=== PATIENT | female | born 1935 | race Caucasian/White ===

== ENCOUNTER → 2016-06-28 | Outpatient (CLI) | payer OTHER, BC ==
[~2016-06-28] MED LIST: BECL0.3A INH; CALC-51 PO; CYM30 PO; HYOS0.1271 PO; LEVO100T7 PO; MESA800T6 PO; MULT-506 PO; OLME20TA26 PO; OMEG12006 PO; OXYC-643 PO; PRAV40TA2 PO; PRED-301 PO; PROP1SOL OPB; RISE150T PO
== END | disposition home or self-care (01) ==
LOC: C.LAB1850 09:01
PROVIDERS: ATTEND Internal Medicine Rheumatology
DX: M81.0 Age-related osteoporosis without current pathological fracture (principal); M35.3 Polymyalgia rheumatica; R70.0 Elevated erythrocyte sedimentation rate; S32.9XXA Fracture of unspecified parts of lumbosacral spine and pelvis, initial encounter for closed fracture; E55.9 Vitamin D deficiency, unspecified; X58.XXXA Exposure to other specified factors, initial encounter

== ENCOUNTER → 2016-07-11 | Outpatient (CLI) | payer OTHER, BC ==
--- NOTE | 2016-07-11 09:59 | DIAGNOSTIC IMAGING REPORT ---
PELVIS 1 OR 2 VIEW ROUTINE CLINICAL HISTORY: Fall. Pelvic pain. COMPARISON STUDY: Pelvic CT 06/12/2016. FINDINGS: The bones are osteopenic. No acute fracture or dislocation within the proximal right or left femur. Patchy areas of sclerosis within the right superior and inferior pubic rami are consistent with healing fractures. No new/acute fractures identified pelvis. 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 The visualized sacrum appears intact. Soft tissues are unremarkable. IMPRESSION: 1. Healing right pubic ring fractures. 2. Otherwise, no new/acute fractures or dislocation within the pelvis or hips. Electronically signed by: Kamari Escobar M.D. 07/11/2016 9:58 AM Dictated Date/Time: 07/11/2016 9:54 AM
== END | disposition home or self-care (01) ==
LOC: C.RAD 09:21
PROVIDERS: ATTEND Family Medicine
DX: S32.810D Multiple fractures of pelvis with stable disruption of pelvic ring, subsequent encounter for fracture with routine healing (principal); X58.XXXD Exposure to other specified factors, subsequent encounter; J22 Unspecified acute lower respiratory infection; J44.1 Chronic obstructive pulmonary disease with (acute) exacerbation

== ENCOUNTER → 2016-08-23 | Outpatient (CLI) | payer OTHER, BC ==
[2016-08-24 16:44] LABS: GAMMA GLOBULIN 1.1 G/DL (0.8-1.7); TOTAL PROTEIN 6.8 G/DL (6.2-8.3)
== END | disposition home or self-care (01) ==
LOC: C.LAB1850 10:58
PROVIDERS: ATTEND Internal Medicine Rheumatology
DX: M35.3 Polymyalgia rheumatica (principal); M81.0 Age-related osteoporosis without current pathological fracture; R70.0 Elevated erythrocyte sedimentation rate; E55.9 Vitamin D deficiency, unspecified; S32.9XXA Fracture of unspecified parts of lumbosacral spine and pelvis, initial encounter for closed fracture; X58.XXXA Exposure to other specified factors, initial encounter

== ENCOUNTER → 2016-09-03 | Outpatient (CLI) | payer OTHER, BC ==
[2016-09-03 10:23] LABS: CHOLESTEROL/HDL RATIO 2.2
== END | disposition home or self-care (01) ==
LOC: C.LAB1850 08:46
PROVIDERS: ATTEND Internal Medicine Cardiovascular Disease
DX: E78.00 Pure hypercholesterolemia, unspecified (principal); I10 Essential (primary) hypertension

== ENCOUNTER → 2016-09-24 | Outpatient (CLI) | payer OTHER, BC ==
[~2016-09-24] MED LIST changes: +MESA1TAB4 PO; -MESA800T6 PO
== END | disposition home or self-care (01) ==
LOC: C.LAB1850 11:03
PROVIDERS: ATTEND Internal Medicine Rheumatology
DX: M81.0 Age-related osteoporosis without current pathological fracture (principal); M35.3 Polymyalgia rheumatica; R70.0 Elevated erythrocyte sedimentation rate; E55.9 Vitamin D deficiency, unspecified; S32.9XXA Fracture of unspecified parts of lumbosacral spine and pelvis, initial encounter for closed fracture; X58.XXXA Exposure to other specified factors, initial encounter

== ENCOUNTER → 2016-10-11 | Outpatient (CLI) | payer OTHER, BC ==
--- NOTE | 2016-10-11 15:00 | DIAGNOSTIC IMAGING REPORT ---
THORACIC SPINE 3-VIEWS CLINICAL HISTORY: Back pain. COMPARISON STUDY: Chest CT March 28, 2016. FINDINGS: There is mild S-shaped scoliosis of the thoracolumbar spine. No acute thoracic spine fracture is identified on this exam. There is moderate multilevel degenerative disc disease with disc space narrowing, osteophytosis and vacuum disc phenomenon. IMPRESSION: 1. Moderate multilevel degenerative disc disease of the thoracic spine. 2. Mild S-shaped scoliosis of the thoracolumbar spine. 3. No thoracic spine fracture identified. Electronically signed by: Rocael Clark M.D. 10/11/2016 2:58 PM Dictated Date/Time: 10/11/2016 2:56 PM
--- NOTE | 2016-10-11 15:42 | DIAGNOSTIC IMAGING REPORT ---
LUMBAR SPINE 5 VIEWS CLINICAL HISTORY: Chronic low back pain. FINDINGS: Five views of the lumbar spine are compared to study dated 09/04/2011. The skeletal structures are osteopenic. There is no radiographic evidence of acute fracture or malalignment involving the lumbar spine. The transverse and spinous processes appear intact. Vertebral body height and alignment are maintained. There is thoracolumbar levocurvature. Small anterior osteophytes are seen throughout. Moderate facet arthropathy is present in the mid to lower lumbar region. There is advanced degenerative disc space narrowing at L5-S1 with vacuum phenomenon and endplate sclerosis. Moderate narrowing is seen at the remaining lumbar levels. The visualized bony pelvis appears intact. Sclerotic change is noted in the sacroiliac joints. There is a nonobstructed abdominal bowel gas pattern noting moderate constipation. Atherosclerotic calcification is observed in the abdominal aorta. IMPRESSION: 1. No acute bony abnormality is seen involving the lumbosacral spine. 2. Osteopenia with lumbosacral spondylosis and scoliosis as above. This appears modestly progressed from the 2012 examination. Dictated: 10/11/2016 3:23 PM Transcribed: 10/11/2016 3:41 PM Elizabeth Electronically signed by: Fox Stratton M.D. 10/11/2016 3:43 PM Dictated Date/Time: 10/11/2016 3:23 PM
== END | disposition home or self-care (01) ==
LOC: C.RDSM 14:37
PROVIDERS: ATTEND Internal Medicine
DX: M47.817 Spondylosis without myelopathy or radiculopathy, lumbosacral region (principal); M85.88 Other specified disorders of bone density and structure, other site; M41.9 Scoliosis, unspecified; M51.34 Other intervertebral disc degeneration, thoracic region

== ENCOUNTER → 2016-10-30 | Outpatient (CLI) | payer OTHER, BC | END | disposition home or self-care (01) | LOC: C.LAB1850 10:27 | PROVIDERS: ATTEND Internal Medicine Rheumatology | DX: M81.0 Age-related osteoporosis without current pathological fracture (principal); M35.3 Polymyalgia rheumatica; E55.9 Vitamin D deficiency, unspecified ==

== ENCOUNTER → 2016-10-31 | Outpatient (CLI) | payer OTHER, BC ==
--- NOTE | 2016-10-31 09:42 | DIAGNOSTIC IMAGING REPORT ---
RIGHT TIBIA/FIBULA 2 VIEWS CLINICAL HISTORY: RIGHT TIB/FIB PAIN Right COMPARISON: None. DISCUSSION: The bones and joint spaces appear intact. There is no evidence of fracture, dislocation or bony disease. There is no evidence for soft tissue swelling. IMPRESSION: Negative study. Electronically signed by: Hesham Smith M.D. 10/31/2016 9:40 AM Dictated Date/Time: 10/31/2016 9:40 AM
== END | disposition home or self-care (01) ==
LOC: C.RDSM 09:20
PROVIDERS: ATTEND Internal Medicine
DX: M79.661 Pain in right lower leg (principal); M54.6 Pain in thoracic spine

== ENCOUNTER → 2016-11-13 | Outpatient (CLI) | payer OTHER, BC | END | disposition home or self-care (01) | LOC: C.MAMM 14:12 | PROVIDERS: ATTEND Internal Medicine Rheumatology | DX: M85.851 Other specified disorders of bone density and structure, right thigh (principal); M85.852 Other specified disorders of bone density and structure, left thigh; M81.0 Age-related osteoporosis without current pathological fracture ==

== ENCOUNTER → 2016-12-03 | Outpatient (CLI) | payer OTHER, BC ==
[2016-12-03 12:21] LABS: BASO % 0.3 %; BASO ABS # 0.02 K/uL (0-0.2); COMPLETE YES; EOS % 0.8 %; HEMATOCRIT 39.2 % (37-47); IG% 0.3 %; LYMPH % 10.1 %; LYMPH ABS # 0.76 K/uL (1.2-3.4); MEAN CELL VOLUME 94.7 fL (80-100); MEAN CORPUSCULAR HEMOGLOBIN 30.4 pg (25-34); MEAN CORPUSCULAR HGB CONC 32.1 g/dl (32-36); MEAN PLATELET VOLUME 11.1 fL (7.4-10.4); MONO % 6.7 %; NEUT % 81.8 %; PLATELET COUNT 210 K/uL (130-400); RED BLOOD COUNT 4.14 M/uL (4.2-5.4); WHITE BLOOD COUNT 7.51 K/uL (4.8-10.8)
== END | disposition home or self-care (01) ==
LOC: C.LAB1850 10:08
PROVIDERS: ATTEND Internal Medicine Rheumatology
DX: J44.9 Chronic obstructive pulmonary disease, unspecified (principal); R06.02 Shortness of breath; M81.0 Age-related osteoporosis without current pathological fracture; M35.3 Polymyalgia rheumatica; S32.9XXA Fracture of unspecified parts of lumbosacral spine and pelvis, initial encounter for closed fracture; X58.XXXA Exposure to other specified factors, initial encounter

== ENCOUNTER → 2016-12-25 | Outpatient (CLI) | payer OTHER, BC ==
[~2016-12-25] MED LIST changes: -MESA1TAB4 PO; +MESA800T6 PO
--- NOTE | 2016-12-26 07:39 | MAMMOGRAPHY REPORT ---
BILATERAL DIGITAL SCREENING MAMMOGRAM WITH CAD: 12/25/2016 CLINICAL HISTORY: Routine screening. Patient has no complaints. TECHNIQUE: Bilateral CC and MLO views were obtained. Current study was also evaluated with a Comput er Aided Detection (CAD) system. COMPARISON: Comparison is made to exams dated: 12/22/2015 mammogram, 04/28/2014 mammogram, 12/12/2012 m ammogram, 11/28/2011 mammogram, 11/07/2010 mammogram, and 11/03/2009 mammogram - [facility] enter. BREAST COMPOSITION: The tissue of both breasts is heterogeneously dense, which may obscure small mas ses. FINDINGS: The parenchymal pattern is similar to prior mammograms. There are a few stable benign rim calcifications in the right breast. No developing mass, architectural distortion or cluster of susp icious microcalcifications is seen in either breast. IMPRESSION: ACR BI-RADS CATEGORY 2: BENIGN There is no mammographic evidence of malignancy. A 1 year screening mammogram is recommended. The pa tient will receive written notification of the results. Approximately 10% of breast cancers are not detected with mammography. A negative mammographic report should not delay biopsy if a clinically suggestive mass is present. Kelly Jim M.D. ay/:12/25/2016 15:43:05 Eating Disorder Specialist: Crissy RASHID(George)(M), [facility] letter sent: Normal 1/2 BI-RADS Code: ACR BI-RADS Category 2: Benign
== END | disposition home or self-care (01) ==
LOC: C.MAMM 11:19
PROVIDERS: ATTEND Family Medicine
DX: Z12.31 Encounter for screening mammogram for malignant neoplasm of breast (principal)

== ENCOUNTER → 2017-01-07 | Outpatient (CLI) | payer OTHER, BC | END | disposition home or self-care (01) | LOC: C.LAB1850 10:02 | PROVIDERS: ATTEND Internal Medicine Rheumatology | DX: M81.0 Age-related osteoporosis without current pathological fracture (principal); M35.3 Polymyalgia rheumatica; E55.9 Vitamin D deficiency, unspecified ==

== ENCOUNTER → 2017-02-19 | Outpatient (CLI) | payer OTHER, BC | END | disposition home or self-care (01) | LOC: C.LAB1850 07:55 | PROVIDERS: ATTEND Internal Medicine Rheumatology | DX: M35.3 Polymyalgia rheumatica (principal); S22.080A Wedge compression fracture of T11-T12 vertebra, initial encounter for closed fracture; X58.XXXA Exposure to other specified factors, initial encounter; Z79.52 Long term (current) use of systemic steroids; J44.9 Chronic obstructive pulmonary disease, unspecified ==

== ENCOUNTER → 2017-03-08 | Outpatient (CLI) | payer OTHER, BC ==
[2017-03-08 10:08] LABS: CHOLESTEROL/HDL RATIO 2.3
== END | disposition home or self-care (01) ==
LOC: C.LAB1850 08:00
PROVIDERS: ATTEND Internal Medicine Cardiovascular Disease
DX: E78.00 Pure hypercholesterolemia, unspecified (principal); K51.90 Ulcerative colitis, unspecified, without complications; M35.3 Polymyalgia rheumatica; E55.9 Vitamin D deficiency, unspecified; Z87.81 Personal history of (healed) traumatic fracture

== ENCOUNTER → 2017-03-21 | Outpatient (CLI) | payer OTHER, BC ==
[2017-03-21 15:16] LABS: BLOOD UREA NITROGEN 9 mg/dl (7-18); BUN/CREATININE RATIO 14.7 (10-20); CALCIUM 9.5 mg/dl (8.5-10.1); CARBON DIOXIDE 32 mmol/L (21-32); CHLORIDE 105 mmol/L (98-107); CREATININE 0.62 mg/dl (0.60-1.20); GLUCOSE 153 mg/dl (70-99); PHOSPHORUS 3.1 mg/dl (2.5-4.9); POTASSIUM 3.4 mmol/L (3.5-5.1); SODIUM 140 mmol/L (136-145)
== END | disposition home or self-care (01) ==
LOC: C.LAB1850 12:46
PROVIDERS: ATTEND Internal Medicine
DX: K51.90 Ulcerative colitis, unspecified, without complications (principal); R10.814 Left lower quadrant abdominal tenderness

== ENCOUNTER → 2017-03-22 | Outpatient (CLI) | payer OTHER, BC | END | disposition home or self-care (01) | LOC: C.LAB1850 13:07 | PROVIDERS: ATTEND Internal Medicine Rheumatology | DX: M35.3 Polymyalgia rheumatica (principal); E55.9 Vitamin D deficiency, unspecified ==

== ENCOUNTER → 2017-03-26 | Outpatient (CLI) | payer OTHER, BC ==
--- NOTE | 2017-03-26 16:08 | DIAGNOSTIC IMAGING REPORT ---
ABD/PELVIS IV AND ORAL CONT CLINICAL HISTORY: 81 years-old Female presenting with ULCERATIVE COLITIS, left lower quadrant pain. TECHNIQUE: Multidetector CT of the abdomen and pelvis was performed after the administration of oral and intravenous contrast. IV contrast: 89 mL of Optiray 320. A dose lowering technique was used consistent with the principles of ALARA (as low as reasonably achievable). COMPARISON: 11/24/2015. CT DOSE (mGy.cm): The estimated cumulative dose is 322.76 mGycm. 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 Lung bases: Lung bases clear. Multichamber enlargement of the heart. No pericardial or pleural effusion. Liver: Normal morphology. No liver lesion. Patent hepatic vasculature. Biliary: Mild intrahepatic bladder ductal prominence without evidence of obstructing mass. Common duct normal in caliber for age. There may be low insertion of the cystic duct at the level of pancreatic head. Irregularity and enhancement of the fundus likely relates to adenomyomatosis. Pancreas: Normal. Spleen: Normal. Adrenal glands: Right adrenal gland poorly visualized. Left adrenal gland normal. Kidneys and ureters: Well-defined hypodensity at the upper pole right kidney consistent with simple cyst. No hydronephrosis. No nephrolithiasis. Ureters poorly evaluated secondary to paucity of intra-abdominal fat. Bladder: Normal. Pelvic organs: Uterus and ovaries normal allowing for noncontrast technique. Bowel: Large stool burden in the colon with mild distention of the transverse and right colon. Normal appendix. No pneumatosis. No bowel obstruction. Small hiatal hernia likely present. Mild apparent wall thickening of the gastric antrum. No convincing evidence of bowel wall thickening elsewhere. Peritoneal cavity: No free fluid or intraperitoneal gas. Lymph nodes: No enlarged lymph nodes in the abdomen or pelvis. Vasculature: Atherosclerosis of the normal caliber abdominal aorta. IVC patent. Abdominal wall: Normal. Musculoskeletal: Post traumatic deformity of the right inferior and superior pubic rami. Degenerative changes of the spine. Mild osteopenia. IMPRESSION: 1. Large stool burden with mild colonic distention. No evidence of acute or chronic chronic inflammation of the large bowel. 2. Mild apparent gastric wall thickening. Although this could be due to underdistention, this could suggest gastritis. Electronically signed by: Brendan Villanueva M.D. 03/26/2017 4:07 PM Dictated Date/Time: 03/26/2017 3:59 PM
== END | disposition home or self-care (01) ==
LOC: C.CTS 13:41
PROVIDERS: ATTEND Internal Medicine
DX: K51.90 Ulcerative colitis, unspecified, without complications (principal); R10.814 Left lower quadrant abdominal tenderness; J44.9 Chronic obstructive pulmonary disease, unspecified; R91.8 Other nonspecific abnormal finding of lung field

== ENCOUNTER → 2017-04-05 | Outpatient (CLI) | payer OTHER, BC ==
--- NOTE | 2017-04-05 08:56 | DIAGNOSTIC IMAGING REPORT ---
CT SCAN OF THE CHEST WITHOUT IV CONTRAST CLINICAL HISTORY: Emphysema. Pulmonary nodule follow-up. COMPARISON STUDY: Chest CT scans dated 03/28/2016 and 08/31/2014. TECHNIQUE: CT scan of the chest is performed from the thoracic inlet to the upper abdomen. Images are reviewed in the axial, sagittal, and coronal planes. IV contrast was not administered for this examination as per the referring clinician. A dose lowering technique was utilized consistent with the principles of ALARA. FINDINGS: THYROID: Atrophic. THORACIC AORTA: There is atherosclerotic calcification of the thoracic aorta which is normal in caliber and demonstrates standard 3-vessel arch anatomy. HEART: The heart is enlarged and there is trace pericardial fluid. There are coronary artery calcifications. The main pulmonary arteries are dilated suggesting pulmonary artery hypertension. MEDIASTINUM: There is no mediastinal lymphadenopathy. LAKISHA: Not well assessed without IV contrast. AXILLAE: There are shotty left axillary lymph nodes. LUNGS AND PLEURAL SPACES: Emphysema and apical scarring are identified. 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 No airspace consolidation or pleural effusion is identified. Foci of linear atelectasis versus scarring are again seen at the lung bases. There are numerous (greater than 10) 2 to 3 mm pulmonary nodules. These are overall similar in size and distribution dating back to 08/31/2014. The largest nodule is seen in the left upper lobe on image #63 and measures 5 mm. The trachea and central airways are clear. UPPER ABDOMEN: There is a small hiatal hernia. Partially visualized upper abdominal viscera is otherwise within normal limits. SKELETAL STRUCTURES: The skeletal structures are osteopenic. No lytic or blastic bony lesions are seen. Degenerative changes and kyphoscoliosis are present in the thoracic spine. Degenerative changes are also seen in the shoulders. IMPRESSION: 1. Cardiomegaly and emphysema. There is no acute cardiopulmonary abnormality. 2. There is unchanged appearance of numerous (greater than 10) indeterminant but low suspicion pulmonary nodules measuring up to 5 mm dated back to 08/31/2014. These are of doubtful significance given over 2 years of stability. 3. Additional findings as above. Electronically signed by: Fox Stratton M.D. 04/05/2017 8:55 AM Dictated Date/Time: 04/05/2017 8:43 AM
== END | disposition home or self-care (01) ==
LOC: C.CTS 08:29
PROVIDERS: ATTEND Internal Medicine Pulmonary Disease
DX: J44.9 Chronic obstructive pulmonary disease, unspecified (principal); R91.8 Other nonspecific abnormal finding of lung field; I51.7 Cardiomegaly

== ENCOUNTER → 2017-07-30 | Outpatient (CLI) | payer OTHER, BC ==
[~2017-07-30] MED LIST changes: +MESA1TAB4 PO; -MESA800T6 PO
--- NOTE | 2017-07-30 18:00 | EXERCISE STRESS ECHO ---
*NOTICE TO RECEIVING LIBERTARIAN AGENCY This information is strictly Confidential and protected under [place] law. [place] law prohibits you from making any further disclosure of this information unless further disclosure is expressly permitted by the written consent of the person to whom it pertains or is authorized by law. A general authorization for the release of medical or other information is not sufficient for this purpose. Hospital accepts no responsibility if the information is made available to any other person, INCLUDING THE PATIENT. Interpretation Summary * Name: MERY SHETH Study Date: 07/30/2017 12:36 PM BP: 157/86 mmHg * Patient Location: [facility] HR: 65 * : 1935 (M/d/yyyy) Gender: Female Height: 64 in * Age: 82 yrs Ethnicity: CA Weight: 119 lb * Ordering Physician: Trent Osorio * Referring Physician: Trent Osorio * Performed By: Debora Mendoza RCS * * Reason For Study: A-Typical Chest Pain, COPD * BSA: 1.6 m2 * -- Conclusions -- * Left ventricular systolic function is normal. * Grade I diastolic dysfunction, (abnormal relaxation pattern). * The right ventricular systolic function is reduced as assessed by tricuspid annular plane systolic excursion (TAPSE) (TAPSE <1.6 cm). * The right atrium is mildly dilated. * Right ventricular systolic pressure is normal. * Diagnostic exercise echocardiogram without definitive evidence of inducible ischemia. Procedure Details * ECHOEX, CPT #[id number] * ECHO COLOR FLOW, CPT #[id number] * ECHO DOPPLER, CPT #[id number] Left Ventricular Findings with Stress * Diagnostic exercise echocardiogram without definitive evidence of inducible ischemia. Left Ventricle * The left ventricle is normal in size. * There is normal left ventricular wall thickness. * Ejection Fraction = 55-60%. * Left ventricular systolic function is normal. * Grade I diastolic dysfunction, (abnormal relaxation pattern). * The left ventricular wall motion is normal at rest. Right Ventricle * The right ventricle is grossly normal size. * The right ventricular systolic function is reduced as assessed by tricuspid annular plane systolic excursion (TAPSE) (TAPSE <1.6 cm). Atria * The left atrial size is normal. * The right atrium is mildly dilated. Mitral Valve * The mitral valve is grossly normal. * There is trace mitral regurgitation. Tricuspid Valve * The tricuspid valve is not well visualized, but is grossly normal. * There is mild tricuspid regurgitation. * Right ventricular systolic pressure is normal. Aortic Valve * The aortic valve is normal in structure and function. * The aortic valve is trileaflet. * No hemodynamically significant valvular aortic stenosis. * Trace aortic regurgitation. Great Vessels * The aortic root is normal size. Pericardium * There is no pericardial effusion. Stress Parameters * Normal baseline electrocardiogram. * There were some minor flattening of the ST segments in recovery * The stress portion of this study was personally supervised by the undersigned interpreting physician. * Rest heart rate was '65' BPM. * Rest blood pressure was '157/86' * Maximum heart rate achieved was 164 bpm. * Maximum heart rate was 117 % of maximum age-predicted heart rate. * Maximum blood pressure was '202/112' * Total exercise time was '6:31' * Maximum exercise MET level achieved was '7.7' METS * Maximum treadmill speed was '3.4' miles per hour. * Maximum treadmill elevation was '14'% grade. * Exercise was terminated due to 'Dyspnea' Left Ventricular Findings with Stress * Baseline EKG was normal There was some mild ST segment flattening in recovery Baseline echocardiogram was normal There was normal augmentation of all moran without development of wall motion abnormality at peak exertion There was a hypertensive response to exercise There were symptoms of dyspnea at peak exertion [place] treadmill score: 6 (low risk) MMode 2D Measurements and Calculations IVSd 0.96 cm IVSs 1.2 cm LVIDd 5.2 cm LVIDs 3.6 cm LVPWd 1.0 cm LVPWs 1.2 cm IVS/LVPW 0.94 FS 30.9 % EDV(Teich) 131.5 ml ESV(Teich) 55.0 ml EF(Teich) 58.2 % EDV(cubed) 143.5 ml ESV(cubed) 47.3 ml EF(cubed) 67.1 % % IVS thick 28.8 % % LVPW thick 16.3 % LV mass(C)d 193.8 grams LV mass(C)dI 123.5 grams/m\S\2 LV mass(C)s 144.4 grams LV mass(C)sI 92.1 grams/m\S\2 SV(Teich) 76.5 ml SI(Teich) 48.8 ml/m\S\2 SV(cubed) 96.2 ml SI(cubed) 61.3 ml/m\S\2 Ao root diam 3.4 cm Ao root area 9.0 cm\S\2 ACS 1.5 cm LA dimension 3.9 cm asc Aorta Diam 3.8 cm LA/Ao 1.1 EDV(MOD-sp4) 97.0 ml ESV(MOD-sp4) 49.0 ml EF(MOD-sp4) 49.5 % EDV(MOD-sp2) 71.0 ml ESV(MOD-sp2) 33.0 ml EF(MOD-sp2) 53.5 % SV(MOD-sp4) 48.0 ml SI(MOD-sp4) 30.6 ml/m\S\2 SV(MOD-sp2) 38.0 ml SI(MOD-sp2) 24.2 ml/m\S\2 Doppler Measurements and Calculations MV E max kinza 80.9 cm/sec MV A max kinza 111.3 cm/sec MV E/A 0.73 MV P1/2t max kinza 85.7 cm/sec MV P1/2t 56.3 msec MVA(P1/2t) 3.9 cm\S\2 MV dec slope 446.0 cm/sec\S\2 MV dec time 0.22 sec Ao V2 max 124.6 cm/sec Ao max PG 6.2 mmHg Ao max PG (full) 1.1 mmHg AI max kinza 376.2 cm/sec AI max PG 56.6 mmHg AI dec slope 283.0 cm/sec\S\2 AI P1/2t 389.3 msec LV V1 max PG 5.1 mmHg LV V1 max 113.2 cm/sec PA V2 max 83.1 cm/sec PA max PG 2.8 mmHg TR max kinza 154.7 cm/sec
== END | disposition home or self-care (01) ==
LOC: C.CPL 12:28
PROVIDERS: ATTEND Family Medicine
DX: R07.89 Other chest pain (principal)

== ENCOUNTER → 2017-08-06 | Outpatient (CLI) | payer OTHER, BC | END | disposition home or self-care (01) | LOC: C.LAB1850 09:02 | PROVIDERS: ATTEND Internal Medicine Rheumatology | DX: M35.3 Polymyalgia rheumatica (principal); Z79.52 Long term (current) use of systemic steroids; E78.00 Pure hypercholesterolemia, unspecified ==

== ENCOUNTER → 2017-09-09 | Outpatient (CLI) | payer OTHER, BC | END | disposition home or self-care (01) | LOC: C.LAB1850 08:33 | PROVIDERS: ATTEND Internal Medicine Cardiovascular Disease | DX: E78.00 Pure hypercholesterolemia, unspecified (principal); M46.1 Sacroiliitis, not elsewhere classified; M35.3 Polymyalgia rheumatica; M41.9 Scoliosis, unspecified; M54.2 Cervicalgia; Z79.52 Long term (current) use of systemic steroids ==

== ENCOUNTER → 2017-10-08 | Outpatient (CLI) | payer OTHER, BC ==
--- NOTE | 2017-10-08 11:02 | DIAGNOSTIC IMAGING REPORT ---
CERVICAL SPINE 4 OR 5 VIEWS HISTORY: Pain NECK PAIN COMPARISON: None. FINDINGS: The cervical spine is visualized from C1 through the superior endplate of T1. Reversal of normal cervical curvature. Considerable degenerative disc changes throughout. This is most prominent from C5 through C7. Moderate osteophytic narrowing of the neuroforamina bilaterally at virtually all levels. Prevertebral soft tissues are unremarkable. Prevertebral soft tissues and the atlantodens interval are intact. IMPRESSION: Severe degenerative change primarily of the lower cervical spine. Muscle spasm. No acute bony abnormality. The above report was generated using voice recognition software. It may contain grammatical, syntax or spelling errors. Electronically signed by: Hesham Smith M.D. 10/08/2017 11:01 AM Dictated Date/Time: 10/08/2017 11:00 AM
== END | disposition home or self-care (01) ==
LOC: C.RDSM 16:56
PROVIDERS: ATTEND Internal Medicine
DX: M54.2 Cervicalgia (principal)

== ENCOUNTER → 2017-10-10 | Outpatient (CLI) | payer OTHER, BC | END | disposition home or self-care (01) | LOC: C.LAB1850 11:38 | PROVIDERS: ATTEND Internal Medicine Rheumatology | DX: M81.8 Other osteoporosis without current pathological fracture (principal); M46.1 Sacroiliitis, not elsewhere classified; M35.3 Polymyalgia rheumatica; Z87.81 Personal history of (healed) traumatic fracture; Z79.52 Long term (current) use of systemic steroids ==

== ENCOUNTER → 2018-01-14 | Outpatient (CLI) | payer OTHER, BC ==
[~2018-01-14] MED LIST changes: +BECL80AE7 INH; +BIOT1CAP8 PO; +BNC/40 PO; +BNC20 PO; +BUPR-79 PO; +CHOL1TAB42 PO; -HYOS0.1271 PO; +HYOS1TAB PO; +IBUP-1050 PO; +LEVO112T4 PO; +MESA800T5 PO; +MULT-513 PO; +OMEG10007 PO; +OXYC-57 PO; +OYST500T47 PO; +PRAV80TA2 PO; -PROP1SOL OPB
--- NOTE | 2018-01-15 14:54 | MAMMOGRAPHY REPORT ---
BILATERAL DIGITAL SCREENING MAMMOGRAM TOMOSYNTHESIS WITH CAD: 01/14/2018 CLINICAL HISTORY: Routine screening. TECHNIQUE: The study was acquired using full field digital technology and interpreted from soft copy. Breast tomosynthesis in addition to standard 2D mammography was performed. Current study was also ev aluated with a Computer Aided Detection (CAD) system. COMPARISON: Comparison is made to exams dated: 12/25/2016 mammogram, 12/22/2015 mammogram, 04/28/2014 m ammogram, 12/12/2012 mammogram, 11/28/2011 mammogram, and 11/07/2010 mammogram - [facility] enter. BREAST COMPOSITION: The tissue of both breasts is heterogeneously dense, which may obscure small mass es. FINDINGS: There are stable punctate microcalcifications in the breasts and stable benign rim calcific ations in the right breast. No suspicious mass, architectural distortion or new cluster of microcalc ifications is seen. IMPRESSION: ACR BI-RADS CATEGORY 1: NEGATIVE There is no mammographic evidence of malignancy. A 1 year screening mammogram is recommended.( 019) The patient will receive written notification of the results. Some breast cancers are not detected with mammography. A negative mammographic report should not andrew y biopsy if a clinically suggestive mass is present. Kelly Jim M.D. ay/:01/14/2018 15:08:48 Forestry Supervisor: RT Alejandro(George)(M), [facility] letter sent: Normal 1/2 BI-RADS Code: ACR BI-RADS Category 1: Negative
== END | disposition home or self-care (01) ==
LOC: C.MAMM 09:08
PROVIDERS: ATTEND Internal Medicine Cardiovascular Disease
DX: Z12.31 Encounter for screening mammogram for malignant neoplasm of breast (principal)

== ENCOUNTER 2018-01-20 08:54 | Emergency (ER) | payer OTHER, BC ==
[~2018-01-20] VITALS: Ht 152.4 cm; Wt 53.0 kg
[~2018-01-20 08:54] MED LIST changes: -BECL80AE7 INH; -BIOT1CAP8 PO; -BNC/40 PO; -BNC20 PO; -CHOL1TAB42 PO; -HYOS1TAB PO; -LEVO112T4 PO; -MESA800T5 PO; -MULT-513 PO; -OMEG10007 PO; -OXYC-57 PO; -OYST500T47 PO; -PRAV80TA2 PO; -PRED-301 PO
[2018-01-20 08:59] VITALS: TEMP 36.3; Ht 152.4 cm; Wt 53.0 kg
--- NOTE | 2018-01-20 09:43 | EMERGENCY ROOM VISIT NOTE ---
History Report prepared by Michaela: Shaquille Lopez Under the Supervision of: Dr. Gagandeep Rothman M.D. First contact with patient: 09:22 Chief Complaint: HYPERTENSION Stated Complaint: HIGH BLOOD PRESSURE History of Present Illness The patient is an 82 year old female who presents to the Emergency Room with complaints of waxing and waning high blood pressure readings. The patient notes that she has a history of hypertension and is on Benicar daily. Yesterday, the blood pressure increased acutely and she had a systolic pressure consistently in the 190s. [facility] and the pressure gradually came down. This morning the pressure was up again. She also complains of some swelling in her feet/ankles bilaterally. She denies any other physical symptoms including chest pain, shortness of breath, dizziness, or headache. Source of History: patient Onset: HTN in the 190s yesterday Position: ankle (bilateral), foot (bilateral) Quality: other (HTN, swelling in feetl/ankles) Timing: waxes/wanes Associated Symptoms: No headache, No chest pain, No SOB Review of Systems See HPI for pertinent positives & negatives. A total of 10 systems reviewed and were otherwise negative. Past Medical & Surgical Medical Problems: (1) Cervical facet syndrome (2) Cervicalgia (3) COPD (chronic obstructive pulmonary disease) (4) Depression (5) Hyperlipidemia (6) Hypertension (7) Hypothyroidism (8) Osteoarthritis (9) Osteoporosis (10) Ulcerative colitis Family History Patient reports no known family medical history. Social History Smoking Status: Former Smoker Marital Status: Occupation Status: retired Current/Historical Medications Scheduled Beclomethasone Dip (Qvar), 2 PUFFS INH BID Biotin (Biotin), 1 CAP PO DAILY Bupropion (Wellbutrin Sr), 150 MG PO BID Cholecalciferol (Vitamin D), 5,000 UNITS PO DAILY Fish Oil (Independence-3), 1 CAP PO UD Levothyroxine Sodium (Levothyroxine Sodium), 112 MCG PO DAILY Mesalamine (Asacol Hd), 800 MG PO TID Multivitamins/Minerals (Mvi With Minerals), 1 TAB PO DAILY Olmesartan Medoxomil (Benicar), 20 MG PO DAILY Olmesartan Medoxomil (Benicar), 1 TAB PO DAILY Oyster Shell (Calcium), 500 MG PO TID Pravastatin Sodium (Pravastatin Sodium), 80 MG PO HS Risedronate Sodium (Actonel), 150 MG PO MONTHLY Scheduled PRN Hyoscyamine Sulfate (Levsin), 0.125 MG PO TID PRN for ABDOMINAL PAIN Oxycodone/Acetaminophen 5MG/325MG (Percocet 5MG/325MG), 1 TABLET PO Q6H PRN for Pain Allergies Coded Allergies: Codeine (Verified Adverse Reaction, Unknown, NAUSEATED/LIGHTHEADED, 01/20/18 ) Physical Exam Vital Signs Date Time Temp Pulse Resp B/P (MAP) Pulse Ox O2 Delivery O2 Flow Rate FiO2 01/20/18 12:27 65 16 171/93 99 01/20/18 10:55 70 18 166/106 99 Room Air 01/20/18 10:25 80 17 160/87 98 Room Air 01/20/18 10:04 96 Room Air 01/20/18 09:49 65 01/20/18 08:59 36.3 71 18 181/97 99 Room Air Physical Exam GENERAL: Awake, alert, well-appearing, in no acute distress HENT: Normocephalic, atraumatic. Oropharynx unremarkable. EYES: Normal conjunctiva. Sclera non-icteric. NECK: Supple. No nuchal rigidity. FROM. No JVD. RESPIRATORY: Clear to auscultation. CARDIAC: Regular rate, normal rhythm. Extremities warm and well perfused. Pulses equal. ABDOMEN: Soft, non-distended. No tenderness to palpation. No rebound or guarding. No masses. RECTAL: Deferred. MUSCULOSKELETAL: Chest examination reveals no tenderness. The back is symmetrical on inspection without obvious abnormality. There is no CVA tenderness to palpation. No joint edema. LOWER EXTREMITIES: Calves are equal size bilaterally and non-tender. No edema. No discoloration. NEURO: Normal sensorium. No sensory or motor deficits noted. SKIN: No rash or jaundice noted. Medical Decision & Procedures ER Provider Diagnostic Interpretation: Radiology results as stated below per my review and radiologist interpretation: SINGLE VIEW CHEST CLINICAL HISTORY: Hypertension. FINDINGS: An AP, portable, upright chest radiograph is correlated with chest CT dated 04/05/2017. The examination is degraded by portable technique and patient rotation. The heart is enlarged and there is atherosclerotic calcification of the thoracic aorta. The pulmonary vasculature is noncongested. Emphysema and chronic interstitial thickening are similar to previous. No airspace consolidation or large pleural effusion is identified. No pneumothorax is seen. The skeletal structures are osteopenic. Degenerative change and scoliosis are noted in the thoracic spine. IMPRESSION: Cardiomegaly and emphysema with no acute cardiopulmonary abnormality. Electronically signed by: Fox Stratton M.D. 01/20/2018 10:55 AM Dictated Date/Time: 01/20/2018 10:54 AM Laboratory Results 01/20/18 09:25 Red Blood Count 4.07, Mean Corpuscular Volume 90.7, Mean Corpuscular Hemoglobin 30.0, Mean Corpuscular Hemoglobin Concent 33.1, Mean Platelet Volume 10.6, Neutrophils (%) (Auto) 61.5, Lymphocytes (%) (Auto) 22.8, Monocytes (%) (Auto) 10.7, Eosinophils (%) (Auto) 4.2, Basophils (%) (Auto) 0.8, Neutrophils # (Auto ) 2.19, Lymphocytes # (Auto) 0.81, Monocytes # (Auto) 0.38, Eosinophils # (Auto ) 0.15, Basophils # (Auto) 0.03 01/20/18 09:25 Test 01/20/18 09:25 01/20/18 11:20 White Blood Count 3.56 K/uL (4.8-10.8) Red Blood Count 4.07 M/uL (4.2-5.4) Hemoglobin 12.2 g/dL (12.0-16.0) Hematocrit 36.9 % (37-47) Mean Corpuscular Volume 90.7 fL (80-100) Mean Corpuscular Hemoglobin 30.0 pg (25-34) Mean Corpuscular Hemoglobin Concent 33.1 g/dl (32-36) Platelet Count 200 K/uL (130-400) Mean Platelet Volume 10.6 fL (7.4-10.4) Neutrophils (%) (Auto) 61.5 % Lymphocytes (%) (Auto) 22.8 % Monocytes (%) (Auto) 10.7 % Eosinophils (%) (Auto) 4.2 % Basophils (%) (Auto) 0.8 % Neutrophils # (Auto) 2.19 K/uL (1.4-6.5) Lymphocytes # (Auto) 0.81 K/uL (1.2-3.4) Monocytes # (Auto) 0.38 K/uL (0.11-0.59) Eosinophils # (Auto) 0.15 K/uL (0-0.5) Basophils # (Auto) 0.03 K/uL (0-0.2) RDW Standard Deviation 43.7 fL (36.4-46.3) RDW Coefficient of Variation 13.2 % (11.5-14.5) Immature Granulocyte % (Auto) 0.0 % Immature Granulocyte # (Auto) 0.00 K/uL (0.00-0.02) Prothrombin Time 10.5 SECONDS (9.0-12.0) Prothromb Time International Ratio 1.0 (0.9-1.1) Activated Partial Thromboplast Time 26.0 SECONDS (21.0-31.0) Partial Thromboplastin Ratio 1.0 Anion Gap 5.0 mmol/L (3-11) Est Creatinine Clear Calc Drug Dose 60.9 ml/min Estimated GFR () 103.9 Estimated GFR (Non- 89.6 BUN/Creatinine Ratio 20.2 (10-20) Calcium Level 8.8 mg/dl (8.5-10.1) Total Bilirubin 0.5 mg/dl (0.2-1) Direct Bilirubin 0.1 mg/dl (0-0.2) Aspartate Amino Transf (AST/SGOT) 24 U/L (15-37) Alanine Aminotransferase (ALT/SGPT) 23 U/L (12-78) Alkaline Phosphatase 61 U/L (45-117) Total Creatine Kinase 104 U/L (26-192) Creatine Kinase MB 4.6 ng/ml (0.5-3.6) Creatine Kinase MB Ratio 4.4 (0-3.0) Troponin I < 0.015 ng/ml (0-0.045) Total Protein 7.2 gm/dl (6.4-8.2) Albumin 4.1 gm/dl (3.4-5.0) Lipase 191 U/L (73-393) Thyroid Stimulating Hormone (TSH) 0.184 uIu/ml (0.300-4.500) Urine Color YELLOW Urine Appearance CLEAR (CLEAR) Urine pH 8.5 (4.5-7.5) Urine Specific Crawford 1.007 (1.000-1.030) Urine Protein NEG (NEG) Urine Glucose (UA) NEG (NEG) Urine Ketones NEG (NEG) Urine Occult Blood NEG (NEG) Urine Nitrite NEG (NEG) Urine Bilirubin NEG (NEG) Urine Urobilinogen NEG (NEG) Urine Leukocyte Esterase NEG (NEG) Labs reviewed by ED physician. Medications Administered Medications (Trade) Dose Ordered Sig/Rafael Route Start Time Stop Time Status Last Admin Dose Admin Potassium Chloride (Klor-Con M10) 40 meq STK-MED ONCE .ROUTE 01/20/18 11:00 01/20/18 11:01 DC 01/20/18 11:02 40 MEQ ECG Per My Interpretation Indication: other (HTN) Rate (beats per minute): 61 Rhythm: normal sinus Findings: no ectopy, other (No CARMITA/STD) ED Course 928: Past medical records reviewed. The patient was evaluated in room C8. A complete history and physical examination was performed. 1221: Upon reexamination the patient is resting in bed. I discussed results and treatment plan with the patient. She verbalizes agreement and understanding. The patient is ready for discharge. Medical Decision Prior records/ancillary studies reviewed regarding the history above. Triage Nursing notes reviewed. Differential diagnosis: Etiologies such as benign hypertension, hypertensive emergency, cardiovascular pathology, pheochromocytoma, electrolyte abnormality, renal disease, endorgan damage, as well as others were entertained. This is an 82-year-old female who presents emergency department complaining of high blood pressure. Despite the high blood pressure the patient is asymptomatic. I reviewed several things about the patient including her blood pressure medication as well as her diet over the previous weekend as well as the large amount of heat this week. The patient denies any problems or issues in regards to these aspects. Using shared medical decision making with the patient we decided to obtain some laboratory work. Her potassium was found to be depleted. This was repleted here in the emergency department. She does have a clean urine. Again using shared medical decision making with the patient I gave the patient several options to follow-up with her primary care physician which she is going to do after this visit, increasing her potassium at home, or increasing her blood pressure medication. The patient would like to increase her blood pressure medication. I stressed the need for follow-up with her primary care physician. Patient was in agreement with treatment plan. Medication Reconcilliation Current Medication List: was personally reviewed by me Blood Pressure Screening Patient's blood pressure: Elevated blood pressure Blood pressure disposition: Referred to PCP Impression Primary Impression: Hypertension Additional Impression: Hypokalemia Scribe Attestation The scribe's documentation has been prepared under my direction and personally reviewed by me in its entirety. I confirm that the note above accurately reflects all work, treatment, procedures, and medical decision making performed by me. Departure Information Dispostion Home / Self-Care Prescriptions Olmesartan Medoxomil (BENICAR) 40 Mg Tab 1 TAB PO DAILY for 30 Days, #30 TAB Prov: Gagandeep Rothman MD 01/20/18 Referrals Trent Osorio M.D. (PCP) Forms HOME CARE DOCUMENTATION FORM, IMPORTANT VISIT INFORMATION, WORK / SCHOOL INSTRUCTIONS Patient Instructions My [facility] Additional Instructions Follow up with Dr Osorio's office Increase Benicar to double the dose Culture results are usually available in approx 48 hours You have been examined and treated today on an emergency basis only. This is not a substitute for, or an effort to provide, complete comprehensive medical care. It is impossible to recognize and treat all injuries or illnesses in a single emergency department visit. It is therefore important that you follow up closely with Dr Osorio. Call as soon as possible for an appointment. Thank you for your time and consideration. I look forward to speaking with you again soon. Please don't hesitate to call us if you have any questions. Problem Qualifiers Primary Impression: Hypertension Hypertension type: unspecified Qualified Codes: I10 - Essential (primary) hypertension
[2018-01-20 09:56] LABS: BASO % 0.8 %; BASO ABS # 0.03 K/uL (0-0.2); EOS % 4.2 %; EOS ABS # 0.15 K/uL (0-0.5); HEMATOCRIT 36.9 % (37-47); HEMOGLOBIN 12.2 g/dL (12.0-16.0); LYMPH % 22.8 %; LYMPH ABS # 0.81 K/uL (1.2-3.4); MEAN CELL VOLUME 90.7 fL (80-100); MEAN CORPUSCULAR HGB CONC 33.1 g/dl (32-36); MEAN PLATELET VOLUME 10.6 fL (7.4-10.4); MONO % 10.7 %; MONO ABS # 0.38 K/uL (0.11-0.59); NEUT % 61.5 %; NEUT ABS # 2.19 K/uL (1.4-6.5); PLATELET COUNT 200 K/uL (130-400); RED CELL DISTRIBUTION WIDTH CV 13.2 % (11.5-14.5); RED CELL DISTRIBUTION WIDTH SD 43.7 fL (36.4-46.3); WHITE BLOOD COUNT 3.56 K/uL (4.8-10.8)
[2018-01-20 10:04] VITALS: O2SAT 96
[2018-01-20] MEDS ORDERED: HYOS1TAB PO (10:10)
[2018-01-20] MEDS ORDERED: LEVO112T4 PO (10:10)
[2018-01-20] MEDS ORDERED: MESA800T5 PO (10:10)
[2018-01-20] MEDS ORDERED: RISE150T PO (10:10)
[2018-01-20] MEDS ORDERED: OYST500T47 PO (10:10)
[2018-01-20] MEDS ORDERED: OXYC-57 PO (10:10)
[2018-01-20] MEDS ORDERED: CHOL1TAB42 PO (10:10)
[2018-01-20] MEDS ORDERED: MULT-513 PO (10:10)
[2018-01-20] MEDS ORDERED: BNC20 PO (10:10)
[2018-01-20] MEDS ORDERED: BECL80AE7 INH (10:10)
[2018-01-20] MEDS ORDERED: BIOT1CAP8 PO (10:10)
[2018-01-20] MEDS ORDERED: PRAV80TA2 PO (10:10)
[2018-01-20] MEDS ORDERED: BUPR-79 PO (10:10)
[2018-01-20] MEDS ORDERED: OMEG10007 PO (10:10)
[2018-01-20 10:24] LABS: ALBUMIN 4.1 gm/dl (3.4-5.0); ALKALINE PHOSPHATASE 61 U/L (45-117); ALT/SGPT 23 U/L (12-78); AST/SGOT 24 U/L (15-37); BLOOD UREA NITROGEN 11 mg/dl (7-18); CALCIUM 8.8 mg/dl (8.5-10.1); CARBON DIOXIDE 30 mmol/L (21-32); CKMB 4.6 ng/ml (0.5-3.6); CREATININE 0.52 mg/dl (0.60-1.20); GLUCOSE 89 mg/dl (70-99); LIPASE 191 U/L (73-393); POTASSIUM 3.4 mmol/L (3.5-5.1); SODIUM 140 mmol/L (136-145); TOTAL PROTEIN 7.2 gm/dl (6.4-8.2)
[2018-01-20] MEDS ORDERED: POTASSIUM CHLORIDE 20 MEQ TABCR PO STA (10:50)
--- NOTE | 2018-01-20 10:56 | DIAGNOSTIC IMAGING REPORT ---
SINGLE VIEW CHEST CLINICAL HISTORY: Hypertension. FINDINGS: An AP, portable, upright chest radiograph is correlated with chest CT dated 04/05/2017. The examination is degraded by portable technique and patient rotation. The heart is enlarged and there is atherosclerotic calcification of the thoracic aorta. The pulmonary vasculature is noncongested. Emphysema and chronic interstitial thickening are similar to previous. No airspace consolidation or large pleural effusion is identified. No pneumothorax is seen. The skeletal structures are osteopenic. Degenerative change and scoliosis are noted in the thoracic spine. IMPRESSION: Cardiomegaly and emphysema with no acute cardiopulmonary abnormality. Electronically signed by: Fox Stratton M.D. 01/20/2018 10:55 AM Dictated Date/Time: 01/20/2018 10:54 AM
[2018-01-20] MEDS ORDERED: POTASSIUM CHLORIDE 10 MEQ TABCR ONE (11:00)
[2018-01-20] MEDS ORDERED: BNC/40 PO (12:14)
[2018-01-20 12:27] VITALS: BP 171/93; PULSE 65; O2SAT 99
== END 2018-01-20 12:27 | disposition home or self-care (01) ==
LOC: C.EDB 08:55 → C.EDC 12:27
DX: I10 Essential (primary) hypertension (principal); E87.6 Hypokalemia; J44.9 Chronic obstructive pulmonary disease, unspecified; F32.9 Major depressive disorder, single episode, unspecified; E03.9 Hypothyroidism, unspecified; K51.90 Ulcerative colitis, unspecified, without complications; E78.5 Hyperlipidemia, unspecified; M81.0 Age-related osteoporosis without current pathological fracture; Z87.891 Personal history of nicotine dependence; Z88.6 Allergy status to analgesic agent

== ENCOUNTER → 2018-01-23 | Outpatient (CLI) | payer OTHER, BC ==
[~2018-01-23] MED LIST changes: -BECL0.3A INH; +BECL80AE7 INH; +BIOT1CAP8 PO; +BNC/40 PO; +BNC20 PO; -CALC-51 PO; +CHOL1TAB42 PO; -CYM30 PO; +HYOS1TAB PO; -IBUP-1050 PO; -LEVO100T7 PO; +LEVO112T4 PO; -MESA1TAB4 PO; +MESA800T5 PO; -MULT-506 PO; +MULT-513 PO; -OLME20TA26 PO; +OMEG10007 PO; -OMEG12006 PO; +OXYC-57 PO; -OXYC-643 PO; +OYST500T47 PO; -PRAV40TA2 PO; +PRAV80TA2 PO
== END | disposition home or self-care (01) ==
LOC: C.MAMM 09:57
PROVIDERS: ATTEND Internal Medicine Rheumatology
DX: M80.00XA Age-related osteoporosis with current pathological fracture, unspecified site, initial encounter for fracture (principal)

== ENCOUNTER 2020-08-30 09:58 | Observation (INO) ==
[2020-08-30] MEDS ORDERED: KETOROLAC TROMETHAMINE 15 MG/ML VIAL IV ONE (10:55)
--- NOTE | 2020-08-30 11:01 | Emergency Department Note ---
History of Present Illness General Chief complaint: Hand Injury/Pain Stated complaint: LT WRIST/HAND PAIN/SWELLING Time Seen by Provider: 08/30/20 10:34 Source: patient and other (Her home nurse who is at the bedside) Mode of arrival: ambulatory Limitations: no limitations History of Present Illness Maximum Pain Intensity: 8 This patient is a 85-year-old female who comes in complaining of left hand and wrist pain that started yesterday but got worse today. She had no fall or injury however she says that she uses that hand to put her feet up on her chair and may have overused or injured it. She is right-handed. She has no fever or chills or shortness of breath. she has chronic neck pain from arthritis but nothing worse or different she does have COPD which has been at baseline. She did have a Covid shot in that arm over a week ago but had no problems. She is on any blood thinners. No bowel or bladder problems Home Medications Medication Instructions Recorded Confirmed Type bupropion HCl 150 mg tablet,12 hr 150 mg PO BID 03/03/18 08/30/20 History sustained-release calcium carbonate 500 mg calcium 500 mg PO BID tab 03/03/18 08/16/20 History (1,250 mg) tablet cholecalciferol (vitamin D3) 125 5,000 units PO QAM 03/03/18 08/16/20 History mcg (5,000 unit) capsule multivitamin with minerals 1 tab PO QAM tab 03/03/18 08/16/20 History omega-3 fatty acids 1,000 mg 1,000 mg PO BID 03/03/18 08/16/20 History capsule naproxen sodium [Aleve] 220 mg PO Q12H PRN 12/10/19 08/16/20 History beclomethasone dipropionate 80 2 inh INH BID #3 inhaler 03/16/20 08/30/20 Rx mcg/actuation HFA breath activated aerosol olmesartan 40 1 tab PO QAM 04/19/20 08/30/20 History mg-hydrochlorothiazide 12.5 mg tablet pravastatin 40 mg tablet 40 mg PO HS 04/19/20 08/30/20 History trospium 20 mg tablet 20 mg PO BID 04/19/20 08/30/20 History bumetanide 2 mg tablet 2 mg PO BID 08/16/20 08/30/20 History furosemide 80 mg PO QAM 08/30/20 08/30/20 History levothyroxine 100 mcg PO DAILYBB 08/30/20 08/30/20 History mesalamine 800 mg PO TID 08/30/20 08/30/20 History Allergies Allergy/AdvReac Type Severity Reaction Status Date / Time codeine AdvReac Unknown NAUSEATED/L Verified 08/16/20 13:59 IGHTHEADED Past Med/Surg History Medical History (Updated 08/30/20 @ 15:59 by Yeison Goode MD) Cervical facet syndrome Cervicalgia COPD (chronic obstructive pulmonary disease) Depression Hyperlipidemia Hypertension Hypothyroidism Myofascial pain Osteoarthritis Osteoporosis Ulcerative colitis Surgical History History of inguinal hernia repair Family History Other Family history non-contributory Denies family history of Esophageal cancer Crohn's disease Colorectal cancer Ulcerative colitis Social History Smoking Status: Never smoker Hx Alcohol Use: No Hx Substance Use: No Preferred Language: Palauan Communication Ability: Effective Visual Impairment: No Limitations Hearing Ability: Normal Beliefs That Will Affect Care: None marital status: / Current Living Situation: Alone current occupational status: retired Feels Safe at Home: Yes Review of Systems A total of 10 systems reviewed and were otherwise negative Physical Exam Vital Signs Vital Signs - 24 hr 08/30/20 10:21 08/30/20 11:27 08/30/20 11:30 Pulse Rate 66 105 H 66 Pulse Rate from SpO2 Sensor Respiratory Rate 16 15 Blood Pressure 152/85 H Blood Pressure Mean 107 Pulse Oximetry 98 98 Oxygen Delivery Method Room Air Sepsis Recent Fever Within 48 Hours No Sepsis New/Unexplained Change in Mental Status N/A Sepsis Action Taken by Nursing No Action Required 08/30/20 11:40 08/30/20 11:50 08/30/20 12:07 Pulse Rate 66 65 100 H Pulse Rate from SpO2 Sensor 68 63 Respiratory Rate 16 Blood Pressure Blood Pressure Mean Pulse Oximetry 96 95 Oxygen Delivery Method Sepsis Recent Fever Within 48 Hours Sepsis New/Unexplained Change in Mental Status Sepsis Action Taken by Nursing 08/30/20 12:10 08/30/20 12:56 08/30/20 13:00 Pulse Rate 66 70 69 Pulse Rate from SpO2 Sensor Respiratory Rate 12 21 12 Blood Pressure Blood Pressure Mean Pulse Oximetry Oxygen Delivery Method Sepsis Recent Fever Within 48 Hours Sepsis New/Unexplained Change in Mental Status Sepsis Action Taken by Nursing 08/30/20 13:10 08/30/20 13:20 08/30/20 13:30 Pulse Rate 78 81 77 Pulse Rate from SpO2 Sensor Respiratory Rate 14 Blood Pressure Blood Pressure Mean Pulse Oximetry Oxygen Delivery Method Sepsis Recent Fever Within 48 Hours Sepsis New/Unexplained Change in Mental Status Sepsis Action Taken by Nursing 08/30/20 13:40 08/30/20 13:50 08/30/20 14:00 Pulse Rate 70 70 74 Pulse Rate from SpO2 Sensor Respiratory Rate 20 20 Blood Pressure Blood Pressure Mean Pulse Oximetry Oxygen Delivery Method Sepsis Recent Fever Within 48 Hours Sepsis New/Unexplained Change in Mental Status Sepsis Action Taken by Nursing 08/30/20 14:10 08/30/20 14:20 08/30/20 14:30 Pulse Rate 73 70 74 Pulse Rate from SpO2 Sensor Respiratory Rate 12 18 Blood Pressure Blood Pressure Mean Pulse Oximetry Oxygen Delivery Method Sepsis Recent Fever Within 48 Hours Sepsis New/Unexplained Change in Mental Status Sepsis Action Taken by Nursing 08/30/20 14:40 08/30/20 14:50 08/30/20 15:00 Pulse Rate 73 79 75 Pulse Rate from SpO2 Sensor Respiratory Rate 15 15 Blood Pressure Blood Pressure Mean Pulse Oximetry Oxygen Delivery Method Sepsis Recent Fever Within 48 Hours Sepsis New/Unexplained Change in Mental Status Sepsis Action Taken by Nursing General: Well developed well nourished older female who is complaining of pain but in no acute respiratory distress, breathing comfortably on room air. Normal speech HEENT: Normal cephalic atraumatic. Pupils are equal round and reactive to light. Extraocular movements are intact. Oropharynx is pink with moist mucous membranes. No swelling of the mouth lips or tongue. Neck: Supple with a midline trachea. No meningeal signs or stiffness, no JVD or bruits. No Stridor. Chest: Clear to auscultation bilaterally. No wheezes or rhonchi. No increased work of breathing. Heart: Regular rate and rhythm without murmurs or gallops. Abdomen: Soft nontender, nondistended without rebound guarding or rigidity. Extremities: No cyanosis clubbing or edema. Her left wrist has some swelling of the dorsal aspects. It is not warm is mildly red. She has a bounding radial pulse motor and sensation seem intact although limited due to pain. There is no swelling along the proximal arm or elbow or any tenderness there. She does have intact capillary refill. She does have skin changes in her fingertips but they are present on both hands. She does have bilateral lower extremity edema as well. Spine/Back. Non tender to palpation. No CVA tenderness Skin: Good turgor without rashes. Neurologic exam: Cranial nerves two through 12 are intact. Motor and sensation are intact and symmetrical throughout. Course Administered Medications Discontinued Medications Acetaminophen (Acetaminophen 325 Mg Tab) 650 mg PO NOW STA Stop: 08/30/20 15:05 Last Admin: 08/30/20 15:30 Dose: 650 mg Documented by: [id number] Ketorolac Tromethamine (Ketorolac Tromethamine 15 Mg/Ml Vial) 15 mg IV NOW ONE Stop: 08/30/20 10:56 Last Admin: 08/30/20 11:29 Dose: 15 mg Documented by: [id number] Morphine Sulfate (Morphine Sulfate 2 Mg/Ml Carp) 2 mg IV NOW STA Stop: 08/30/20 11:56 Last Admin: 08/30/20 12:12 Dose: 2 mg Documented by: [id number] Morphine Sulfate (Morphine Sulfate 2 Mg/Ml Carp) 2 mg IV NOW STA Stop: 08/30/20 12:57 Last Admin: 08/30/20 13:28 Dose: 2 mg Documented by: [id number] Ondansetron HCl (Ondansetron Inj 2 Mg/Ml 2 Ml Vial) 4 mg IV NOW STA Stop: 08/30/20 11:56 Last Admin: 08/30/20 12:12 Dose: 4 mg Documented by: [id number] Medical Decision Making Differential Diagnosis Arthritis, infection, Covid vaccine complication, electrolyte or metabolic abnormality, gout, tendinitis, overuse, musculoskeletal, sepsis Medical Records Attestation: I reviewed the patient's medical records. Home Medications Current Medication List: was personally reviewed by me Laboratory Data Attestation: I reviewed the patient's lab results. Result diagrams: 08/30/20 11:25 08/30/20 11:25 Lab Results 08/30/20 08/30/20 08/30/20 Range/Units 11:25 11:25 11:25 WBC 8.34 (4.8-10.8) K/uL RBC 3.78 L (4.2-5.4) M/uL Hgb 11.4 L (12.0-16.0) g/dL Hct 34.1 L (37-47) % MCV 90.2 (80-100) fL MCH 30.2 (25-34) pg MCHC 33.4 (32-36) g/dL RDW Std Deviation 46.2 (36.4-46.3) fL RDW Coeff of Monico 13.9 (11.5-14.5) % Plt Count 226 (130-400) K/uL MPV 9.6 (7.4-10.4) fL Immature Gran % (Auto) 0.1 % Neut % (Auto) 76.4 % Lymph % (Auto) 9.6 % [place] % (Auto) 13.3 % Eos % (Auto) 0.5 % Baso % (Auto) 0.1 % Neut # (Auto) 6.37 (1.4-6.5) K/uL Lymph # (Auto) 0.80 L (1.2-3.4) K/uL [place] # (Auto) 1.11 H (0.11-0.59) K/uL Eos # (Auto) 0.04 (0-0.5) K/uL Baso # (Auto) 0.01 (0-0.2) K/uL Immature Gran # (Auto) 0.01 (0.00-0.02) K/uL ESR 46 H (0-21) mm/hr Sodium 136 (136-145) mmol/L Potassium 3.3 L (3.5-5.1) mmol/L Chloride 98 (98-107) mmol/L Carbon Dioxide 34 H (21-32) mmol/L Anion Gap 4.0 (3-11) BUN 24 H (7-18) mg/dl Creatinine 0.72 (0.6-1.2) mg/dl Est Cr Clr Drug Dosing 48.1 ml/min Est GFR ( Amer) 89.1 Est GFR (Non-Af Amer) 76.9 BUN/Creatinine Ratio 34.1 H (10-20) Glucose 116 H (70-99) mg/dl Uric Acid 4.9 (2.6-7.2) mg/dl Calcium 9.2 (8.5-10.1) mg/dl Total Bilirubin 0.4 (0.2-1) mg/dl AST 26 (15-37) U/L ALT 31 (12-78) U/L Alkaline Phosphatase 118 H (45-117) U/L C-Reactive Protein 0.48 H (0-0.29) mg/dl Total Protein 8.2 (6.4-8.2) gm/dl Albumin 3.9 (3.4-5.0) gm/dl Globulin 4.3 H (2.5-4.0) gm/dl Albumin/Globulin Ratio 0.9 (0.9-2) COVID-19 Eval Order 08/30/20 Range/Units 15:35 WBC (4.8-10.8) K/uL RBC (4.2-5.4) M/uL Hgb (12.0-16.0) g/dL Hct (37-47) % MCV (80-100) fL MCH (25-34) pg MCHC (32-36) g/dL RDW Std Deviation (36.4-46.3) fL RDW Coeff of Monico (11.5-14.5) % Plt Count (130-400) K/uL MPV (7.4-10.4) fL Immature Gran % (Auto) % Neut % (Auto) % Lymph % (Auto) % [place] % (Auto) % Eos % (Auto) % Baso % (Auto) % Neut # (Auto) (1.4-6.5) K/uL Lymph # (Auto) (1.2-3.4) K/uL [place] # (Auto) (0.11-0.59) K/uL Eos # (Auto) (0-0.5) K/uL Baso # (Auto) (0-0.2) K/uL Immature Gran # (Auto) (0.00-0.02) K/uL ESR (0-21) mm/hr Sodium (136-145) mmol/L Potassium (3.5-5.1) mmol/L Chloride (98-107) mmol/L Carbon Dioxide (21-32) mmol/L Anion Gap (3-11) BUN (7-18) mg/dl Creatinine (0.6-1.2) mg/dl Est Cr Clr Drug Dosing ml/min Est GFR ( Amer) Est GFR (Non-Af Amer) BUN/Creatinine Ratio (10-20) Glucose (70-99) mg/dl Uric Acid (2.6-7.2) mg/dl Calcium (8.5-10.1) mg/dl Total Bilirubin (0.2-1) mg/dl AST (15-37) U/L ALT (12-78) U/L Alkaline Phosphatase (45-117) U/L C-Reactive Protein (0-0.29) mg/dl Total Protein (6.4-8.2) gm/dl Albumin (3.4-5.0) gm/dl Globulin (2.5-4.0) gm/dl Albumin/Globulin Ratio (0.9-2) COVID-19 Eval Order Covid19 [facility] Imaging Data Radiologist's Impression: XR wrist LT 2V CLINICAL HISTORY: left wrist pain COMPARISON: X-ray of the hand dated 04/05/2016 DISCUSSION: There is mild soft tissue swelling. There are bony erosions involving the ulnar styloid. There is joint space narrowing and subchondral cyst formation at the level the first carpal metacarpal joint. The bones are mildly osteopenic. There is a chronic scaphoid deformity. There is a cyst/erosion involving the proximal navicular pole. IMPRESSION: Persistent moderate arthritic changes of the wrist. Chronic scaphoid deformity. No acute fractures. Bony erosions involving the ulnar styloid. Enl arging cyst/erosion involving the proximal pole the navicular. LEFT HAND 3 VIEWS CLINICAL HISTORY: Atraumatic left hand pain. FINDINGS: 3 views of the left hand are compared to study dated 04/05/2016. The skeletal structures are osteopenic. No fracture is seen. Advanced degenerative narrowing is seen at the radiocarpal articulation. There is negative ulnar variance with arthritic change at the distal radioulnar joint. Moderate osteoarthritic change is seen throughout the intercarpal joints. Moderate osteoarthritic changes at the first carpometacarpal joint where there is bony sclerosis and mild subluxation. Osteoarthritic change is seen throughout the interphalangeal joints, distal greater than proximal as well as the first metacarpophalangeal joint. Mild erosive osteoarthritis involves the second, third, and fifth distal interphalangeal joints. Mild soft tissue edema is present throughout the hand and fingers. IMPRESSION: 1. Soft tissue swelling with no acute bony abnormality identified. 2. Osteopenia and arthritic change as above. ULTRASOUND LEFT UPPER EXTREMITY VENOUS CLINICAL HISTORY: Left wrist and hand pain. COMPARISON STUDY: No priors. TECHNIQUE: Real-time, grayscale, and color Doppler sonography of the deep veins of the left upper extremity is performed. Compression and augmentation were utilized. FINDINGS: There is no sonographic evidence of deep venous thrombosis identified in the left upper extremity. The left internal jugular, axillary, and brachial veins are patent and normally compressible. Normal venous waveforms and augmentation are seen within the left subclavian vein. The cephalic and basilic veins are clear. The visualized radial and ulnar veins are patent. IMPRESSION: There is no sonographic evidence of deep venous thrombosis identifie d in the left upper extremity. MDM Narrative This patient comes in as described above. She was placed on a patient monitor room C2. She is here for treatment evaluation of left wrist and hand pain. On exam she does have some swelling but has good pulse exam. It is not warm and she is afebrile here. IV axis tablet she was given Toradol 15 mg IV multiple blood testing was obtained x-rays were obtained of the wrist and hand as well as an ultrasound the arm. She was reassessed frequently. She remained in a lot of pain and the nurse called me to see her. She is complaining her wrist is very painful, she was given IV morphine 2 mg and Zofran 4 mg this helped she did require additional 2 mg of morphine. Ultrasound the arm was unremarkable. There is no fracture seen on the hand or wrist however in the wrist there is a lot of degenerative changes with erosions and I think this may be more related to arthritis. She has no elevation of her white count sed rate and CRP are mildly elevated. I did place a splint and this helped a little bit. Her caregiver who she only has for about 3 hours a day does not feel she can go home like this and I agree she will be admitted for pain management and further evaluation. I have consulted Dr. Red to see her in the ER for these measures. Impression & Plan Intractable pain, Osteoarthritis, COPD (chronic obstructive pulmonary disease), Wrist arthritis Discharge Plan Visit Data Chief Complaint: Hand Injury/Pain Stated Complaint: LT WRIST/HAND PAIN/SWELLING ED Provider: Russel,Yeison D Discharge Problem: Intractable pain, Osteoarthritis, COPD (chronic obstructive pulmonary disease), Wrist arthritis Forms Stand Alone Forms: My [employer] Prescriptions Prescriptions: No Action bupropion HCl [Wellbutrin SR] 150 mg tablet sustained-release 12 hr 150 mg PO BID RF: 0 omega-3 fatty acids 1,000 mg capsule 1,000 mg PO BID RF: 0 calcium carbonate [Calcium 500] 500 mg calcium (1,250 mg) tablet 500 mg PO BID RF: 0 multivitamin with minerals [Multiple Vitamin-Minerals] tablet 1 tab PO QAM RF: 0 cholecalciferol (vitamin D3) 5,000 unit capsule 5,000 units PO QAM RF: 0 olmesartan-hydrochlorothiazide 40-12.5 mg tablet 1 tab PO QAM RF: 0 pravastatin 40 mg tablet 40 mg PO HS RF: 0 bumetanide 2 mg tablet 2 mg PO BID RF: 0 Qvar RediHaler 80 mcg/actuation HFA aerosol breath activated 2 inh INH BID Qty: 3 RF: 3 naproxen sodium [Aleve] 220 mg Tablet 220 mg PO Q12H PRN (Reason: Pain) RF: 0 trospium 20 mg tablet 20 mg PO BID RF: 0 levothyroxine 100 mcg tablet 100 mcg PO DAILYBB RF: 0 furosemide 80 mg tablet 80 mg PO QAM RF: 0 mesalamine 800 mg tablet,delayed release (DR/EC) 800 mg PO TID RF: 0 Discharge Problem: Osteoarthritis Qualifiers: Osteoarthritis location: wrist Osteoarthritis type: unspecified Laterality: left Qualified Code(s): M19.032 - Primary osteoarthritis, left wrist COPD (chronic obstructive pulmonary disease) Qualifiers: COPD type: unspecified COPD Qualified Code(s): J44.9 - Chronic obstructive pulmonary disease, unspecified
[2020-08-30 11:35] LABS: Basophils # (auto) 0.01 K/uL (0-0.2); Basophils % (auto) 0.1 %; Eosinophils # (auto) 0.04 K/uL (0-0.5); Eosinophils % (auto) 0.5 %; Hematocrit (blood only) 34.1 % (37-47); Hemoglobin 11.4 g/dL (12.0-16.0); Immature Granulocytes # (auto) 0.01 K/uL (0.00-0.02); Immature Granulocytes % (auto) 0.1 %; Lymphocytes % (auto) 9.6 %; Mean Corpuscular Hemoglobin 30.2 pg (25-34); Mean Corpuscular Hgb Conc 33.4 g/dL (32-36); Mean Corpuscular Volume 90.2 fL (80-100); Mean Platelet Volume 9.6 fL (7.4-10.4); Monocytes # (auto) 1.11 K/uL (0.11-0.59); Monocytes % (auto) 13.3 %; Neutrophils # (auto) 6.37 K/uL (1.4-6.5); Neutrophils % (auto) 76.4 %; Platelet Count 226 K/uL (130-400); RDW Coefficient of Variation 13.9 % (11.5-14.5); RDW Standard Deviation 46.2 fL (36.4-46.3); Red Blood Count 3.78 M/uL (4.2-5.4); White Blood Count 8.34 K/uL (4.8-10.8)
--- NOTE | 2020-08-30 11:52 | XRay Report ---
XR wrist LT 2V CLINICAL HISTORY: left wrist pain COMPARISON: X-ray of the hand dated 04/05/2016 DISCUSSION: There is mild soft tissue swelling. There are bony erosions involving the ulnar styloid. There is joint space narrowing and subchondral cyst formation at the level the first carpal metacarpa l joint. The bones are mildly osteopenic. There is a chronic scaphoid deformity. There is a cyst/eros ion involving the proximal navicular pole. IMPRESSION: Persistent moderate arthritic changes of the wrist. Chronic scaphoid deformity. No acute fractures. Bony erosions involving the ulnar styloid. Enlarging cyst/erosion involving the proximal p ole the navicular. ACT 112: Negative or not required by law. Electronically signed by: Chavo Lane M.D. 08/30/2020 11:50 AM
[2020-08-30 11:54] LABS: Albumin Level 3.9 gm/dl (3.4-5.0); BUN Creatinine Ratio 34.1 (10-20); Calcium 9.2 mg/dl (8.5-10.1); Creatinine Clr Calc Pharmacy 48.1 ml/min; Est GFR (African American) 89.1; Est GFR (Non-African American) 76.9; Potassium 3.3 mmol/L (3.5-5.1)
[2020-08-30] MEDS ORDERED: ONDANSETRON INJ 2 MG/ML 2 ML VIAL IV STA (11:55)
[2020-08-30] MEDS ORDERED: MoRPHine SULFATE 2 MG/ML CARP IV STA ×2 (11:55→12:56)
[2020-08-30 11:57] LABS: Albumin Globulin Ratio 0.9 (0.9-2); Bilirubin,Total 0.4 mg/dl (0.2-1); C Reactive Protein 0.48 mg/dl (0-0.29); Globulin 4.3 gm/dl (2.5-4.0); Total Protein 8.2 gm/dl (6.4-8.2); Uric Acid 4.9 mg/dl (2.6-7.2)
--- NOTE | 2020-08-30 12:02 | XRay Report ---
LEFT HAND 3 VIEWS CLINICAL HISTORY: Atraumatic left hand pain. FINDINGS: 3 views of the left hand are compared to study dated 04/05/2016. The skeletal structures ar e osteopenic. No fracture is seen. Advanced degenerative narrowing is seen at the radiocarpal articul ation. There is negative ulnar variance with arthritic change at the distal radioulnar joint. Moderat e osteoarthritic change is seen throughout the intercarpal joints. Moderate osteoarthritic changes at the first carpometacarpal joint where there is bony sclerosis and mild subluxation. Osteoarthritic c hange is seen throughout the interphalangeal joints, distal greater than proximal as well as the firs t metacarpophalangeal joint. Mild erosive osteoarthritis involves the second, third, and fifth distal interphalangeal joints. Mild soft tissue edema is present throughout the hand and fingers. IMPRESSION: 1. Soft tissue swelling with no acute bony abnormality identified. 2. Osteopenia and arthritic change as above. Electronically signed by: Fox Stratton M.D. 08/30/2020 12:01 PM
--- NOTE | 2020-08-30 12:48 | Ultrasound Report ---
ULTRASOUND LEFT UPPER EXTREMITY VENOUS CLINICAL HISTORY: Left wrist and hand pain. COMPARISON STUDY: No priors. TECHNIQUE: Real-time, grayscale, and color Doppler sonography of the deep veins of the left upper ext remity is performed. Compression and augmentation were utilized. FINDINGS: There is no sonographic evidence of deep venous thrombosis identified in the left upper ext remity. The left internal jugular, axillary, and brachial veins are patent and normally compressible. Normal venous waveforms and augmentation are seen within the left subclavian vein. The cephalic and basilic veins are clear. The visualized radial and ulnar veins are patent. IMPRESSION: There is no sonographic evidence of deep venous thrombosis identified in the left upper e xtremity. ACT 112: Negative or not required by law. Electronically signed by: Fox Stratton M.D. 08/30/2020 12:46 PM
[2020-08-30] MEDS ORDERED: ACETAMINOPHEN 325 MG TAB PO STA (15:04)
--- NOTE | 2020-08-30 15:24 | History & Physical Report ---
Date of Service August 30, 2020 Assessment & Plan (1) Left wrist effusion: Unclear exacerbating event but no DVT or acute fracture identified on imaging Possible explanation of trauma with hitting it on her recliner yesterday causing an underlying flare up +/- wearing glove causing decreased vascular return. Possible autoimmune arthritis flare although atypical for extraintestinal manifestation of ulcerative colitis Low likelihood of septic arthritis given appearance and normal WBC however given possibility of this will trend CBC overnight prior to treating with steroids Pain relief with regular acetaminophen, Toradol/oxycodone/Dilaudid as needed. Elevate left upper extremity as much as possible to reduce swelling Consult orthopedics for consideration of more advanced imaging if felt to be necessary (2) Contact dermatitis: Start Diprolene 0.05% twice daily on both hands. (3) COPD (chronic obstructive pulmonary disease): Continue Qvar inhaler twice daily (4) Ulcerative colitis: Stable per patient. Continue mesalamine 800 mg p.o. 3 times daily (5) Osteoporosis: Noted history of this. Recommend following up outpatient. Continue calcium supplementation. No DEXA scan on electronic health record. Vitamin D level was normal in June 2019. (6) Hypothyroidism: TSH 0.116 in 2019. Presumably repeated by PCP after this however we will repeat with a.m. labs to make sure her levothyroxine dose is appropriate. Continue levothyroxine 100 mcg p.o. daily (7) Hypertension: Continue olmesartan hydrochlorothiazide, Bumex 2 mg p.o. twice daily (8) Hyperlipidemia: Continue pravastatin 40 mg p.o. at bedtime (9) Depression: Continue bupropion 150 mg p.o. twice daily (10) Cervicalgia: Pain medication as above. Admission and Anticipated Discharge Date Admission Date: August 30, 2020 History of Present Illness Chief Complaint: Left wrist pain Primary Care Provider: Trent Osorio MD Monica Mcfarlane is an 85-year-old female who presents to the ER with left wrist pain. History taken from the patient is difficult due to morphine given in the emergency room. History taken in combination with the patient, caregiver at bedside and daughter over the phone. The patient has a history of significant arthritis which is presumed osteoarthritis. However, this current wrist pain is very unusual for her. Appears to have started suddenly last night without any definitive trauma event although the patient feels she may have hit it against the side of her recliner at the very most. Her daughter notes she does constantly wear latex gloves which is likely the cause of her skin peeling on both of her fingers - I am unclear on the reasons she does this. In the ER XRs confirmed extensive degenerative joint changes but no acute fractures. Given extent of patients pain and need for morphine causing sedation with only mild relief of pain she was referred to medicine for admission and ongoing management of this as she lives alone with caregivers and does not feel she will be able to cope in her current circumstance. Allergies Allergy/AdvReac Type Severity Reaction Status Date / Time codeine AdvReac Unknown NAUSEATED/L Verified 08/16/20 13:59 IGHTHEADED Home Medications Medication Instructions Recorded Confirmed Type bupropion HCl 150 mg tablet,12 hr 150 mg PO BID 03/03/18 08/30/20 History sustained-release calcium carbonate 500 mg calcium 500 mg PO BID tab 03/03/18 08/16/20 History (1,250 mg) tablet cholecalciferol (vitamin D3) 125 5,000 units PO QAM 03/03/18 08/16/20 History mcg (5,000 unit) capsule multivitamin with minerals 1 tab PO QAM tab 03/03/18 08/16/20 History omega-3 fatty acids 1,000 mg 1,000 mg PO BID 03/03/18 08/16/20 History capsule beclomethasone dipropionate 80 2 inh INH BID #3 inhaler 03/16/20 08/30/20 Rx mcg/actuation HFA breath activated aerosol olmesartan 40 1 tab PO QAM 04/19/20 08/30/20 History mg-hydrochlorothiazide 12.5 mg tablet pravastatin 40 mg tablet 40 mg PO HS 04/19/20 08/30/20 History trospium 20 mg tablet 20 mg PO BID 04/19/20 08/30/20 History bumetanide 2 mg tablet 2 mg PO BID 08/16/20 08/30/20 History levothyroxine 100 mcg PO DAILYBB 08/30/20 08/30/20 History mesalamine 800 mg PO TID 08/30/20 08/30/20 History acetaminophen 1,000 mg PO TID PRN #30 tab 09/01/20 Rx prednisone See Rx Instructions .ROUTE 09/01/20 Rx .COMPLEX #20 tab Past Med/Surg History Medical History (Updated 08/31/20 @ 13:02 by Ant Red MD) Cervical facet syndrome Cervicalgia COPD (chronic obstructive pulmonary disease) Depression Hyperlipidemia Hypertension Hypothyroidism Myofascial pain Osteoarthritis Osteoporosis Ulcerative colitis Surgical History History of inguinal hernia repair Family History Other Family history non-contributory Denies family history of Esophageal cancer Crohn's disease Colorectal cancer Ulcerative colitis Social History Smoking Status: Never smoker Hx Alcohol Use: No Hx Substance Use: No Preferred Language: Kyrgyz Communication Ability: Effective Visual Impairment: No Limitations Hearing Ability: Normal Beliefs That Will Affect Care: None marital status: / Current Living Situation: Alone current occupational status: retired Feels Safe at Home: Yes Assistive Devices: Walker Review of Systems Review of Systems: All systems reviewed & are unremarkable except as noted in HPI & below Physical Exam Constitutional: + acute distress (left wrist pain) Eyes: + anicteric sclerae; normal pupil size Respiratory: normal respiratory effort, lungs clear to auscultation Cardiovascular: Rate/Rhythm: regular rate and regular rhythm Musculoskeletal: Extremities: + wrist abnormality Left (effusion with overlying mild erythema homogenous with contact dermatitis rash, no bright cellulitis area) Skin: + rash (extensive contact dermatitis on both hands) Neurologic: moves all extremities, awake and + confused (after moprhine given in ER) Psychiatric: Orientation: alert and oriented x 3 Results & Data Results & Data ([facility]) Vital Signs (Past 12 Hours) Vital Signs Pulse Resp BP Pulse Ox 08/30/20 15:00 75 15 08/30/20 14:50 79 15 08/30/20 14:40 73 08/30/20 14:30 74 18 08/30/20 14:20 70 08/30/20 14:10 73 12 08/30/20 14:00 74 08/30/20 13:50 70 20 08/30/20 13:40 70 20 08/30/20 13:30 77 08/30/20 13:20 81 08/30/20 13:10 78 14 08/30/20 13:00 69 12 08/30/20 12:56 70 21 08/30/20 12:10 66 12 08/30/20 12:07 100 H 08/30/20 11:50 65 95 08/30/20 11:40 66 16 96 08/30/20 11:30 66 08/30/20 11:27 105 H 15 98 08/30/20 10:21 66 16 152/85 H 98 Diagnostic Findings ULTRASOUND LEFT UPPER EXTREMITY VENOUS IMPRESSION: There is no sonographic evidence of deep venous thrombosis identified in the left upper extremity. LEFT HAND 3 VIEWS IMPRESSION: 1. Soft tissue swelling with no acute bony abnormality identified. 2. Osteopenia and arthritic change as above. XR wrist LT 2V IMPRESSION: Persistent moderate arthritic changes of the wrist. Chronic scaphoid deformity. No acute fractures. Bony erosions involving the ulnar styloid. Enlarging cyst/erosion involving the proximal pole the navicular. Code Status & VTE Plan Code Status DNR/DNI VTE Prophylaxis Plan VTE Prophylaxis will be ordered: Yes Reason for no VTE drug order: Treatment not indicated PG Care Time/CCT Total # of Minutes Spent Total Time Spent with Patient: Total time spent is greater than 50% in coordination of care (as documented) at patient's floor/unit and/or counseling patient: Coding Level of Care Code 91241 OBS Care - Level 2 Diagnoses Left wrist effusion M25.432 Contact dermatitis L25.9 COPD (chronic obstructive pulmonary disease) J44.9 COPD type: unspecified COPD Ulcerative colitis K51.90 Osteoporosis M81.0 Hypothyroidism E03.9 Hypertension I10 Hyperlipidemia E78.5 Depression F32.9 Cervicalgia M54.2 (1) COPD (chronic obstructive pulmonary disease) COPD type: unspecified COPD Qualified Code(s): J44.9 - Chronic obstructive pulmonary disease, unspecified
[2020-08-30] MEDS ORDERED: COUGH DROP (SUGAR FREE) LOZ 24 LOZ/1 BOX BUCCAL ONE (17:36)
[2020-08-30] MEDS ORDERED: oxyCODONE HCL IR 5 MG TAB (IMMEDIATE RELEASE) PO PRN (18:19)
[2020-08-30] MEDS ORDERED: HYDROmorphone INJ 0.5 MG/0.5 ML SYR IV PRN (18:19)
[2020-08-30] MEDS ORDERED: KETOROLAC TROMETHAMINE 15 MG/ML VIAL IV PRN (18:19)
[2020-08-30] MEDS: BUMETANIDE 1 MG TAB PO SCH (18:50)
[2020-08-30] MEDS: MESALAMINE 800 MG TABCR PO SCH (21:04)
[2020-08-30] MEDS: OMEGA-3 (PURIFIED FISH OIL) 1 GM CAP PO SCH (21:04)
[2020-08-30] MEDS: PRAVASTATIN SOD 40 MG TAB PO SCH (21:05)
[2020-08-30] MEDS: CALCIUM CARBONATE 1250MG TAB PO SCH (21:05)
[2020-08-30] MEDS: BETAMETHASONE DIP AUG (DIPROLENE) 0.05% CR 15 GM TUBE EXT SCH (21:08)
--- NOTE | 2020-08-30 21:19 | Orthopedic Consultation ---
Date of Service August 30, 2020 Assessment & Plan (1) Left wrist effusion: Concern for infection was low because she stated pain was dramatically improved this evening after admission. Her exam was equivocal. Given the acute process at the wrist and nondiagnostic exam, I did offer aspiration which she was agreeable to. Approximately 1 cc of very thick, opaque yellow synovial fluid was obtained. Appeared to be inflammatory in nature. Continue pain control and anti-inflammatories as she can tolerate. She should wear the removable brace for comfort. She can be range of motion and weightbearing as tolerated. We will await for the results of the culture and cell count as well as crystal examination if available from the small amount of fluid obtained. This could be consistent with inflammatory arthritis, gout or low-grade infection. There was not an overwhelming effusion and only less than 1 cc of fluid could be extracted from her wrist joint. Follow-up with labs and contact with questions if clinical condition changes. History of Present Illness Reason for Consultation: Left wrist pain Requesting Physician: . Attending Physician: Ant Red MD 85-year-old female with a past medical history significant for ulcerative colitis, osteoporosis, osteoarthritis of her hands and wrist, and cervicalgia was admitted with intractable left hand/wrist pain. Patient states that she had bilateral wrist and hand pain off and on for years. The pain in the left hand is extraordinary for her. She is not certain if she hit it on her furniture or had overused it as part of getting in and out of her chair. Pain started yesterday and seem to be progressive through today so she presented to the emergency room. She denies any sickness, fevers, chills. She does state that the pain is slightly better than it was in the emergency room and before she came to the hospital. She thinks is getting better. Allergies Allergy/AdvReac Type Severity Reaction Status Date / Time codeine AdvReac Unknown NAUSEATED/L Verified 08/16/20 13:59 IGHTHEADED Home Medications Medication Instructions Recorded Confirmed Type bupropion HCl 150 mg tablet,12 hr 150 mg PO BID 03/03/18 08/30/20 History sustained-release calcium carbonate 500 mg calcium 500 mg PO BID tab 03/03/18 08/16/20 History (1,250 mg) tablet cholecalciferol (vitamin D3) 125 5,000 units PO QAM 03/03/18 08/16/20 History mcg (5,000 unit) capsule multivitamin with minerals 1 tab PO QAM tab 03/03/18 08/16/20 History omega-3 fatty acids 1,000 mg 1,000 mg PO BID 03/03/18 08/16/20 History capsule naproxen sodium [Aleve] 220 mg PO Q12H PRN 12/10/19 08/16/20 History beclomethasone dipropionate 80 2 inh INH BID #3 inhaler 03/16/20 08/30/20 Rx mcg/actuation HFA breath activated aerosol olmesartan 40 1 tab PO QAM 04/19/20 08/30/20 History mg-hydrochlorothiazide 12.5 mg tablet pravastatin 40 mg tablet 40 mg PO HS 04/19/20 08/30/20 History trospium 20 mg tablet 20 mg PO BID 04/19/20 08/30/20 History bumetanide 2 mg tablet 2 mg PO BID 08/16/20 08/30/20 History furosemide 80 mg PO QAM 08/30/20 08/30/20 History levothyroxine 100 mcg PO DAILYBB 08/30/20 08/30/20 History mesalamine 800 mg PO TID 08/30/20 08/30/20 History Past Med/Surg History Medical History Cervical facet syndrome Cervicalgia COPD (chronic obstructive pulmonary disease) Depression Hyperlipidemia Hypertension Hypothyroidism Myofascial pain Osteoarthritis Osteoporosis Ulcerative colitis Surgical History History of inguinal hernia repair Family History Other Family history non-contributory Denies family history of Esophageal cancer Crohn's disease Colorectal cancer Ulcerative colitis Social History Smoking Status: Never smoker Hx Alcohol Use: No Hx Substance Use: No Preferred Language: Afghan Communication Ability: Effective Visual Impairment: No Limitations Hearing Ability: Normal Beliefs That Will Affect Care: None marital status: / Current Living Situation: Alone current occupational status: retired Other Information That Helps Us Care for You: No Feels Safe at Home: Yes Safety Concerns: Feels Safe At This Time Assistive Devices: Walker Review of Systems All systems reviewed & are unremarkable except as noted in HPI & below. Physical Exam Left upper extremity: The dorsum of the left carpus has a mild area of edema. Edema next stretches out over into the digits. There is mild erythema over this appears to be chronic and on both hands. She regularly uses the hand and wrist for gesturing as she speaks. She is focally tender to the dorsum as well as the volar aspect of the radiocarpal joint. She has maximal tenderness on the dorsal side in the area of the edema. There is no clearly palpable effusion. Full active range of motion is of her digits which are obviously affected by arthritis. She has scaling epidermal lysis on both hands. She states this is new for her. Constitutional well developed and well nourished; no acute distress and not intoxicated appearing ENMT external ear and nose normal, oropharynx normal Respiratory normal respiratory effort; no respiratory distress Cardiovascular Extremities: normal capillary refill; no edema Skin no rashes, warm and dry Psychiatric A+Ox3, euthymic affect Results & Data Results & Data Laboratory Results . H & H 08/30/20 Range/Units 11:25 Hgb 11.4 L (12.0-16.0) g/dL Hct 34.1 L (37-47) % Laboratory Tests 08/30/20 08/30/20 11:25 11:25 WBC 8.34 Plt Count 226 Neut % (Auto) 76.4 Uric Acid 4.9 C-Reactive Protein 0.48 H Laboratory Tests 08/30/20 08/30/20 11:25 11:25 ESR 46 H C-Reactive Protein 0.48 H Diagnostic Findings Radiographs included multiple views of the hand and wrist. There is existing moderate to severe radiocarpal and midcarpal osteoarthritis and chronic scaphoid deformity, likely as result of a fracture. There is soft tissue edema present in the shadowing of the dorsum of the wrist. PG Care Time/CCT Total # of Minutes Spent Total Time Spent with Patient: Total time spent is greater than 50% in coordination of care (as documented) at patient's floor/unit and/or counseling patient: Coding Level of Care Code 99993 Inpt Consult Level 4 Diagnoses Left wrist effusion M25.432
[2020-08-30] MEDS: ACETAMINOPHEN 500 MG TAB PO SCH (22:43)
--- NOTE | 2020-08-30 22:58 | Procedure Note ---
Procedure Note Date of Service August 30, 2020 I discussed joint aspiration with regard to purpose, risks and benefits to the patient in detail. She was agreeable to proceed. The site and consent was confirmed. Using sterile technique with alcohol and Betadine, and a 22-gauge needle, approximately less than 1 cc of thick yellow synovial fluid was aspirated from the radiocarpal joint using a dorsal approach. The site was dressed with a Band-Aid, and she tolerated procedure very well. The fluid was sent to the lab and I ordered cell count, culture/Gram stain, and crystal analysis. The crystal analysis could be excluded if there is not sufficient fluid for complete lab work-up. Coding
[2020-08-31] MEDS: LEVOTHYROXINE SODIUM 100 MCG TABLET PO SCH (05:20)
[2020-08-31 06:26] LABS: Basophils # (auto) 0.01 K/uL (0-0.2); Basophils % (auto) 0.2 %; Eosinophils # (auto) 0.03 K/uL (0-0.5); Eosinophils % (auto) 0.7 %; Hemoglobin 10.2 g/dL (12.0-16.0); Immature Granulocytes # (auto) 0.01 K/uL (0.00-0.02); Immature Granulocytes % (auto) 0.2 %; Lymphocytes # (auto) 0.99 K/uL (1.2-3.4); Lymphocytes % (auto) 21.6 %; Mean Corpuscular Hemoglobin 30.4 pg (25-34); Mean Corpuscular Volume 89.3 fL (80-100); Mean Platelet Volume 9.8 fL (7.4-10.4); Monocytes # (auto) 0.76 K/uL (0.11-0.59); Monocytes % (auto) 16.6 %; Neutrophils # (auto) 2.79 K/uL (1.4-6.5); Neutrophils % (auto) 60.7 %; Platelet Count 206 K/uL (130-400); RDW Coefficient of Variation 14.1 % (11.5-14.5); RDW Standard Deviation 46.3 fL (36.4-46.3); Red Blood Count 3.36 M/uL (4.2-5.4); White Blood Count 4.59 K/uL (4.8-10.8)
[2020-08-31 07:05] LABS: BUN Creatinine Ratio 26.1 (10-20); C Reactive Protein 6.5 mg/dl (0-0.29); Calcium 9.2 mg/dl (8.5-10.1); Creatinine Clr Calc Pharmacy 34.1 ml/min; Est GFR (African American) 62.2; Est GFR (Non-African American) 53.6
[2020-08-31] MEDS: CEROVITE ADV FORMULA TAB PO SCH (07:43)
[2020-08-31] MEDS: buPROPion SR 150 MG TABCR PO SCH ×2 (07:43→11:56)
[2020-08-31] MEDS: MESALAMINE 800 MG TABCR PO SCH ×3 (07:44→20:39)
[2020-08-31] MEDS: hydroCHLOROthiazide 25 MG TAB PO SCH (07:44)
[2020-08-31] MEDS: OLMESARTAN MEDOXOMIL 40 MG TAB PO SCH (07:44)
[2020-08-31] MEDS: CALCIUM CARBONATE 1250MG TAB PO SCH ×2 (07:44→20:40)
[2020-08-31] MEDS: CHOLECALCIFEROL 1,000 UNITS 25 MCG TAB PO SCH (07:45)
[2020-08-31] MEDS: BUMETANIDE 1 MG TAB PO SCH ×2 (07:45→16:57)
[2020-08-31] MEDS: BETAMETHASONE DIP AUG (DIPROLENE) 0.05% CR 15 GM TUBE EXT SCH ×2 (07:45→20:41)
[2020-08-31] MEDS: OMEGA-3 (PURIFIED FISH OIL) 1 GM CAP PO SCH ×2 (07:45→20:40)
[2020-08-31] MEDS: ACETAMINOPHEN 500 MG TAB PO SCH ×3 (07:47→20:39)
[2020-08-31] MEDS ORDERED: FLUTICASONE FUROATE 200MCG 14 PUFFS/INHALER INH SCH (09:00)
[2020-08-31] MEDS: BECLOMETHASONE DIP HFA 80 MCG 8.7G INH INH SCH ×2 (09:48→20:39)
[2020-08-31] MEDS: methylPREDNISolone 60 MG in SYRINGE 0 ML IV SCH ×3 (11:56→23:56)
--- NOTE | 2020-08-31 13:23 | Hospitalist Progress Note ---
Date of Service August 31, 2020 Assessment & Plan (1) Left wrist effusion: Unclear exacerbating event but no DVT or acute fracutre identified on imaging Possible explanation of trauma with hitting it on her recliner yesterday causing an underlying flare up +/- wearing glove causing decreased vascular return. Possible autoimmune arthritis flare although atypical for extraintestinal manifestation of ulcerative colitis. Rheumatoid factor ordered She underwent left wrist aspiration on admission and Gram stain reveals white cells but no bacteria . Septic arthritis ruled out Pain relief with regular acetaminophen, Toradol/oxycodone/Dilaudid as needed. Elevate left upper extremity as much as possible to reduce swelling Start parenteral steroid therapy (2) Contact dermatitis: Continue Diprolene 0.05% twice daily on both hands. (3) COPD (chronic obstructive pulmonary disease): Continue Qvar inhaler twice daily (4) Ulcerative colitis: Stable per patient. Continue mesalamine 800 mg p.o. 3 times daily (5) Osteoporosis: Noted history of this. Recommend following up outpatient. Continue calcium supplementation. No DEXA scan on electronic health record. Vitamin D level was normal in June 2019. (6) Hypothyroidism: Continue levothyroxine 100 mcg p.o. daily (7) Hypertension: Continue olmesartan hydrochlorothiazide, Bumex 2 mg p.o. twice daily (8) Hyperlipidemia: Continue pravastatin 40 mg p.o. at bedtime (9) Depression: Continue bupropion 150 mg p.o. twice daily (10) Cervicalgia: Pain medication as above. Disposition: Hopefully home tomorrow, September 01, on oral prednisone taper Admission and Anticipated Discharge Date Admission Date: August 30, 2020 Subjective Alert and pleasant. She states she feels better. Aspiration of the left wrist reveals white cells but Gram stain is negative for any bacteria. ESR and rheumatoid factor pending. Start parenteral steroid therapy. Check uric acid level although she does not have any past history of gout Review of Systems Review of Systems: All systems reviewed & are unremarkable except as noted in HPI & below Physical Exam Physical Exam: General-alert and oriented x3, no fevers, no chills HEENT-head atraumatic and normocephalic, pupils equal and reactive to light, extraocular muscles intact Neck-no lymphadenopathy or thyromegaly, trachea midline Chest-clear to auscultation percussion. No rales wheezing or rhonchi Cardiac-regular rate and rhythm, normal S1 and S2, no murmurs Abdomen-normal bowel sounds, nontender, no hepatosplenomegaly Extremities-no cyanosis, clubbing, or edema. Marked kyphosis. Left wrist tenosynovitis with erythema, warmth, tenderness. Neuro-cranial nerves II through XII intact, motor and sensory function within normal limits, strength symmetrical 5/5, no focal deficits Psych-normal affect, normal mood Results & Data Results & Data ([facility]) Vital Signs (Past 12 Hours) Vital Signs Temp Pulse Resp BP Pulse Ox 08/31/20 07:30 36.8 C 67 16 103/61 93 08/31/20 03:12 90/52 L Laboratory Results 08/31/20 05:41 08/31/20 05:41 PG Care Time/CCT Total # of Minutes Spent Total Time Spent with Patient: Total time spent is greater than 50% in coordination of care (as documented) at patient's floor/unit and/or counseling patient: Coding Level of Care Code 10943 Subseq Hosp Care Lvl 3 Diagnoses Left wrist effusion M25.432 Contact dermatitis L25.9 COPD (chronic obstructive pulmonary disease) J44.9 COPD type: unspecified COPD Ulcerative colitis K51.90 Osteoporosis M81.0 Hypothyroidism E03.9 Hypertension I10 Hyperlipidemia E78.5 Depression F32.9 Cervicalgia M54.2 (1) COPD (chronic obstructive pulmonary disease) COPD type: unspecified COPD Qualified Code(s): J44.9 - Chronic obstructive pulmonary disease, unspecified
[2020-08-31 13:52] LABS: Thyroid Stimulating Hormone 8.5 uIu/ml (0.300-4.500)
[2020-08-31 14:06] LABS: T4 Free Thyroxine 1.06 ng/dl (0.8-1.6)
[2020-08-31] MEDS: PRAVASTATIN SOD 40 MG TAB PO SCH (20:40)
[2020-09-01] MEDS: methylPREDNISolone 60 MG in SYRINGE 0 ML IV SCH ×3 (00:26→11:48)
[2020-09-01] MEDS: LEVOTHYROXINE SODIUM 100 MCG TABLET PO SCH (06:02)
[2020-09-01] MEDS: CALCIUM CARBONATE 1250MG TAB PO SCH (07:45)
[2020-09-01] MEDS: hydroCHLOROthiazide 25 MG TAB PO SCH (07:45)
[2020-09-01] MEDS: buPROPion SR 150 MG TABCR PO SCH ×2 (07:45→11:48)
[2020-09-01] MEDS: CHOLECALCIFEROL 1,000 UNITS 25 MCG TAB PO SCH (07:46)
[2020-09-01] MEDS: MESALAMINE 800 MG TABCR PO SCH ×2 (07:46→12:51)
[2020-09-01] MEDS: OMEGA-3 (PURIFIED FISH OIL) 1 GM CAP PO SCH (07:47)
[2020-09-01] MEDS: CEROVITE ADV FORMULA TAB PO SCH (07:48)
[2020-09-01] MEDS: BUMETANIDE 1 MG TAB PO SCH (07:48)
[2020-09-01] MEDS: OLMESARTAN MEDOXOMIL 40 MG TAB PO SCH (07:48)
[2020-09-01] MEDS: BECLOMETHASONE DIP HFA 80 MCG 8.7G INH INH SCH (07:48)
[2020-09-01] MEDS: ACETAMINOPHEN 500 MG TAB PO SCH ×2 (07:54→12:51)
[2020-09-01] MEDS: BETAMETHASONE DIP AUG (DIPROLENE) 0.05% CR 15 GM TUBE EXT SCH (07:55)
--- NOTE | 2020-09-01 09:13 | Orthopedic Progress Note ---
Date of Service September 01, 2020 Assessment & Plan (1) Left wrist effusion: Clinically she is making great progress with the steroid treatment after aspiration. Certainly there is no bacteria on the Gram stain. We should continue to follow the cultures, but I do not think she needs to remain in house for that given her clinical improvement. No indications for orthopedic surgical intervention. We can follow her as an outpatient. I will include my information in the discharge. She can follow-up me within 1 to 2 weeks after discharge, as needed. She can use the removable brace for comfort. Please contact with questions. Subjective . Review of Systems All systems reviewed & are unremarkable except as noted in HPI & below. Physical Exam LUE: Significantly reduced edema. Erythema is improved as well. She has reduced epidermal lysis well in bilateral hands. She has full motion of her digits. She remains with some swelling over the dorsal aspect of her wrist but it substantially reduced. She has underlying osteoarthritis and this may be chronic. She has only minimally tender in certain spots, so there is dramatic improvement in the diffuse tenderness. Constitutional WD/WN, vitals as above well developed and + well hydrated; no acute distress and not ill appearing Respiratory normal respiratory effort; no labored breathing Cardiovascular Extremities: normal capillary refill Results & Data Results & Data Laboratory Results Selected Entries 09/01/20 07:15 Temperature 36.4 C L Pulse Rate [Right Finger] 55 L Blood Pressure [Left Arm] 117/70 Laboratory Tests 08/30/20 08/30/20 08/31/20 11:25 11:25 05:41 WBC 4.59 L ESR 46 H C-Reactive Protein 0.48 H Rheumatoid Factor 08/31/20 08/31/20 08/31/20 05:41 11:55 11:55 WBC ESR 41 H C-Reactive Protein 6.50 H Rheumatoid Factor Pending Diagnostic Findings . PG Care Time/CCT Total # of Minutes Spent Total Time Spent with Patient: Total time spent is greater than 50% in coordination of care (as documented) at patient's floor/unit and/or counseling patient: Coding Level of Care Code 81545 Subseq Hosp Care Lvl 3 Diagnoses Left wrist effusion M25.432
--- NOTE | 2020-09-06 10:05 | Discharge Summary ---
Date of Service September 01, 2020 Admission HPI Per Admitting Provider Monica Mcfarlane is an 85-year-old female who presents to the ER with left wrist pain. History taken from the patient is difficult due to morphine given in the emergency room. History taken in combination with the patient, caregiver at bedside and daughter over the phone. The patient has a history of significant arthritis which is presumed osteoarthritis. However, this current wrist pain is very unusual for her. Appears to have started suddenly last night without any definitive trauma event although the patient feels she may have hit it against the side of her recliner at the very most. Her daughter notes she does constantly wear latex gloves which is likely the cause of her skin peeling on both of her fingers - I am unclear on the reasons she does this. In the ER XRs confirmed extensive degenerative joint changes but no acute fractures. Given extent of patients pain and need for morphine causing sedation with only mild relief of pain she was referred to medicine for admission and ongoing management of this as she lives alone with caregivers and does not feel she will be able to cope in her current circumstance. Principal Diagnosis left wrist effusion. Discharge Exam General-alert and oriented x3, no fevers, no chills HEENT-head atraumatic and normocephalic, pupils equal and reactive to light, extraocular muscles intact Neck-no lymphadenopathy or thyromegaly, trachea midline Chest-clear to auscultation percussion. No rales wheezing or rhonchi Cardiac-regular rate and rhythm, normal S1 and S2, no murmurs Abdomen-normal bowel sounds, nontender, no hepatosplenomegaly Extremities-no cyanosis, clubbing, or edema. Marked kyphosis. Left wrist tenosynovitis with erythema, warmth, tenderness. Neuro-cranial nerves II through XII intact, motor and sensory function within normal limits, strength symmetrical 5/5, no focal deficits Psych-normal affect, normal mood Discharge Data Allergies Allergy/AdvReac Type Severity Reaction Status Date / Time codeine AdvReac Unknown NAUSEATED/L Verified 08/16/20 13:59 IGHTHEADED Consultations 08/30/20 14:22 ED Decision to Admit Stat 08/30/20 18:22 Consult Orthopedic Surgery Routine Ordered Studies 08/30/20 10:55 US venous doppler UE LT Stat Hospital Course (1) Left wrist effusion: Unclear exacerbating event but no DVT or acute fracture identified on imaging Possible explanation of trauma with hitting it on her recliner yesterday causing an underlying flare up +/- wearing glove causing decreased vascular return. Possible autoimmune arthritis flare although atypical for extraintestinal manifestation of ulcerative colitis Low likelihood of septic arthritis given appearance and normal WBC however given possibility of this will trend CBC overnight prior to treating with steroids Pain relief with regular acetaminophen, Toradol/oxycodone/Dilaudid as needed. Elevate left upper extremity as much as possible to reduce swelling Swelling improved on day of discharge: use hand and wrist brace. (2) Contact dermatitis: Continue Diprolene 0.05% twice daily on both hands. (3) COPD (chronic obstructive pulmonary disease): Continue Qvar inhaler twice daily (4) Ulcerative colitis: Stable per patient. Continue mesalamine 800 mg p.o. 3 times daily (5) Osteoporosis: Noted history of this. Recommend following up outpatient. Continue calcium supplementation. No DEXA scan on electronic health record. Vitamin D level was normal in June 2019. (6) Hypothyroidism: Continue levothyroxine 100 mcg p.o. daily (7) Hypertension: Continue olmesartan hydrochlorothiazide, Bumex 2 mg p.o. twice daily (8) Hyperlipidemia: Continue pravastatin 40 mg p.o. at bedtime (9) Depression: Continue bupropion 150 mg p.o. twice daily (10) Cervicalgia: Pain medication as above. Disposition: Hopefully home tomorrow, September 01, on oral prednisone taper Total Time Total Time Spent Total Time Spent (In Minutes): 32 Total Time Includes: Examination of the Patient, Discharge Planning and Medication Reconciliation Discharge Plan Discharge Items Patient Disposition: Home - Self-Care Reason For Visit: LEFT WRIST PAIN Discharge Diagnosis: LEFT WRIST PAIN Activity: Resume your previous activity Non-emergency contact: Primary Care Provider Call non-emergency contact if: you have any medication questions Follow-up/Referrals: Gagandeep Horton MD [Surgeon] - 09/16/20 3:40 pm Trent Osorio MD [Primary Care Provider] - 09/06/20 12:50 pm Diet: Regular Addtl Attending Provider Instructions: Orthopedic instructions: Hand and wrist range of motion as tolerated. Use the removable wrist brace for comfort, as needed. Pending Studies at Discharge: No Stand-Alone Forms: My [employer], Smoking Cessation Medications and DC Order Prescriptions: New acetaminophen 500 mg Tablet 1,000 mg PO TID PRN (Reason: PAIN) Qty: 30 RF: 0 prednisone 10 mg tablet See Rx Instructions .ROUTE .COMPLEX Qty: 20 RF: 0 Continued bupropion HCl [Wellbutrin SR] 150 mg tablet sustained-release 12 hr 150 mg PO BID RF: 0 omega-3 fatty acids 1,000 mg capsule 1,000 mg PO BID RF: 0 calcium carbonate [Calcium 500] 500 mg calcium (1,250 mg) tablet 500 mg PO BID RF: 0 multivitamin with minerals [Multiple Vitamin-Minerals] tablet 1 tab PO QAM RF: 0 cholecalciferol (vitamin D3) 5,000 unit capsule 5,000 units PO QAM RF: 0 olmesartan-hydrochlorothiazide 40-12.5 mg tablet 1 tab PO QAM RF: 0 pravastatin 40 mg tablet 40 mg PO HS RF: 0 bumetanide 2 mg tablet 2 mg PO BID RF: 0 Qvar RediHaler 80 mcg/actuation HFA aerosol breath activated 2 inh INH BID Qty: 3 RF: 3 trospium 20 mg tablet 20 mg PO BID RF: 0 levothyroxine 100 mcg tablet 100 mcg PO DAILYBB RF: 0 mesalamine 800 mg tablet,delayed release (DR/EC) 800 mg PO TID RF: 0 Discontinued naproxen sodium [Aleve] 220 mg Tablet 220 mg PO Q12H PRN (Reason: Pain) RF: 0 furosemide 80 mg tablet 80 mg PO QAM RF: 0 Discharge Orders: Discharge Order (Routine); Ordered 09/01/20 Ordered By: London Alcantara Admission Data Admit Date/Time: 08/30/20 15:18 Attending Provider: London Alcantara Admit Provider: Ant Red Primary Care Provider: Trent Osorio Other Providers: Ant Red ; Gagandeep Horton Other Interventions: Discharge Summary Assessment (RN) Last Done: 09/01/20 15:06 Coding Level of Care Code D/C Day Management >30 mins Diagnoses Left wrist effusion M25.432 Contact dermatitis L25.9 COPD (chronic obstructive pulmonary disease) J44.9 COPD type: unspecified COPD Ulcerative colitis K51.90 Osteoporosis M81.0 Hypothyroidism E03.9 Hypertension I10 Hyperlipidemia E78.5 Depression F32.9 Cervicalgia M54.2
== END 2020-09-01 15:38 | disposition home or self-care (01) ==
LOC: 3W 09:58 → ED 09:58 → SUATTDRO 15:18 → 3W 17:01

== ENCOUNTER 2020-10-13 18:33 | Inpatient (IN) ==
[2020-10-13] MEDS ORDERED: ACETAMINOPHEN 1,000 MG/100 ML VIAL IV STA (19:06)
[2020-10-13] MEDS ORDERED: MoRPHine SULFATE 2 MG/ML CARP IV STA (19:06)
[2020-10-13] MEDS: SODIUM CHLORIDE 0.9% 500 ML IV SCH (19:43)
[2020-10-13 19:44] LABS: Basophils # (auto) 0.02 K/uL (0-0.2); Basophils % (auto) 0.4 %; Eosinophils # (auto) 0.05 K/uL (0-0.5); Hematocrit (blood only) 28.5 % (37-47); Hemoglobin 9.7 g/dL (12.0-16.0); Immature Granulocytes # (auto) 0.02 K/uL (0.00-0.02); Immature Granulocytes % (auto) 0.4 %; Lymphocytes # (auto) 0.94 K/uL (1.2-3.4); Lymphocytes % (auto) 18.4 %; Mean Corpuscular Hemoglobin 30.5 pg (25-34); Mean Corpuscular Volume 89.6 fL (80-100); Mean Platelet Volume 8.9 fL (7.4-10.4); Monocytes # (auto) 0.73 K/uL (0.11-0.59); Monocytes % (auto) 14.3 %; Neutrophils # (auto) 3.36 K/uL (1.4-6.5); Neutrophils % (auto) 65.5 %; Platelet Count 248 K/uL (130-400); RDW Coefficient of Variation 14.9 % (11.5-14.5); RDW Standard Deviation 48.8 fL (36.4-46.3); Red Blood Count 3.18 M/uL (4.2-5.4); White Blood Count 5.12 K/uL (4.8-10.8)
--- NOTE | 2020-10-13 19:46 | XRay Report ---
XR chest 1V portable CLINICAL HISTORY: Chest Pain, Fall COMPARISON STUDY: 09/29/2018 FINDINGS: The study is significantly limited from a technical standpoint. The patient is listing to t he left. The chin obscures the left lung apex.[No pneumothorax is visualized. There is no focal pulmo nary consolidation. There is no overt failure. IMPRESSION: 1. Significantly limited study from a technical standpoint. No acute findings. ACT 112: Negative or not required by law. Electronically signed by: Chavo Lane M.D. 10/13/2020 7:44 PM
[2020-10-13 19:54] LABS: Prothrombin Time 10.6 Seconds (9.0-12.0)
[2020-10-13 20:01] LABS: Alanine Aminotransferase 27 U/L (12-78); Albumin Level 3.5 gm/dl (3.4-5.0); Aspartate Aminotransferase 29 U/L (15-37); BUN Creatinine Ratio 22.5 (10-20); Blood Urea Nitrogen 16 mg/dl (7-18); Calcium 9.4 mg/dl (8.5-10.1); Carbon Dioxide 30 mmol/L (21-32); Chloride 100 mmol/L (98-107); Est GFR (African American) 87.7; Est GFR (Non-African American) 75.6; Glucose 90 mg/dl (70-99); Potassium 3.8 mmol/L (3.5-5.1); Sodium 135 mmol/L (136-145)
[2020-10-13 20:03] LABS: Albumin Globulin Ratio 0.9 (0.9-2); Alkaline Phosphatase 80 U/L (45-117); Bilirubin,Total 0.4 mg/dl (0.2-1); Total Protein 7.5 gm/dl (6.4-8.2)
[2020-10-13 20:20] LABS: Influenza A virus by PCR Negative (Neg); Influenza B virus by PCR Negative (Neg); RSV by PCR Negative (Neg); SARS CoV2 RNA(COVID-19) InHosp NEGATIVE (Negative)
[2020-10-13] MEDS ORDERED: OPTIRAY 300 100mL IV ONE (20:21)
--- NOTE | 2020-10-13 20:33 | CT Scan Report ---
CT OF THE CERVICAL SPINE CLINICAL HISTORY: Neck pain status post trauma COMPARISON STUDY: 12/27/2018 CT DOSE: TECHNIQUE: CT scan of the cervical spine was performed from the skull base to the thoracic inlet. Isatu ges are reviewed in the axial, sagittal, and coronal planes. IV contrast was not administered for thi s examination. A dose lowering technique was utilized adhering to the principles of ALARA. FINDINGS: The visualized portions of the lung apices reveal no evidence of pneumothorax. The prevertebral soft tissues are normal. No fractures or subluxations are visualized. There are multilevel degenerative changes. There is a reversal the normal cervical lordosis. There is a partially visualized air in the region of the right cavernous sinus/middle cranial fossa. IMPRESSION: No evidence of acute fracture or traumatic subluxation. ACT 112: Negative or not required by law. Electronically signed by: Chavo Lane M.D. 10/13/2020 8:32 PM
--- NOTE | 2020-10-13 20:38 | CT Scan Report ---
CT head/brain wo con CLINICAL HISTORY: Head pain status post trauma. COMPARISON STUDY: December 2017 TECHNIQUE: Axial CT of the brain is performed from the vertex to the skull base. IV contrast was not administered for this examination. A dose lowering technique was utilized adhering to the principles of ALARA. CT DOSE: FINDINGS: No intra or extra-axial mass lesions are visualized. There is no CT evidence of acute cortical infarc tion. There is no evidence of midline shift. There is no acute hemorrhage. No calvarial fractures ar e visualized. There are patchy white matter hypodensities likely on a small vessel basis. There is mild ventricular dilatation a finding which is felt to be secondary to volume loss There is no evidence of acute sinusitis. There is gas present in the region the right cavernous sinus, clivus, and sphenoid wing. This may be iatrogenic. No fractures are visualized. IMPRESSION: 1. Gas present in the region the right cavernous sinus, clivus and sphenoid wing. This may be iatroge ludin. No fractures are visualized. 2. No evidence of acute intracranial hemorrhage 3. Atrophic changes with associated ventricular dilatation. ACT 112: Negative or not required by law. Electronically signed by: Chavo Lane M.D. 10/13/2020 8:37 PM
--- NOTE | 2020-10-13 20:47 | CT Scan Report ---
CT OF THE CHEST WITH IV CONTRAST CLINICAL HISTORY: Chest pain status post trauma COMPARISON STUDY: 04/05/2017 TECHNIQUE: Following the IV administration of 86 mL of Optiray, CT of the thorax was performed from the thoracic inlet to the lung bases. Images are reviewed in the axial, sagittal, and coronal planes. IV contrast was administered without complication. A dose lowering technique was utilized adhering to the principles of ALARA. CT DOSE: 1237.19 mGy.cm FINDINGS: Thyroid: Imaged portions of the thyroid gland are normal in appearance. Thoracic aorta: There is ectasia of the ascending thoracic aorta which measures 38 mm. There are no f indings to indicate acute aortic injury. Pulmonary vasculature: The pulmonary trunk is normal in caliber. There are no central filling defects identified to suggest pulmonary embolus. Note that this examination was not protocoled for the evalu ation of pulmonary emboli. HEART: There are coronary artery calcifications. There is no pericardial effusion. Lungs and pleural spaces: There is no pneumothorax. There is no evidence of pulmonary contusion. Ther e is no evidence of pneumonia. No pleural effusions are visualized. There are a few scattered pulmona ry micronodules, finding of doubtful clinical significance Mediastinum: There is no evidence of mediastinal hematoma. There is no pathologic adenopathy Lesvia: There is no evidence of pathologic hilar lymphadenopathy Axilla: There is no is a pathologic axillary lymphadenopathy. Upper abdomen: There is a moderate hiatal hernia Skeletal structures: There is acute sternal fracture. IMPRESSION: 1. No evidence of great vessel injury 2. No evidence of pneumothorax. No evidence of pulmonary contusion 3. Acute sternal fracture. ACT 112: Negative or not required by law. Electronically signed by: Chavo Lane M.D. 10/13/2020 8:46 PM
[2020-10-13] MEDS ORDERED: LIDOCAINE 5% 1 PATCH TD STA (21:59)
--- NOTE | 2020-10-13 23:15 | Emergency Department Note ---
Impression & Plan Sternal fracture, COPD (chronic obstructive pulmonary disease), Osteoporosis ED Provider Note NAME: MERY SHETH AGE: 85 SEX: F ARRIVES VIA: Walk-In INFORMANT: Patient, ED PROVIDER(S): Jarad Sharma MD CHIEF COMPLAINT: Fall chest pain PLAN: Disposition: Admit MEDICAL DECISION MAKING: The patient is a pleasant 85-year-old woman with a past medical history of COPD, osteoarthritis, cervical facet syndrome/cervicalgia, hypertension, hyperlipidemia, ulcerative colitis who presents emergency department for mechanical fall when she tripped over a stool in her home falling over and hitting her head and subsequently developing severe chest pain with increased pain with breathing. She denies any loss of consciousness. She denies any pelvis or hip pain. Prior today she denies any recent fevers, chills, cough, congestion, GI or symptoms. She reports she did go to urgent care for evaluation of small ulcer on the toe of her right foot and was referred to podiatry. Otherwise she reports her right lower extremity swelling is at its baseline with her left lower extremity improved after having venous procedure performed recently. On arrival the patient is uncomfortable but no acute distress, afebrile with stable vital signs. She has tenderness of the sternum without bony crepitus. Pelvis is stable. Hips with FROM bilateral without pain. EKG without overt acute ischemia. Chest x-ray limited but no acute cardio pulmonary or traumatic process. WBC endplates within normal limits. H/H 9.7/20.5 approximate to recent values. Chemistry without metabolic acidosis. Electrolytes LFTs unremarkable. COVID-19 PCR negative. Influenza and RSV PCR also negative. CT of the head negative for acute process. Of note, comment is made of air within the cavernous sinus, clivus and sphenoid wing. I did review this finding with radiology, Dr. Lane, and we agree that this is likely iatrogenic in the setting of her IV placement. There is no CT evidence of skull fracture. Most likely iatrogenic and not clinically significant however if patient were to develop worsening mental status or neurologic symptoms then CT of the head should be repeated. CT of the cervical spine negative for acute traumatic findings. CT of the chest demonstrates sternal fracture without retrosternal hematoma, pericardial effusion or pulmonary contusion. Upon reevaluation the patient was more comfortable after IV fluid hydration, APAP and low-dose IV morphine. 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 Case was discussed with [place]. [place] [facility], who will evaluate the patient for admission. Triage Nursing notes reviewed and agree them. Prior medical records reviewed Vital Signs: reviewed and remarkable for no significant abnormalities Differential diagnosis: Fracture, dislocation, contusion, intra-abdominal, pneumothorax, intrathoracic, intracranial, neurologic, compartment syndrome, rhabdomyolysis, as well as other pathologies. ER treatment provided: See below. Diagnostics interpreted by me: ECG: Normal sinus rhythm, 67 bpm, no ectopy, no overt ST elevation or depression, QTC 452, QRS 102. Cardiac Monitoring: An order for continuous cardiac monitoring was placed and demonstrated Normal sinus rhythm, 67 bpm, no ectopy. Laboratory studies: See below Imaging studies: See below Consultation(s): Case was discussed with CAMILA Dexter hospitalist, who will evaluate the patient for admission. HPI: The patient is a pleasant 85-year-old woman with a past medical history of COPD, osteoarthritis, cervical facet syndrome/cervicalgia, hypertension, hyperlipidemia, ulcerative colitis who presents emergency department for mecha nical fall when she tripped over a stool in her home falling over and hitting her head and subsequently developing severe chest pain with increased pain with breathing. She denies any loss of consciousness. She denies any pelvis or hip pain. Prior today she denies any recent fevers, chills, cough, congestion, GI or symptoms. She reports she did go to urgent care for evaluation of small ulcer on the toe of her right foot and was referred to podiatry. Otherwise she reports her right lower extremity swelling is at its baseline with her left lower extremity improved after having venous procedure performed recently. ROS: See above HPI for pertinent positives & negatives. A total of 10 systems reviewed and were otherwise negative. PAST MEDICAL HISTORY:See Below PAST SURGICAL HISTORY:See Below FAMILY HISTORY:See Below SOCIAL HISTORY:See Below HOME MEDICATIONS:See Below ALLERGIES:See Below VITALS:See Below PHYSICAL EXAMINATION: GENERAL: Awake, alert, uncomfortable-appearing, in no distress HENT: Normocephalic, atraumatic. Oropharynx with dry mucous membranes and otherwise unremarkable. EYES: Normal conjunctiva. Sclera non-icteric. NECK: Supple. No nuchal rigidity. FROM. No JVD. RESPIRATORY: Clear to auscultation. CARDIAC: Regular rate, normal rhythm. Extremities warm and well perfused. Pulses equal. ABDOMEN: Soft, non-distended. No tenderness to palpation. No rebound or guarding. No masses. RECTAL: Deferred. MUSCULOSKELETAL: Chest examination reveals tenderness of the sternum. No bony crepitus. Back with severe kyphosis. No midline tenderness of the CTL spine. No CVA tenderness to palpation. Pelvis stable. Bilateral hips with FROM without pain. Bilateral knees with FROM intact without gross instability. LOWER EXTREMITIES: Chronic RLE lymphedema. 1cm superficial skin tear to bilateral proximal lower legs, hemostatic. NEURO: Normal sensorium. No sensory or motor deficits noted. SKIN: No rash or jaundice noted. Jarad Sharma MD Past Med/Surg History Medical History Cervical facet syndrome Cervicalgia COPD (chronic obstructive pulmonary disease) Depression Hyperlipidemia Hypertension Hypothyroidism Myofascial pain Osteoarthritis Osteoporosis Ulcerative colitis Surgical History History of inguinal hernia repair Family History Other Family history non-contributory Denies family history of Esophageal cancer Crohn's disease Colorectal cancer Ulcerative colitis Social History Smoking Status: Former smoker Tobacco Type: Cigarettes Hx Alcohol Use: No Hx Substance Use: No Preferred Language: Greenlandic Communication Ability: Effective Visual Impairment: No Limitations Hearing Ability: Normal Retort Load Expediter Required: No Beliefs That Will Affect Care: None marital status: / Current Living Situation: Alone current occupational status: retired Other Information That Helps Us Care for You: No Feels Safe at Home: Yes Safety Concerns: Feels Safe At This Time Assistive Devices: Walker Allergies Allergies Allergy/AdvReac Type Severity Reaction Status Date / Time codeine AdvReac Unknown NAUSEATED/L Verified 10/13/20 20:19 IGHTHEADED Home Meds Home Medications Medication Instructions Recorded Confirmed bupropion HCl 150 mg tablet,12 hr 150 mg PO BID 03/03/18 10/13/20 sustained-release calcium carbonate 500 mg calcium 500 mg PO BID tab 03/03/18 10/13/20 (1,250 mg) tablet multivitamin with minerals 1 tab PO QAM tab 03/03/18 10/13/20 pravastatin 40 mg tablet 40 mg PO HS 04/19/20 10/13/20 trospium 20 mg tablet 20 mg PO BID 04/19/20 10/13/20 bumetanide 2 mg tablet 4 mg PO QAM 08/16/20 10/13/20 levothyroxine 100 mcg PO DAILYBB 08/30/20 10/13/20 mesalamine 800 mg PO TID 08/30/20 10/13/20 bumetanide 2 mg PO .QAFTERNOON 10/13/20 10/13/20 cholecalciferol (vitamin D3) 50 mcg PO DAILY 10/13/20 10/13/20 [Vitamin D3] lactulose 15 ml PO DAILY PRN 10/13/20 10/13/20 olmesartan 40 mg PO DAILY 10/13/20 10/13/20 omega-3 fatty acids-fish oil 1 cap PO DAILY 10/13/20 10/13/20 [[place] 3 Fish Oil] potassium chloride 10 meq PO BID 10/13/20 10/13/20 Previous Rx's Medication Instructions Recorded beclomethasone dipropionate 80 2 inh INH BID #3 inhaler 03/16/20 mcg/actuation HFA breath activated aerosol acetaminophen 1,000 mg PO TID PRN #30 tab 09/01/20 Results & Data (ED) Vital Signs Vital Signs - 24 hr 10/13/20 18:37 10/13/20 19:34 Temperature 36.3 C L Temperature Source Temporal Artery Scan Pulse Rate 72 Respiratory Rate 20 Respiratory Effort / Characteristics Non-Labored Respiratory Depth Normal Blood Pressure 156/89 H Blood Pressure Mean 111 Pulse Oximetry 100 100 Oxygen Delivery Method Room Air Room Air Sepsis Recent Fever Within 48 Hours No Sepsis New/Unexplained Change in Mental Status N/A Sepsis Action Taken by Nursing No Action Required Laboratory Data Attestation: I reviewed the patient's lab results. Result diagrams: 10/13/20 19:30 10/13/20 19:30 Lab Results 10/13/20 10/13/20 10/13/20 Range/Units 19:30 19:30 19:30 WBC 5.12 (4.8-10.8) K/uL RBC 3.18 L (4.2-5.4) M/uL Hgb 9.7 L (12.0-16.0) g/dL Hct 28.5 L (37-47) % MCV 89.6 (80-100) fL MCH 30.5 (25-34) pg MCHC 34.0 (32-36) g/dL RDW Std Deviation 48.8 H (36.4-46.3) fL RDW Coeff of Monico 14.9 H (11.5-14.5) % Plt Count 248 (130-400) K/uL MPV 8.9 (7.4-10.4) fL Immature Gran % (Auto) 0.4 % Neut % (Auto) 65.5 % Lymph % (Auto) 18.4 % Dickens % (Auto) 14.3 % Eos % (Auto) 1.0 % Baso % (Auto) 0.4 % Neut # (Auto) 3.36 (1.4-6.5) K/uL Lymph # (Auto) 0.94 L (1.2-3.4) K/uL Dickens # (Auto) 0.73 H (0.11-0.59) K/uL Eos # (Auto) 0.05 (0-0.5) K/uL Baso # (Auto) 0.02 (0-0.2) K/uL Immature Gran # (Auto) 0.02 (0.00-0.02) K/uL PT 10.6 (9.0-12.0) Seconds INR 1.0 (0.9-1.1) Sodium 135 L (136-145) mmol/L Potassium 3.8 (3.5-5.1) mmol/L Chloride 100 (98-107) mmol/L Carbon Dioxide 30 (21-32) mmol/L Anion Gap 5.0 (3-11) BUN 16 (7-18) mg/dl Creatinine 0.73 (0.6-1.2) mg/dl Est Cr Clr Drug Dosing Not Reportable Est GFR ( Amer) 87.7 Est GFR (Non-Af Amer) 75.6 BUN/Creatinine Ratio 22.5 H (10-20) Glucose 90 (70-99) mg/dl Calcium 9.4 (8.5-10.1) mg/dl Total Bilirubin 0.4 (0.2-1) mg/dl AST 29 (15-37) U/L ALT 27 (12-78) U/L Alkaline Phosphatase 80 (45-117) U/L Total Protein 7.5 (6.4-8.2) gm/dl Albumin 3.5 (3.4-5.0) gm/dl Globulin 4.0 (2.5-4.0) gm/dl Albumin/Globulin Ratio 0.9 (0.9-2) COVID-19 Eval Order SARS-CoV-2 (PCR) (Negative) Influenza Type A (PCR) (Neg) Influenza Type B (PCR) (Neg) RSV (RT-PCR) (Neg) 10/13/20 10/13/20 Range/Units 19:30 19:30 WBC (4.8-10.8) K/uL RBC (4.2-5.4) M/uL Hgb (12.0-16.0) g/dL Hct (37-47) % MCV (80-100) fL MCH (25-34) pg MCHC (32-36) g/dL RDW Std Deviation (36.4-46.3) fL RDW Coeff of Monico (11.5-14.5) % Plt Count (130-400) K/uL MPV (7.4-10.4) fL Immature Gran % (Auto) % Neut % (Auto) % Lymph % (Auto) % Dickens % (Auto) % Eos % (Auto) % Baso % (Auto) % Neut # (Auto) (1.4-6.5) K/uL Lymph # (Auto) (1.2-3.4) K/uL Dickens # (Auto) (0.11-0.59) K/uL Eos # (Auto) (0-0.5) K/uL Baso # (Auto) (0-0.2) K/uL Immature Gran # (Auto) (0.00-0.02) K/uL PT (9.0-12.0) Seconds INR (0.9-1.1) Sodium (136-145) mmol/L Potassium (3.5-5.1) mmol/L Chloride (98-107) mmol/L Carbon Dioxide (21-32) mmol/L Anion Gap (3-11) BUN (7-18) mg/dl Creatinine (0.6-1.2) mg/dl Est Cr Clr Drug Dosing Est GFR ( Amer) Est GFR (Non-Af Amer) BUN/Creatinine Ratio (10-20) Glucose (70-99) mg/dl Calcium (8.5-10.1) mg/dl Total Bilirubin (0.2-1) mg/dl AST (15-37) U/L ALT (12-78) U/L Alkaline Phosphatase (45-117) U/L Total Protein (6.4-8.2) gm/dl Albumin (3.4-5.0) gm/dl Globulin (2.5-4.0) gm/dl Albumin/Globulin Ratio (0.9-2) COVID-19 Eval Order CovFluRsv at [facility] SARS-CoV-2 (PCR) NEGATIVE (Negative) Influenza Type A (PCR) Negative (Neg) Influenza Type B (PCR) Negative (Neg) RSV (RT-PCR) Negative (Neg) Administered Medications Bupropion HCl (Bupropion Sr 150 Mg Tabcr) 150 mg PO BID JODEE Stop: 11/13/20 01:33 Last Admin: 10/14/20 03:28 Dose: 150 mg Documented by: [id number] Potassium Chloride (Potassium Chloride 10 Meq Tabcr) 10 meq PO BID JODEE Stop: 11/13/20 01:33 Last Admin: 10/14/20 03:28 Dose: 10 meq Documented by: [id number] Discontinued Medications Acetaminophen (Ofirmev) 1,000 mg in 100 mls @ 400 mls/hr IV NOW STA Stop: 10/13/20 19:20 Last Infusion: 10/13/20 20:00 Dose: 0 mls/hr Documented by: [id number] Admin: 10/13/20 19:43 Dose: 400 mls/hr Documented by: [id number] Sodium Chloride (Nss) 500 mls @ 125 mls/hr IV .Q4H JODEE Stop: 11/12/20 19:14 Last Admin: 10/14/20 01:50 Dose: Not Given Documented by: [id number] Infusion: 10/14/20 01:49 Dose: 0 mls/hr Documented by: [id number] Admin: 10/13/20 19:43 Dose: 125 mls/hr Documented by: [id number] Ioversol (Optiray 300 100ml) 86 ml IV ONCE ONE Stop: 10/13/20 20:22 Last Admin: 10/13/20 20:22 Dose: 86 ml Documented by: [id number] Lidocaine (Lidocaine 5% 1 Patch) 1 patch TD NOW STA Stop: 10/13/20 22:00 Last Admin: 10/13/20 22:35 Dose: 1 patch Documented by: [id number] Morphine Sulfate (Morphine Sulfate 2 Mg/Ml Carp) 1 mg IV NOW STA Stop: 10/13/20 19:07 Last Admin: 10/13/20 19:43 Dose: 1 mg Documented by: [id number] Imaging Data Radiologist's Impression: Cervical Spine CT 10/13/20 18:58 CT OF THE CERVICAL SPINE CLINICAL HISTORY: Neck pain status post trauma COMPARISON STUDY: 12/27/2018 CT DOSE: TECHNIQUE: CT scan of the cervical spine was performed from the skull base to the thoracic inlet. Images are reviewed in the axial, sagittal, and coronal planes. IV contrast was not administered for this examination. A dose lowering technique was utilized adhering to the principles of ALARA. FINDINGS: The visualized portions of the lung apices reveal no evidence of pneumothorax. The prevertebral soft tissues are normal. No fractures or subluxations are vi sualized. There are multilevel degenerative changes. There is a reversal the normal cervical lordosis. There is a partially visualized air in the region of the right cavernous sinus/middle cranial fossa. IMPRESSION: No evidence of acute fracture or traumatic subluxation. ACT 112: Negative or not required by law. Electronically signed by: Chavo Lane M.D. 10/13/2020 8:[address] 10/13/20 18:58 CT OF THE CHEST WITH IV CONTRAST CLINICAL HISTORY: Chest pain status post trauma COMPARISON STUDY: 04/05/2017 TECHNIQUE: Following the IV administration of 86 mL of Optiray, CT of the thorax was performed from the thoracic inlet to the lung bases. Images are revie wed in the axial, sagittal, and coronal planes. IV contrast was administered without complication. A dose lowering technique was utilized adhering to the principles of ALARA. CT DOSE: 1237.19 mGy.cm FINDINGS: Thyroid: Imaged portions of the thyroid gland are normal in appearance. Thoracic aorta: There is ectasia of the ascending thoracic aorta which measures 38 mm. There are no findings to indicate acute aortic injury. Pulmonary vasculature: The pulmonary trunk is normal in caliber. There are no central filling defects identified to suggest pulmonary embolus. Note that this examination was not protocoled for the evaluation of pulmonary emboli. HEART: There are coronary artery calcifications. There is no pericardial effu mai. Lungs and pleural spaces: There is no pneumothorax. There is no evidence of pulmonary contusion. There is no evidence of pneumonia. No pleural effusions are visualized. There are a few scattered pulmonary micronodules, finding of doubtful clinical significance Mediastinum: There is no evidence of mediastinal hematoma. There is no pathologic adenopathy Lesvia: There is no evidence of pathologic hilar lymphadenopathy Axilla: There is no is a pathologic axillary lymphadenopathy. Upper abdomen: There is a moderate hiatal hernia Skeletal structures: There is acute sternal fracture. IMPRESSION: 1. No evidence of great vessel injury 2. No evidence of pneumothorax. No evidence of pulmonary contusion 3. Acute sternal fracture. ACT 112: Negative or not required by law. Electronically signed by: Chavo Lane M.D. 10/13/2020 8:[address] 10/13/20 18:58 CT head/brain wo con CLINICAL HISTORY: Head pain status post trauma. COMPARISON STUDY: December 2017 TECHNIQUE: Axial CT of the brain is performed from the vertex to the skull base . IV contrast was not administered for this examination. A dose lowering technique was utilized adhering to the principles of ALARA. CT DOSE: FINDINGS: No intra or extra-axial mass lesions are visualized. There is no CT evidence of acute cortical infarction. There is no evidence of midline shift. There is no acute hemorrhage. No calvarial fractures are visualized. There are patchy white matter hypodensities likely on a small vessel basis. There is mild ventricular dilatation a finding which is felt to be secondary to volume loss There is no evidence of acute sinusitis. There is gas present in the region the right cavernous sinus, clivus, and sphenoid wing. This may be iatrogenic. No fractures are visualized. IMPRESSION: 1. Gas present in the region the right cavernous sinus, clivus and sphenoid wing. This may be iatrogenic. No fractures are visualized. 2. No evidence of acute intracranial hemorrhage 3. Atrophic changes with associated ventricular dilatation. ACT 112: Negative or not required by law. Electronically signed by: Chavo Lane M.D. 10/13/2020 8:37 PM Chest X-Ray 10/13/20 19:00 XR chest 1V portable CLINICAL HISTORY: Chest Pain, Fall COMPARISON STUDY: 09/29/2018 FINDINGS: The study is significantly limited from a technical standpoint. The patient is listing to the left. The chin obscures the left lung apex.[No pneumothorax is visualized. There is no focal pulmonary consolidation. There is no overt failure. IMPRESSION: 1. Significantly limited study from a technical standpoint. No acute findings. ACT 112: Negative or not required by law. Electronically signed by: Chavo Lane M.D. 10/13/2020 7:44 PM Discharge Plan Visit Data Chief Complaint: Fall Stated Complaint: FELL, HIT HEAD AND HURT CHEST ED Provider: Jarad Sharma Discharge Problem: Sternal fracture, COPD (chronic obstructive pulmonary disease), Osteoporosis Patient Disposition: Admitted As Inpatient Discharge Instructions Interventions: ED Discharge Assessment Last Done: 10/14/20 01:06 Discharge Problem: Sternal fracture Qualifiers: Encounter type: initial encounter Sternal location: unspecified Fracture type: closed Qualified Code(s): S22.20XA - Unspecified fracture of sternum, initial encounter for closed fracture COPD (chronic obstructive pulmonary disease) Qualifiers: COPD type: unspecified COPD Qualified Code(s): J44.9 - Chronic obstructive pulmonary disease, unspecified Osteoporosis Qualifiers: Osteoporosis type: unspecified Presence of current pathological fracture: unspecified Qualified Code(s): M81.0 - Age-related osteoporosis without current pathological fracture
--- NOTE | 2020-10-13 23:41 | History & Physical Report ---
Date of Service October 13, 2020 Assessment & Plan (1) Sternal fracture: Admit for pain control, and to arrange inpatient rehab at [facility]. Lidoderm patch applied to sternum on in a.m. off in p.m. Voltaren gel, 4 g applied to sternum every 4 hours as needed 1 [address] in place Acetaminophen 600 mg p.o. every 6 hours as needed mild pain or fever Consult PT/OT Present on Admission?: Yes (2) COPD (chronic obstructive pulmonary disease): Continue usual inhalers Present on Admission?: Yes (3) Chronic venous insufficiency: Hold bumetanide for now Present on Admission?: Yes (4) Hyperlipidemia: Continue pravastatin Present on Admission?: Yes (5) Hypothyroidism: Continue levothyroxine Present on Admission?: Yes (6) Ulcerative colitis: Continue mesalamine Present on Admission?: Yes History of Present Illness Chief Complaint: Patient presents to the emergency department with complaint of severe sternal chest pain, that is worse with breathing, after she tripped over a stool in her home and fell forward hitting her chest and her head. Primary Care Provider: Trent Osorio MD The patient is an 85-year-old female with a past medical history including COPD, contact dermatitis, wrist arthritis, chronic venous insufficiency, lower extremity edema, lower extremity cellulitis, cervical spine disease and stenosis, myofascial pain, osteoarthritis, depression, hyperlipidemia, hypertension, hypothyroidism, osteoporosis and ulcerative colitis. She presents as noted above, with her daughter in the exam room. Work-up in the emergency department included the following imaging studies: CT cervical spine was negative, CT of head was negative, chest x-ray was negative, CTA chest was positive for an acute sternal fracture. Allergies Allergy/AdvReac Type Severity Reaction Status Date / Time codeine AdvReac Unknown NAUSEATED/L Verified 10/13/20 20:19 IGHTHEADED Home Medications Medication Instructions Recorded Confirmed Type bupropion HCl 150 mg tablet,12 hr 150 mg PO BID 03/03/18 10/13/20 History sustained-release calcium carbonate 500 mg calcium 500 mg PO BID tab 03/03/18 10/13/20 History (1,250 mg) tablet multivitamin with minerals 1 tab PO QAM tab 03/03/18 10/13/20 History beclomethasone dipropionate 80 2 inh INH BID #3 inhaler 03/16/20 10/13/20 Rx mcg/actuation HFA breath activated aerosol pravastatin 40 mg tablet 40 mg PO HS 04/19/20 10/13/20 History trospium 20 mg tablet 20 mg PO BID 04/19/20 10/13/20 History bumetanide 2 mg tablet 4 mg PO QAM 08/16/20 10/13/20 History levothyroxine 100 mcg PO DAILYBB 08/30/20 10/13/20 History mesalamine 800 mg PO TID 08/30/20 10/13/20 History acetaminophen 1,000 mg PO TID PRN #30 tab 09/01/20 10/13/20 Rx bumetanide 2 mg PO .QAFTERNOON 10/13/20 10/13/20 History cholecalciferol (vitamin D3) 50 mcg PO DAILY 10/13/20 10/13/20 History [Vitamin D3] lactulose 15 ml PO DAILY PRN 10/13/20 10/13/20 History olmesartan 40 mg PO DAILY 10/13/20 10/13/20 History omega-3 fatty acids-fish oil 1 cap PO DAILY 10/13/20 10/13/20 History [Cary 3 Fish Oil] potassium chloride 10 meq PO BID 10/13/20 10/13/20 History Past Med/Surg History Medical History Cervical facet syndrome Cervicalgia COPD (chronic obstructive pulmonary disease) Depression Hyperlipidemia Hypertension Hypothyroidism Myofascial pain Osteoarthritis Osteoporosis Ulcerative colitis Surgical History History of inguinal hernia repair Family History Other Family history non-contributory Denies family history of Esophageal cancer Crohn's disease Colorectal cancer Ulcerative colitis Social History Smoking Status: Former smoker Tobacco Type: Cigarettes Hx Alcohol Use: No Hx Substance Use: No Preferred Language: [place] Zeal[place] Communication Ability: Effective Visual Impairment: No Limitations Hearing Ability: Normal 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 Beliefs That Will Affect Care: None marital status: / Current Living Situation: Alone current occupational status: retired Other Information That Helps Us Care for You: No Feels Safe at Home: Yes Safety Concerns: Feels Safe At This Time Assistive Devices: Walker Review of Systems Review of Systems: The patient denies palpitations, shortness of breath, dyspnea on exertion, cough, lower extremity swelling, sore throat, fevers, chills, sweats, weight change, fatigue, nausea, vomiting, diarrhea , constipation, abdominal pain, pelvic pain, blood in urine or stool, dysuria, urinary frequency or urgency, lightheadedness, dizziness, headache, memory loss, loss of consciousness, rash, abnormal bruising or bleeding, imbalance, focal or generalized weakness, numbness or tingling in arms or legs, generalized arthralgias or myalgias, back or neck pain, or night sweats. The review of systems is otherwise negative other than for that already noted above, and at least 10 systems have been reviewed. Physical Exam Physical Exam: The patient is awake, alert and oriented 3, well developed and well nourished, normocephalic and atraumatic, lying in bed and in no acute distress. HEENT--PERRL, EOMI, mucous membranes and oropharynx normal. Neck--supple. No JVD. No bruits. Thyroid normal, trachea midline, no adenopathy. Heart--normal S1 and S2. No murmurs, rubs or gallops. Lungs/chest wall--clear bilaterally, no respiratory distress, no accessory muscle use. Reproducible pain over mid and upper sternal area Abdomen--normal bowel sounds and soft. Nontender. Nondistended, no hernias or masses, no organomegaly. Extremities--no cyanosis or clubbing. No edema. Dermatologic--normal skin turgor, normal color, no abnormal lymph nodes, no rash. Neurologic--cranial nerves II through XII grossly intact. Rheumatologic--normal range of motion. Psychiatric--normal affect. Results & Data Results & Data ([facility]) Vital Signs (Past 12 Hours) Vital Signs Temp Pulse Resp BP Pulse Ox 10/13/20 19:34 100 10/13/20 18:37 97.3 F L 72 20 156/89 H 100 Laboratory Results Laboratory Results WBC 5.12 K/uL (4.8-10.8) 10/13/20 19:30 RBC 3.18 M/uL (4.2-5.4) L 10/13/20 19: Hgb 9.7 g/dL (12.0-16.0) L 10/13/20 19: Hct 28.5 % (37-47) L 10/13/20 19: MCV 89.6 fL (80-100) 10/13/20 19: MCH 30.5 pg (25-34) 10/13/20: MCHC 34.0 g/dL (32-36) 10/13/20: RDW Std Deviation 48.8 fL (36.4-46.3) H 10/13/20: RDW Coeff of Monico 14.9 % (11.5-14.5) H 10/13/20: Plt Count 248 K/uL (130-400) 10/13/20 19: MPV 8.9 fL (7.4-10.4) 10/13/20 19: Immature Gran % (Auto) 0.4 % 10/13/20: Neut % (Auto) 65.5 % 10/13/20 19:30 Lymph % (Auto) 18.4 % 10/13/20 19:30 Bowman % (Auto) 14.3 % 10/13/20 19:30 Eos % (Auto) 1.0 % 10/13/20: Baso % (Auto) 0.4 % 10/13/20:30 Neut # (Auto) 3.36 K/uL (1.4-6.5) 10/13/20: Lymph # (Auto) 0.94 K/uL (1.2-3.4) L 10/13/20 19:30 Bowman # (Auto) 0.73 K/uL (0.11-0.59) H 10/13/20 19:30 Eos # (Auto) 0.05 K/uL (0-0.5) 10/13/20: Baso # (Auto) 0.02 K/uL (0-0.2) 10/13/20: Immature Gran # (Auto) 0.02 K/uL (0.00-0.02) 10/13/20: PT 10.6 Seconds (9.0-12.0) 10/13/20 19:30 INR 1.0 (0.9-1.1) 10/13/20 19:30 Sodium 135 mmol/L (136-145) L 10/13/20 19:30 Potassium 3.8 mmol/L (3.5-5.1) 10/13/20 19:30 Chloride 100 mmol/L (98-107) 10/13/20 19:30 Carbon Dioxide 30 mmol/L (21-32) 10/13/20 19:30 Anion Gap 5.0 (3-11) 10/13/20 19:30 BUN 16 mg/dl (7-18) 10/13/20 19:30 Creatinine 0.73 mg/dl (0.6-1.2) 10/13/20 19:30 Est Cr Clr Drug Dosing Not Reportable 10/13/20 19:30 Est GFR ( Amer) 87.7 10/13/20 19:30 Est GFR (Non-Af Amer) 75.6 10/13/20 19:30 BUN/Creatinine Ratio 22.5 (10-20) H 10/13/20 19:30 Glucose 90 mg/dl (70-99) 10/13/20 19:30 Calcium 9.4 mg/dl (8.5-10.1) 10/13/20 19:30 Total Bilirubin 0.4 mg/dl (0.2-1) 10/13/20 19:30 AST 29 U/L (15-37) 10/13/20 19:30 ALT 27 U/L (12-78) 10/13/20 19:30 Alkaline Phosphatase 80 U/L (45-117) 10/13/20 19:30 Total Protein 7.5 gm/dl (6.4-8.2) 10/13/20 19:30 Albumin 3.5 gm/dl (3.4-5.0) 10/13/20 19:30 Globulin 4.0 gm/dl (2.5-4.0) 10/13/20 19:30 Albumin/Globulin Ratio 0.9 (0.9-2) 10/13/20 19:30 COVID-19 Eval Order CovFluRsv at [facility] 10/13/20 19:30 SARS-CoV-2 (PCR) NEGATIVE (Negative) 10/13/20 19:30 Influenza Type A (PCR) Negative (Neg) 10/13/20 19:30 Influenza Type B (PCR) Negative (Neg) 10/13/20 19:30 RSV (RT-PCR) Negative (Neg) 10/13/20 19:[address] 10/13/20 18:58 CT OF THE CERVICAL SPINE CLINICAL HISTORY: Neck pain status post trauma COMPARISON STUDY: 12/27/2018 CT DOSE: TECHNIQUE: CT scan of the cervical spine was performed from the skull base to the thoracic inlet. Images are reviewed in the axial, sagittal, and coronal planes. IV contrast was not administered for this examination. A dose lowering technique was utilized adhering to the principles of ALARA. FINDINGS: The visualized portions of the lung apices reveal no evidence of pneumothorax. The prevertebral soft tissues are normal. No fractures or subluxations are visualized. There are multilevel degenerative changes. There is a reversal the normal cervical lordosis. There is a partially visualized air in the region of the right cavernous sinus /middle cranial fossa. IMPRESSION: No evidence of acute fracture or traumatic subluxation. ACT 112: Negative or not required by law. Electronically signed by: Chavo Lane M.D. 10/13/2020 8:[address] 10/13/20 18:58 CT OF THE CHEST WITH IV CONTRAST CLINICAL HISTORY: Chest pain status post trauma COMPARISON STUDY: 04/05/2017 TECHNIQUE: Following the IV administration of 86 mL of Optiray, CT of the thorax was performed from the thoracic inlet to the lung bases. Images are reviewed in the axial, sagittal, and coronal planes. IV contrast was administered without complication. A dose lowering technique was utilized adhering to the principles of ALARA. CT DOSE: 1237.19 mGy.cm FINDINGS: Thyroid: Imaged portions of the thyroid gland are normal in appearance. Thoracic aorta: There is ectasia of the ascending thoracic aorta which measures 38 mm. There are no findings to indicate acute aortic injury. Pulmonary vasculature: The pulmonary trunk is normal in caliber. There are no central filling defects identified to suggest pulmonary embolus. Note that this examination was not protocoled for the evaluation of pulmonary emboli. HEART: There are coronary artery calcifications. There is no pericardial effusion. Lungs and pleural spaces: There is no pneumothorax. There is no evidence of pulmonary contusion. There is no evidence of pneumonia. No pleural effusions are visualized. There are a few scattered pulmonary micronodules, finding of doubtful clinical significance Mediastinum: There is no evidence of mediastinal hematoma. There is no pathologic adenopathy Lesvia: There is no evidence of pathologic hilar lymphadenopathy Axilla: There is no is a pathologic axillary lymphadenopathy. Upper abdomen: There is a moderate hiatal hernia Skeletal structures: There is acute sternal fracture. IMPRESSION: 1. No evidence of great vessel injury 2. No evidence of pneumothorax. No evidence of pulmonary contusion 3. Acute sternal fracture. ACT 112: Negative or not required by law. Electronically signed by: Chavo Lane M.D. 10/13/2020 8:[address] 10/13/20 18:58 CT head/brain wo con CLINICAL HISTORY: Head pain status post trauma. COMPARISON STUDY: December 2017 TECHNIQUE: Axial CT of the brain is performed from the vertex to the skull base. IV contrast was not administered for this examination. A dose lowering technique was utilized adhering to the principles of ALARA. CT DOSE: FINDINGS: No intra or extra-axial mass lesions are visualized. There is no CT evidence of acute cortical infarction. There is no evidence of midline shift. There is no acute hemorrhage. No calvarial fractures are visualized. There are patchy white matter hypodensities likely on a small vessel basis. There is mild ventricular dilatation a finding which is felt to be secondary to volume loss There is no evidence of acute sinusitis. There is gas present in the region the right cavernous sinus, clivus, and sphenoid wing. This may be iatrogenic. No fractures are visualized. IMPRESSION: 1. Gas present in the region the right cavernous sinus, clivus and sphenoid wing. This may be iatrogenic. No fractures are visualized. 2. No evidence of acute intracranial hemorrhage 3. Atrophic changes with associated ventricular dilatation. ACT 112: Negative or not required by law. Electronically signed by: Chavo Lane M.D. 10/13/2020 8:37 PM Chest X-Ray 10/13/20 19:00 XR chest 1V portable CLINICAL HISTORY: Chest Pain, Fall COMPARISON STUDY: 09/29/2018 FINDINGS: The study is significantly limited from a technical standpoint. The patient is listing to the left. The chin obscures the left lung apex.[No pneumo thorax is visualized. There is no focal pulmonary consolidation. There is no overt failure. IMPRESSION: 1. Significantly limited study from a technical standpoint. No acute findings. ACT 112: Negative or not required by law. Electronically signed by: Chavo Lane M.D. 10/13/2020 7:44 PM Code Status & VTE Plan Code Status Full code VTE Prophylaxis Plan VTE Prophylaxis will be ordered: Yes PG Care Time/CCT Total # of Minutes Spent Total Time Spent with Patient: Total time spent is greater than 50% in coordination of care (as documented) at patient's floor/unit and/or counseling patient: Coding Level of Care Code 50118 OBS Care - Level 3 Diagnoses Sternal fracture S22.20XA Encounter type: initial encounter Fracture type: closed Sternal location: unspecified COPD (chronic obstructive pulmonary disease) J44.9 COPD type: unspecified COPD Chronic venous insufficiency I87.2 Hyperlipidemia E78.5 Hypothyroidism E03.9 Ulcerative colitis K51.90 (1) Sternal fracture Encounter type: initial encounter Fracture type: closed Sternal location: unspecified Qualified Code(s): S22.20XA - Unspecified fracture of sternum, initial encounter for closed fracture (2) COPD (chronic obstructive pulmonary disease) COPD type: unspecified COPD Qualified Code(s): J44.9 - Chronic obstructive pulmonary disease, unspecified
[2020-10-14] MEDS ORDERED: ONDANSETRON INJ 2 MG/ML 2 ML VIAL IV PRN (01:34)
[2020-10-14] MEDS ORDERED: ACETAMINOPHEN HOME PACK 500 MG TABLET PO PRN (01:34)
[2020-10-14] MEDS: SODIUM CHLORIDE 0.9% 500 ML IV SCH (01:50)
[2020-10-14] MEDS ORDERED: LACTULOSE SYRUP 20 GM/30 ML UDC PO PRN (02:35)
[2020-10-14] MEDS: POTASSIUM CHLORIDE 10 MEQ TABCR PO SCH ×3 (03:28→21:29)
[2020-10-14] MEDS: buPROPion SR 150 MG TABCR PO SCH ×3 (03:28→21:24)
[2020-10-14] MEDS ORDERED: SIMETHICONE 80 MG CHEW PO PRN (04:57)
[2020-10-14 06:00] LABS: Basophils # (auto) 0.01 K/uL (0-0.2); Basophils % (auto) 0.2 %; Eosinophils # (auto) 0.06 K/uL (0-0.5); Eosinophils % (auto) 1.3 %; Hematocrit (blood only) 27.6 % (37-47); Hemoglobin 9.4 g/dL (12.0-16.0); Lymphocytes # (auto) 0.62 K/uL (1.2-3.4); Mean Corpuscular Hemoglobin 30.6 pg (25-34); Mean Corpuscular Hgb Conc 34.1 g/dL (32-36); Mean Corpuscular Volume 89.9 fL (80-100); Mean Platelet Volume 9.1 fL (7.4-10.4); Monocytes # (auto) 0.83 K/uL (0.11-0.59); Monocytes % (auto) 17.4 %; Neutrophils # (auto) 3.25 K/uL (1.4-6.5); Neutrophils % (auto) 68.1 %; Platelet Count 244 K/uL (130-400); RDW Coefficient of Variation 15.2 % (11.5-14.5); RDW Standard Deviation 49.5 fL (36.4-46.3); Red Blood Count 3.07 M/uL (4.2-5.4); White Blood Count 4.77 K/uL (4.8-10.8)
[2020-10-14] MEDS: LEVOTHYROXINE SODIUM 100 MCG TABLET PO SCH (06:08)
[2020-10-14 06:38] LABS: Albumin Level 2.8 gm/dl (3.4-5.0); BUN Creatinine Ratio 24.2 (10-20); Creatinine Clr Calc Pharmacy 53.4 ml/min; Est GFR (Non-African American) 82.8; Magnesium 2.3 mg/dl (1.8-2.4); Potassium 3.9 mmol/L (3.5-5.1)
[2020-10-14 06:41] LABS: Albumin Globulin Ratio 0.8 (0.9-2); Bilirubin,Total 0.5 mg/dl (0.2-1); Globulin 3.6 gm/dl (2.5-4.0); Total Protein 6.4 gm/dl (6.4-8.2)
[2020-10-14] MEDS: BUMETANIDE 1 MG TAB PO SCH ×2 (08:00→13:45)
[2020-10-14] MEDS: TROSPIUM~ORDER AWAITING ACTION SCH ×2 (08:00→15:09)
[2020-10-14] MEDS: CHOLECALCIFEROL 1,000 UNITS 25 MCG TAB PO SCH (08:01)
[2020-10-14] MEDS: MESALAMINE 800 MG TABCR PO SCH ×3 (08:01→21:25)
[2020-10-14] MEDS: CALCIUM 600MG + VIT D 400 IU TAB PO SCH ×2 (08:01→21:29)
[2020-10-14] MEDS: OMEGA-3 (PURIFIED FISH OIL) 1 GM CAP PO SCH (08:02)
[2020-10-14] MEDS: OLMESARTAN MEDOXOMIL 40 MG TAB PO SCH (08:02)
[2020-10-14] MEDS: HEPARIN SOD 5,000 UNIT/0.5 ML VIAL SQ SCH ×2 (08:03→21:29)
[2020-10-14] MEDS: LIDOCAINE 5% 1 PATCH TD SCH (08:13)
[2020-10-14] MEDS: ACETAMINOPHEN 325 MG TAB PO PRN ×2 (08:24→18:03)
[2020-10-14 09:22] LABS: Ferritin 91.1 ng/ml (8-388)
[2020-10-14 09:45] LABS: Folate (Folic Acid) > 20.00 ng/ml (>5.38); Vitamin B12 864 pg/ml (193-986)
--- NOTE | 2020-10-14 12:02 | Hospitalist Progress Note ---
Date of Service October 14, 2020 Assessment & Plan (1) Sternal fracture: pain control. OT and PT assessments with eventual discharge to inpatient rehab at [facility]. Lidoderm patch applied to sternum Voltaren gel, 4 g applied to sternum every 4 hours as needed 1 L[address] in place Acetaminophen 600 mg p.o. every 6 hours as needed mild pain or fever (2) COPD (chronic obstructive pulmonary disease): Continue usual inhalers. Stable (3) Chronic venous insufficiency: Hold bumetanide for now (4) Hyperlipidemia: Continue pravastatin (5) Hypothyroidism: Continue levothyroxine (6) Ulcerative colitis: Continue mesalamine DVT prophylaxis: Heparin subcu Disposition: Eventual discharge to [facility] Admission and Anticipated Discharge Date Admission Date: October 13, 2020 Subjective Alert. Minimal sternal pain while sitting still in a chair. Review of Systems Review of Systems: All systems reviewed & are unremarkable except as noted in HPI & below Physical Exam Physical Exam: General-alert and oriented x3, no fevers, no chills HEENT-head atraumatic and normocephalic, pupils equal and reactive to light, extraocular muscles intact Neck-no lymphadenopathy or thyromegaly, trachea midline Chest-clear to auscultation percussion. No rales wheezing or rhonchi Cardiac-regular rate and rhythm, normal S1 and S2 Abdomen-normal bowel sounds, nontender, no hepatosplenomegaly Extremities-no cyanosis, clubbing, or edema Musculoskeletal: Severe kyphoscoliosis. Her head is tilted so far forward her chin abuts her sternum and I suspect when she fell and struck her head her chin actually impacted the sternum and caused the fracture. Neuro-cranial nerves II through XII intact, motor and sensory function within normal limits, strength symmetrical , no focal deficits Psych-normal affect, normal mood Results & Data Results & Data ([facility]) Vital Signs (Past 12 Hours) Vital Signs Temp Pulse Resp BP Pulse Ox 10/14/20 07:00 36.8 C 60 16 107/68 98 10/14/20 01:15 36.4 C L 71 17 113/68 97 10/14/20 01:00 68 18 138/87 96 10/14/20 00:00 68 18 146/81 H 98 Laboratory Results 10/14/20 05:27 10/14/20 05:27 PG Care Time/CCT Total # of Minutes Spent Total Time Spent with Patient: Total time spent is greater than 50% in coordination of care (as documented) at patient's floor/unit and/or counseling patient: Coding Level of Care Code 06352 Subseq Hosp Care Lvl 3 Diagnoses Sternal fracture S22.20XA Encounter type: initial encounter Fracture type: closed Sternal location: unspecified COPD (chronic obstructive pulmonary disease) J44.9 COPD type: unspecified COPD Chronic venous insufficiency I87.2 Hyperlipidemia E78.5 Hypothyroidism E03.9 Ulcerative colitis K51.90 (1) Sternal fracture Encounter type: initial encounter Fracture type: closed Sternal location: unspecified Qualified Code(s): S22.20XA - Unspecified fracture of sternum, initial encounter for closed fracture (2) COPD (chronic obstructive pulmonary disease) COPD type: unspecified COPD Qualified Code(s): J44.9 - Chronic obstructive pulmonary disease, unspecified
[2020-10-14] MEDS ORDERED: Nursing to Pharmacy Communication SCH (12:45)
--- NOTE | 2020-10-14 12:56 | Electrocardiogram Report ---
Test Reason : Blood Pressure : / mmHG Vent. Rate : 067 BPM Atrial Rate : 067 BPM P-R Int : 134 ms QRS Dur : 102 ms QT Int : 428 ms P-R-T Axes : 067 019 024 degrees QTc Int : 452 ms Poor data quality, interpretation may be adversely affected Normal sinus rhythm Normal ECG When compared with ECG of 14-SEP-2018 18:59, Non-specific change in ST segment in Inferior leads Confirmed by Trent Abdul ([id number]) on 10/14/2020 12:55:41 PM Referred By: REFERRED SELF Confirmed By:Trent Abdul
[2020-10-14] MEDS: COUGH DROP (SUGAR FREE) LOZ 24 LOZ/1 BOX BUCCAL PRN (16:49)
[2020-10-14] MEDS: DICLOFENAC SOD 1% GEL 100 GM TUBE EXT PRN (18:04)
[2020-10-14] MEDS ORDERED: FAMOTIDINE 40 MG TABLET PO ONE (20:18)
[2020-10-14] MEDS: PRAVASTATIN SOD 40 MG TAB PO SCH (21:30)
[2020-10-15] MEDS: TROSPIUM~ORDER AWAITING ACTION SCH ×4 (00:07→21:26)
[2020-10-15] MEDS: DICLOFENAC SOD 1% GEL 100 GM TUBE EXT PRN ×3 (05:52→21:26)
[2020-10-15] MEDS: LEVOTHYROXINE SODIUM 100 MCG TABLET PO SCH (05:54)
[2020-10-15 06:54] LABS: Basophils # (auto) 0.02 K/uL (0-0.2); Basophils % (auto) 0.4 %; Eosinophils # (auto) 0.05 K/uL (0-0.5); Eosinophils % (auto) 1.1 %; Hematocrit (blood only) 29.6 % (37-47); Hemoglobin 9.9 g/dL (12.0-16.0); Lymphocytes # (auto) 0.72 K/uL (1.2-3.4); Lymphocytes % (auto) 15.9 %; Mean Corpuscular Hemoglobin 30.2 pg (25-34); Mean Corpuscular Hgb Conc 33.4 g/dL (32-36); Mean Corpuscular Volume 90.2 fL (80-100); Mean Platelet Volume 9.1 fL (7.4-10.4); Monocytes # (auto) 0.74 K/uL (0.11-0.59); Monocytes % (auto) 16.4 %; Neutrophils # (auto) 2.99 K/uL (1.4-6.5); Neutrophils % (auto) 66.2 %; Platelet Count 241 K/uL (130-400); RDW Coefficient of Variation 15.2 % (11.5-14.5); RDW Standard Deviation 50.2 fL (36.4-46.3); Red Blood Count 3.28 M/uL (4.2-5.4); White Blood Count 4.52 K/uL (4.8-10.8)
[2020-10-15 07:14] LABS: BUN Creatinine Ratio 21.2 (10-20); Calcium 8.4 mg/dl (8.5-10.1); Creatinine Clr Calc Pharmacy 44.2 ml/min; Est GFR (African American) 84.8; Est GFR (Non-African American) 73.2; Magnesium 2.5 mg/dl (1.8-2.4); Potassium 3.7 mmol/L (3.5-5.1)
[2020-10-15] MEDS: OMEGA-3 (PURIFIED FISH OIL) 1 GM CAP PO SCH (08:49)
[2020-10-15] MEDS: BUMETANIDE 1 MG TAB PO SCH ×2 (08:49→14:39)
[2020-10-15] MEDS: buPROPion SR 150 MG TABCR PO SCH ×2 (08:50→20:00)
[2020-10-15] MEDS: POTASSIUM CHLORIDE 10 MEQ TABCR PO SCH ×2 (08:50→20:00)
[2020-10-15] MEDS: OLMESARTAN MEDOXOMIL 40 MG TAB PO SCH (08:50)
[2020-10-15] MEDS: HEPARIN SOD 5,000 UNIT/0.5 ML VIAL SQ SCH ×2 (08:51→20:00)
[2020-10-15] MEDS: MESALAMINE 800 MG TABCR PO SCH ×3 (08:51→20:00)
[2020-10-15] MEDS: CHOLECALCIFEROL 1,000 UNITS 25 MCG TAB PO SCH (08:53)
[2020-10-15] MEDS: CALCIUM 600MG + VIT D 400 IU TAB PO SCH ×2 (08:53→20:00)
[2020-10-15] MEDS: LIDOCAINE 5% 1 PATCH TD SCH (08:56)
[2020-10-15] MEDS: ACETAMINOPHEN 325 MG TAB PO PRN (09:01)
--- NOTE | 2020-10-15 12:46 | Hospitalist Progress Note ---
Date of Service October 15, 2020 Assessment & Plan (1) Sternal fracture: pain control. OT and PT assessments with eventual discharge to inpatient rehab at [facility]. Apparently has been accepted but is waiting on an open bed. Lidoderm patch applied to sternum Voltaren gel, 4 g applied to sternum every 4 hours as needed 1 [address] in [address] Acetaminophen 600 mg p.o. every 6 hours as needed mild pain or fever (2) COPD (chronic obstructive pulmonary disease): Continue usual inhalers. Stable (3) Chronic venous insufficiency: Hold bumetanide for now (4) Hyperlipidemia: Continue pravastatin (5) Hypothyroidism: Continue levothyroxine (6) Ulcerative colitis: Continue mesalamine DVT prophylaxis: Heparin subcu Disposition: Eventual discharge to [facility] Admission and Anticipated Discharge Date Admission Date: October 13, 2020 Subjective Patient seen and examined. She is hard of hearing but is appropriate and able to reply. She tells me that her sternum is still painful, especially with ambulation but feels that the current course of treatment with lidocaine and Voltaren is effective. Physical Exam Constitutional: WD/WN, vitals as above Neck: trachea midline, no thyromegaly Respiratory: normal respiratory effort, lungs clear to auscultation Cardiovascular: RRR, no murmur, no edema Gastrointestinal (Abdomen): normal bowel sounds, soft, nontender, no hepatosplenomegaly Neurologic: PERRL, EOMI, accommodation nl, no face palsy, no dysarthria Results & Data Results & Data ([facility]) Vital Signs (Past 12 Hours) Vital Signs Temp Pulse Resp BP Pulse Ox 10/15/20 07:04 36.7 C 63 16 126/75 94 PG Care Time/CCT Total # of Minutes Spent Total Time Spent with Patient: Total time spent is greater than 50% in coordination of care (as documented) at patient's floor/unit and/or counseling patient: Coding Level of Care Code 92517 Subseq Hosp Care Lvl 2 Diagnoses Sternal fracture S22.20XA Encounter type: initial encounter Fracture type: closed Sternal location: unspecified COPD (chronic obstructive pulmonary disease) J44.9 COPD type: unspecified COPD Chronic venous insufficiency I87.2 Hyperlipidemia E78.5 Hypothyroidism E03.9 Ulcerative colitis K51.90 (1) Sternal fracture Encounter type: initial encounter Fracture type: closed Sternal location: unspecified Qualified Code(s): S22.20XA - Unspecified fracture of sternum, initial encounter for closed fracture (2) COPD (chronic obstructive pulmonary disease) COPD type: unspecified COPD Qualified Code(s): J44.9 - Chronic obstructive pulmonary disease, unspecified
[2020-10-15] MEDS: PRAVASTATIN SOD 40 MG TAB PO SCH (20:00)
[2020-10-16] MEDS: LEVOTHYROXINE SODIUM 100 MCG TABLET PO SCH (05:49)
[2020-10-16 06:22] LABS: Basophils # (auto) 0.01 K/uL (0-0.2); Basophils % (auto) 0.2 %; Eosinophils # (auto) 0.08 K/uL (0-0.5); Eosinophils % (auto) 1.9 %; Hematocrit (blood only) 28.7 % (37-47); Hemoglobin 9.6 g/dL (12.0-16.0); Immature Granulocytes # (auto) 0.01 K/uL (0.00-0.02); Immature Granulocytes % (auto) 0.2 %; Lymphocytes # (auto) 0.82 K/uL (1.2-3.4); Lymphocytes % (auto) 19.1 %; Mean Corpuscular Hemoglobin 30.3 pg (25-34); Mean Corpuscular Hgb Conc 33.4 g/dL (32-36); Mean Corpuscular Volume 90.5 fL (80-100); Mean Platelet Volume 9.3 fL (7.4-10.4); Monocytes # (auto) 0.81 K/uL (0.11-0.59); Monocytes % (auto) 18.8 %; Neutrophils # (auto) 2.57 K/uL (1.4-6.5); Neutrophils % (auto) 59.8 %; Platelet Count 244 K/uL (130-400); RDW Coefficient of Variation 15.5 % (11.5-14.5); RDW Standard Deviation 51.1 fL (36.4-46.3); Red Blood Count 3.17 M/uL (4.2-5.4)
[2020-10-16 06:44] LABS: BUN Creatinine Ratio 22.3 (10-20); Calcium 8.2 mg/dl (8.5-10.1); Creatinine Clr Calc Pharmacy 49.4 ml/min; Est GFR (African American) 93.6; Est GFR (Non-African American) 80.7; Magnesium 2.6 mg/dl (1.8-2.4); Potassium 3.8 mmol/L (3.5-5.1)
[2020-10-16] MEDS: OLMESARTAN MEDOXOMIL 40 MG TAB PO SCH (08:57)
[2020-10-16] MEDS: POTASSIUM CHLORIDE 10 MEQ TABCR PO SCH ×2 (08:57→19:44)
[2020-10-16] MEDS: CALCIUM 600MG + VIT D 400 IU TAB PO SCH ×2 (08:58→19:45)
[2020-10-16] MEDS: buPROPion SR 150 MG TABCR PO SCH ×2 (08:58→19:46)
[2020-10-16] MEDS: BUMETANIDE 1 MG TAB PO SCH ×2 (08:58→14:45)
[2020-10-16] MEDS: CHOLECALCIFEROL 1,000 UNITS 25 MCG TAB PO SCH (08:58)
[2020-10-16] MEDS: MESALAMINE 800 MG TABCR PO SCH ×3 (08:58→19:44)
[2020-10-16] MEDS: OMEGA-3 (PURIFIED FISH OIL) 1 GM CAP PO SCH (08:58)
[2020-10-16] MEDS: TROSPIUM~ORDER AWAITING ACTION SCH ×3 (08:59→21:18)
[2020-10-16] MEDS: LIDOCAINE 5% 1 PATCH TD SCH (09:50)
[2020-10-16] MEDS: HEPARIN SOD 5,000 UNIT/0.5 ML VIAL SQ SCH ×2 (09:51→21:16)
[2020-10-16] MEDS: CEROVITE ADV FORMULA TAB PO SCH (10:38)
[2020-10-16] MEDS: ACETAMINOPHEN 325 MG TAB PO PRN (10:38)
--- NOTE | 2020-10-16 13:14 | Hospitalist Progress Note ---
Date of Service October 16, 2020 Assessment & Plan (1) Sternal fracture: pain control. Lidoderm patch applied to sternum Voltaren gel, 4 g applied to sternum every 4 hours as needed 1 Lidoderm patch not in place Acetaminophen 600 mg p.o. every 6 hours as needed mild pain or fever Plan to discharge to [facility] once bed available. (2) COPD (chronic obstructive pulmonary disease): Continue usual inhalers. Stable (3) Chronic venous insufficiency: Hold bumetanide for now (4) Hyperlipidemia: Continue pravastatin (5) Hypothyroidism: Continue levothyroxine (6) Ulcerative colitis: Continue mesalamine DVT prophylaxis: Heparin subcu Disposition: Eventual discharge to [facility] Admission and Anticipated Discharge Date Admission Date: October 13, 2020 Subjective Patient seen and examined. Sitting on edge of bed today. Patient still has some sternal pain as previously described, otherwise provides no complaints and is in good spirits. Physical Exam Constitutional: WD/WN, vitals as above Neck: trachea midline, no thyromegaly Respiratory: normal respiratory effort, lungs clear to auscultation Auscultation: lungs clear to auscultation bilaterally Cardiovascular: RRR, no murmur, no edema Gastrointestinal (Abdomen): normal bowel sounds, soft, nontender, no hepatosplenomegaly Skin: no rashes, warm and dry Neurologic: PERRL, EOMI, accommodation nl, no face palsy, no dysarthria Psychiatric: A+Ox3, euthymic affect Results & Data Results & Data ([facility]) Vital Signs (Past 12 Hours) Vital Signs Temp Pulse Resp BP Pulse Ox 10/16/20 06:54 36.7 C 78 16 98/62 L 96 PG Care Time/CCT Total # of Minutes Spent Total Time Spent with Patient: Total time spent is greater than 50% in coordination of care (as documented) at patient's floor/unit and/or counseling patient: Coding Level of Care Code 60463 Subseq Hosp Care Lvl 2 Diagnoses Sternal fracture S22.20XA Encounter type: initial encounter Fracture type: closed Sternal location: unspecified COPD (chronic obstructive pulmonary disease) J44.9 COPD type: unspecified COPD Chronic venous insufficiency I87.2 Hyperlipidemia E78.5 Hypothyroidism E03.9 Ulcerative colitis K51.90 (1) Sternal fracture Encounter type: initial encounter Fracture type: closed Sternal location: unspecified Qualified Code(s): S22.20XA - Unspecified fracture of sternum, initial encounter for closed fracture (2) COPD (chronic obstructive pulmonary disease) COPD type: unspecified COPD Qualified Code(s): J44.9 - Chronic obstructive pulmonary disease, unspecified
[2020-10-16] MEDS: COUGH DROP (SUGAR FREE) LOZ 24 LOZ/1 BOX BUCCAL PRN (13:30)
[2020-10-16] MEDS: PRAVASTATIN SOD 40 MG TAB PO SCH (19:44)
[2020-10-16] MEDS: DICLOFENAC SOD 1% GEL 100 GM TUBE EXT PRN (21:16)
[2020-10-17] MEDS: LEVOTHYROXINE SODIUM 100 MCG TABLET PO SCH (05:27)
[2020-10-17] MEDS: CHOLECALCIFEROL 1,000 UNITS 25 MCG TAB PO SCH (09:11)
[2020-10-17] MEDS: CEROVITE ADV FORMULA TAB PO SCH (09:11)
[2020-10-17] MEDS: TROSPIUM~ORDER AWAITING ACTION SCH ×2 (09:11→14:45)
[2020-10-17] MEDS: MESALAMINE 800 MG TABCR PO SCH ×3 (09:12→21:35)
[2020-10-17] MEDS: OMEGA-3 (PURIFIED FISH OIL) 1 GM CAP PO SCH (09:12)
[2020-10-17] MEDS: OLMESARTAN MEDOXOMIL 40 MG TAB PO SCH (09:12)
[2020-10-17] MEDS: BUMETANIDE 1 MG TAB PO SCH ×2 (09:12→14:44)
[2020-10-17] MEDS: buPROPion SR 150 MG TABCR PO SCH ×2 (09:13→21:36)
[2020-10-17] MEDS: HEPARIN SOD 5,000 UNIT/0.5 ML VIAL SQ SCH ×2 (09:13→21:36)
[2020-10-17] MEDS: CALCIUM 600MG + VIT D 400 IU TAB PO SCH ×2 (09:13→21:36)
[2020-10-17] MEDS: LIDOCAINE 5% 1 PATCH TD SCH (09:14)
[2020-10-17] MEDS: POTASSIUM CHLORIDE 10 MEQ TABCR PO SCH ×2 (09:15→21:36)
[2020-10-17] MEDS ORDERED: bisacodyL 10 MG SUPP PR STA (14:12)
[2020-10-17] MEDS ORDERED: HYDROmorphone INJ 0.5 MG/0.5 ML SYR IV STA (15:51)
--- NOTE | 2020-10-17 16:45 | CT Scan Report ---
CT SCAN OF THE FACIAL BONES WITHOUT IV CONTRAST CLINICAL HISTORY: Recent trauma. Gas in the right cavernous sinus seen on recent CT scan. COMPARISON STUDY: CT of the brain dated 10/13/2020. TECHNIQUE: High-resolution CT scan of the facial bones is performed. Images are reviewed in the axia l, sagittal, and coronal planes. IV contrast was not administered for this examination. A dose lower ing technique was utilized adhering to the principles of ALARA. CT DOSE: 628.07 mGy.cm FINDINGS: The skeletal structures are osteopenic. There is no evidence of facial bone fracture. The b kenny orbits are intact and the orbital contents are within normal limits noting bilateral ocular lens implants. The zygomatic arches, nasal bones, and pterygoid plates are preserved. The maxilla and alyas ible are intact. Advanced degenerative change is noted in the right temporomandibular joint. The Ther e are no layering blood products within the paranasal sinuses. Mild mucosal thickening is noted in th e right maxillary antrum. There is trace mucosal thickening in the left sphenoid sinus. The remaining paranasal sinuses are clear. The mastoid air cells are well pneumatized. Cerumen is noted in the ext ernal auditory canals. The visualized calvarium appears intact. The imaged upper cervical spine is ma intained noting advanced spondylosis. Partially imaged brain parenchyma is within normal limits notin g age-related involutional change. Gas within the right cavernous sinus seen on the recent brain CT h as resolved and was likely related to IV placement. IMPRESSION: There is no evidence of facial bone fracture. ACT 112: Negative or not required by law. Electronically signed by: Fox Stratton M.D. 10/17/2020 4:43 PM
[2020-10-17] MEDS ORDERED: SOD PHOSPHATE/SOD BIPHOSPHATE ENEMA 132 ML BTL PR PRN (16:49)
--- NOTE | 2020-10-17 21:19 | Hospitalist Progress Note ---
Date of Service October 17, 2020 Assessment & Plan (1) Abnormal head CT: at admission head CT showed air in the cavernous sinus on right and clivus region. very unusual finding. worrisome for occult fracture of face. CT face today WITHOUT FRACTURE; air now gone; no abnormalities. NO SYMPTOMS/PAIN on exam. either the air seen on CT head was artifactual, or indeed it was there and resolved. radiology mentioned iatrogenic from an IV? air embolus that resolved?? either way she is doing well from ENT and neuro standpoint. follow carefully. (2) Sternal fracture: cont pain meds no evidence of respiratory compromise from such H/H stable suggesting no complicating hematoma repeat H/H in am check vitamin D in am supportive care and pain control (3) COPD (chronic obstructive pulmonary disease): Continue usual inhalers. Stable, no flare. (4) Chronic venous insufficiency: Resume bumex. Compression stockings would be best. (5) Hyperlipidemia: Continue pravastatin (6) Hypothyroidism: Continue levothyroxine recheck TSH in am - previous level was high adjust synthroid accordingly (7) Ulcerative colitis: Continue mesalamine stable, no flare (8) Chronic kidney disease, stage 3a: baseline CrCl 40s/50s bmp am for stability (9) Constipation: dulcolax suppos x 1 today with huge results then cont maintenance daughter extensively updated by phone today hopefully to rehab tomorrow if she does well overnight Admission and Anticipated Discharge Date Admission Date: October 16, 2020 Subjective patient sitting in chair by window 2 complaints - no BM since before admission ongoing chest discomfort over sternal fracture when she moves or takes deep breaths denies headache, facial pain, neck pain, mouth pain, or any ENT discomforts denies back pain no abd pain - just constipation no dyspnea Review of Systems Constitutional: no fever, no chills and no anorexia Respiratory: no cough Cardiovascular: as per Subjective / HPI, + chest pain and + edema (chronic ) Gastrointestinal: no nausea and no vomiting Physical Exam Constitutional: + altered mental status (slight confusion ); no acute distress ENMT: external ear and nose normal, oropharynx normal no tenderness over frontal sinuses, maxillary sinuses, or ethmoids; no facial trauma, deformity, or any abnormality Neck: trachea midline, no thyromegaly no anterior neck swelling and no midline deformity Respiratory: normal respiratory effort, lungs clear to auscultation Cardiovascular: Rate/Rhythm: regular rate and regular rhythm Heart Sounds: normal S1 and normal S2 Vessels: posterior tibial pulses present and dorsalis pedis pulses present Extremities: + edema (1+ b/l ) and + varicosities Chest (Breasts): Additional Comments: tender to palpation over sternal region Gastrointestinal (Abdomen): Inspection/Auscultation: + abdomen distended and normal bowel sounds Percussion/Palpation: abdomen nontender, no guarding and no hepatosplenomegaly Musculoskeletal: no cyanosis or clubbing, extremities motor strength 5/5 Psychiatric: Orientation: alert, oriented to person and oriented to place Results & Data Results & Data ([facility]) Vital Signs (Past 12 Hours) Vital Signs Temp Pulse Resp BP Pulse Ox 10/17/20 16:22 36.7 C 72 18 101/53 L 96 10/17/20 11:33 36.8 C 56 L 16 107/61 97 Laboratory Results Laboratory Results - last 24 hr 10/17/20 16:05 Stool Occult Bld Scrn Negative labs reviewed admission imaging from 10/13 reviewed - CT head with ?air in cavernous sinus CT facial -- done today -- completely normal; no air in cavernous sinus; no fractures PG Care Time/CCT Total # of Minutes Spent Total Time Spent with Patient: Total time spent is greater than 50% in coordination of care (as documented) at patient's floor/unit and/or counseling patient: Coding Level of Care Code 42877 Subseq Hosp Care Lvl [address] R93.0 Sternal fracture S22.20XA Encounter type: initial encounter Fracture type: closed Sternal location: unspecified COPD (chronic obstructive pulmonary disease) J44.9 COPD type: unspecified COPD Chronic venous insufficiency I87.2 Hyperlipidemia E78.5 Hypothyroidism E03.9 Ulcerative colitis K51.90 Chronic kidney disease, stage 3a N18.31 Constipation K59.00 (1) COPD (chronic obstructive pulmonary disease) COPD type: unspecified COPD Qualified Code(s): J44.9 - Chronic obstructive pulmonary disease, unspecified (2) Sternal fracture Encounter type: initial encounter Fracture type: closed Sternal location: unspecified Qualified Code(s): S22.20XA - Unspecified fracture of sternum, initial encounter for closed fracture
[2020-10-17] MEDS: PRAVASTATIN SOD 40 MG TAB PO SCH (21:35)
[2020-10-18] MEDS: TROSPIUM~ORDER AWAITING ACTION SCH ×4 (01:45→23:06)
[2020-10-18] MEDS: LEVOTHYROXINE SODIUM 100 MCG TABLET PO SCH (05:58)
[2020-10-18 07:02] LABS: Hemoglobin 10.6 g/dL (12.0-16.0); Mean Corpuscular Hgb Conc 33.1 g/dL (32-36); Mean Corpuscular Volume 90.7 fL (80-100); Mean Platelet Volume 9.2 fL (7.4-10.4); Platelet Count 312 K/uL (130-400); RDW Coefficient of Variation 15.6 % (11.5-14.5); RDW Standard Deviation 51.4 fL (36.4-46.3); Red Blood Count 3.53 M/uL (4.2-5.4)
[2020-10-18] MEDS: CHOLECALCIFEROL 1,000 UNITS 25 MCG TAB PO SCH (07:33)
[2020-10-18] MEDS: MESALAMINE 800 MG TABCR PO SCH ×3 (07:33→20:44)
[2020-10-18 07:34] LABS: BUN Creatinine Ratio 18.7 (10-20); Calcium 9.5 mg/dl (8.5-10.1); Creatinine Clr Calc Pharmacy 39.9 ml/min; Est GFR (African American) 75.1; Est GFR (Non-African American) 64.8; Potassium 4.2 mmol/L (3.5-5.1)
[2020-10-18] MEDS: POTASSIUM CHLORIDE 10 MEQ TABCR PO SCH ×2 (07:34→20:43)
[2020-10-18] MEDS: BUMETANIDE 1 MG TAB PO SCH ×2 (07:34→13:19)
[2020-10-18] MEDS: CEROVITE ADV FORMULA TAB PO SCH (07:35)
[2020-10-18] MEDS: CALCIUM 600MG + VIT D 400 IU TAB PO SCH (07:35)
[2020-10-18] MEDS: buPROPion SR 150 MG TABCR PO SCH ×2 (07:35→20:44)
[2020-10-18] MEDS: OLMESARTAN MEDOXOMIL 40 MG TAB PO SCH (07:35)
[2020-10-18] MEDS: OMEGA-3 (PURIFIED FISH OIL) 1 GM CAP PO SCH (07:36)
[2020-10-18] MEDS: HEPARIN SOD 5,000 UNIT/0.5 ML VIAL SQ SCH ×2 (07:36→20:43)
[2020-10-18] MEDS: DICLOFENAC SOD 1% GEL 100 GM TUBE EXT PRN ×3 (07:38→20:42)
[2020-10-18] MEDS: LIDOCAINE 5% 1 PATCH TD SCH (07:42)
[2020-10-18 07:44] LABS: Thyroid Stimulating Hormone 8.55 uIu/ml (0.300-4.500)
--- NOTE | 2020-10-18 12:50 | XRay Report ---
PA CHEST RADIOGRAPH AND UPRIGHT AND SUPINE AP RADIOGRAPHS OF THE ABDOMEN CLINICAL HISTORY: recent constipation/distension, assess fecal load COMPARISON STUDY: Chest CT October 13, 2020. CT of the abdomen and pelvis April 30, 2019. FINDINGS: Lung volumes are normal. There is no pneumothorax or pleural effusion. Cardiomegaly is not ed. There is no evidence for pulmonary edema or pneumonia. A hiatal hernia is present. There is no fr ee air. There is no evidence for a bowel obstruction. There is a large amount stool throughout the co grant. There is a small amount of stool within the rectum. IMPRESSION: 1. No free air or evidence of bowel obstruction. 2. Large amount stool throughout the colon. Small amount of stool within the rectum. 3. No acute cardiopulmonary findings. ACT 112: Negative or not required by law. Electronically signed by: Rocael Clark M.D. 10/18/2020 12:49 PM
[2020-10-18] MEDS: POLYETHYLENE (MIRALAX) 17 GM PACK PO SCH ×2 (13:46→20:42)
[2020-10-18] MEDS: SENNA 8.6 MG TAB PO SCH (13:52)
[2020-10-18] MEDS: ACETAMINOPHEN 325 MG TAB PO PRN (18:36)
--- NOTE | 2020-10-18 20:33 | Hospitalist Progress Note ---
Date of Service October 18, 2020 Assessment & Plan (1) Abnormal head CT: at admission head CT showed air in the cavernous sinus on right and clivus region. very unusual finding. worrisome for occult fracture of face. CT face WITHOUT FRACTURE; air not visible on facial CT; no abnormalities. Continues to have NO SYMPTOMS/PAIN on exam. either the air seen on CT head was artifactual, or indeed it was there and resolved. radiology mentioned iatrogenic from an IV? air embolus that resolved?? continues to do well from ENT and neuro standpoint. (2) Sternal fracture: cont pain meds no evidence of respiratory compromise from such cxr today wnl H/H stable suggesting no complicating hematoma (3) COPD (chronic obstructive pulmonary disease): Continue usual inhalers. Stable, no flare. (4) Chronic venous insufficiency: Cont bumex. Compression stockings would be best. (5) Hyperlipidemia: Continue pravastatin (6) Hypothyroidism: Continue levothyroxine but increase to 112mcg daily as last 2 TSH checks have both been high repeat TSH 6 weeks (7) Ulcerative colitis: Continue mesalamine stable, no flare (8) Chronic kidney disease, stage 3a: baseline CrCl 40s/50s bmp stable again today (9) Constipation: despite massive BM yesterday her xrays today still show copious stool miralax BID + senna daily for maintenance (10) Chronic cor pulmonale: last echo with RV systolic dysfunction she remains compensated cont bumex (11) Hypotension: daughter mentioned on phone today that her mother has had episodes of lightheadedness at home. suspect the lightheadedness is from low BP. will LOWER the olmesartan to 20mg daily; may even need lower dose or none. follow BPs. no bed at [facility] today hopefully can d/c there tomorrow Admission and Anticipated Discharge Date Admission Date: October 16, 2020 Subjective patient feeling good today eating well no headache, facial pain or other ENT complaints had very large BM s/p dulcolax suppos yesterday has not gone today no nausea/emesis no dyspnea still w/ sternal pain - mainly with movement and deep breathing Review of Systems Respiratory: no cough and no dyspnea Cardiovascular: as per Subjective / HPI and + edema; no orthopnea Gastrointestinal: + bloating; no abdominal pain Physical Exam Constitutional: no acute distress and no altered mental status ENMT: external ear and nose normal, oropharynx normal Neck: no anterior neck swelling and no midline deformity Respiratory: normal respiratory effort, lungs clear to auscultation Cardiovascular: Rate/Rhythm: regular rate and regular rhythm Heart Sounds: normal S1 and normal S2 Vessels: posterior tibial pulses present and dorsalis pedis pulses present Extremities: + edema (1+ b/l ) and + varicosities Gastrointestinal (Abdomen): Inspection/Auscultation: + abdomen distended (but improved from yesterday; palpable loops of bowel/stool present ) and normal bowel sounds Percussion/Palpation: abdomen nontender, no guarding and no hepatosplenomegaly Musculoskeletal: no cyanosis or clubbing, extremities motor strength 5/5 Psychiatric: Orientation: alert, oriented to person and oriented to place Results & Data Results & [facility] ([facility]) Vital Signs (Past 12 Hours) Vital Signs Temp Pulse Resp BP Pulse Ox 10/18/20 15:55 36.9 C 70 16 97/61 L 99 Laboratory Results Laboratory Results - last 24 hr 10/18/20 10/18/20 10/18/20 06:45 06:45 06:45 WBC 3.90 L RBC 3.53 L Hgb 10.6 L Hct 32.0 L MCV 90.7 MCH 30.0 MCHC 33.1 RDW Std Deviation 51.4 H RDW Coeff of Monico 15.6 H Plt Count 312 MPV 9.2 Sodium 136 Potassium 4.2 Chloride 102 Carbon Dioxide 31 Anion Gap 3.0 BUN 16 Creatinine 0.83 Est Cr Clr Drug Dosing 39.9 Est GFR ( Amer) 75.1 Est GFR (Non-Af Amer) 64.8 BUN/Creatinine Ratio 18.7 Glucose 99 Calcium 9.5 25-OH Vitamin D Total 96.2 TSH 8.550 H PG Care Time/CCT Total # of Minutes Spent Total Time Spent with Patient: Total time spent is greater than 50% in coordination of care (as documented) at patient's floor/unit and/or counseling patient: Coding Level of Care Code 07124 Subseq Hosp Care Lvl [address] R93.0 Sternal fracture S22.20XA Encounter type: initial encounter Fracture type: closed Sternal location: unspecified COPD (chronic obstructive pulmonary disease) J44.9 COPD type: unspecified COPD Chronic venous insufficiency I87.2 Hyperlipidemia E78.5 Hypothyroidism E03.9 Ulcerative colitis K51.90 Chronic kidney disease, stage 3a N18.31 Constipation K59.00 Chronic cor pulmonale I27.81 Hypotension I95.9 (1) COPD (chronic obstructive pulmonary disease) COPD type: unspecified COPD Qualified Code(s): J44.9 - Chronic obstructive pulmonary disease, unspecified (2) Sternal fracture Encounter type: initial encounter Fracture type: closed Sternal location: unspecified Qualified Code(s): S22.20XA - Unspecified fracture of sternum, initial encounter for closed fracture
[2020-10-18] MEDS: PRAVASTATIN SOD 40 MG TAB PO SCH (20:43)
[2020-10-18] MEDS ORDERED: SODIUM CHLORIDE 0.9% 1000ML 1,000 ML IV ONE (22:56)
[2020-10-19] MEDS ORDERED: SODIUM CHLORIDE 0.9% 1000ML 500 ML IV ONE (00:22)
[2020-10-19] MEDS: ACETAMINOPHEN 325 MG TAB PO PRN (05:07)
[2020-10-19] MEDS ORDERED: LEVOTHYROXINE SODIUM 112 MCG TABLET PO SCH (06:30)
[2020-10-19] MEDS: POTASSIUM CHLORIDE 10 MEQ TABCR PO SCH (07:05)
[2020-10-19] MEDS: buPROPion SR 150 MG TABCR PO SCH (07:05)
[2020-10-19] MEDS: MESALAMINE 800 MG TABCR PO SCH ×2 (07:06→15:55)
[2020-10-19] MEDS: SENNA 8.6 MG TAB PO SCH (07:06)
[2020-10-19] MEDS: CEROVITE ADV FORMULA TAB PO SCH (07:06)
[2020-10-19] MEDS: OMEGA-3 (PURIFIED FISH OIL) 1 GM CAP PO SCH (07:06)
[2020-10-19] MEDS: LIDOCAINE 5% 1 PATCH TD SCH (07:08)
[2020-10-19] MEDS: HEPARIN SOD 5,000 UNIT/0.5 ML VIAL SQ SCH (07:08)
[2020-10-19] MEDS: POLYETHYLENE (MIRALAX) 17 GM PACK PO SCH (07:09)
[2020-10-19] MEDS: TROSPIUM~ORDER AWAITING ACTION SCH ×2 (08:17→15:56)
[2020-10-19] MEDS ORDERED: OLMESARTAN MEDOXOMIL 20 MG TAB PO SCH ×2 (09:00)
[2020-10-19] MEDS ORDERED: FAMOTIDINE 20 MG TAB PO ONE (10:59)
--- NOTE | 2020-10-19 15:20 | Discharge Summary ---
Date of Service date of admission - October 16, 2020 date of discharge - October 19, 2020 Admission HPI Per Admitting Provider The patient is an 85-year-old female with a past medical history including COPD, contact dermatitis, wrist arthritis, chronic venous insufficiency, lower extremity edema, lower extremity cellulitis, cervical spine disease and stenosis, myofascial pain, osteoarthritis, depression, hyperlipidemia, hypertension, hypothyroidism, osteoporosis and ulcerative colitis. She presents as noted above, with her daughter in the exam room. Work-up in the emergency department included the following imaging studies: CT cervical spine was negative, CT of head was negative, chest x-ray was negative, CTA chest was positive for an acute sternal fracture. Principal Diagnosis 1. acute sternal fracture 2nd fall 2. severe constipation Discharge Exam Constitutional no acute distress and no altered mental status ENMT external ear and nose normal, oropharynx normal no tenderness over maxillary, frontal or ethmoid sinuses to palpation; no nasal bone tenderness to palpation Neck no anterior neck swelling and no midline deformity Respiratory normal respiratory effort, lungs clear to auscultation Cardiovascular Rate/Rhythm: regular rate and regular rhythm Heart Sounds: normal S1 and normal S2 Vessels: posterior tibial pulses present and dorsalis pedis pulses present Extremities: + edema (1+ b/l ) and + varicosities Gastrointestinal (Abdomen) Inspection/Auscultation: + abdomen distended (but improved from prior exams; palpable loops of bowel/stool present ) and normal bowel sounds Percussion/Palpation: abdomen nontender, no guarding and no hepatosplenomegaly Musculoskeletal no cyanosis or clubbing, extremities motor strength 5/5 Spine: + kyphosis; no pain with cervical ROM, no cervical spinal tenderness and no cervical muscular tenderness Psychiatric Orientation: alert, oriented to person and oriented to place Discharge Data Allergies Allergy/AdvReac Type Severity Reaction Status Date / Time codeine AdvReac Unknown NAUSEATED/L Verified 10/13/20 20:19 IGHTHEADED Consultations PT, OT Ordered Studies CT cervical spine wo con Stat CT chest diagnostic w con Stat CT head/brain wo con Stat CT facial bones wo con Stat Abdominal x-rays Cervical Spine CT 10/13/20 18:58 CT OF THE CERVICAL SPINE CLINICAL HISTORY: Neck pain status post trauma COMPARISON STUDY: 12/27/2018 CT DOSE: TECHNIQUE: CT scan of the cervical spine was performed from the skull base to the thoracic inlet. Images are reviewed in the axial, sagittal, and coronal planes. IV contrast was not administered for this examination. A dose lowering technique was utilized adhering to the principles of ALARA. FINDINGS: The visualized portions of the lung apices reveal no evidence of pneumothorax. The prevertebral soft tissues are normal. No fractures or subluxations are visualized. There are multilevel degenerative changes. There is a reversal the normal cervical lordosis. There is a partially visualized air in the region of the right cavernous sinus/middle cranial fossa. IMPRESSION: No evidence of acute fracture or traumatic subluxation. ACT 112: Negative or not required by law. Electronically signed by: Chavo Lane M.D. 10/13/2020 8:[address] 10/13/20 18:58 CT OF THE CHEST WITH IV CONTRAST CLINICAL HISTORY: Chest pain status post trauma COMPARISON STUDY: 04/05/2017 TECHNIQUE: Following the IV administration of 86 mL of Optiray, CT of the thorax was performed from the thoracic inlet to the lung bases. Images are reviewed in the axial, sagittal, and coronal planes. IV contrast was administered without complication. A dose lowering technique was utilized adhering to the principles of ALARA. CT DOSE: 1237.19 mGy.cm FINDINGS: Thyroid: Imaged portions of the thyroid gland are normal in appearance. Thoracic aorta: There is ectasia of the ascending thoracic aorta which measures 38 mm. There are no findings to indicate acute aortic injury. Pulmonary vasculature: The pulmonary trunk is normal in caliber. There are no central filling defects identified to suggest pulmonary embolus. Note that this examination was not protocoled for the evaluation of pulmonary emboli. HEART: There are coronary artery calcifications. There is no pericardial effusion. Lungs and pleural spaces: There is no pneumothorax. There is no evidence of pulmonary contusion. There is no evidence of pneumonia. No pleural effusions are visualized. There are a few scattered pulmonary micronodules, finding of doubtful clinical significance Mediastinum: There is no evidence of mediastinal hematoma. There is no pathologic adenopathy Lesvia: There is no evidence of pathologic hilar lymphadenopathy Axilla: There is no is a pathologic axillary lymphadenopathy. Upper abdomen: There is a moderate hiatal hernia Skeletal structures: There is acute sternal fracture. IMPRESSION: 1. No evidence of great vessel injury 2. No evidence of pneumothorax. No evidence of pulmonary contusion 3. Acute sternal fracture. ACT 112: Negative or not required by law. Electronically signed by: Chavo Lane M.D. 10/13/2020 8:[address] 10/13/20 18:58 CT head/brain wo con CLINICAL HISTORY: Head pain status post trauma. COMPARISON STUDY: December 2017 TECHNIQUE: Axial CT of the brain is performed from the vertex to the skull base. IV contrast was not administered for this examination. A dose lowering technique was utilized adhering to the principles of ALARA. CT DOSE: FINDINGS: No intra or extra-axial mass lesions are visualized. There is no CT evidence of acute cortical infarction. There is no evidence of midline shift. There is no acute hemorrhage. No calvarial fractures are visualized. There are patchy white matter hypodensities likely on a small vessel basis. There is mild ventricular dilatation a finding which is felt to be secondary to volume loss There is no evidence of acute sinusitis. There is gas present in the region the right cavernous sinus, clivus, and sphenoid wing. This may be iatrogenic. No fractures are visualized. IMPRESSION: 1. Gas present in the region the right cavernous sinus, clivus and sphenoid wing. This may be iatrogenic. No fractures are visualized. 2. No evidence of acute intracranial hemorrhage 3. Atrophic changes with associated ventricular dilatation. ACT 112: Negative or not required by law. Electronically signed by: Chavo Lane M.D. 10/13/2020 8:37 PM Chest X-Ray 10/13/20 19:00 XR chest 1V portable CLINICAL HISTORY: Chest Pain, Fall COMPARISON STUDY: 09/29/2018 FINDINGS: The study is significantly limited from a technical standpoint. The patient is listing to the left. The chin obscures the left lung apex.[No pneumothorax is visualized. There is no focal pulmonary consolidation. There is no overt failure. IMPRESSION: 1. Significantly limited study from a technical standpoint. No acute findings. ACT 112: Negative or not required by law. Electronically signed by: Chavo Lane M.D. 10/13/2020 7:[address] 10/17/20 14:15 CT SCAN OF THE FACIAL BONES WITHOUT IV CONTRAST CLINICAL HISTORY: Recent trauma. Gas in the right cavernous sinus seen on recent CT scan. COMPARISON STUDY: CT of the brain dated 10/13/2020. TECHNIQUE: High-resolution CT scan of the facial bones is performed. Images are reviewed in the axial, sagittal, and coronal planes. IV contrast was not administered for this examination. A dose lowering technique was utilized adhering to the principles of ALARA. CT DOSE: 628.07 mGy.cm FINDINGS: The skeletal structures are osteopenic. There is no evidence of facial bone fracture. The bony orbits are intact and the orbital contents are within normal limits noting bilateral ocular lens implants. The zygomatic arches, nasal bones, and pterygoid plates are preserved. The maxilla and mandible are intact. Advanced degenerative change is noted in the right temporomandibular joint. The There are no layering blood products within the paranasal sinuses. Mild mucosal thickening is noted in the right maxillary antrum. There is trace mucosal thickening in the left sphenoid sinus. The remaining paranasal sinuses are clear. The mastoid air cells are well pneumatized. Cerumen is noted in the external auditory canals. The visualized calvarium appears intact. The imaged upper cervical spine is maintained noting advanced spondylosis. Partially imaged brain parenchyma is within normal limits noting age-related involutional change. Gas within the right cavernous sinus seen on the recent brain CT has re solved and was likely related to IV placement. IMPRESSION: There is no evidence of facial bone fracture. ACT 112: Negative or not required by law. Electronically signed by: Fox Stratton M.D. 10/17/2020 4:43 PM Chest/Abdomen X-ray 10/18/20 11:35 PA CHEST RADIOGRAPH AND UPRIGHT AND SUPINE AP RADIOGRAPHS OF THE ABDOMEN CLINICAL HISTORY: recent constipation/distension, assess fecal load COMPARISON STUDY: Chest CT October 13, 2020. CT of the abdomen and pelvis April 30, 2019. FINDINGS: Lung volumes are normal. There is no pneumothorax or pleural effusion. Cardiomegaly is noted. There is no evidence for pulmonary edema or pneumonia. A hiatal hernia is present. There is no free air. There is no evidence for a bowel obstruction. There is a large amount stool throughout the colon. There is a small amount of stool within the rectum. IMPRESSION: 1. No free air or evidence of bowel obstruction. 2. Large amount stool throughout the colon. Small amount of stool within the rectum. 3. No acute cardiopulmonary findings. ACT 112: Negative or not required by law. Electronically signed by: Rocael Clark M.D. 10/18/2020 12:49 PM Hospital Course (1) Sternal fracture: acute, uncomplicated. 2nd to trauma from fall. no evidence of respiratory compromise from such, retrosternal hematoma, etc. follow-up chest x-ray later in stay without pneumothorax, etc. vitamin D level nearly >100 upon 25-OH vitamin D level check. continue lidoderm patches, tramadol prn, tylenol, voltaren gel prn, heat, etc. (2) Abnormal head CT: at admission head CT showed air in the cavernous sinus on right and clivus region. very unusual finding. worrisome for occult fracture of face or carotid injury. CT face WITHOUT FRACTURE; air not visible on facial CT; no abnormalities. Patient had NO signs of trauma on facial exam, and NO SYMPTOMS/PAIN of face while hospitalized. either the air seen on CT head was artifactual, or indeed it was there and subsequently resolved quickly. radiology mentioned iatrogenic from an IV? air embolus that resolved?? continues to do well from ENT and neuro standpoint. (3) Constipation: Several days into the hospitalization the patient hadn't moved her bowels. Abdominal exam showed a distended abdomen. She had palpable loops of bowel with stool. She finally had a large, copious BM. Despite such her abdomen remained distended. x-rays following this massive bowel movement still showed severe constipation. miralax BID + senna daily for maintenance were recommended at discharge. additionally, given her long-standing ulcerative colitis and the increased colon cancer risk associated with UC, I recommended f/u with [facility] soon after discharge. Could consider screening colonoscopy given her constipation, bowel habits, etc - all in context of UC. (4) COPD (chronic obstructive pulmonary disease): Continue usual inhalers. Stable, no flare while here. (5) Chronic venous insufficiency: Cont bumex. Compression stockings would likely be beneficial. (6) Hyperlipidemia: Continue pravastatin (7) Hypothyroidism: Continue levothyroxine but increase to 112mcg daily as last 2 TSH checks have both been high. repeat TSH 6 weeks as outpatient. (8) Ulcerative colitis: Continue mesalamine. stable, no flare, follows with [facility]. (9) Chronic kidney disease, stage 3a: baseline CrCl 40s/50s. bmp stable during the visit. (10) Chronic cor pulmonale: last echo with RV systolic dysfunction (2018). she was compensated from CHF standpoint the entire stay. patient was taking large quantities of bumex prior to admission -- bumex 4mg qam and bumex 2mg qafternoon. history suggests it was mainly being prescribed for severe LE Edema?? patient had low-normal BPs throughout this hospitalization, and before admission had been having orthostasis/dizziness. therefore, her afternoon bumex dose was discontinued. she will continue on her usual dose of AM bumex 4mg. at [facility] recommend daily weights to ensure she remains compensated. (11) Hypotension: daughter mentioned that her mother has had episodes of lightheadedness at home. suspect the lightheadedness was from low BP. olmesartan dose was decreased during the stay. despite such her BPs remained low or low-normal. thus, the olmesartan was completely discontinued. additionally, her bumex dose was changed while here -- see above. Total Time Total Time Spent Total Time Spent (In Minutes): 45 Total Time Includes: Examination of the Patient, Discharge Planning and Medicati on Reconciliation Discharge Plan Discharge Items Patient Disposition: Transfer Inpatient Rehab Fac Reason For Visit: ACUTE STERNAL FRACTURE Discharge Diagnosis: 1. acute sternal fracture due to fall/trauma 2. severe constipation Activity: As commented below Activity Comment: no heavy lifting over 10 pounds to avoid aggravating the sternal fracture Lifting: No more than 10 pounds Non-emergency contact: Primary Care Provider Call non-emergency contact if: you have any medication questions, your symptoms worsen, your pain is not controlled, your pain is worsening and you have a fever Follow-up/Referrals: Preet Ag DO [Physician] - (see Dr Ag - 2-3 weeks - dx: severe constipation, ulcerative colitis.) Trent Osorio MD [Primary Care Provider] - (see Dr Osorio within 1 week of discharge from [facility] ) Diet: Regular Addtl Attending Provider Instructions: Patient was admitted for an acute sternal fracture after falling off a stool at her home. Her stay was complicated by severe constipation - now improving with an aggressive bowel regimen. Prior to admission she had been having dizzy spells/lightheadedness - likely due to low blood pressure in the setting of heavy diuretic usage. Her olmesartan has been d/c. Her bumex has been decreased from twice daily dosing to once daily dosing. Recommend - 1. repeat CBC, BMP, and mag level in 3-4 days 2. heating pad as needed to chest wall for sternal fracture 3. follow-up with Dr [facility] - 2-3 weeks for severe constipation issues in the setting of chronic ulcerative colitis 4. repeat TSH in 6 weeks 5. daily weights please; notify MD if weight gain of more than 2-3 pounds over 1-2 days is seen (patient with history of chronic right-sided CHF / cor pulmonale) 6. patient with vitamin D level of ~95 which is nearly in high range (>100); please discontinue calcium and vitamin D supplements at this time Pending Studies at Discharge: No Stand-Alone Forms: My [facility] [place] [employer] Skilled Items Patient informed of condition?: Yes DNR: No Discharge Level of Care: Acute rehab Communicable Disease: No Discharge Prognosis: Stable Lines: None Urinary Catheter: No Medications and DC Order Prescriptions: New sennosides [Senokot] 8.6 mg Tablet 17.2 mg PO QAM Qty: 60 RF: 0 polyethylene glycol 3350 [Miralax] 17 gram Powder In Packet 17 g PO BID Qty: 1 RF: 0 levothyroxine [Synthroid] 112 mcg Tablet 112 mcg PO DAILYBB Qty: 30 RF: 2 diclofenac sodium [Voltaren] 1 % Gel 4 g EXT Q6H PRN (Reason: joint pain or chest wall pain ) Qty: 1 RF: 0 lidocaine 5 % Adhesive Patch,Medicated 2 patch transdermal QAM Qty: 60 RF: 0 tramadol 50 mg tablet 25 mg PO Q8H PRN (Reason: pain) Qty: 20 RF: 0 famotidine [Pepcid] 20 mg tablet 20 mg PO BID PRN (Reason: heartburn) Qty: 30 RF: 0 Continued bupropion HCl [Wellbutrin SR] 150 mg tablet sustained-release 12 hr 150 mg PO BID RF: 0 multivitamin with minerals [Multiple Vitamin-Minerals] tablet 1 tab PO QAM RF: 0 pravastatin 40 mg tablet 40 mg PO HS RF: 0 bumetanide 2 mg tablet 4 mg PO QAM RF: 0 Qvar RediHaler 80 mcg/actuation HFA aerosol breath activated 2 inh INH BID Qty: 3 RF: 3 trospium 20 mg tablet 20 mg PO BID RF: 0 potassium chloride 10 mEq tablet extended release 10 meq PO BID RF: 0 lactulose 10 gram/15 mL solution 15 ml PO DAILY PRN (Reason: Constipation) RF: 0 omega-3 fatty acids-fish oil 684-1,200 mg Capsule,Delayed Release(Dr/Ec) 1 cap PO DAILY RF: 0 mesalamine 800 mg tablet,delayed release (DR/EC) 800 mg PO TID RF: 0 Changed acetaminophen 500 mg Tablet 1,000 mg PO TID Qty: 30 RF: 0 Discontinued calcium carbonate [Calcium 500] 500 mg calcium (1,250 mg) tablet 500 mg PO BID RF: 0 bumetanide 2 mg tablet 2 mg PO .QAFTERNOON RF: 0 olmesartan 40 mg tablet 40 mg PO DAILY RF: 0 cholecalciferol (vitamin D3) [Vitamin D3] 50 mcg (2,000 unit) Tablet 50 mcg PO DAILY RF: 0 levothyroxine 100 mcg tablet 100 mcg PO DAILYBB RF: 0 Discharge Orders: Discharge Order (Routine); Ordered 10/19/20 Ordered By: Ant Cooley Admission Data Admit Date/Time: 10/16/20 13:33 Attending Provider: Ant Cooley Admit Provider: Pancho Sargent Primary Care Provider: Trent Osorio Other Providers: [facility] ; Pancho Sargent Other Interventions: Discharge Summary Assessment (RN) Last Done: 10/19/20 15:15 Coding Level of Care Code D/C Day Management >30 mins Diagnoses Sternal fracture S22.20XA Encounter type: initial encounter Fracture type: closed Sternal location: unspecified Abnormal head CT R93.0 Constipation K59.00 COPD (chronic obstructive pulmonary disease) J44.9 COPD type: unspecified COPD Chronic venous insufficiency I87.2 Hyperlipidemia E78.5 Hypothyroidism E03.9 Ulcerative colitis K51.90 Chronic kidney disease, stage 3a N18.31 Chronic cor pulmonale I27.81 Hypotension I95.9
== END 2020-10-19 17:48 | DRG 565 ==
LOC: 3W 18:33 → ED 18:33 → SUATTDRO 23:40 → 3W 10-14 01:06 → SUATTDRO 10-16 13:33
DX: K59.00 Constipation, unspecified; K51.90 Ulcerative colitis, unspecified, without complications; R60.0 Localized edema; Z88.5 Allergy status to narcotic agent; J44.9 Chronic obstructive pulmonary disease, unspecified; I12.9 Hypertensive chronic kidney disease with stage 1 through stage 4 chronic kidney disease, or unspecified chronic kidney disease; F32.9 Major depressive disorder, single episode, unspecified; Z79.899 Other long term (current) drug therapy; E78.5 Hyperlipidemia, unspecified; M81.0 Age-related osteoporosis without current pathological fracture; M19.90 Unspecified osteoarthritis, unspecified site; Z79.890 Hormone replacement therapy; I27.81 Cor pulmonale (chronic); N18.31 Chronic kidney disease, stage 3a; R93.0 Abnormal findings on diagnostic imaging of skull and head, not elsewhere classified; Y92.009 Unspecified place in unspecified non-institutional (private) residence as the place of occurrence of the external cause; I95.9 Hypotension, unspecified; S22.20XA Unspecified fracture of sternum, initial encounter for closed fracture; I87.2 Venous insufficiency (chronic) (peripheral); E03.9 Hypothyroidism, unspecified; Z87.891 Personal history of nicotine dependence; W01.198A Fall on same level from slipping, tripping and stumbling with subsequent striking against other object, initial encounter; M47.892 Other spondylosis, cervical region

== ENCOUNTER 2024-05-30 16:37 | Inpatient (IN) ==
[2024-05-30] MEDS ORDERED: MoRPHine SULFATE 2 MG/ML CARP IV PRN ×3 (17:02→21:20)
[2024-05-30] MEDS: ACETAMINOPHEN 1,000 MG/100 ML VIAL IV STA (17:07)
[2024-05-30] MEDS: MoRPHine SULFATE 4 MG/ML 1 ML CARP\\VIAL IV PRN ×2 (17:14→18:02)
[2024-05-30] MEDS: SODIUM CHLORIDE 0.9% 500 ML IV ONE (17:14)
[2024-05-30 17:21] LABS: iSTAT Creatinine 0.6 mg/dl (0.6-1.3); iSTAT Hemoglobin 10.9 g/dl (12.0-16.0); iSTAT Ionized Calcium 1.12 mmol/l (1.12-1.32); iSTAT Potassium 3.5 mmol/L (3.3-5.0)
[2024-05-30 17:33] LABS: Basophils # (auto) 0.04 K/uL (0.00-0.20); Basophils % (auto) 0.7 %; Eosinophils # (auto) 0.07 K/uL (0.00-0.50); Eosinophils % (auto) 1.2 %; Hemoglobin 11.3 g/dl (12.0-16.0); Immature Granulocytes # (auto) 0.03 K/uL (0.01-0.20); Immature Granulocytes % (auto) 0.5 %; Lymphocytes % (auto) 16.5 %; Mean Corpuscular Hemoglobin 30.2 pg (25.0-34.0); Mean Corpuscular Hgb Conc 31.4 g/dL (32.0-36.0); Mean Corpuscular Volume 96.3 fL (80.0-100.0); Mean Platelet Volume 9.7 fL (9.4-12.4); Monocytes # (auto) 0.89 K/uL (0.11-0.59); Monocytes % (auto) 14.7 %; Neutrophils # (auto) 4.03 K/uL (1.40-6.50); Neutrophils % (auto) 66.4 %; Platelet Count 234 K/uL (130-400); RDW Standard Deviation 49.2 fL (36.4-46.3); Red Blood Count 3.74 M/uL (4.20-5.40); White Blood Count 6.06 K/ul (4.8-10.8)
[2024-05-30] MEDS: OPTIRAY 320 100ml IV ONE (17:34)
--- NOTE | 2024-05-30 17:35 | Emergency Department Note ---
Impression & Plan Intertrochanteric fracture of right femur, Fall from standing, Osteoarthritis ED Provider Note NAME: MERY SHETH AGE: 88 SEX: F : 1935 ARRIVES VIA: Ambulance INFORMANT: Patient ED PROVIDER(S): Jarad Sharma MD CHIEF COMPLAINT: Fall, hip pain PLAN: Disposition: Admit MEDICAL DECISION MAKING: The patient is a pleasant 88-year-old woman with a past medical history of COPD, cervical disc disease, osteoarthritis, hypertension, who presents to the emergency department via EMS from her independent living facility at [place] for evaluation of a fall where she reports she was in the kitchen and suddenly went to the ground and was unsure if got dizzy or slipped. She does not feel she hit her head. She reports she did not pass out. She reports neck pain but unclear if this is different from her chronic neck pain. She reports her more severe pain is related to her right hip which is slightly shortened and externally rotated. She has denies recent illness or preceding chest pain or shortness of breath. On evaluation patient is uncomfortable no distress, afebrile with stable vital signs. She has no midline CTL spine tenderness palpation she reports subjective discomfort of the paraspinal muscles or lower cervical spine. She has normal strength in bilateral upper extremities. She has normal strength in her left lower extremity. Right lower extremity range of motion is limited secondary to pain with the patient reports pain within the right groin. There is shortening and external rotation noted. Distal PMS intact. Plain films were performed of the pelvis and hip and demonstrate daily angulated fracture of the right intertrochanteric femur. Remote appearing right pubic fractures are described. EKG without overt acute ischemia. CXR negative for acute cardiopulmonary process per my personal preliminary review/interpretation. WBC and platelets normal limits. H/H within prior range values. Platelets in a month. Chemistry without metabolic acidosis. Electrolytes without significant malady. LFTs unremarkable. Lipase normal. UA without evidence of infection. COVID-19 RNA, SOUTH test negative. CT of the head, C-spine, chest, abdomen pelvis were performed were negative for additional traumatic findings. Patient reassessed and continued to have no midline tenderness palpation or step-offs of the C-spine and had full range of motion without radicular symptoms. C-collar was cleared. Dr. Horton, orthopedic surgery on-call made aware of the patient evaluation to the hospitalist service. Case was discussed with CAMILA Dexter hospitalist, who will evaluate the patient for admission. Case was discussed with CAMILA Dexter hospitalist, who will evaluate the patient for admission. Of note, the patient was treated with IV APAP, IV morphine. However despite initial Morphine 2 mg x 2, then 4mg x 1, patient was still uncomfortable. She was then given 0.5 mg of IV Dilaudid with gradual improving pain but still not comfortable. Additional improvement obtained with repositioning of the patient's right lower extremity with slight flexion. Further management per admitting team. Triage Nursing notes reviewed and agree them. Prior/external medical records reviewed Vital Signs: reviewed Differential diagnosis: Fracture, dislocation, contusion, intra-abdominal, pneumothorax, intrathoracic, intracranial, neurologic, compartment syndrome, rhabdomyolysis, as well as other pathologies. ER treatment provided: See below. Diagnostics interpreted by me: ECG: Normal sinus rhythm, 60 bpm, no ectopy, no overt ST ovation or depression, QTc 438, QRS 94. Cardiac Monitoring: An order for continuous cardiac monitoring was placed and demonstrated Normal sinus rhythm, 60 bpm, no ectopy. Laboratory studies: See below Imaging studies: See below Consultation(s): Dr. Horton, orthopedics on-call. DANNA Dexter hospitalist. HPI: The patient is a pleasant 88-year-old woman with a past medical history of COPD, cervical disc disease, osteoarthritis, hypertension, who presents to the emergency department via EMS from her independent living facility at [place] for evaluation of a fall where she reports she was in the kitchen and suddenly went to the ground and was unsure if got dizzy or slipped. She does not feel she hit her head. She reports she did not pass out. She reports neck pain but unclear if this is different from her chronic neck pain. She reports her more severe pain is related to her right hip which is slightly shortened and externally rotated. She has denies recent illness or preceding chest pain or shortness of breath. ROS: See above HPI for pertinent positives & negatives. A total of 10 systems reviewed and were otherwise negative. VITALS:See Below PHYSICAL EXAMINATION: GENERAL: Awake, alert, uncomfortable-appearing, in no distress HENT: Normocephalic, atraumatic. Oropharynx with dry mucous membranes and otherwise unremarkable. EYES: Normal conjunctiva. Sclera non-icteric. NECK: Supple. No nuchal rigidity. FROM. No JVD. No midline CTL spine tenderness palpation she reports subjective discomfort of the paraspinal muscles or lower cervical spine. RESPIRATORY: Clear to auscultation. CARDIAC: Regular rate, normal rhythm. Extremities warm and well perfused. Pulses equal. ABDOMEN: Soft, non-distended. No tenderness to palpation. No rebound or guarding. No masses. MUSCULOSKELETAL: Chest examination reveals no tenderness. The back is symmetrical on inspection without obvious abnormality. There is no CVA tenderness to palpation. She has normal strength in bilateral upper extremities. She has normal strength in her left lower extremity. Right lower extremity range of motion is limited secondary to pain. Mild ttp of the right groin. Shortening and external rotation noted. Distal PMS intact. LOWER EXTREMITIES: Calves are equal size bilaterally and non-tender. No edema. No discoloration. NEURO: Normal sensorium. No sensory or motor deficits noted. SKIN: No rash or jaundice noted. Jarad Sharma MD Past Med/Surg History Problem List (Updated 05/30/24 @ 21:03 by Jarad Sharma MD) Fall from standing (Acute) Intertrochanteric fracture of right femur (Acute) Intertrochanteric fracture of right hip Sensorineural hearing loss (SNHL) of both ears Cerumen impaction Excessive cerumen in both ear canals Contact dermatitis Left wrist effusion Intractable pain (Acute) Wrist arthritis (Acute) Edema of left lower extremity (Acute) Cellulitis (Acute) Cervical spinal stenosis (Chronic) Cervical disc disease (Chronic) Myofascial pain (Chronic) Osteoarthritis (Chronic) COPD (chronic obstructive pulmonary disease) (Chronic) Cervical facet syndrome (Chronic) Cervicalgia (Chronic) Depression (Chronic) Fall (Acute) Hypertension (Chronic) Laceration of head (Acute) Medical History (Updated 05/30/24 @ 21:03 by Jarad Sharma MD) Hypotension Chronic cor pulmonale Constipation Chronic kidney disease, stage 3a Abnormal head CT COPD (chronic obstructive pulmonary disease) Sternal fracture Chronic venous insufficiency Ulcerative colitis Osteoporosis Hypothyroidism Hyperlipidemia Surgical History History of inguinal hernia repair Family History Other Family history non-contributory No family history of adverse response to anesthesia No family history of bleeding disorder Denies family history of Esophageal cancer Crohn's disease Heart disease Colorectal cancer Cancer Hypertension Ulcerative colitis Stroke Asthma Social History Smoking Status: Former smoker Tobacco Type: Cigarettes packs per day: 1; Do You Dip or Chew Tobacco: No; Hx Alcohol Use: No Hx Substance Use: No Preferred Language: Yi Communication Ability: Effective Visual Impairment: No Limitations Hearing Ability: Normal 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 Beliefs That Will Affect Care: None marital status: / Current Living Situation: Alone current occupational status: retired Feels Safe at Home: Yes Assistive Devices: Walker Allergies Allergies Allergy/AdvReac Type Severity Reaction Status Date / Time codeine AdvReac Unknown NAUSEATED/L Verified 05/30/24 19:42 [id number] Home Meds Home Medications Medication Instructions Recorded Confirmed bupropion HCl 150 mg tablet,12 hr 150 mg PO BID 03/03/18 05/30/24 sustained-release (Wellbutrin SR) albuterol sulfate 90 mcg/actuation 2 inh inhalation Q4H PRN SOB 05/30/24 05/30/24 aerosol inhaler bumetanide 0.5 mg tablet 0.5 mg PO DAILY 05/30/24 05/30/24 cyanocobalamin (vitamin B-12) 1,000 mcg IM MONTHLY 05/30/24 05/30/24 1,000 mcg/mL injection solution docusate sodium 100 mg capsule 100 mg PO BID 05/30/24 05/30/24 duloxetine 60 mg capsule,delayed 60 mg PO DAILY 05/30/24 05/30/24 release famotidine 20 mg tablet (Pepcid) 20 mg PO HS heartburn 05/30/24 05/30/24 ferrous sulfate 325 mg (65 mg 325 mg PO DAILY 05/30/24 05/30/24 iron) tablet fluticasone furoate 200 1 inh inhalation DAILY PRN SOB 05/30/24 05/30/24 mcg/actuation blister powder for inhalation (Arnuity Ellipta) fluticasone propionate 50 2 spray intranasal HS PRN ALLERGIES 05/30/24 05/30/24 mcg/actuation nasal spray,suspension Previous Rx's Medication Instructions Recorded acetaminophen 500 mg tablet 1,000 mg (2 x 500 mg) PO TID #30 10/19/20 tabs Results & Data (ED) Vital Signs Vital Signs - 24 hr 05/30/24 16:43 05/30/24 17:03 05/30/24 17:03 Temperature 36.3 C L 36.3 C L Temperature Source Oral Pulse Rate 58 L 58 L Pulse Rate [Apical] Pulse Rate from SpO2 Sensor Pulse Strength [Left Femoral] Normal Respiratory Rate 16 16 Respiratory Effort / Characteristics Non-Labored Spontaneous Respiratory Depth Normal Respiratory Pattern Regular Blood Pressure 161/85 H 161/58 H Blood Pressure [Right Arm] Blood Pressure Mean 110 Blood Pressure Mean [Right Arm] Pulse Oximetry 100 100 100 Oxygen Delivery Method Room Air Room Air Room Air Oxygen Flow Rate 0 Sepsis Recent Fever Within 48 Hours No Sepsis New/Unexplained Change in Mental Status N/A Sepsis Action Taken by Nursing No Action Required Oxygen Flow Rate - Titration Pulse Oximetry Post Tiitration 05/30/24 17:03 05/30/24 17:08 05/30/24 17:53 Temperature Temperature Source Pulse Rate 58 L 89 Pulse Rate [Apical] Pulse Rate from SpO2 Sensor Pulse Strength [Left Femoral] Respiratory Rate 26 H Respiratory Effort / Characteristics Respiratory Depth Respiratory Pattern Blood Pressure 173/97 H Blood Pressure [Right Arm] Blood Pressure Mean 137 Blood Pressure Mean [Right Arm] Pulse Oximetry 100 95 Oxygen Delivery Method Room Air Room Air Oxygen Flow Rate 0 Sepsis Recent Fever Within 48 Hours Sepsis New/Unexplained Change in Mental Status Sepsis Action Taken by Nursing Oxygen Flow Rate - Titration Pulse Oximetry Post Tiitration 05/30/24 18:01 05/30/24 18:03 05/30/24 18:36 Temperature Temperature Source Pulse Rate 62 Pulse Rate [Apical] 74 Pulse Rate from SpO2 Sensor 67 Pulse Strength [Left Femoral] Respiratory Rate 24 20 22 Respiratory Effort / Characteristics Non-Labored Spontaneous Respiratory Depth Normal Respiratory Pattern Regular Blood Pressure 148/105 H Blood Pressure [Right Arm] Blood Pressure Mean 118 Blood Pressure Mean [Right Arm] Pulse Oximetry 95 99 94 Oxygen Delivery Method Room Air Room Air Room Air Oxygen Flow Rate Sepsis Recent Fever Within 48 Hours Sepsis New/Unexplained Change in Mental Status Sepsis Action Taken by Nursing Oxygen Flow Rate - Titration Pulse Oximetry Post Tiitration 05/30/24 18:45 05/30/24 19:00 05/30/24 19:01 Temperature Temperature Source Pulse Rate 75 Pulse Rate [Apical] 67 Pulse Rate from SpO2 Sensor 67 Pulse Strength [Left Femoral] Respiratory Rate 20 20 Respiratory Effort / Characteristics Non-Labored Spontaneous Respiratory Depth Normal Respiratory Pattern Regular Blood Pressure 143/84 H Blood Pressure [Right Arm] 143/84 H Blood Pressure Mean 85 Blood Pressure Mean [Right Arm] 103 Pulse Oximetry 95 94 Oxygen Delivery Method Room Air Room Air Oxygen Flow Rate Sepsis Recent Fever Within 48 Hours Sepsis New/Unexplained Change in Mental Status Sepsis Action Taken by Nursing Oxygen Flow Rate - Titration Pulse Oximetry Post Tiitration 05/30/24 19:15 05/30/24 19:29 05/30/24 19:30 Temperature Temperature Source Pulse Rate 110 H 66 Pulse Rate [Apical] Pulse Rate from SpO2 Sensor 69 64 Pulse Strength [Left Femoral] Respiratory Rate 20 23 Respiratory Effort / Characteristics Respiratory Depth Respiratory Pattern Blood Pressure 135/74 Blood Pressure [Right Arm] Blood Pressure Mean 94 Blood Pressure Mean [Right Arm] Pulse Oximetry 92 87 L 98 Oxygen Delivery Method Nasal Cannula Room Air Nasal Cannula Oxygen Flow Rate 3 0 3 Sepsis Recent Fever Within 48 Hours Sepsis New/Unexplained Change in Mental Status Sepsis Action Taken by Nursing Oxygen Flow Rate - Titration 3 Pulse Oximetry Post Tiitration 94 05/30/24 19:42 05/30/24 19:54 05/30/24 20:00 Temperature Temperature Source Pulse Rate 66 75 Pulse Rate [Apical] 81 Pulse Rate from SpO2 Sensor 66 68 Pulse Strength [Left Femoral] Respiratory Rate 19 12 16 Respiratory Effort / Characteristics Non-Labored Spontaneous Respiratory Depth Normal Respiratory Pattern Regular Blood Pressure Blood Pressure [Right Arm] 133/64 Blood Pressure Mean Blood Pressure Mean [Right Arm] 87 Pulse Oximetry 98 99 98 Oxygen Delivery Method Nasal Cannula Nasal Cannula Nasal Cannula Oxygen Flow Rate 3 3 3 Sepsis Recent Fever Within 48 Hours Sepsis New/Unexplained Change in Mental Status Sepsis Action Taken by Nursing Oxygen Flow Rate - Titration Pulse Oximetry Post Tiitration Laboratory Data Attestation: I reviewed the patient's lab results. 05/30/24 16:49 05/30/24 16:49 Lab Results 05/30/24 05/30/24 05/30/24 Range/Units 16:49 17:09 18:13 WBC 6.06 (4.8-10.8) K/ul RBC 3.74 L (4.20-5.40) M/uL Hgb 11.3 L (12.0-16.0) g/dl POC Hgb 10.9 L (12.0-16.0) g/dl Hct 36.0 L (37.0-47.0) % POC Hct 32 L (37-47) % MCV 96.3 (80.0-100.0) fL MCH 30.2 (25.0-34.0) pg MCHC 31.4 L (32.0-36.0) g/dL RDW Std Deviation 49.2 H (36.4-46.3) fL RDW Coeff of Monico 14.0 (11.5-14.5) % Plt Count 234 (130-400) K/uL MPV 9.7 (9.4-12.4) fL Immature Gran % (Auto) 0.5 % Neut % (Auto) 66.4 % Lymph % (Auto) 16.5 % [place] % (Auto) 14.7 % Eos % (Auto) 1.2 % Baso % (Auto) 0.7 % Neut # (Auto) 4.03 (1.40-6.50) K/uL Lymph # (Auto) 1.00 L (1.20-3.40) K/uL [place] # (Auto) 0.89 H (0.11-0.59) K/uL Eos # (Auto) 0.07 (0.00-0.50) K/uL Baso # (Auto) 0.04 (0.00-0.20) K/uL Immature Gran # (Auto) 0.03 (0.01-0.20) K/uL PT 10.6 (9.0-12.0) Seconds INR 1.0 (0.9-1.1) APTT 25 (21-31) Seconds PTT Ratio 0.9 POC Sodium 142 (135-144) mmol/L Sodium 143 (136-145) mmol/L POC Potassium 3.5 (3.3-5.0) mmol/L Potassium 3.6 (3.5-5.1) mmol/L POC Chloride 103 (101-112) mmol/L Chloride 105 (98-107) mmol/L Carbon Dioxide 31 (21-32) mmol/L POC Total CO2 27 (24-31) mmol/L Anion Gap 7 (3-11) POC Anion Gap 16.0 (16-25) mmol/L POC BUN 17 (7-18) mg/dl BUN 18 (6-23) mg/dl Creatinine 0.55 L (0.6-1.2) mg/dl POC Creatinine 0.6 (0.6-1.3) mg/dl Est Cr Clr Drug Dosing 67.5 ml/min eGFR 88.66 BUN/Creatinine Ratio 32.7 H (10-20) Glucose 109 H (70-99(Fasting)) mg/dl POC Glucose (other) 112 H (70-99) mg/dl Calcium 9.0 (8.6-10.3) mg/dl POC Ioniz Calcium Celsa 1.12 (1.12-1.32) mmol/l Total Bilirubin 0.5 (0.2-1.0) mg/dl AST 21 (13-39) U/L ALT 16 (7-52) U/L Alkaline Phosphatase 70 (34-104) U/L Total Protein 6.9 (6.0-8.3) gm/dl Albumin 4.3 (3.4-5.0) gm/dl Globulin 2.6 (2.5-4.0) gm/dl Albumin/Globulin Ratio 1.7 (0.9-2) Lipase 16 (11-82) U/L Urine Color Yellow Urine Appearance Clear (Clear) Urine pH 8.0 H (4.5-7.5) Ur Specific [place] 1.015 (1.000-1.030) Urine Protein Negative (Negative) Urine Glucose (UA) Negative (Negative) Urine Ketones Negative (Negative) Urine Blood Negative (Negative) Urine Nitrite Negative (Negative) Urine Bilirubin Negative (Negative) Urine Urobilinogen Negative (Negative) Ur Leukocyte Esterase Negative (Negative) SARS-CoV-2, RNA, NAAT (NEGATIVE) 05/30/24 Range/Units 19:07 WBC (4.8-10.8) K/ul RBC (4.20-5.40) M/uL Hgb (12.0-16.0) g/dl POC Hgb (12.0-16.0) g/dl Hct (37.0-47.0) % POC Hct (37-47) % MCV (80.0-100.0) fL MCH (25.0-34.0) pg MCHC (32.0-36.0) g/dL RDW Std Deviation (36.4-46.3) fL RDW Coeff of Monico (11.5-14.5) % Plt Count (130-400) K/uL MPV (9.4-12.4) fL Immature Gran % (Auto) % Neut % (Auto) % Lymph % (Auto) % [place] % (Auto) % Eos % (Auto) % Baso % (Auto) % Neut # (Auto) (1.40-6.50) K/uL Lymph # (Auto) (1.20-3.40) K/uL [place] # (Auto) (0.11-0.59) K/uL Eos # (Auto) (0.00-0.50) K/uL Baso # (Auto) (0.00-0.20) K/uL Immature Gran # (Auto) (0.01-0.20) K/uL PT (9.0-12.0) Seconds INR (0.9-1.1) APTT (21-31) Seconds PTT Ratio POC Sodium (135-144) mmol/L Sodium (136-145) mmol/L POC Potassium (3.3-5.0) mmol/L Potassium (3.5-5.1) mmol/L POC Chloride (101-112) mmol/L Chloride (98-107) mmol/L Carbon Dioxide (21-32) mmol/L POC Total CO2 (24-31) mmol/L Anion Gap (3-11) POC Anion Gap (16-25) mmol/L POC BUN (7-18) mg/dl BUN (6-23) mg/dl Creatinine (0.6-1.2) mg/dl POC Creatinine (0.6-1.3) mg/dl Est Cr Clr Drug Dosing ml/min eGFR BUN/Creatinine Ratio (10-20) Glucose (70-99(Fasting)) mg/dl POC Glucose (other) (70-99) mg/dl Calcium (8.6-10.3) mg/dl POC Ioniz Calcium Celsa (1.12-1.32) mmol/l Total Bilirubin (0.2-1.0) mg/dl AST (13-39) U/L ALT (7-52) U/L Alkaline Phosphatase (34-104) U/L Total Protein (6.0-8.3) gm/dl Albumin (3.4-5.0) gm/dl Globulin (2.5-4.0) gm/dl Albumin/Globulin Ratio (0.9-2) Lipase (11-82) U/L Urine Color Urine Appearance (Clear) Urine pH (4.5-7.5) Ur Specific [place] (1.000-1.030) Urine Protein (Negative) Urine Glucose (UA) (Negative) Urine Ketones (Negative) Urine Blood (Negative) Urine Nitrite (Negative) Urine Bilirubin (Negative) Urine Urobilinogen (Negative) Ur Leukocyte Esterase (Negative) SARS-CoV-2, RNA, NAAT NEGATIVE (NEGATIVE) Administered Medications Potassium Chloride/Sodium Chloride (Normal Saline W/20 Meq Kcl) 20 meq in 1,000 mls @ 80 mls/hr IV .[id number] JODEE Stop: 05/31/24 20:29 Last Admin: 05/30/24 19:49 Dose: 80 mls/hr Documented By: EL Morphine Sulfate (Morphine Sulfate 4 Mg/Ml 1 Ml Carp\Vial) 2 mg IV Q1H PRN PRN Reason: Severe Pain (Rating 7,8,9,10) Stop: 06/13/24 17:01 Last Admin: 05/30/24 18:02 Dose: 2 mg Documented By: EL Ondansetron HCl (Ondansetron Inj 2 Mg/Ml 2 Ml Vial) 4 mg IV Q4H PRN PRN Reason: Nausea Stop: 06/29/24 17:02 Last Admin: 05/30/24 18:59 Dose: 4 mg Documented By: EL Discontinued Medications Hydromorphone HCl (Hydromorphone Inj 0.5 Mg/0.5 Ml Syr) 0.5 mg IV NOW STA Stop: 05/30/24 18:56 Last Admin: 05/30/24 18:59 Dose: 0.5 mg Documented By: EL Sodium Chloride (Nss) 500 mls @ 999 mls/hr IV .Q31M ONE Stop: 05/30/24 17:31 Last Infusion: 05/30/24 18:20 Dose: Infused Documented By: Admin: 05/30/24 17:14 Dose: 999 mls/hr Documented By: EL Acetaminophen (Ofirmev) 1,000 mg in 100 mls @ 400 mls/hr IV NOW STA Stop: 05/30/24 17:15 Last Infusion: 05/30/24 17:53 Dose: Infused Documented By: Admin: 05/30/24 17:07 Dose: 400 mls/hr Documented By: RAINE Ioversol (Optiray 320 100ml) 95 ml IV ONCE ONE Stop: 05/30/24 17:35 Last Admin: 05/30/24 17:34 Dose: 95 ml Documented By: PETEY Morphine Sulfate (Morphine Sulfate 4 Mg/Ml 1 Ml Carp\Vial) 2 mg IV Q2H PRN PRN Reason: Severe Pain (Rating 7,8,9,10) Stop: 06/13/24 17:01 Last Admin: 05/30/24 17:14 Dose: 2 mg Documented By: EL Morphine Sulfate (Morphine Sulfate 4 Mg/Ml 1 Ml Carp\Vial) 4 mg IV NOW STA Stop: 05/30/24 18:21 Last Admin: 05/30/24 18:23 Dose: 4 mg Documented By: EL Imaging Data Radiologist's Impression: Chest X-Ray 05/30/24 16:59 EXAM: Radiograph of the Chest 1 View INDICATION: Trauma. TECHNIQUE: Frontal view of the chest. COMPARISON: 10/18/2020 FINDINGS: Lungs and pleural spaces: Stable interstitial and parenchymal scarring. Heart: Stable cardiomegaly. Mediastinum: Stable moderate hiatal hernia. Bones/joints: Degenerative changes noted in the scoliotic spine. No acute osseous abnormality noted. Moderate degenerative change of the left shoulder. Soft tissues: No abnormality noted. No radiopaque foreign body noted. Upper abdomen: No abnormality noted. IMPRESSION: Stable chronic changes. No acute disease. ACT 112: Negative or not required by law. Electronically signed by Roya Wyatt 05-30-2024 5:41 PM Abdomen/Pelvis CT 05/30/24 17:00 EXAM: CT Abdomen and Pelvis With Intravenous Contrast INDICATION: Fall. TECHNIQUE: Axial computed tomography images of the abdomen and pelvis with intravenous contrast. Sagittal and coronal reformatted images were created and reviewed. This CT exam was performed using one or more of the following dose reduction techniques: automated exposure control, adjustment of the mA and/or kV according to patient size, and/or use of iterative reconstruction technique. CONTRAST: 93ml of Optiray 320 was administered intravenously. COMPARISON: 04/30/2019 FINDINGS: Limitations: None. Lung bases: No abnormality noted. Pleural space: No visualized pleural effusion or pneumothorax. Heart: Progressive cardiomegaly. There is now a large hiatal hernia. ABDOMEN: Liver: Normal size and contour. Hypodense typical of steatosis. No mass or ductal dilation. Gallbladder and bile ducts: No calcified stones or surrounding fluid. Pancreas: Prominent pancreatic duct. No mass, calcification, inflammation or surrounding gas. Spleen: No significant abnormality noted. Adrenals: No significant abnormality noted. Kidneys and ureters: Simple bilateral renal cysts noted. No follow-up necessary. No stones or hydronephrosis. Stomach and bowel: Large amounts of stool throughout the redundant colon without obstruction. No inflammatory process noted. PELVIS: Appendix: No findings to suggest acute appendicitis. Bladder: Moderately distended urinary bladder. Reproductive: Small calcified uterine fibroids present. ABDOMEN and PELVIS: Intraperitoneal space: No free air. No significant fluid collection. Bones/joints: There is an acute angulated intertrochanteric fracture of the right femur. Old right pubic fractures. Degenerative changes noted throughout the scoliotic spine. No acute spinal fracture. Sacrum intact. Soft tissues: There is edema of the soft tissues about the right hip fracture. There is no hematoma. Vasculature: No abdominal aortic aneurysm. Lymph nodes: No pathologically enlarged lymph nodes. IMPRESSION: 1. Acute fracture right femur. 2. No traumatic change of the intra-abdominal organs. 3. Moderate to large hiatal hernia now present. 4. Large amounts of colonic stool without obstruction or inflammation. 5. Moderately dilated urinary bladder. ACT 112: Negative or not required by law. Electronically signed by Roya Wyatt 05-30-2024 5:[address] 05/30/24 17:00 EXAM: CT Cervical Spine Without Intravenous Contrast INDICATION: Fall. TECHNIQUE: Axial computed tomography images of the cervical spine without intravenous contrast. Sagittal and coronal reformatted images were created and reviewed. This CT exam was performed using one or more of the following dose reduction techniques: automated exposure control, adjustment of the mA and/or kV according to patient size, and/or use of iterative reconstruction technique. COMPARISON: 02/26/2024 FINDINGS: Limitations: None. Vertebrae: The bones are demineralized. There is stable reversal of the normal cervical curvature with extensive facet arthrosis, spondylosis and prominent uncal spurring C5-C6 and C6-C7. There is significant hypertrophic change of C1-C2. There is narrowing of the canal at the foramen magnum. There is moderate ventral canal stenosis and mild bilateral foraminal stenosis at C5-C6 and C6-C7. Severe to space narrowing C5-C6 and C6-C7. Discs/spinal canal/neural foramina: See above. Soft tissues: No significant abnormality noted. Lung apices: No significant abnormality noted. IMPRESSION: No cervical fracture. Extensive degenerative changes are stable. ACT 112: Negative or not required by law. Electronically signed by Roya Wyatt 05-30-2024 6:[address] 05/30/24 17:00 EXAM: CT Chest With Intravenous Contrast INDICATION: Fall. TECHNIQUE: Axial computed tomography images of the chest with intravenous contrast. Sagittal and coronal reformatted images were created and reviewed. This CT exam was performed using one or more of the following dose reduction techniques: automated exposure control, adjustment of the mA and/or kV according to patient size, and/or use of iterative reconstruction technique. CONTRAST: 93ml of Optiray 320 was administered intravenously. COMPARISON: 10/13/2020 FINDINGS: Limitations: None. Lungs and pleural spaces: Curvilinear hypodensity associated with a right lower lobe pulmonary arterial branch series 12 image 149 is likely artifactual. No pulmonary embolus noted. Interstitial scarring noted generally. There are scattered areas of parenchymal scarring and atelectasis. No pleural effusion or pneumothorax. Heart: No abnormality noted. Mediastinum: Ectatic aorta with mild dilatation of the ascending measuring 4 cm. No dissection. Increased moderate to large hiatal hernia. Thyroid: No abnormality noted. Bones/joints: Degenerative changes noted in the scoliotic spine. No acute osseous abnormality noted. Old healed sternal fracture. Soft tissues: No significant abnormality noted. Vasculature: Extensive collateral vessels about the spine. No large vessel occlusion noted. SVC patent. Lymph nodes: No enlarged lymph nodes. IMPRESSION: 1. No traumatic change identified in the thorax. 2. Dilated ascending aorta 4 cm. No dissection. 3. Moderate to large hiatal hernia. ACT 112: Negative or not required by law. Electronically signed by Roya Wyatt 05-30-2024 5:[address] 05/30/24 17:00 EXAM: CT Head Without Intravenous Contrast INDICATION: Ground-level fall. TECHNIQUE: Axial computed tomography images of the head/brain without intravenous contrast. Sagittal and/or coronal reformats are provided. Sagittal and coronal reformatted images were created and reviewed. This CT exam was performed using one or more of the following dose reduction techniques: automated exposure control, adjustment of the mA and/or kV according to patient size, and/or use of iterative reconstruction technique. COMPARISON: No relevant prior studies available. FINDINGS: Limitations: None. Brain and extra-axial spaces: There is age appropriate cortical atrophy and chronic ischemic periventricular white matter hypodensity. No acute infarct, hemorrhage or mass noted. Bones/joints: No acute changes. Soft tissues: No significant abnormality noted. Vasculature: No acute abnormality noted. Sinuses: Mild chronic bilateral ethmoid and maxillary sinus thickening. No sinus fluid. Mastoid air cells: No mastoid effusion. Orbits: No significant abnormality noted. IMPRESSION: Cerebral atrophy. No acute changes. ACT 112: Negative or not required by law. Electronically signed by Roya Wyatt 05-30-2024 5:48 PM Hip/Pelvis X-Ray 05/30/24 17:00 EXAM: Radiographs of the Right Hip 3 Views INDICATION: Fall. TECHNIQUE: Front view pelvis and AP and frog leg lateral views of the right hip. COMPARISON: No relevant prior studies available. FINDINGS: Limitations: None. Bones/joints: There is an acute minimally angulated fracture of the right intertrochanteric femur. There is deformity of the right superior and inferior pubic rami which appear chronic. Soft tissues: No abnormality noted. No radiopaque foreign body noted. IMPRESSION: 1. There is an acute minimally angulated fracture of the right intertrochanteric femur. 2. Remote appearing right pubic fractures. ACT 112: Negative or not required by law. Electronically signed by Roya Wyatt 05-30-2024 5:43 PM Discharge Plan Visit Data Chief Complaint: Trauma ED Provider: Jarad Sharma Discharge Problem: Intertrochanteric fracture of right femur, Fall from standing, Osteoarthritis Forms Stand Alone Forms: My [employer] Prescriptions Prescriptions: No Action bupropion HCl [Wellbutrin SR] 150 mg tablet sustained-release 12 hr 150 mg PO BID Rx Instructions: TAKE THIS MEDICATION EVERY MORNING AND AT NOON acetaminophen 500 mg Tablet 1,000 mg PO TID Qty: 30 0RF cyanocobalamin (vitamin B-12) 1,000 mcg/mL Solution 1,000 mcg IM MONTHLY ferrous sulfate 325 mg (65 mg iron) Tablet 325 mg PO DAILY bumetanide 0.5 mg tablet 0.5 mg PO DAILY docusate sodium 100 mg Capsule 100 mg PO BID albuterol sulfate 90 mcg/actuation HFA aerosol inhaler 2 inh INHALATION Q4H PRN (Reason: SOB) fluticasone propionate 50 mcg/actuation [place],Suspension 2 spray INTRANASAL HS PRN (Reason: ALLERGIES) Rx Instructions: administer into each nostril duloxetine 60 mg capsule,delayed release(DR/EC) 60 mg PO DAILY Arnuity Ellipta 200 mcg/actuation blister with device 1 inh INHALATION DAILY PRN (Reason: SOB) famotidine [Pepcid] 20 mg tablet 20 mg PO HS Referrals Referrals: [facility] [Primary Care Provider] - Discharge Problem: Intertrochanteric fracture of right femur Qualifiers: Encounter type: initial encounter Fracture type: closed Fracture alignment: d isplaced Qualified Code(s): S72.141A - Displaced intertrochanteric fracture of right femur, initial encounter for closed fracture Fall from standing Qualifiers: Encounter type: initial encounter Qualified Code(s): W19.XXXA - Unspecified fall, initial encounter Osteoarthritis Qualifiers: Osteoarthritis location: unspecified site Osteoarthritis type: unspecified Q ualified Code(s): M19.90 - Unspecified osteoarthritis, unspecified site
[2024-05-30 17:39] LABS: Albumin Globulin Ratio 1.7 (0.9-2); Albumin Level 4.3 gm/dl (3.4-5.0); BUN Creatinine Ratio 32.7 (10-20); Bilirubin,Total 0.5 mg/dl (0.2-1.0); Creatinine Clr Calc Pharmacy 67.5 ml/min; Globulin 2.6 gm/dl (2.5-4.0); Potassium 3.6 mmol/L (3.5-5.1); Total Protein 6.9 gm/dl (6.0-8.3)
--- NOTE | 2024-05-30 17:41 | XRay Report ---
EXAM: Radiograph of the Chest 1 View INDICATION: Trauma. TECHNIQUE: Frontal view of the chest. COMPARISON: 10/18/2020 FINDINGS: Lungs and pleural spaces: Stable interstitial and parenchymal scarring. Heart: Stable cardiomegaly. Mediastinum: Stable moderate hiatal hernia. Bones/joints: Degenerative changes noted in the scoliotic spine. No acute osseous abnormality noted. Moderate degenerative change of the left shoulder. Soft tissues: No abnormality noted. No radiopaque foreign body noted. Upper abdomen: No abnormality noted. IMPRESSION: Stable chronic changes. No acute disease. ACT 112: Negative or not required by law. Electronically signed by Roya Wyatt 05-30-2024 5:41 PM
--- NOTE | 2024-05-30 17:44 | XRay Report ---
EXAM: Radiographs of the Right Hip 3 Views INDICATION: Fall. TECHNIQUE: Front view pelvis and AP and frog leg lateral views of the right hip. COMPARISON: No relevant prior studies available. FINDINGS: Limitations: None. Bones/joints: There is an acute minimally angulated fracture of the right intertrochanteric femur. There is deformity of the right superior and inferior pubic rami which appear chronic. Soft tissues: No abnormality noted. No radiopaque foreign body noted. IMPRESSION: 1. There is an acute minimally angulated fracture of the right intertrochanteric femur. 2. Remote appearing right pubic fractures. ACT 112: Negative or not required by law. Electronically signed by Roya Wyatt 05-30-2024 5:43 PM
[2024-05-30 17:48] LABS: Partial Thromboplastin Ratio 0.9; Partial Thromboplastin Time 25 Seconds (21-31); Prothrombin Time 10.6 Seconds (9.0-12.0)
--- NOTE | 2024-05-30 17:49 | CT Scan Report ---
EXAM: CT Head Without Intravenous Contrast INDICATION: Ground-level fall. TECHNIQUE: Axial computed tomography images of the head/brain without intravenous contrast. Sagittal and/or coronal reformats are provided. Sagittal and coronal reformatted images were created and reviewed. This CT exam was performed using one or more of the following dose reduction techniques: automated exposure control, adjustment of the mA and/or kV according to patient size, and/or use of iterative reconstruction technique. COMPARISON: No relevant prior studies available. FINDINGS: Limitations: None. Brain and extra-axial spaces: There is age appropriate cortical atrophy and chronic ischemic periventricular white matter hypodensity. No acute infarct, hemorrhage or mass noted. Bones/joints: No acute changes. Soft tissues: No significant abnormality noted. Vasculature: No acute abnormality noted. Sinuses: Mild chronic bilateral ethmoid and maxillary sinus thickening. No sinus fluid. Mastoid air cells: No mastoid effusion. Orbits: No significant abnormality noted. IMPRESSION: Cerebral atrophy. No acute changes. ACT 112: Negative or not required by law. Electronically signed by Roya Wyatt 05-30-2024 5:48 PM
--- NOTE | 2024-05-30 17:54 | CT Scan Report ---
EXAM: CT Abdomen and Pelvis With Intravenous Contrast INDICATION: Fall. TECHNIQUE: Axial computed tomography images of the abdomen and pelvis with intravenous contrast. Sagittal and coronal reformatted images were created and reviewed. This CT exam was performed using one or more of the following dose reduction techniques: automated exposure control, adjustment of the mA and/or kV according to patient size, and/or use of iterative reconstruction technique. CONTRAST: 93ml of Optiray 320 was administered intravenously. COMPARISON: 04/30/2019 FINDINGS: Limitations: None. Lung bases: No abnormality noted. Pleural space: No visualized pleural effusion or pneumothorax. Heart: Progressive cardiomegaly. There is now a large hiatal hernia. ABDOMEN: Liver: Normal size and contour. Hypodense typical of steatosis. No mass or ductal dilation. Gallbladder and bile ducts: No calcified stones or surrounding fluid. Pancreas: Prominent pancreatic duct. No mass, calcification, inflammation or surrounding gas. Spleen: No significant abnormality noted. Adrenals: No significant abnormality noted. Kidneys and ureters: Simple bilateral renal cysts noted. No follow-up necessary. No stones or hydronephrosis. Stomach and bowel: Large amounts of stool throughout the redundant colon without obstruction. No inflammatory process noted. PELVIS: Appendix: No findings to suggest acute appendicitis. Bladder: Moderately distended urinary bladder. Reproductive: Small calcified uterine fibroids present. ABDOMEN and PELVIS: Intraperitoneal space: No free air. No significant fluid collection. Bones/joints: There is an acute angulated intertrochanteric fracture of the right femur. Old right pubic fractures. Degenerative changes noted throughout the scoliotic spine. No acute spinal fracture. Sacrum intact. Soft tissues: There is edema of the soft tissues about the right hip fracture. There is no hematoma. Vasculature: No abdominal aortic aneurysm. Lymph nodes: No pathologically enlarged lymph nodes. IMPRESSION: 1. Acute fracture right femur. 2. No traumatic change of the intra-abdominal organs. 3. Moderate to large hiatal hernia now present. 4. Large amounts of colonic stool without obstruction or inflammation. 5. Moderately dilated urinary bladder. ACT 112: Negative or not required by law. Electronically signed by Roya Wyatt 05-30-2024 5:54 PM
--- NOTE | 2024-05-30 17:59 | CT Scan Report ---
EXAM: CT Chest With Intravenous Contrast INDICATION: Fall. TECHNIQUE: Axial computed tomography images of the chest with intravenous contrast. Sagittal and coronal reformatted images were created and reviewed. This CT exam was performed using one or more of the following dose reduction techniques: automated exposure control, adjustment of the mA and/or kV according to patient size, and/or use of iterative reconstruction technique. CONTRAST: 93ml of Optiray 320 was administered intravenously. COMPARISON: 10/13/2020 FINDINGS: Limitations: None. Lungs and pleural spaces: Curvilinear hypodensity associated with a right lower lobe pulmonary arterial branch series 12 image 149 is likely artifactual. No pulmonary embolus noted. Interstitial scarring noted generally. There are scattered areas of parenchymal scarring and atelectasis. No pleural effusion or pneumothorax. Heart: No abnormality noted. Mediastinum: Ectatic aorta with mild dilatation of the ascending measuring 4 cm. No dissection. Increased moderate to large hiatal hernia. Thyroid: No abnormality noted. Bones/joints: Degenerative changes noted in the scoliotic spine. No acute osseous abnormality noted. Old healed sternal fracture. Soft tissues: No significant abnormality noted. Vasculature: Extensive collateral vessels about the spine. No large vessel occlusion noted. SVC patent. Lymph nodes: No enlarged lymph nodes. IMPRESSION: 1. No traumatic change identified in the thorax. 2. Dilated ascending aorta 4 cm. No dissection. 3. Moderate to large hiatal hernia. ACT 112: Negative or not required by law. Electronically signed by Roya Wyatt 05-30-2024 5:59 PM
--- NOTE | 2024-05-30 18:13 | CT Scan Report ---
EXAM: CT Cervical Spine Without Intravenous Contrast INDICATION: Fall. TECHNIQUE: Axial computed tomography images of the cervical spine without intravenous contrast. Sagittal and coronal reformatted images were created and reviewed. This CT exam was performed using one or more of the following dose reduction techniques: automated exposure control, adjustment of the mA and/or kV according to patient size, and/or use of iterative reconstruction technique. COMPARISON: 02/26/2024 FINDINGS: Limitations: None. Vertebrae: The bones are demineralized. There is stable reversal of the normal cervical curvature with extensive facet arthrosis, spondylosis and prominent uncal spurring C5-C6 and C6-C7. There is significant hypertrophic change of C1-C2. There is narrowing of the canal at the foramen magnum. There is moderate ventral canal stenosis and mild bilateral foraminal stenosis at C5-C6 and C6-C7. Severe to space narrowing C5-C6 and C6-C7. Discs/spinal canal/neural foramina: See above. Soft tissues: No significant abnormality noted. Lung apices: No significant abnormality noted. IMPRESSION: No cervical fracture. Extensive degenerative changes are stable. ACT 112: Negative or not required by law. Electronically signed by Roya Wyatt 05-30-2024 6:12 PM
[2024-05-30] MEDS: MoRPHine SULFATE 4 MG/ML 1 ML CARP\\VIAL IV STA (18:23)
[2024-05-30 18:26] LABS: Appearance Urine Clear (Clear); Bilirubin Urine Negative (Negative); Blood Urine Negative (Negative); Color Urine Yellow; Glucose Urine UA Negative (Negative); Ketones Urine Negative (Negative); Leukocyte Esterase Urine Negative (Negative); Nitrite Urine Negative (Negative); Protein Urine Negative (Negative); Specific Gravity Urine 1.015 (1.000-1.030); Urobilinogen Urine Negative (Negative)
[2024-05-30] MEDS: ONDANSETRON INJ 2 MG/ML 2 ML VIAL IV PRN (18:59)
[2024-05-30] MEDS: HYDROmorphone INJ 0.5 MG/0.5 ML SYR IV STA (18:59)
--- NOTE | 2024-05-30 19:32 | Orthopedic Consultation ---
Date of Service May 30, 2024 Assessment & Plan (1) Intertrochanteric fracture of right hip: Right basicervical femoral neck fracture with intertrochanteric extension. Plan for surgical stabilization as soon as medically ready, as early as tomorrow am. - Bedrest - NPO at midnight - TXA for fracture bleed tonight and at time of surgery Explained the risks, benefits, and alternatives to surgery to patient and family member. All in agreement to proceed. History of Present Illness Reason for Consultation: Right proximal femur fracture Requesting Physician: . 88 year old female sustained fall onto right hip resulting in pain and inability to ambulate. Denies significant history of hip pain prior to fall. Has been in usual health. Allergies Allergy/AdvReac Type Severity Reaction Status Date / Time codeine AdvReac Unknown NAUSEATED/L Verified 05/30/24 19:42 [id number] Home Medications Medication Instructions Recorded Confirmed Type bupropion HCl 150 mg tablet,12 hr 150 mg PO BID 03/03/18 05/30/24 History sustained-release (Wellbutrin SR) acetaminophen 500 mg tablet 1,000 mg (2 x 500 mg) PO TID #30 10/19/20 05/30/24 Rx tabs albuterol sulfate 90 mcg/actuation 2 inh inhalation Q4H PRN SOB 05/30/24 05/30/24 History aerosol inhaler bumetanide 0.5 mg tablet 0.5 mg PO DAILY 05/30/24 05/30/24 History cyanocobalamin (vitamin B-12) 1,000 mcg IM MONTHLY 05/30/24 05/30/24 History 1,000 mcg/mL injection solution docusate sodium 100 mg capsule 100 mg PO BID 05/30/24 05/30/24 History duloxetine 60 mg capsule,delayed 60 mg PO DAILY 05/30/24 05/30/24 History release famotidine 20 mg tablet (Pepcid) 20 mg PO HS heartburn 05/30/24 05/30/24 History ferrous sulfate 325 mg (65 mg 325 mg PO DAILY 05/30/24 05/30/24 History iron) tablet fluticasone furoate 200 1 inh inhalation DAILY PRN SOB 05/30/24 05/30/24 History mcg/actuation blister powder for inhalation (Arnuity Ellipta) fluticasone propionate 50 2 spray intranasal HS PRN ALLERGIES 05/30/24 05/30/24 History mcg/actuation nasal spray,suspension Past Med/Surg History Problem List Encounter for pre-operative examination Chronic cor pulmonale Abnormal head CT Hypotension Closed right hip fracture Fall from standing (Acute) Intertrochanteric fracture of right femur (Acute) Intertrochanteric fracture of right hip Sensorineural hearing loss (SNHL) of both ears Cerumen impaction Excessive cerumen in both ear canals Contact dermatitis Left wrist effusion Intractable pain (Acute) Wrist arthritis (Acute) Edema of left lower extremity (Acute) Cellulitis (Acute) Cervical spinal stenosis (Chronic) Cervical disc disease (Chronic) Myofascial pain (Chronic) Osteoarthritis (Chronic) COPD (chronic obstructive pulmonary disease) (Chronic) Cervical facet syndrome (Chronic) Cervicalgia (Chronic) Depression (Chronic) Fall (Acute) Hypertension (Chronic) Laceration of head (Acute) Medical History Constipation Chronic kidney disease, stage 3a COPD (chronic obstructive pulmonary disease) Sternal fracture Chronic venous insufficiency Ulcerative colitis Osteoporosis Hypothyroidism Hyperlipidemia Surgical History History of inguinal hernia repair Family History Other Family history non-contributory No family history of adverse response to anesthesia No family history of bleeding disorder Denies family history of Esophageal cancer Crohn's disease Heart disease Colorectal cancer Cancer Hypertension Ulcerative colitis Stroke Asthma Social History Smoking Status: Former smoker Tobacco Type: Cigarettes packs per day: 1; Do You Dip or Chew Tobacco: No; Hx Alcohol Use: No Hx Substance Use: No Preferred Language: Bengali Communication Ability: Effective Visual Impairment: No Limitations Hearing Ability: Normal 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 Physical Exam RLE: shortened and externally rotated. DNVI. Skin intact. Constitutional WD/WN, vitals as above no acute distress and not intoxicated appearing Respiratory normal respiratory effort; no labored breathing Cardiovascular Extremities: normal capillary refill Results & Data Results & Data Laboratory Results H & H 05/30/24 Range/Units 16:49 Hgb 11.3 L (12.0-16.0) g/dl Hct 36.0 L (37.0-47.0) % Coagulation 05/30/24 Range/Units 16:49 INR 1.0 (0.9-1.1) Diagnostic Findings Hip xrays and CT abd/Pelvis show mildly displaced basicervical femoral neck fracture with intertrochanteric extension, amenable to cephalomedullary fixation. PG Care Time/CCT Total # of Minutes Spent Total Time Spent with Patient: Total time spent is greater than 50% in coordination of care (as documented) at patient's floor/unit and/or counseling patient: Coding Level of Care Code 42172 IN/OBS CONSULT LVL 4,60M (57 - DECISION FOR SURGERY) Diagnoses Intertrochanteric fracture of right hip S72.141A
[2024-05-30] MEDS: NSS + 20MEQ KCL 20 MEQ/1,000 ML BAG IV SCH (19:49)
[2024-05-30] MEDS ORDERED: HYDROmorphone INJ 0.5 MG/0.5 ML SYR IV PRN ×2 (20:12)
[2024-05-30] MEDS ORDERED: CYCLOBENZAPRINE HCL 5 MG TAB PO PRN (20:12)
[2024-05-30] MEDS ORDERED: ALBUT/IPRATROP 3MG/0.5MG NEB 3 ML VIAL NEB PRN (20:14)
--- NOTE | 2024-05-30 20:15 | History & Physical Report ---
Date of Service May 30, 2024 Assessment & Plan (1) Closed right hip fracture: (2) Fall from standing: (3) COPD (chronic obstructive pulmonary disease): (4) Depression: (5) Hypertension: Plan Closed right intertrochanteric fracture status post fall from standing- N.p.o. after midnight Acetaminophen 1 g IV every 8 hours as needed for mild pain or fever Dilaudid 0.25 mg IV every 3 hours as needed for moderate pain Dilaudid 0.5 mg IV every 3 hours as needed for severe pain Cyclobenzaprine 5 mg p.o. 3 times daily as needed for muscle spasm NSS + KCl 20 mill equivalents 80 mL/h x 2 L Zofran 4 mg IV every 6 hours as needed Geriatric hip fracture order set Consult orthopedic surgery History of remote pubic fractures noted from previous fall Hypertension- Hold bumetanide IV fluids as noted above Follow serial laboratories Urinary retention- Noted on CT is moderately dilated urinary bladder, successfully decompressed with Gonsales catheter, with immediate emptying of over 1 L of urine Follow urine culture and sensitivity COPD- DuoNebs every 2 hours as needed Incentive spirometry, as patient has had some mild desaturation to the upper 80s and low 90s with pain control medications Pulse ox goal 92% Dilated ascending aorta 4 cm- Can be followed serially as an outpatient History of Present Illness Chief Complaint: The patient presents to the emergency department via ambulance, after a ground- level fall, with severe right hip pain, and x-ray revealing an intertrochanteric fracture of the right femur. Primary Care Provider: [facility] The patient is a 88-year-old female with a past medical history including cervical disc disease spinal stenosis, COPD, depression, hypertension, dementia, B12 deficiency and asthma. She is referred to the emergency department from her independent living facility at [place] for assessment regarding right hip pain that occurred after a fall while in the kitchen there. Her main complaint is that of right hip pain, and denies any head injury or other painful area. Family is present in the emergency department room, and helps to corroborate history Allergies Allergy/AdvReac Type Severity Reaction Status Date / Time codeine AdvReac Unknown NAUSEATED/L Verified 05/30/24 19:42 IGHTHEADED Home Medications Medication Instructions Recorded Confirmed Type bupropion HCl 150 mg tablet,12 hr 150 mg PO BID 03/03/18 05/30/24 History sustained-release (Wellbutrin SR) acetaminophen 500 mg tablet 1,000 mg (2 x 500 mg) PO TID #30 10/19/20 05/30/24 Rx tabs albuterol sulfate 90 mcg/actuation 2 inh inhalation Q4H PRN SOB 05/30/24 05/30/24 History aerosol inhaler bumetanide 0.5 mg tablet 0.5 mg PO DAILY 05/30/24 05/30/24 History cyanocobalamin (vitamin B-12) 1,000 mcg IM MONTHLY 05/30/24 05/30/24 History 1,000 mcg/mL injection solution docusate sodium 100 mg capsule 100 mg PO BID 05/30/24 05/30/24 History duloxetine 60 mg capsule,delayed 60 mg PO DAILY 05/30/24 05/30/24 History release famotidine 20 mg tablet (Pepcid) 20 mg PO HS heartburn 05/30/24 05/30/24 History ferrous sulfate 325 mg (65 mg 325 mg PO DAILY 05/30/24 05/30/24 History iron) tablet fluticasone furoate 200 1 inh inhalation DAILY PRN SOB 05/30/24 05/30/24 History mcg/actuation blister powder for inhalation (Arnuity Ellipta) fluticasone propionate 50 2 spray intranasal HS PRN ALLERGIES 05/30/24 05/30/24 History mcg/actuation nasal spray,suspension Past Med/Surg History Problem List (Updated 05/30/24 @ 22:32 by Pancho Sargent MD) Closed right hip fracture Fall from standing (Acute) Intertrochanteric fracture of right femur (Acute) Intertrochanteric fracture of right hip Sensorineural hearing loss (SNHL) of both ears Cerumen impaction Excessive cerumen in both ear canals Contact dermatitis Left wrist effusion Intractable pain (Acute) Wrist arthritis (Acute) Edema of left lower extremity (Acute) Cellulitis (Acute) Cervical spinal stenosis (Chronic) Cervical disc disease (Chronic) Myofascial pain (Chronic) Osteoarthritis (Chronic) COPD (chronic obstructive pulmonary disease) (Chronic) Cervical facet syndrome (Chronic) Cervicalgia (Chronic) Depression (Chronic) Fall (Acute) Hypertension (Chronic) Laceration of head (Acute) Medical History (Updated 05/30/24 @ 22:32 by Pancho Sargent MD) Hypotension Chronic cor pulmonale Constipation Chronic kidney disease, stage 3a Abnormal head CT COPD (chronic obstructive pulmonary disease) Sternal fracture Chronic venous insufficiency Ulcerative colitis Osteoporosis Hypothyroidism Hyperlipidemia Surgical History History of inguinal hernia repair Family History Other Family history non-contributory No family history of adverse response to anesthesia No family history of bleeding disorder Denies family history of Esophageal cancer Crohn's disease Heart disease Colorectal cancer Cancer Hypertension Ulcerative colitis Stroke Asthma Social History Smoking Status: Former smoker Tobacco Type: Cigarettes packs per day: 1; Do You Dip or Chew Tobacco: No; Hx Alcohol Use: No Hx Substance Use: No Preferred Language: [place]ian Communication Ability: Effective Visual Impairment: No Limitations Hearing Ability: Normal 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: No Beliefs That Will Affect Care: None marital status: / Current Living Situation: Alone current occupational status: retired Feels Safe at Home: Yes Assistive Devices: Walker Review of Systems Review of Systems: The patient denies chest pain, palpitations, shortness of breath, dyspnea on exertion, cough, lower extremity swelling, sore throat, fevers, chills, sweats, weight change, fatigue, nausea, vomiting, diarrhea , constipation, abdominal pain, pelvic pain, blood in urine or stool, dysuria, urinary frequency or urgency, loss of consciousness, rash, abnormal bruising or bleeding, focal weakness, numbness or tingling in arms generalized arthralgias or myalgias, back or neck pain, or night sweats. The review of systems is otherwise negative other than for that already noted above, and at least 10 systems have been reviewed. Physical Exam Physical Exam: The patient is awake, normocephalic and atraumatic, in significant discomfort due to right hip pain HEENT--PERRL, EOMI, mucous membranes and oropharynx dry. Neck--supple. No JVD. No bruits. Thyroid normal, trachea midline, no adenopathy. Heart--normal S1 and S2. No murmurs, rubs or gallops. Lungs--clear bilaterally, no respiratory distress, no accessory muscle use. Abdomen--normal bowel sounds and soft. Nontender. Nondistended, no hernias or masses, no organomegaly. Extremities--no cyanosis or clubbing. No edema. There are good distal pulses b/l. Dermatologic--normal skin turgor, normal color, no abnormal lymph nodes, no rash. Neurologic--cranial nerves II through XII grossly intact. Rheumatologic--normal range of motion. Psychiatric--normal affect. Results & Data Results & Data Vital Signs (Past 12 Hours) Vital Signs Temp Pulse Pulse Resp BP BP Pulse Ox 05/30/24 20:00 81 16 133/64 98 05/30/24 19:54 75 12 99 05/30/24 19:42 66 19 98 05/30/24 19:30 66 23 135/74 98 05/30/24 19:29 87 L 05/30/24 19:15 110 H 20 92 05/30/24 19:01 143/84 H 05/30/24 19:00 67 20 143/84 H 94 05/30/24 18:45 75 20 95 05/30/24 18:36 22 94 05/30/24 18:03 74 20 99 05/30/24 18:01 62 24 148/105 H 95 05/30/24 17:53 89 26 H 173/97 H 95 05/30/24 17:08 58 L 05/30/24 17:03 100 05/30/24 17:03 36.3 C L 58 L 16 161/58 H 100 05/30/24 17:03 100 05/30/24 16:43 36.3 C L 58 L 16 161/85 H 100 O2 Del Method O2 Flow Rate 05/30/24 20:00 Nasal Cannula 3 05/30/24 19:54 Nasal Cannula 3 05/30/24 19:42 Nasal Cannula 3 05/30/24 19:30 Nasal Cannula 3 05/30/24 19:29 Room Air 0 05/30/24 19:15 Nasal Cannula 3 05/30/24 19:01 05/30/24 19:00 Room Air 05/30/24 18:45 Room Air 05/30/24 18:36 Room Air 05/30/24 18:03 Room Air 05/30/24 18:01 Room Air 05/30/24 17:53 Room Air 05/30/24 17:08 05/30/24 17:03 Room Air 0 05/30/24 17:03 Room Air 0 05/30/24 17:03 Room Air 05/30/24 16:43 Room Air Laboratory Results Laboratory Results WBC 6.06 K/ul (4.8-10.8) 05/30/24 16:49 RBC 3.74 M/uL (4.20-5.40) L 05/30/24 16:49 Hgb 11.3 g/dl (12.0-16.0) L 05/30/24 16:49 POC Hgb 10.9 g/dl (12.0-16.0) L 05/30/24 17:09 Hct 36.0 % (37.0-47.0) L 05/30/24 16:49 POC Hct 32 % (37-47) L 05/30/24 17:09 MCV 96.3 fL (80.0-100.0) 05/30/24 16:49 MCH 30.2 pg (25.0-34.0) 05/30/24 16:49 MCHC 31.4 g/dL (32.0-36.0) L 05/30/24 16:49 RDW Std Deviation 49.2 fL (36.4-46.3) H 05/30/24 16:49 RDW Coeff of [place] 14.0 % (11.5-14.5) 05/30/24 16:49 Plt Count 234 K/uL (130-400) 05/30/24 16:49 MPV 9.7 fL (9.4-12.4) 05/30/24 16:49 Immature Gran % (Auto) 0.5 % 05/30/24 16:49 Neut % (Auto) 66.4 % 05/30/24 16:49 Lymph % (Auto) 16.5 % 05/30/24 16:49 [place] % (Auto) 14.7 % 05/30/24 16:49 Eos % (Auto) 1.2 % 05/30/24 16:49 Baso % (Auto) 0.7 % 05/30/24 16:49 Neut # (Auto) 4.03 K/uL (1.40-6.50) 05/30/24 16:49 Lymph # (Auto) 1.00 K/uL (1.20-3.40) L 05/30/24 16:49 [place] # (Auto) 0.89 K/uL (0.11-0.59) H 05/30/24 16:49 Eos # (Auto) 0.07 K/uL (0.00-0.50) 05/30/24 16:49 Baso # (Auto) 0.04 K/uL (0.00-0.20) 05/30/24 16:49 Immature Gran # (Auto) 0.03 K/uL (0.01-0.20) 05/30/24 16:49 PT 10.6 Seconds (9.0-12.0) 05/30/24 16:49 INR 1.0 (0.9-1.1) 05/30/24 16:49 APTT 25 Seconds (21-31) 05/30/24 16:49 PTT Ratio 0.9 05/30/24 16:49 POC Sodium 142 mmol/L (135-144) 05/30/24 17:09 Sodium 143 mmol/L (136-145) 05/30/24 16:49 POC Potassium 3.5 mmol/L (3.3-5.0) 05/30/24 17:09 Potassium 3.6 mmol/L (3.5-5.1) 05/30/24 16:49 POC Chloride 103 mmol/L (101-112) 05/30/24 17:09 Chloride 105 mmol/L (98-107) 05/30/24 16:49 Carbon Dioxide 31 mmol/L (21-32) 05/30/24 16:49 POC Total CO2 27 mmol/L (24-31) 05/30/24 17:09 Anion Gap 7 (3-11) 05/30/24 16:49 POC Anion Gap 16.0 mmol/L (16-25) 05/30/24 17:09 POC BUN 17 mg/dl (7-18) 05/30/24 17:09 BUN 18 mg/dl (6-23) 05/30/24 16:49 Creatinine 0.55 mg/dl (0.6-1.2) L 05/30/24 16:49 POC Creatinine 0.6 mg/dl (0.6-1.3) 05/30/24 17:09 Est Cr Clr Drug Dosing 67.5 ml/min 05/30/24 16:49 eGFR 88.66 05/30/24 16:49 BUN/Creatinine Ratio 32.7 (10-20) H 05/30/24 16:49 Glucose 109 mg/dl (70-99(Fasting)) H 05/30/24 16:49 POC Glucose (other) 112 mg/dl (70-99) H 05/30/24 17:09 Calcium 9.0 mg/dl (8.6-10.3) 05/30/24 16:49 POC Ioniz Calcium Celsa 1.12 mmol/l (1.12-1.32) 05/30/24 17:09 Total Bilirubin 0.5 mg/dl (0.2-1.0) 05/30/24 16:49 AST 21 U/L (13-39) 05/30/24 16:49 ALT 16 U/L (7-52) 05/30/24 16:49 Alkaline Phosphatase 70 U/L (34-104) 05/30/24 16:49 Total Protein 6.9 gm/dl (6.0-8.3) 05/30/24 16:49 Albumin 4.3 gm/dl (3.4-5.0) 05/30/24 16:49 Globulin 2.6 gm/dl (2.5-4.0) 05/30/24 16:49 Albumin/Globulin Ratio 1.7 (0.9-2) 05/30/24 16:49 Lipase 16 U/L (11-82) 05/30/24 16:49 Urine Color Yellow 05/30/24 18:13 Urine Appearance Clear (Clear) 05/30/24 18:13 Urine pH 8.0 (4.5-7.5) H 05/30/24 18:13 Ur Specific [place] 1.015 (1.000-1.030) 05/30/24 18:13 Urine Protein Negative (Negative) 05/30/24 18:13 Urine Glucose (UA) Negative (Negative) 05/30/24 18:13 Urine Ketones Negative (Negative) 05/30/24 18:13 Urine Blood Negative (Negative) 05/30/24 18:13 Urine Nitrite Negative (Negative) 05/30/24 18:13 Urine Bilirubin Negative (Negative) 05/30/24 18:13 Urine Urobilinogen Negative (Negative) 05/30/24 18:13 Ur Leukocyte Esterase Negative (Negative) 05/30/24 18:13 SARS-CoV-2, RNA, NAAT NEGATIVE (NEGATIVE) 05/30/24 19:07 Impressions Chest X-Ray 05/30/24 16:59 EXAM: Radiograph of the Chest 1 View INDICATION: Trauma. TECHNIQUE: Frontal view of the chest. COMPARISON: 10/18/2020 FINDINGS: Lungs and pleural spaces: Stable interstitial and parenchymal scarring. Heart: Stable cardiomegaly. Mediastinum: Stable moderate hiatal hernia. Bones/joints: Degenerative changes noted in the scoliotic spine. No acute osseous abnormality noted. Moderate degenerative change of the left shoulder. Soft tissues: No abnormality noted. No radiopaque foreign body noted. Upper abdomen: No abnormality noted. IMPRESSION: Stable chronic changes. No acute disease. ACT 112: Negative or not required by law. Electronically signed by Roya Wyatt 05-30-2024 5:41 PM Abdomen/Pelvis CT 05/30/24 17:00 EXAM: CT Abdomen and Pelvis With Intravenous Contrast INDICATION: Fall. TECHNIQUE: Axial computed tomography images of the abdomen and pelvis with intravenous contrast. Sagittal and coronal reformatted images were created and reviewed. This CT exam was performed using one or more of the following dose reduction techniques: automated exposure control, adjustment of the mA and/or kV according to patient size, and/or use of iterative reconstruction technique. CONTRAST: 93ml of Optiray 320 was administered intravenously. COMPARISON: 04/30/2019 FINDINGS: Limitations: None. Lung bases: No abnormality noted. Pleural space: No visualized pleural effusion or pneumothorax. Heart: Progressive cardiomegaly. There is now a large hiatal hernia. ABDOMEN: Liver: Normal size and contour. Hypodense typical of steatosis. No mass or ductal dilation. Gallbladder and bile ducts: No calcified stones or surrounding fluid. Pancreas: Prominent pancreatic duct. No mass, calcification, inflammation or surrounding gas. Spleen: No significant abnormality noted. Adrenals: No significant abnormality noted. Kidneys and ureters: Simple bilateral renal cysts noted. No follow-up necessary. No stones or hydronephrosis. Stomach and bowel: Large amounts of stool throughout the redundant colon without obstruction. No inflammatory process noted. PELVIS: Appendix: No findings to suggest acute appendicitis. Bladder: Moderately distended urinary bladder. Reproductive: Small calcified uterine fibroids present. ABDOMEN and PELVIS: Intraperitoneal space: No free air. No significant fluid collection. Bones/joints: There is an acute angulated intertrochanteric fracture of the right femur. Old right pubic fractures. Degenerative changes noted throughout the scoliotic spine. No acute spinal fracture. Sacrum intact. Soft tissues: There is edema of the soft tissues about the right hip fracture. There is no hematoma. Vasculature: No abdominal aortic aneurysm. Lymph nodes: No pathologically enlarged lymph nodes. IMPRESSION: 1. Acute fracture right femur. 2. No traumatic change of the intra-abdominal organs. 3. Moderate to large hiatal hernia now present. 4. Large amounts of colonic stool without obstruction or inflammation. 5. Moderately dilated urinary bladder. ACT 112: Negative or not required by law. Electronically signed by Roya Wyatt 05-30-2024 5:[address] 05/30/24 17:00 EXAM: CT Cervical Spine Without Intravenous Contrast INDICATION: Fall. TECHNIQUE: Axial computed tomography images of the cervical spine without intravenous contrast. Sagittal and coronal reformatted images were created and reviewed. This CT exam was performed using one or more of the following dose reduction techniques: automated exposure control, adjustment of the mA and/or kV according to patient size, and/or use of iterative reconstruction technique. COMPARISON: 02/26/2024 FINDINGS: Limitations: None. Vertebrae: The bones are demineralized. There is stable reversal of the normal cervical curvature with extensive facet arthrosis, spondylosis and prominent uncal spurring C5-C6 and C6-C7. There is significant hypertrophic change of C1-C2. There is narrowing of the canal at the foramen magnum. There is moderate ventral canal stenosis and mild bilateral foraminal stenosis at C5-C6 and C6-C7. Severe to space narrowing C5-C6 and C6-C7. Discs/spinal canal/neural foramina: See above. Soft tissues: No significant abnormality noted. Lung apices: No significant abnormality noted. IMPRESSION: No cervical fracture. Extensive degenerative changes are stable. ACT 112: Negative or not required by law. Electronically signed by Roya Wyatt 05-30-2024 6:[address] 05/30/24 17:00 EXAM: CT Chest With Intravenous Contrast INDICATION: Fall. TECHNIQUE: Axial computed tomography images of the chest with intravenous contrast. Sagittal and coronal reformatted images were created and reviewed. This CT exam was performed using one or more of the following dose reduction techniques: automated exposure control, adjustment of the mA and/or kV according to patient size, and/or use of iterative reconstruction technique. CONTRAST: 93ml of Optiray 320 was administered intravenously. COMPARISON: 10/13/2020 FINDINGS: Limitations: None. Lungs and pleural spaces: Curvilinear hypodensity associated with a right lower lobe pulmonary arterial branch series 12 image 149 is likely artifactual. No pulmonary embolus noted. Interstitial scarring noted generally. There are scattered areas of parenchymal scarring and atelectasis. No pleural effusion or pneumothorax. Heart: No abnormality noted. Mediastinum: Ectatic aorta with mild dilatation of the ascending measuring 4 cm. No dissection. Increased moderate to large hiatal hernia. Thyroid: No abnormality noted. Bones/joints: Degenerative changes noted in the scoliotic spine. No acute osseous abnormality noted. Old healed sternal fracture. Soft tissues: No significant abnormality noted. Vasculature: Extensive collateral vessels about the spine. No large vessel occlusion noted. SVC patent. Lymph nodes: No enlarged lymph nodes. IMPRESSION: 1. No traumatic change identified in the thorax. 2. Dilated ascending aorta 4 cm. No dissection. 3. Moderate to large hiatal hernia. ACT 112: Negative or not required by law. Electronically signed by Roya Wyatt 05-30-2024 5:[address] 05/30/24 17:00 EXAM: CT Head Without Intravenous Contrast INDICATION: Ground-level fall. TECHNIQUE: Axial computed tomography images of the head/brain without intravenous contrast. Sagittal and/or coronal reformats are provided. Sagittal and coronal reformatted images were created and reviewed. This CT exam was performed using one or more of the following dose reduction techniques: automated exposure control, adjustment of the mA and/or kV according to patient size, and/or use of iterative reconstruction technique. COMPARISON: No relevant prior studies available. FINDINGS: Limitations: None. Brain and extra-axial spaces: There is age appropriate cortical atrophy and chronic ischemic periventricular white matter hypodensity. No acute infarct, hemorrhage or mass noted. Bones/joints: No acute changes. Soft tissues: No significant abnormality noted. Vasculature: No acute abnormality noted. Sinuses: Mild chronic bilateral ethmoid and maxillary sinus thickening. No sinus fluid. Mastoid air cells: No mastoid effusion. Orbits: No significant abnormality noted. IMPRESSION: Cerebral atrophy. No acute changes. ACT 112: Negative or not required by law. Electronically signed by Roya Wyatt 05-30-2024 5:48 PM Hip/Pelvis X-Ray 05/30/24 17:00 EXAM: Radiographs of the Right Hip 3 Views INDICATION: Fall. TECHNIQUE: Front view pelvis and AP and frog leg lateral views of the right hip. COMPARISON: No relevant prior studies available. FINDINGS: Limitations: None. Bones/joints: There is an acute minimally angulated fracture of the right intertrochanteric femur. There is deformity of the right superior and inferior pubic rami which appear chronic. Soft tissues: No abnormality noted. No radiopaque foreign body noted. IMPRESSION: 1. There is an acute minimally angulated fracture of the right intertrochanteric femur. 2. Remote appearing right pubic fractures. ACT 112: Negative or not required by law. Electronically signed by Roya Wyatt 05-30-2024 5:43 PM Code Status & VTE Plan Code Status DNR/DNI VTE Prophylaxis Plan VTE Prophylaxis will be ordered: Yes PG Care Time/CCT Total # of Minutes Spent Total Time Spent with Patient: Total time spent is greater than 50% in coordination of care (as documented) at patient's floor/unit and/or counseling patient: Coding Level of Care Code 77100 INT INP/OBS CARE 3/75MIN Diagnoses Closed right hip fracture S72.001A Fall from standing W19.XXXA Encounter type: initial encounter COPD (chronic obstructive pulmonary disease) J44.9 COPD type: unspecified COPD Depression F32.9 Hypertension I10 (2) Fall from standing Encounter type: initial encounter Qualified Code(s): W19.XXXA - Unspecified fall, initial encounter (3) COPD (chronic obstructive pulmonary disease) COPD type: unspecified COPD Qualified Code(s): J44.9 - Chronic obstructive pulmonary disease, unspecified
[2024-05-30] MEDS: TRANEXAMIC ACID / 0.7% NACL 1,000 MG/100 ML BAG IV ONE (21:15)
[2024-05-30] MEDS ORDERED: NALOXONE HCL 0.4 MG/1 ML VIAL/CARP IV PRN (21:49)
[2024-05-30] MEDS ORDERED: bisacodyL 10 MG SUPP PR PRN (21:49)
[2024-05-30] MEDS ORDERED: ONDANSETRON INJ 2 MG/ML 2 ML VIAL IV PRN (21:49)
[2024-05-30] MEDS ORDERED: MAGNESIUM HYDROXIDE SUSP 30 ML UDC PO PRN (21:49)
[2024-05-30] MEDS ORDERED: ACETAMINOPHEN 1000 MG/100 ML IV IV PRN (21:49)
[2024-05-31 05:16] LABS: Basophils # (auto) 0.01 K/uL (0.00-0.20); Basophils % (auto) 0.1 %; Hematocrit (blood only) 32.1 % (37.0-47.0); Hemoglobin 10.3 g/dl (12.0-16.0); Immature Granulocytes # (auto) 0.03 K/uL (0.01-0.20); Immature Granulocytes % (auto) 0.3 %; Lymphocytes # (auto) 0.33 K/uL (1.20-3.40); Lymphocytes % (auto) 3.5 %; Mean Corpuscular Hemoglobin 30.6 pg (25.0-34.0); Mean Corpuscular Hgb Conc 32.1 g/dL (32.0-36.0); Mean Corpuscular Volume 95.3 fL (80.0-100.0); Mean Platelet Volume 9.5 fL (9.4-12.4); Monocytes # (auto) 1.17 K/uL (0.11-0.59); Monocytes % (auto) 12.2 %; Neutrophils # (auto) 8.02 K/uL (1.40-6.50); Neutrophils % (auto) 83.9 %; Platelet Count 186 K/uL (130-400); RDW Coefficient of Variation 13.9 % (11.5-14.5); RDW Standard Deviation 48.1 fL (36.4-46.3); Red Blood Count 3.37 M/uL (4.20-5.40); White Blood Count 9.56 K/ul (4.8-10.8)
[2024-05-31 05:26] LABS: Albumin Level 3.8 gm/dl (3.4-5.0); BUN Creatinine Ratio 28.2 (10-20); Calcium 8.5 mg/dl (8.6-10.3); Creatinine Clr Calc Pharmacy 90.6 ml/min; Magnesium 2.1 mg/dl (1.7-2.4); Phosphorus 3.3 mg/dl (2.5-4.9); Potassium 4.1 mmol/L (3.5-5.1)
[2024-05-31 05:39] LABS: Partial Thromboplastin Ratio 1.1; Partial Thromboplastin Time 29 Seconds (21-31); Prothrombin Time 11.1 Seconds (9.0-12.0)
[2024-05-31] MEDS ORDERED: ceFAZolin 2000MG 2,000 MG/15 ML SYR IV SCH (06:00)
--- NOTE | 2024-05-31 07:09 | Anesthesiology Consultation ---
Date of Service May 31, 2024 Assessment & Plan (1) Encounter for pre-operative examination: Chart Review Chart Review: Acceptable Risk for Surgery History Surgery Operation Date: 05/31/24 07:00 Proposed Procedures p Intramedullary Barrett Femur(Right) - Gagandeep Horton MD Height/Weight Height: 5 ft 6 in Weight: 54.7 kg Allergies Allergy/AdvReac Type Severity Reaction Status Date / Time codeine AdvReac Unknown NAUSEATED/L Verified 05/30/24 19:42 IGHTHEADED Medications Home Medications Medication Instructions Recorded Confirmed Last Taken bupropion HCl 150 mg tablet,12 hr 150 mg PO BID 03/03/18 05/30/24 08/30/20 sustained-release (Wellbutrin SR) acetaminophen 500 mg tablet 1,000 mg (2 x 500 mg) PO TID #30 10/19/20 05/30/24 Unknown tabs albuterol sulfate 90 mcg/actuation 2 inh inhalation Q4H PRN SOB 05/30/24 05/30/24 Unknown aerosol inhaler bumetanide 0.5 mg tablet 0.5 mg PO DAILY 05/30/24 05/30/24 Unknown cyanocobalamin (vitamin B-12) 1,000 mcg IM MONTHLY 05/30/24 05/30/24 Unknown 1,000 mcg/mL injection solution docusate sodium 100 mg capsule 100 mg PO BID 05/30/24 05/30/24 Unknown duloxetine 60 mg capsule,delayed 60 mg PO DAILY 05/30/24 05/30/24 Unknown release famotidine 20 mg tablet (Pepcid) 20 mg PO HS heartburn 05/30/24 05/30/24 Unknown ferrous sulfate 325 mg (65 mg 325 mg PO DAILY 05/30/24 05/30/24 Unknown iron) tablet fluticasone furoate 200 1 inh inhalation DAILY PRN SOB 05/30/24 05/30/24 Unknown mcg/actuation blister powder for inhalation (Arnuity Ellipta) fluticasone propionate 50 2 spray intranasal HS PRN ALLERGIES 05/30/24 05/30/24 Unknown mcg/actuation nasal spray,suspension Active Medications Generic Name Dose Route Start Last Admin Trade Name Freq PRN Reason Stop Dose Admin Potassium Chloride/Sodium Chloride 20 meq in 1,000 mls @ 80 mls/hr 05/30/24 19:30 05/30/24 19:49 Normal Saline W/20 Meq Kcl IV 05/31/24 20:29 80 mls/hr .[id number] JODEE Administration Past Medical History Medical History (Updated 05/31/24 @ 07:17 by Darrel Ho MD) Constipation Chronic kidney disease, stage 3a COPD (chronic obstructive pulmonary disease) Sternal fracture Chronic venous insufficiency Ulcerative colitis Osteoporosis Hypothyroidism Hyperlipidemia Past Family History Family History Other Family history non-contributory No family history of adverse response to anesthesia No family history of bleeding disorder Denies family history of Esophageal cancer Crohn's disease Heart disease Colorectal cancer Cancer Hypertension Ulcerative colitis Stroke Asthma Past Surgical History Surgical History History of inguinal hernia repair Social History Smoking Status: Former smoker Do You Dip or Chew Tobacco: No Hx Alcohol Use: No Hx Substance Use: No substance use type: does not use Physical Exam Vital Signs Last Vital Signs Temp 36.3 C L 05/31/24 02:30 Pulse 62 05/31/24 02:30 Resp 18 05/31/24 02:30 BP 162/91 H 05/31/24 02:30 Pulse Ox 96 05/31/24 02:30 O2 Del Method Nasal Cannula 05/31/24 02:30 O2 Flow Rate 3 05/31/24 02:30 Testing Laboratory Results 05/31/24 04:49 05/31/24 04:49 PT 11.1 Seconds (9.0-12.0) 05/31/24 04:49 INR 1.0 (0.9-1.1) 05/31/24 04:49 APTT 29 Seconds (21-31) 05/31/24 04:49 Urine Color Yellow 05/30/24 18:13 Urine Appearance Clear (Clear) 05/30/24 18:13 Urine pH 8.0 (4.5-7.5) H 05/30/24 18:13 Ur Specific [place] 1.015 (1.000-1.030) 05/30/24 18:13 Urine Protein Negative (Negative) 05/30/24 18:13 Urine Glucose (UA) Negative (Negative) 05/30/24 18:13 Urine Ketones Negative (Negative) 05/30/24 18:13 Urine Nitrite Negative (Negative) 05/30/24 18:13 Ur Leukocyte Esterase Negative (Negative) 05/30/24 18:13 Electrocardiogram Date: 05/30/24 Findings: + NSR @ (60) and + NSST changes
[2024-05-31] MEDS ORDERED: ROPIVACAINE 0.5% 5 MG/ML 30 ML VIAL ONE (07:14)
[2024-05-31] MEDS ORDERED: PROPOFOL IV EMULSION 10 MG/ML 20 ML VIAL IV ONE ×2 (07:18→07:20)
[2024-05-31] MEDS ORDERED: LIDOCAINE 2% 2 ML VIAL/AMP(20MG/ML) INFIL ONE (07:18)
[2024-05-31] MEDS ORDERED: fentaNYL citrate PF 100 MCG/2 ML VIAL ONE (07:18)
--- NOTE | 2024-05-31 07:43 | History & Physical Bridge Note ---
Date of Service May 31, 2024 History & Physical Bridge Note I have examined the patient, reviewed the History & Physical and in the interval since the performance of the History & Physical I have noted the following changes of clinical significance: no changes noted
[2024-05-31] MEDS ORDERED: ePHEDrine sulfate 50 MG/ML AMP IV PRN (07:53)
[2024-05-31] MEDS ORDERED: ATROPINE SULFATE 0.1 MG/ML 10ML SYR IV PRN (07:53)
[2024-05-31] MEDS ORDERED: HYDROmorphone INJ 1 MG/ML SYRINGE IV PRN (07:53)
[2024-05-31] MEDS: TRANEXAMIC ACID / 0.7% NACL 1,000 MG/100 ML BAG IV SCH (08:19)
[2024-05-31] MEDS ORDERED: ceFAZolin 330 MG/ML 1 GM VIAL ONE (08:31)
[2024-05-31] MEDS: ceFAZolin 2000MG 2,000 MG/15 ML SYR IV SCH ×2 (08:32→17:37)
[2024-05-31] MEDS: BUPIVACAINE/EPINEPHRINE 0.5% MPF 1:200,000 30 ML VIAL ONE (09:46)
[2024-05-31] MEDS ORDERED: ePHEDrine sulfate 50 MG/5 ML SYR ONE (10:09)
[2024-05-31] MEDS ORDERED: PHENYLEPHRINE 100MCG/ML 5ML SYR ONE (10:09)
--- NOTE | 2024-05-31 10:39 | Operative Report ---
PG Post Operative Report Pre & Post Diagnosis Operation Date: 05/31/24 07:00 Pre-Op Diagnosis: Intertrochanteric fracture of right hip Post-Op Diagnosis: Intertrochanteric fracture of right hip I identified the patient and participated in the time-out.: Yes Procedure Operation Date: 05/31/24 07:00 Actual Procedures p Right hip fracture, open reduction, internal fixation with cephalomedullary trochanteric fixation nail(Right) - Gagandeep Horton MD Surgeon Gagandeep Horton MD Rail Project Engineer none Estimated Blood Loss 100 Findings See Below Basicervical with trochanteric extension. All Synthes implants: 11 mm/130 degree titanium cannulated trochanteric fixation nail of 380 mm length. 11.0 mm titanium helical blade of 95 mm length. Distal interlock screw measuring 52 mm. Specimens none Anesthesia Type MAC Spinal Regional Complications none Disposition Accompanied Patient To Recovery: No Disposition: Surgical ICU Indications 88-year-old female sustained fall onto her right hip resulting in immediate pain and inability to weight-bear. She was diagnosed with a proximal femur fracture, which I felt was best treated with a trochanteric fixation nail. I reviewed the diagnosis, prognosis, and is recommended treatment with the patient and her daughter. We reviewed the risks and benefits of surgical interventions. I suggested that alternatives were minimal other than bedrest, which I do not recommend. After discussion, they were interested in proceeding with surgical care. Informed consent was obtained in the preoperative holding area and confirmed to proceed with surgery. Description of Procedure On the day of surgery should be was greeted in the preoperative holding area and the informed consent was reviewed and confirmed. The surgical site was then identified by the patient and signed by myself. The anesthesia team performed a spinal anesthetic with excellent effect. The patient was taken to the operating room, placed upon the OR table, and anesthesia was induced. The patient was then positioned on the fracture table. All tisha prominences were well padded. The operative foot was placed in the fracture boot with abundant padding. The well leg was secured. We then positioned the lower extremities in a scissor fashion with a non-op leg flexed down to allow visualiz ation with fluoroscopy which was confirmed before we prepped and draped. Surgical timeout was called and verified by all present. Antibiotics and TXA were infused, and equipment was available and functional. The procedure was initiated with closed reduction maneuvers. Gentle in-line traction pulled the fracture out to length. The limb was then internally rotated to reduce the proximal femur. Flexion and adduction were used to adjust the reduction and allow access to the greater trochanter. We had adequate reduction prior to prepping and draping. The leg was then prepped and draped in usual sterile fashion. Surgical timeout was reconfirmed. We initiated the surgical internal fixation portion with finding the start point with the tip of the greater trochanter. Fluoroscopic guidance was used and a small poke hole was established. The start point was confirmed on fluoroscopy in AP and lateral planes and the pin was advanced using a mallet. An incision was made about the pin to allow access for the reamers. The pin was then advanced past the lesser trochanter, and its position was confirmed using AP and lateral fluoroscopy. Using the protective sleeve, the opening reamer was advanced under power with fluoroscopic guidance over the guidepin. The reduction wire was then advanced down the distal femur to the level of the superior pole of the patella. Measurement was taken from the tip of the trochanter down to the end of the guidewire, and the 380 mm was selected. We then began sequential reaming. We started with 10 and used fluoroscopy to guide our reaming. We advanced the reaming in gradual increments up to a 12.5. An 11 mm nail was loaded onto the jig and advanced manually down the canal, while ensuring maintenance of the reduction on fluoroscopy. We then tapped it down into place until we achieve the good position for our cephalo-medullary screw. The cannula was placed on the jig to allow positioning of the cephalo-medullary screw. The skin incision was made in the appropriate spot. The jig cannulas were then placed against the lateral cortex. The cephalo-medullary screw guidepin was advanced towards the femoral head. The center-center position was confirmed on fluoroscopy in AP and lateral planes. The length of the screw was measured off the guide. The helical blade screw was then opened on the back table and prepared on the screwdriver. The lateral cortical opening drill, followed by the triple drill reamer for the helical blade was advanced under fluoroscopic guidance. The helical blade was advanced over the guidepin to appropriate position. The helical blade was locked in rotation and then the traction was taken off. Fluoroscopy confirmed maintenance of reduction and adequate position of the implant. The compression sleeve was then advanced against the lateral femur to improve the trochanteric-shaft reduction and compress the intertrochanteric region fracture. Attention was then directed distally to perform the interlock screws in using perfect akhiok technique. 1 interlock screw was placed with a 5 mm diameter. The length was measured using a depth gauge, with fluoroscopic guidance. A 48 mm screw just did not receive enough length on the far cortex despite measuring for a 46 mm, so this swapped out for a 52 mm lag screw. This completed the fixation. This completed the fixation of the fracture. Fluoroscopy was used in both AP and lateral planes to evaluate the entirety of the fracture and implant. Reduction and implant positions were acceptable. The wounds were then thoroughly irrigated with bulb syringe and normal saline. The deep fascial layer was approximated with 0 Vicryl suture. The dermal layer was approximated using 2-0 Vicryl suture. The final skin closure was completed with petr. Wounds were dressed with sterile Xeroform, sterile gauze, and Ioban over ABDs. The patient tolerated procedure well, awoke from anesthesia without complication, was extubated in the operating room, and transferred to the PACU in stable condition. Disposition: The patient can be weightbearing as tolerated. I recommended oral aspirin, if tolerable, for VTE prophylaxis, which should last 6 weeks. 24 hours of antibiotic prophylaxis should be continued. I attest to the content of the Intraoperative Record and any orders documented therein. Any exceptions are noted below.
--- NOTE | 2024-05-31 10:39 | Fluoroscopy Report ---
FL femur RT 2V CLINICAL HISTORY: RT TROCH NAIL COMPARISON STUDY: Pelvis and right hip radiographs May 30, 2024. FLUOROSCOPY TIME: 115 seconds. Ka,r: 13.19 mGy FLUOROSCOPIC IMAGES: 5 FINDINGS: Fluoroscopy was provided during open reduction and internal fixation of the intertrochanter ic fracture of the right femur. Fracture alignment appears anatomic. There are no unexpected radiopaq ue foreign bodies. IMPRESSION: Fluoroscopy provided during open reduction and internal fixation of the intertrochanteri c fracture of the right femur. ACT 112: Negative or not required by law. Electronically signed by: Rocael Clark M.D. 05/31/2024 10:38 AM
--- NOTE | 2024-05-31 10:59 | XRay Report ---
XR femur RT 2V routine CLINICAL HISTORY: Post-Operative implant position COMPARISON: Pelvis and right hip radiographs and CT of the abdomen and pelvis May 30, 2024. FINDINGS: Status post interval open reduction and internal fixation of the intertrochanteric fractur e of the right femur. Fracture alignment appears anatomic. Hardware is intact. There are no unexpecte d radiopaque foreign bodies. There are skin petr. Old right pubic ring fractures are incidentally noted. IMPRESSION: Expected findings following internal fixation of the right femoral intertrochanteric frac ture. ACT 112: Negative or not required by law. Electronically signed by: Rocael Clark M.D. 05/31/2024 10:57 AM
[2024-05-31] MEDS ORDERED: FLUTICASONE FUROATE 200MCG 14 PUFFS/INHALER INH PRN (11:44)
--- NOTE | 2024-05-31 12:33 | Anesthesiology Progress Note ---
Date of Service May 31, 2024 Anesthesia Post Procedure Vital Signs Vital Signs: Temp Pulse Pulse Pulse Resp BP BP 05/31/24 12:31 63 05/31/24 11:40 36.7 C 60 20 135/79 05/31/24 11:10 67 17 104/61 05/31/24 11:00 72 17 122/66 05/31/24 10:50 65 15 123/65 05/31/24 10:40 59 L 13 118/66 05/31/24 10:30 64 15 114/63 05/31/24 10:20 74 12 112/64 05/31/24 10:13 36.7 C 67 17 104/61 05/31/24 07:46 67 05/31/24 02:30 36.3 C L 62 18 162/91 H 05/30/24 22:04 66 05/30/24 21:49 05/30/24 21:49 36.6 C 79 18 167/92 H 05/30/24 21:04 77 05/30/24 21:00 83 18 05/30/24 20:00 81 16 05/30/24 19:54 75 12 05/30/24 19:42 66 19 05/30/24 19:30 66 23 135/74 05/30/24 19:29 05/30/24 19:15 110 H 20 05/30/24 19:01 143/84 H 05/30/24 19:00 67 20 05/30/24 18:45 75 20 05/30/24 18:36 22 05/30/24 18:03 74 20 05/30/24 18:01 62 24 148/105 H 05/30/24 17:53 89 26 H 173/97 H 05/30/24 17:08 58 L 05/30/24 17:03 05/30/24 17:03 36.3 C L 58 L 16 161/58 H 05/30/24 17:03 05/30/24 16:43 36.3 C L 58 L 16 161/85 H BP Pulse Ox O2 Del Method O2 Flow Rate 05/31/24 12:31 05/31/24 11:40 135/79 96 Nasal Cannula 2 05/31/24 11:10 98 Nasal Cannula 2 05/31/24 11:00 98 Nasal Cannula 2 05/31/24 10:50 100 Nasal Cannula 3 05/31/24 10:40 100 Oxymask 3 05/31/24 10:30 100 Oxymask 6 05/31/24 10:20 96 Oxymask 6 05/31/24 10:13 96 Oxymask 6 05/31/24 07:46 05/31/24 02:30 96 Nasal Cannula 3 05/30/24 22:04 05/30/24 21:49 Nasal Cannula 3 05/30/24 21:49 96 Nasal Cannula 3 05/30/24 21:04 05/30/24 21:00 139/76 96 Nasal Cannula 3 05/30/24 20:00 133/64 98 Nasal Cannula 3 05/30/24 19:54 99 Nasal Cannula 3 05/30/24 19:42 98 Nasal Cannula 3 05/30/24 19:30 98 Nasal Cannula 3 05/30/24 19:29 87 L Room Air 0 05/30/24 19:15 92 Nasal Cannula 3 05/30/24 19:01 05/30/24 19:00 143/84 H 94 Room Air 05/30/24 18:45 95 Room Air 05/30/24 18:36 94 Room Air 05/30/24 18:03 99 Room Air 05/30/24 18:01 95 Room Air 05/30/24 17:53 95 Room Air 05/30/24 17:08 05/30/24 17:03 100 Room Air 0 05/30/24 17:03 100 Room Air 0 05/30/24 17:03 100 Room Air 05/30/24 16:43 100 Room Air Pain Intensity Right Hip: Pain Intensity: 0 Transfer of Care Handoff Completed per policy Notes Mental Status: alert / awake / arousable Patient Amnestic to Procedure: Yes Nausea / Vomiting: adequately controlled Pain: adequately controlled Airway Patency, RR, SpO2: stable & adequate BP & HR: stable & adequate Hydration State: stable & adequate Neuraxial Anesthesia: was administered and sensory block is resolving Anesthetic Complications: no major complications apparent
--- NOTE | 2024-05-31 14:39 | Hospitalist Progress Note ---
Date of Service May 31, 2024 Assessment & Plan (1) Closed right hip fracture: Plan: Closed right intertrochanteric fracture status post fall from standing- s/p open reduction, internal fixation with cephalomedullary trochanteric fixation by Dr. Horton. Acetaminophen 1 g IV every 8 hours as needed for mild pain or fever Dilaudid 0.25 mg IV every 3 hours as needed for moderate pain Dilaudid 0.5 mg IV every 3 hours as needed for severe pain Cyclobenzaprine 5 mg p.o. 3 times daily as needed for muscle spasm NSS + KCl 20 mill equivalents 80 mL/h x 2 L Zofran 4 mg IV every 6 hours as needed Geriatric hip fracture order set History of remote pubic fractures noted from previous fall Per Ortho - The patient can be weightbearing as tolerated. Recommend oral aspirin, if tolerable, for VTE prophylaxis, which should last 6 weeks. 24 hours of antibiotic prophylaxis should be continued. (2) Fall from standing: (3) COPD (chronic obstructive pulmonary disease): Plan: DuoNebs every 2 hours as needed Incentive spirometry, as patient has had some mild desaturation to the upper 80s and low 90s with pain control medications Pulse ox goal 92% (4) Depression: Plan: Duloxetine 60mg daily (5) Hypertension: Plan: Hold bumetanide IV fluids as noted above Follow serial laboratories (6) Urinary retention: Plan: Noted on CT is moderately dilated urinary bladder, successfully decompressed with Gonsales catheter, with immediate emptying of over 1 L of urine UA not convincing of UTI, not sent for reflex culture. Gonsales catheter in place Plan Dilated ascending aorta 4 cm- Can be followed serially as an outpatient VTE: ASA per Ortho Admission and Anticipated Discharge Date Admission Date: May 30, 2024 Calli Anderson is s/p R hip open reduction, internal fixation with trochanteric fixation nailing today after sustaining a fall yesterday at her independent living facility at [facility]. She was in the kitchen and suddenly went to the ground. She denies LOC. Only complaint right now is R sided hip pain. Plain films were performed in the ER - pelvis and hip and demonstrate daily angulated fracture of the right intertrochanteric femur. Remote appearing right pubic fractures are described. She has IV dilaudid for pain management. Per Ortho - Disposition: The patient can be weightbearing as tolerated. I recommended oral aspirin, if tolerable, for VTE prophylaxis, which should last 6 weeks. 24 hours of antibiotic prophylaxis should be continued. Review of Systems Constitutional: no fever and no chills Respiratory: no cough, no chest congestion and no dyspnea Cardiovascular: no chest pain and no dyspnea Gastrointestinal: no nausea and no vomiting Genitourinary: no dysuria, no difficulty urinating and no urinary frequency Integumentary: no rash Neurologic: + falls Physical Exam Constitutional: WD/WN, vitals as above Respiratory: normal respiratory effort, lungs clear to auscultation Cardiovascular: RRR, no murmur, no edema Gastrointestinal (Abdomen): Inspection/Auscultation: normal bowel sounds Percussion/Palpation: abdomen soft; abdomen nontender Musculoskeletal: R hip dressings intact, no drainage on dressings. Psychiatric: Orientation: alert and oriented x 3 Results & Data Results & Data Vital Signs (Past 12 Hours) Vital Signs Temp Pulse Pulse Pulse Resp BP BP 05/31/24 14:25 63 05/31/24 12:50 36.7 C 82 20 124/61 05/31/24 12:31 63 05/31/24 11:40 36.7 C 60 20 135/79 135/79 05/31/24 11:10 67 17 104/61 05/31/24 11:00 72 17 122/66 05/31/24 10:50 65 15 123/65 05/31/24 10:40 59 L 13 118/66 05/31/24 10:30 64 15 114/63 05/31/24 10:20 74 12 112/64 05/31/24 10:13 36.7 C 67 17 104/61 05/31/24 07:46 67 05/31/24 02:30 36.3 C L 62 18 162/91 H Pulse Ox O2 Del Method O2 Flow Rate 05/31/24 14:25 05/31/24 12:50 96 Nasal Cannula 2 05/31/24 12:31 05/31/24 11:40 96 Nasal Cannula 2 05/31/24 11:10 98 Nasal Cannula 2 05/31/24 11:00 98 Nasal Cannula 2 05/31/24 10:50 100 Nasal Cannula 3 05/31/24 10:40 100 Oxymask 3 05/31/24 10:30 100 Oxymask 6 05/31/24 10:20 96 Oxymask 6 05/31/24 10:13 96 Oxymask 6 05/31/24 07:46 05/31/24 02:30 96 Nasal Cannula 3 Laboratory Results 05/31/24 05/31/24 05/31/24 Range/Units 07:54 07:43 04:49 WBC 9.56 (4.8-10.8) K/ul RBC 3.37 L (4.20-5.40) M/uL Hgb 10.3 L (12.0-16.0) g/dl POC Hgb (12.0-16.0) g/dl Hct 32.1 L (37.0-47.0) % POC Hct (37-47) % MCV 95.3 (80.0-100.0) fL MCH 30.6 (25.0-34.0) pg MCHC 32.1 (32.0-36.0) g/dL RDW Std Deviation 48.1 H (36.4-46.3) fL RDW Coeff of [place]ico 13.9 (11.5-14.5) % Plt Count 186 (130-400) K/uL MPV 9.5 (9.4-12.4) fL Immature Gran % (Auto) 0.3 % Neut % (Auto) 83.9 % Lymph % (Auto) 3.5 % Cooper % (Auto) 12.2 % Eos % (Auto) 0.0 % Baso % (Auto) 0.1 % Neut # (Auto) 8.02 H (1.40-6.50) K/uL Lymph # (Auto) 0.33 L (1.20-3.40) K/uL Cooper # (Auto) 1.17 H (0.11-0.59) K/uL Eos # (Auto) 0.00 (0.00-0.50) K/uL Baso # (Auto) 0.01 (0.00-0.20) K/uL Immature Gran # (Auto) 0.03 (0.01-0.20) K/uL PT 11.1 (9.0-12.0) Seconds INR 1.0 (0.9-1.1) APTT 29 (21-31) Seconds PTT Ratio 1.1 POC Sodium (135-144) mmol/L Sodium 138 (136-145) mmol/L POC Potassium (3.3-5.0) mmol/L Potassium 4.1 (3.5-5.1) mmol/L POC Chloride (101-112) mmol/L Chloride 105 (98-107) mmol/L Carbon Dioxide 27 (21-32) mmol/L POC Total CO2 (24-31) mmol/L Anion Gap 6 (3-11) POC Anion Gap (16-25) mmol/L POC BUN (7-18) mg/dl BUN 11 (6-23) mg/dl Creatinine 0.39 L (0.6-1.2) mg/dl POC Creatinine (0.6-1.3) mg/dl Est Cr Clr Drug Dosing 90.6 ml/min eGFR 96.32 BUN/Creatinine Ratio 28.2 H (10-20) Glucose 148 H (70-99(Fasting)) mg/dl POC Glucose (other) (70-99) mg/dl Calcium 8.5 L (8.6-10.3) mg/dl POC Ioniz Calcium Celsa (1.12-1.32) mmol/l Phosphorus 3.3 (2.5-4.9) mg/dl Magnesium 2.1 (1.7-2.4) mg/dl Total Bilirubin (0.2-1.0) mg/dl AST (13-39) U/L ALT (7-52) U/L Alkaline Phosphatase (34-104) U/L Total Protein (6.0-8.3) gm/dl Albumin 3.8 (3.4-5.0) gm/dl Globulin (2.5-4.0) gm/dl Albumin/Globulin Ratio (0.9-2) Lipase (11-82) U/L Urine Color Urine Appearance (Clear) Urine pH (4.5-7.5) Ur Specific [place] (1.000-1.030) Urine Protein (Negative) Urine Glucose (UA) (Negative) Urine Ketones (Negative) Urine Blood (Negative) Urine Nitrite (Negative) Urine Bilirubin (Negative) Urine Urobilinogen (Negative) Ur Leukocyte Esterase (Negative) SARS-CoV-2, RNA, NAAT (NEGATIVE) Blood Type A Positive Blood Type Recheck A Positive Antibody Screen NEGATIVE 05/30/24 05/30/24 05/30/24 Range/Units 19:07 18:13 17:09 WBC (4.8-10.8) K/ul RBC (4.20-5.40) M/uL Hgb (12.0-16.0) g/dl POC Hgb 10.9 L (12.0-16.0) g/dl Hct (37.0-47.0) % POC Hct 32 L (37-47) % MCV (80.0-100.0) fL MCH (25.0-34.0) pg MCHC (32.0-36.0) g/dL RDW Std Deviation (36.4-46.3) fL RDW Coeff of Monico (11.5-14.5) % Plt Count (130-400) K/uL MPV (9.4-12.4) fL Immature Gran % (Auto) % Neut % (Auto) % Lymph % (Auto) % Cooper % (Auto) % Eos % (Auto) % Baso % (Auto) % Neut # (Auto) (1.40-6.50) K/uL Lymph # (Auto) (1.20-3.40) K/uL Cooper # (Auto) (0.11-0.59) K/uL Eos # (Auto) (0.00-0.50) K/uL Baso # (Auto) (0.00-0.20) K/uL Immature Gran # (Auto) (0.01-0.20) K/uL PT (9.0-12.0) Seconds INR (0.9-1.1) APTT (21-31) Seconds PTT Ratio POC Sodium 142 (135-144) mmol/L Sodium (136-145) mmol/L POC Potassium 3.5 (3.3-5.0) mmol/L Potassium (3.5-5.1) mmol/L POC Chloride 103 (101-112) mmol/L Chloride (98-107) mmol/L Carbon Dioxide (21-32) mmol/L POC Total CO2 27 (24-31) mmol/L Anion Gap (3-11) POC Anion Gap 16.0 (16-25) mmol/L POC BUN 17 (7-18) mg/dl BUN (6-23) mg/dl Creatinine (0.6-1.2) mg/dl POC Creatinine 0.6 (0.6-1.3) mg/dl Est Cr Clr Drug Dosing ml/min eGFR BUN/Creatinine Ratio (10-20) Glucose (70-99(Fasting)) mg/dl POC Glucose (other) 112 H (70-99) mg/dl Calcium (8.6-10.3) mg/dl POC Ioniz Calcium [place]els[place] 1.12 (1.12-1.32) mmol/l Phosphorus (2.5-4.9) mg/dl Magnesium (1.7-2.4) mg/dl Total Bilirubin (0.2-1.0) mg/dl AST (13-39) U/L ALT (7-52) U/L Alkaline Phosphatase (34-104) U/L Total Protein (6.0-8.3) gm/dl Albumin (3.4-5.0) gm/dl Globulin (2.5-4.0) gm/dl Albumin/Globulin Ratio (0.9-2) Lipase (11-82) U/L Urine Color Yellow Urine Appearance Clear (Clear) Urine pH 8.0 H (4.5-7.5) Ur Specific [place] 1.015 (1.000-1.030) Urine Protein Negative (Negative) Urine Glucose (UA) Negative (Negative) Urine Ketones Negative (Negative) Urine Blood Negative (Negative) Urine Nitrite Negative (Negative) Urine Bilirubin Negative (Negative) Urine Urobilinogen Negative (Negative) Ur Leukocyte Esterase Negative (Negative) SARS-CoV-2, RNA, NAAT NEGATIVE (NEGATIVE) Blood Type Blood Type Recheck Antibody Screen 05/30/24 Range/Units 16:49 WBC 6.06 (4.8-10.8) K/ul RBC 3.74 L (4.20-5.40) M/uL Hgb 11.3 L (12.0-16.0) g/dl POC Hgb (12.0-16.0) g/dl Hct 36.0 L (37.0-47.0) % POC Hct (37-47) % MCV 96.3 (80.0-100.0) fL MCH 30.2 (25.0-34.0) pg MCHC 31.4 L (32.0-36.0) g/dL RDW Std Deviation 49.2 H (36.4-46.3) fL RDW Coeff of Monico 14.0 (11.5-14.5) % Plt Count 234 (130-400) K/uL MPV 9.7 (9.4-12.4) fL Immature Gran % (Auto) 0.5 % Neut % (Auto) 66.4 % Lymph % (Auto) 16.5 % Cooper % (Auto) 14.7 % Eos % (Auto) 1.2 % Baso % (Auto) 0.7 % Neut # (Auto) 4.03 (1.40-6.50) K/uL Lymph # (Auto) 1.00 L (1.20-3.40) K/uL [place] # (Auto) 0.89 H (0.11-0.59) K/uL Eos # (Auto) 0.07 (0.00-0.50) K/uL Baso # (Auto) 0.04 (0.00-0.20) K/uL Immature Gran # (Auto) 0.03 (0.01-0.20) K/uL PT 10.6 (9.0-12.0) Seconds INR 1.0 (0.9-1.1) APTT 25 (21-31) Seconds PTT Ratio 0.9 POC Sodium (135-144) mmol/L Sodium 143 (136-145) mmol/L POC Potassium (3.3-5.0) mmol/L Potassium 3.6 (3.5-5.1) mmol/L POC Chloride (101-112) mmol/L Chloride 105 (98-107) mmol/L Carbon Dioxide 31 (21-32) mmol/L POC Total CO2 (24-31) mmol/L Anion Gap 7 (3-11) POC Anion Gap (16-25) mmol/L POC BUN (7-18) mg/dl BUN 18 (6-23) mg/dl Creatinine 0.55 L (0.6-1.2) mg/dl POC Creatinine (0.6-1.3) mg/dl Est Cr Clr Drug Dosing 67.5 ml/min eGFR 88.66 BUN/Creatinine Ratio 32.7 H (10-20) Glucose 109 H (70-99(Fasting)) mg/dl POC Glucose (other) (70-99) mg/dl Calcium 9.0 (8.6-10.3) mg/dl POC Ioniz Calcium Celsa (1.12-1.32) mmol/l Phosphorus (2.5-4.9) mg/dl Magnesium (1.7-2.4) mg/dl Total Bilirubin 0.5 (0.2-1.0) mg/dl AST 21 (13-39) U/L ALT 16 (7-52) U/L Alkaline Phosphatase 70 (34-104) U/L Total Protein 6.9 (6.0-8.3) gm/dl Albumin 4.3 (3.4-5.0) gm/dl Globulin 2.6 (2.5-4.0) gm/dl Albumin/Globulin Ratio 1.7 (0.9-2) Lipase 16 (11-82) U/L Urine Color Urine Appearance (Clear) Urine pH (4.5-7.5) Ur Specific [place] (1.000-1.030) Urine Protein (Negative) Urine Glucose (UA) (Negative) Urine Ketones (Negative) Urine Blood (Negative) Urine Nitrite (Negative) Urine Bilirubin (Negative) Urine Urobilinogen (Negative) Ur Leukocyte Esterase (Negative) SARS-CoV-2, RNA, NAAT (NEGATIVE) Blood Type Blood Type Recheck Antibody Screen PG Care Time/CCT Total # of Minutes Spent Total Time Spent with Patient: Total time spent is greater than 50% in coordination of care (as documented) at patient's floor/unit and/or counseling patient: [place] [address] SUB INP/OBS CARE 2/35MIN Patient Type Established History Expanded Problem Focused Exam Expanded Problem Focused Medical Decision Making Moderate Complexity Diagnoses Closed right hip fracture S72.001A Fall from standing W19.XXXA Encounter type: initial encounter COPD (chronic obstructive pulmonary disease) J44.9 COPD type: unspecified COPD Depression F32.9 Hypertension I10 Urinary retention R33.9 (2) Fall from standing Encounter type: initial encounter Qualified Code(s): W19.XXXA - Unspecified fall, initial encounter (3) COPD (chronic obstructive pulmonary disease) COPD type: unspecified COPD Qualified Code(s): J44.9 - Chronic obstructive pulmonary disease, unspecified
[2024-05-31] MEDS ORDERED: POLYETHYLENE (MIRALAX) 17 GM PACK PO PRN (16:47)
[2024-05-31] MEDS: ACETAMINOPHEN 325 MG TAB PO SCH (17:39)
[2024-05-31] MEDS: POLYETHYLENE (MIRALAX) 17 GM PACK PO SCH (17:40)
[2024-05-31] MEDS: DOCUSATE SODIUM 100 MG CAP PO SCH (20:03)
[2024-05-31] MEDS: ASPIRIN 81 MG ECTAB PO SCH (20:04)
[2024-05-31] MEDS: FAMOTIDINE 20 MG TAB PO SCH (20:04)
--- NOTE | 2024-06-01 06:29 | Electrocardiogram Report ---
Test Reason : Blood Pressure : */* mmHG Vent. Rate : 60 BPM Atrial Rate : 60 BPM P-R Int : 158 ms QRS Dur : 94 ms QT Int : 438 ms P-R-T Axes : 46 35 37 degrees QTcB Int : 438 ms Poor data quality, interpretation may be adversely affected Normal sinus rhythm Nonspecific T wave abnormality Abnormal ECG When compared with ECG of 26-Feb-2024 15:32, Nonspecific T wave abnormality has replaced inverted T waves in Inferior leads Confirmed by Eduardo Thomas ([id number]) on 06/01/2024 6:28:53 AM Referred By: Confirmed By: Eduardo Thomas
[2024-06-01 07:49] LABS: Basophils # (auto) 0.01 K/uL (0.00-0.20); Basophils % (auto) 0.1 %; Eosinophils # (auto) 0.02 K/uL (0.00-0.50); Eosinophils % (auto) 0.2 %; Hematocrit (blood only) 27.4 % (37.0-47.0); Hemoglobin 9.1 g/dl (12.0-16.0); Immature Granulocytes # (auto) 0.06 K/uL (0.01-0.20); Immature Granulocytes % (auto) 0.7 %; Lymphocytes # (auto) 0.55 K/uL (1.20-3.40); Lymphocytes % (auto) 6.4 %; Mean Corpuscular Hemoglobin 31.6 pg (25.0-34.0); Mean Corpuscular Hgb Conc 33.2 g/dL (32.0-36.0); Mean Corpuscular Volume 95.1 fL (80.0-100.0); Mean Platelet Volume 10.2 fL (9.4-12.4); Monocytes # (auto) 1.53 K/uL (0.11-0.59); Monocytes % (auto) 17.7 %; Neutrophils # (auto) 6.48 K/uL (1.40-6.50); Neutrophils % (auto) 74.9 %; Platelet Count 164 K/uL (130-400); RDW Coefficient of Variation 13.8 % (11.5-14.5); RDW Standard Deviation 48.4 fL (36.4-46.3); Red Blood Count 2.88 M/uL (4.20-5.40); White Blood Count 8.65 K/ul (4.8-10.8)
[2024-06-01 08:07] LABS: Albumin Level 3.2 gm/dl (3.4-5.0); BUN Creatinine Ratio 34.1 (10-20); Calcium 8.1 mg/dl (8.6-10.3); Creatinine Clr Calc Pharmacy 78.1 ml/min; Phosphorus 2.9 mg/dl (2.5-4.9)
[2024-06-01] MEDS: FERROUS SULFATE 325 MG TAB PO SCH (08:30)
[2024-06-01] MEDS: DULoxetine HCL 60 MG CAP PO SCH (08:30)
[2024-06-01] MEDS: SENNA 8.6 MG TAB PO SCH (08:30)
[2024-06-01] MEDS ORDERED: FERROUS SULFATE 325 MG TAB PO SCH (09:00)
[2024-06-01] MEDS: CHOLECALCIFEROL 125 MCG (5,000 UNITS) TAB PO SCH (09:15)
--- NOTE | 2024-06-01 09:42 | Hospitalist Progress Note ---
Date of Service June 01, 2024 Assessment & Plan (1) Closed right hip fracture: Plan: Age-related osteoporosis with current pathologic fracture, right femur Closed right intertrochanteric fracture status post fall from standing s/p open reduction, internal fixation with cephalomedullary trochanteric fixation by Dr. Horton 05/31 - WBAT - ASA BID x6 weeks for DVT proh - EBL 100. Hgb 11.3 --> 9.1, Acute blood loss anemia vs dilutational Vit D level: 16.8 - PO replacement started Pain control: scheduled tylenol, prn oxycodone PT/OT - pending (2) COPD (chronic obstructive pulmonary disease): Plan: DuoNebs every 2 hours as needed Incentive spirometry Pulse ox goal 92%, wean O2 as able (3) Urinary retention: Plan: Noted on CT is moderately dilated urinary bladder, successfully decompressed with Do catheter, with immediate emptying of over 1 L of urine UA without signs of infection Will plan to remove do today and monitor for retention (4) Underweight: Plan: Underweight with BMI 19.5 - nutrition consult Plan Chronic stable medical conditions: * Depression - continue duloxetine * HTN - resume bumex for 06/02 Dilated ascending aorta 4 cm- Can be followed serially as an outpatient VTE: ASA per Ortho Dispo: pending PT/OT abiola, downgrade to medical updated daughter by phone 06/01 Admission and Anticipated Discharge Date Admission Date: May 30, 2024 Subjective Patient seen sitting up in the chair, oxygen tubing not in nose and 84% on room air, is ntot dyspneic and denies shortness of breath. Could not tell me that she was in the hospital, but knew she had broken her leg and had surgery. Pain in leg when moving able to complete IS with cueing Tele - SR PVCs Review of Systems Review of Systems: All systems reviewed & are unremarkable except as noted in Subjective Physical Exam Physical Exam: General: NAD, VS as above Resp: normal respiratory effort, lungs clear to auscultation CV: RRR, no murmur, Abd: normal bowel sounds, non tender, no hepatosplenomegaly Extremities: Moves all extremities, left hip dressing c/d/i Neuro: A&O x2, Results & Data Results & Data Vital Signs (Past 12 Hours) Vital Signs Temp Pulse Pulse Pulse Resp BP Pulse Ox 06/01/24 07:48 06/01/24 07:39 98.8 F 78 20 125/75 98 06/01/24 02:31 99.1 F 81 18 131/74 97 06/01/24 00:13 99.5 F 87 20 149/75 H 94 05/31/24 22:58 95 05/31/24 22:56 88 L 05/31/24 22:27 05/31/24 22:22 88 O2 Del Method O2 Flow Rate 06/01/24 07:48 Nasal Cannula 2 06/01/24 07:39 Room Air 06/01/24 02:31 Nasal Cannula 2 06/01/24 00:13 Nasal Cannula 2 05/31/24 22:58 Nasal Cannula 3 05/31/24 22:56 Room Air 05/31/24 22:27 Nasal Cannula 3 05/31/24 22:22 Laboratory Results CBC and chemistry reviewed vit d reviewed PG Care Time/CCT Total # of Minutes Spent Total Time Spent with Patient: Total time spent is greater than 50% in coordination of care (as documented) at patient's floor/unit and/or counseling patient: Coding Level of Care Code 60815 SUB INP/OBS CARE 3/50MIN Diagnoses Closed right hip fracture S72.001A COPD (chronic obstructive pulmonary disease) J44.9 COPD type: unspecified COPD Urinary retention R33.9 Underweight R63.6 (2) COPD (chronic obstructive pulmonary disease) COPD type: unspecified COPD Qualified Code(s): J44.9 - Chronic obstructive pulmonary disease, unspecified
[2024-06-01 11:46] LABS: Prealbumin 12.5 mg/dl (20-40)
--- NOTE | 2024-06-01 16:24 | Orthopedic Progress Note ---
Date of Service June 01, 2024 Assessment & Plan (1) Intertrochanteric fracture of right femur: (2) History of hip surgery: Plan POD 1 from right trochanteric fixation nail for basicervical/trochanteric fracture. Making expected progress without complication. -Finish 24-hour antibiotics today -Prefer daily dressing changes now that the dressing has been disturbed -Weightbearing and range of motion as tolerated, continue to mobilize with rehabilitation -DVT prophylaxis per the primary team but aspirin should be sufficient for this indication Dispo: No further inpatient orthopedic needs. Stable for transition to next level of care. Follow-up in orthopedics per the discharge instructions. Chrisney text me with any questions Subjective Reports tolerable pain. Family at the bedside. Was confused and pulled off some of the dressing earlier today. Otherwise no issues. Was out of bed with therapy for a few careful steps. Review of Systems All systems reviewed & are unremarkable except as noted in HPI & below. Physical Exam RLE: Neuro vastly intact. Dressing clean dry and intact. Able to do straight leg raise on the left. Can activate her quad on the right we cannot maintain a straight leg raise. Constitutional WD/WN, vitals as above no acute distress and not intoxicated appearing Respiratory normal respiratory effort; no labored breathing Cardiovascular Extremities: normal capillary refill Results & Data Results & Data Laboratory Results . Diagnostic Findings Laboratory Tests 05/30/24 06/01/24 06/01/24 16:49 06:57 06:57 Hgb 11.3 L 9.1 L Hct 36.0 L 27.4 L PG Care Time/CCT Total # of Minutes Spent Total Time Spent with Patient: Total time spent is greater than 50% in coordination of care (as documented) at patient's floor/unit and/or counseling patient: Coding Level of Care Code 86998 Post Operative Follow-Up Diagnoses Intertrochanteric fracture of right femur S72.141A Encounter type: initial encounter Fracture alignment: displaced Fracture type: closed History of hip surgery Z98.890 (1) Intertrochanteric fracture of right femur Encounter type: initial encounter Fracture alignment: displaced Fracture type: closed Qualified Code(s): S72.141A - Displaced intertrochanteric fracture of right femur, initial encounter for closed fracture
[2024-06-01] MEDS: oxyCODONE HCL IR 5 MG TAB (IMMEDIATE RELEASE) PO PRN (20:45)
[2024-06-02] MEDS: BUMETANIDE 1 MG TAB PO SCH (08:42)
--- NOTE | 2024-06-02 12:51 | Hospitalist Progress Note ---
Date of Service June 02, 2024 Assessment & Plan (1) Closed right hip fracture: Plan: Age-related osteoporosis with current pathologic fracture, right femur Closed right intertrochanteric fracture status post fall from standing s/p open reduction, internal fixation with cephalomedullary trochanteric fixation by Dr. Horton 05/31 - WBAT - ASA BID x6 weeks for DVT proh - EBL 100. Hgb 11.3 --> 9.1, Acute blood loss anemia vs dilutational Vit D level: 16.8 - PO replacement started Pain control: scheduled tylenol, prn oxycodone PT/OT - recommend rehab, CM following - hoping for [facility] 06/03 (2) COPD (chronic obstructive pulmonary disease): Plan: DuoNebs every 2 hours as needed Incentive spirometry Pulse ox goal 90%, wean O2 as able (3) Urinary retention: Plan: Noted on CT is moderately dilated urinary bladder, successfully decompressed with Do catheter, with immediate emptying of over 1 L of urine UA without signs of infection Do removed 06/01 - required straight cath x2 so opted for replacement of do afternoon 06/02 - UA checked, not UTI Plan to maintain do for a few days and can trial voiding trial at rehab. defer flomax with labile BPs. Flomax restarted (4) Underweight: Plan: Underweight with BMI 19.5 - nutrition consult - supplements added Plan Chronic stable medical conditions: * Depression - continue duloxetine * HTN - resume bumex for 06/02 Dilated ascending aorta 4 cm- Can be followed serially as an outpatient VTE: ASA per Ortho Dispo: awaiting bed opening at [facility], monitoring for urinary retention updated daughter by phone 06/01 & 06/02 Admission and Anticipated Discharge Date Admission Date: May 30, 2024 Supervising Physician Co-Signing Physician Notes Attending Attestation - Chart reviewed, care plan d/w PENNY Dickinson. I agree w/ the rosario components of her documentation. Ant Cooley MD Subjective Patient seen sitting up in bed eating breakfast. much more alert/oreitned and pleasant today. Able to recal her fall at home. Seems to understand she needs more therpay before going home good appetite, reports + BM pain in hip controlled at rest Review of Systems Review of Systems: All systems reviewed & are unremarkable except as noted in Subjective Physical Exam Physical Exam: General: NAD, VS as above, more pleasant than prior day Resp: normal respiratory effort, lungs clear to auscultation, 87% on room air, recovered quickly when nasal cannula replaced in nose CV: RRR, no murmur, Abd: normal bowel sounds, non tender, no hepatosplenomegaly Extremities: Moves all extremities, left hip dressing c/d/i Neuro: A&O x3, Results & Data Results & Data Vital Signs (Past 12 Hours) Vital Signs Temp Pulse Resp BP Pulse Ox O2 Del Method O2 Flow Rate 06/02/24 08:05 Nasal Cannula 2 06/02/24 07:13 97.9 F 75 16 145/85 H 96 Nasal Cannula 2 Laboratory Results Ua reviewed PG Care Time/CCT Total # of Minutes Spent Total Time Spent with Patient: Total time spent is greater than 50% in coordination of care (as documented) at patient's floor/unit and/or counseling patient: Coding Level of Care Code 59236 SUB INP/OBS CARE 2/35MIN Diagnoses Closed right hip fracture S72.001A COPD (chronic obstructive pulmonary disease) J44.9 COPD type: unspecified COPD Urinary retention R33.9 Underweight R63.6 (2) COPD (chronic obstructive pulmonary disease) COPD type: unspecified COPD Qualified Code(s): J44.9 - Chronic obstructive pulmonary disease, unspecified
[2024-06-02 15:20] LABS: Appearance Urine Clear (Clear); Bacteria Urine Automated None Seen (None Seen); Bilirubin Urine Negative (Negative); Blood Urine Negative (Negative); Color Urine Dark Yellow; Epithelial Cell Urine Auto 0-2 /hpf (0-2); Glucose Urine UA Negative (Negative); Hyaline Casts Urine Present /lpf (None Presnt); Ketones Urine Trace (Negative); Leukocyte Esterase Urine Negative (Negative); Mucus Urine Present (None Prsent); Nitrite Urine Negative (Negative); Protein Urine 1+ (Negative); RBC Urine Automated 0-2 /hpf (0-2); Specific Gravity Urine 1.026 (1.000-1.030); Urobilinogen Urine Negative (Negative); WBC Urine Automated 0-5 /hpf (0-5); pH Urine 5.5 (4.5-7.5)
--- NOTE | 2024-06-03 13:20 | Hospitalist Progress Note ---
Date of Service June 03, 2024 Assessment & Plan (1) Closed right hip fracture: Plan: Age-related osteoporosis with current pathologic fracture, right femur Closed right intertrochanteric fracture status post fall from standing s/p open reduction, internal fixation with cephalomedullary trochanteric fixation by Dr. Horton 05/31 - WBAT - ASA BID x6 weeks for DVT proh - EBL 100. Hgb 11.3 --> 9.1, Acute blood loss anemia vs dilatational Vit D level: 16.8 - PO replacement started Pain control: scheduled tylenol, prn oxycodone PT/OT - recommend rehab, CM following - hoping for [facility] 06/04 (2) Urinary retention: Plan: Noted on CT is moderately dilated urinary bladder, successfully decompressed with Do catheter, with immediate emptying of over 1 L of urine UA without signs of infection Do removed 06/01 - required straight cath x2 so opted for replacement of do afternoon 06/02 - UA checked, not UTI Plan to maintain do for a few days and can trial voiding trial at rehab. defer flomax with labile BPs. Flomax restarted (3) Underweight: Plan: Underweight with BMI 19.5 - nutrition consult - supplements added Plan Chronic stable medical conditions: * Depression - continue duloxetine * HTN - resume bumex for 06/02 * COPDDuoNeb as needed Dilated ascending aorta 4 cm- Can be followed serially as an outpatient VTE: ASA per Ortho Dispo: awaiting bed opening at [facility], monitoring for urinary retention updated daughter by phone 06/01 & 06/02 Admission and Anticipated Discharge Date Admission Date: May 30, 2024 Supervising Physician Co-Signing Physician Notes Attending Attestation - Chart reviewed, care plan d/w PENNY Dickinson. I agree w/ the rosario components of her documentation. Ant Cooley MD Subjective seen sitting up in bed, finishing breakfast. Continues to be more alert than prior days. Is less complains of leg/hip pain today Was found with the oxygen not in her nose, pulse ox maintaining 91 to 92% discontinued nasal cannula and notified RN. Review of Systems Review of Systems: All systems reviewed & are unremarkable except as noted in Subjective Physical Exam Physical Exam: General: NAD, VS as above, more pleasant than prior day Resp: normal respiratory effort, lungs clear to auscultation, 92% on room air, CV: RRR, no murmur, Abd: normal bowel sounds, non tender, no hepatosplenomegaly Extremities: Moves all extremities, left hip dressing c/d/i Neuro: A&O x3, Results & Data Results & Data Vital Signs (Past 12 Hours) Vital Signs Temp Pulse Resp BP Pulse Ox O2 Del Method 06/03/24 08:05 Room Air 06/03/24 07:45 98.8 F 72 18 124/72 95 Room Air PG Care Time/CCT Total # of Minutes Spent Total Time Spent with Patient: Total time spent is greater than 50% in coordination of care (as documented) at patient's floor/unit and/or counseling patient: Coding Level of Care Code 19944 SUB INP/OBS CARE 2/35MIN Diagnoses Closed right hip fracture S72.001A Urinary retention R33.9 Underweight R63.6
--- NOTE | 2024-06-04 09:39 | Hospitalist Progress Note ---
Date of Service June 04, 2024 Assessment & Plan (1) Closed right hip fracture: Plan: Age-related osteoporosis with current pathologic fracture, right femur Closed right intertrochanteric fracture status post fall from standing s/p open reduction, internal fixation with cephalomedullary trochanteric fixation by Dr. Horton 05/31 - WBAT - ASA BID x6 weeks for DVT proh - EBL 100. Hgb 11.3 --> 9.1, Acute blood loss anemia vs dilatational Vit D level: 16.8 - PO replacement started Pain control: scheduled tylenol, prn oxycodone PT/OT - recommend rehab, CM following - hoping for [facility] but no beds again today (2) Urinary retention: Plan: Noted on CT is moderately dilated urinary bladder, successfully decompressed with Do catheter, with immediate emptying of over 1 L of urine UA without signs of infection Do removed 06/01 - required straight cath x2 so opted for replacement of do afternoon 06/02 - UA checked, not UTI Plan to maintain do for a few days and can trial voiding trial at rehab. defer flomax with labile BPs. Bumex restarted (3) Underweight: Plan: Underweight with BMI 19.5 - nutrition consult - supplements added Plan Chronic stable medical conditions: * Depression - continue duloxetine * HTN - resume bumex * COPDDuoNeb as needed Dilated ascending aorta 4 cm- Can be followed serially as an outpatient VTE: ASA per Ortho Dispo: awaiting bed opening at [facility], monitoring for urinary retention updated daughter by phone 06/01 & 06/02 Admission and Anticipated Discharge Date Admission Date: May 30, 2024 Supervising Physician Co-Signing Physician Notes Attending Attestation - Chart reviewed, care plan d/w PENNY Dickinson. I agree w/ the rosario components of her documentation. Ant Cooley MD Subjective Patient seen sitting up in bed eating breakfast. Eager to go to rehab so she is able to get back home. reports she has been having BM pain is controlled Review of Systems Review of Systems: All systems reviewed & are unremarkable except as noted in Subjective Physical Exam Physical Exam: General: NAD, VS as above, more pleasant than prior day Resp: normal respiratory effort, lungs clear to auscultation, CV: RRR, no murmur, Abd: normal bowel sounds, non tender, no hepatosplenomegaly Extremities: Moves all extremities, left hip dressing c/d/i Neuro: A&O x3, Results & Data Results & Data Vital Signs (Past 12 Hours) Vital Signs Temp Pulse Resp BP Pulse Ox O2 Del Method 06/04/24 07:41 98.4 F 61 18 113/67 95 Room Air PG Care Time/CCT Total # of Minutes Spent Total Time Spent with Patient: Total time spent is greater than 50% in coordination of care (as documented) at patient's floor/unit and/or counseling patient: Coding Level of Care Code 10433 SUB INP/OBS CARE 25MIN Diagnoses Closed right hip fracture S72.001A Urinary retention R33.9 Underweight R63.6
[2024-06-05 07:16] VITALS: RESP 18; TEMP 98.2; O2SAT 96
--- NOTE | 2024-06-05 11:42 | Discharge Summary ---
Discharge Summary Date of Service June 05, 2024 Principal Dx & Hospital Course #1 = Principal Diagnosis (1) Closed right hip fracture: Age-related osteoporosis with current pathologic fracture, right femur Closed right intertrochanteric fracture status post fall from standing s/p open reduction, internal fixation with cephalomedullary trochanteric fixation by Dr. Horton 05/31 - WBAT - ASA BID x6 weeks for DVT proh - EBL 100. Hgb 11.3 --> 9.1, Acute blood loss anemia vs dilatational Vit D level: 16.8 - PO replacement started - continue weekly high dose at discharge Pain control: scheduled tylenol, prn oxycodone PT/OT - recommend rehab, CM following - [facility] today (2) Urinary retention: Noted on CT is moderately dilated urinary bladder, successfully decompressed with Gonsales catheter, with immediate emptying of over 1 L of urine UA without signs of infection Gonsales removed 06/01 - required straight cath x2 so opted for replacement of gonsales afternoon 06/02 - UA checked, not UTI Plan to maintain gonsales for a few days and can trial voiding trial at rehab. defer flomax with labile BPs. Bumex restarted (3) Underweight: Underweight with BMI 19.5 - nutrition consult - supplements added Plan Chronic stable medical conditions: * Depression - continue duloxetine * HTN - resume bumex * COPDDuoNeb as needed Dilated ascending aorta 4 cm- Can be followed serially as an outpatient Dispo: discharge to home today updated daughter by phone 06/01 & 06/02 Notes For Next Care Provider Dilated ascending aorta 4 cm- Can be followed serially as an outpatient Medication Changes From Visit ASA BID x 6 weeks Admission HPI Per Admitting Provider The patient is a 88-year-old female with a past medical history including cervical disc disease spinal stenosis, COPD, depression, hypertension, dementia, B12 deficiency and asthma. She is referred to the emergency department from her independent living facility at [place] for assessment regarding right hip pain that occurred after a fall while in the kitchen there. Her main complaint is that of right hip pain, and denies any head injury or other painful area. Family is present in the emergency department room, and helps to corroborate history Discharge Exam General: NAD, VS as above, sitting up in the chair Resp: normal respiratory effort, lungs clear to auscultation, CV: RRR, no murmur, Abd: normal bowel sounds, non tender, no hepatosplenomegaly Extremities: Moves all extremities, left hip dressing c/d/i Neuro: A&O x3, Discharge Plan Discharge Items Patient Disposition: Transfer Inpatient Rehab Fac Reason For Visit: CLOSED RIGHT HIP FRACTURE Discharge Diagnosis: Right Hip fracture Activity: Resume your previous activity Driving/Machine Use: No limitations Weightbearing: Full weightbearing Non-emergency contact: Primary Care Provider Call non-emergency contact if: you have any medication questions, your symptoms worsen and your pain is worsening Follow-up/Referrals: Gagandeep Horton MD [Surgeon] - [facility] [Primary Care Provider] - Diet: Regular Addtl Attending Provider Instructions: Ms. Mcfarlane, Louie were hospitalized after a fall resulting in a hip fracture. This was repaired in the OR by Dr. Horton on 05/31. You will be going to [facility] for rehab. You had issues with urinary retention - we tried to remove the gonsales but had to be replaced 06/02. Med changes: Aspirin twice a day x6 weeks for DVT prevention Miralax and Senna for bowels while on pain medication Weekly Vit D supplementations Work hard at rehab to get stronger! Happy Holidays Mariluz Dickinson PA-C For [facility]: - recommend voiding trial in the next 1-2 days. -Pain control while inpatient: scheduled tylenol and prn oxycodone Pending Studies at Discharge: No Stand-Alone Forms: My [facility] Skilled Items Patient informed of condition?: Yes DNR: Yes Discharge Level of Care: Acute rehab Communicable Disease: No Discharge Prognosis: Stable Lines: None Urinary Catheter: Yes Medications and DC Order Prescriptions: New sennosides [Senokot] 8.6 mg Tablet 17.2 mg PO QAM Qty: 10 0RF cholecalciferol (vitamin D3) 125 mcg (5,000 unit) Tablet 125 mcg PO Q7D Qty: 10 0RF aspirin 81 mg Tablet,Delayed Release (Dr/Ec) 81 mg PO BID Qty: 60 0RF polyethylene glycol 3350 [Miralax] 17 gram Powder In Packet 17 g PO DAILY Qty: 10 0RF Continued bupropion HCl [Wellbutrin SR] 150 mg tablet sustained-release 12 hr 150 mg PO BID Rx Instructions: TAKE THIS MEDICATION EVERY MORNING AND AT NOON acetaminophen 500 mg Tablet 1,000 mg PO TID Qty: 30 0RF cyanocobalamin (vitamin B-12) 1,000 mcg/mL Solution 1,000 mcg IM MONTHLY bumetanide 0.5 mg tablet 0.5 mg PO DAILY docusate sodium 100 mg Capsule 100 mg PO BID albuterol sulfate 90 mcg/actuation HFA aerosol inhaler 2 inh INHALATION Q4H PRN (Reason: SOB) fluticasone propionate 50 mcg/actuation [place],Suspension 2 spray INTRANASAL HS PRN (Reason: ALLERGIES) Rx Instructions: administer into each nostril duloxetine 60 mg capsule,delayed release(DR/EC) 60 mg PO DAILY Arnuity Ellipta 200 mcg/actuation blister with device 1 inh INHALATION DAILY PRN (Reason: SOB) famotidine [Pepcid] 20 mg tablet 20 mg PO HS Changed ferrous sulfate 325 mg (65 mg iron) Tablet 325 mg PO Q2D Qty: 0 0RF Discharge Orders: Discharge Order (Routine); Ordered 06/05/24 Ordered By: Mariluz Dickinson Admission Data Admit Date/Time: 05/30/24 19:40 Attending Provider: Ant Cooley Admit Provider: Pancho Sargent Primary Care Provider: [facility] Other Providers: Pancho Sargent; Yessenia Drake; Nya Olvera; Анна Davies; Jaja Figueroa; Darrel Ho; Froilan Pichardo; August Chacon; Kamari Adan; Tiara Adan; Yeison Peterson; Sandy Esqueda; Jason Slater; Devin Mcpherson; Ramón Arias; Kavya Rose; Hesham Davis; Emily Davis; Alexi Cunningham; Neda Khan; Jose Jensen; Katrina Olsen; Chaya Narvaez; Peng Gomez; Elaine Hanna; Jenna Deluna; Nicolle Velasquez; Jeanne Hall; Vito Hall V; Huber Warren; Nya Smart; Toan Foreman; Anna Siu; Vito Salinas; Perry Rose; Luis Felipe Banks; Denice Donohue; Adriana Shepherd; Vito Abraham; Sukh Zhang; Taniya Raygoza; Fox Whitaker; Gisela Smith; Sully Nielson; Pedro Nathan; Librado Aguilar; Parul Simmons; Dannielle Chino; Nat Kim; Zan Singh; Hector Abel; Darrel Maya Jr; Nataly Barnard; Mitzi Goff; Supriya De La Rosa; Peng España; Kamari Jacome; Adela Jarrett; Mitzi Watson; Kevin Solorio; Gume James; Gordon Blanco; Kaveh Johnson; Chad Camp; Gladys Chilel; Samira Mason; Lalitha Issa; Maria Ortega; Bridgette Mcfarland; Love Naqvi Jr; Lyric Underwood; Elaine Ibanez; Cuate Araiza; Gagandeep Horton; [facility] Hospital Stay Data Consultations 05/30/24 18:35 ED Decision to Admit Stat 05/30/24 19:32 Consult Anesthesiology Routine 05/30/24 21:49 Consult Orthopedic Surgery Routine Procedures Performed Operation Date: 05/31/24 07:00 Actual Procedures p Right hip fracture, open reduction, internal fixation with trochanteric fixation nailing(Right) - Gagandeep Horton MD Diagnostic Imagining Performed Chest X-Ray 05/30/24 16:59 EXAM: Radiograph of the Chest 1 View INDICATION: Trauma. TECHNIQUE: Frontal view of the chest. COMPARISON: 10/18/2020 FINDINGS: Lungs and pleural spaces: Stable interstitial and parenchymal scarring. Heart: Stable cardiomegaly. Mediastinum: Stable moderate hiatal hernia. Bones/joints: Degenerative changes noted in the scoliotic spine. No acute osseous abnormality noted. Moderate degenerative change of the left shoulder. Soft tissues: No abnormality noted. No radiopaque foreign body noted. Upper abdomen: No abnormality noted. IMPRESSION: Stable chronic changes. No acute disease. ACT 112: Negative or not required by law. Electronically signed by Roya Wyatt 05-30-2024 5:41 PM Abdomen/Pelvis CT 05/30/24 17:00 EXAM: CT Abdomen and Pelvis With Intravenous Contrast INDICATION: Fall. TECHNIQUE: Axial computed tomography images of the abdomen and pelvis with intravenous contrast. Sagittal and coronal reformatted images were created and reviewed. This CT exam was performed using one or more of the following dose reduction techniques: automated exposure control, adjustment of the mA and/or kV according to patient size, and/or use of iterative reconstruction technique. CONTRAST: 93ml of Optiray 320 was administered intravenously. COMPARISON: 04/30/2019 FINDINGS: Limitations: None. Lung bases: No abnormality noted. Pleural space: No visualized pleural effusion or pneumothorax. Heart: Progressive cardiomegaly. There is now a large hiatal hernia. ABDOMEN: Liver: Normal size and contour. Hypodense typical of steatosis. No mass or ductal dilation. Gallbladder and bile ducts: No calcified stones or surrounding fluid. Pancreas: Prominent pancreatic duct. No mass, calcification, inflammation or surrounding gas. Spleen: No significant abnormality noted. Adrenals: No significant abnormality noted. Kidneys and ureters: Simple bilateral renal cysts noted. No follow-up necessary. No stones or hydronephrosis. Stomach and bowel: Large amounts of stool throughout the redundant colon without obstruction. No inflammatory process noted. PELVIS: Appendix: No findings to suggest acute appendicitis. Bladder: Moderately distended urinary bladder. Reproductive: Small calcified uterine fibroids present. ABDOMEN and PELVIS: Intraperitoneal space: No free air. No significant fluid collection. Bones/joints: There is an acute angulated intertrochanteric fracture of the right femur. Old right pubic fractures. Degenerative changes noted throughout the scoliotic spine. No acute spinal fracture. Sacrum intact. Soft tissues: There is edema of the soft tissues about the right hip fracture. There is no hematoma. Vasculature: No abdominal aortic aneurysm. Lymph nodes: No pathologically enlarged lymph nodes. IMPRESSION: 1. Acute fracture right femur. 2. No traumatic change of the intra-abdominal organs. 3. Moderate to large hiatal hernia now present. 4. Large amounts of colonic stool without obstruction or inflammation. 5. Moderately dilated urinary bladder. ACT 112: Negative or not required by law. Electronically signed by Roya Wyatt 05-30-2024 5:[address] 05/30/24 17:00 EXAM: CT Cervical Spine Without Intravenous Contrast INDICATION: Fall. TECHNIQUE: Axial computed tomography images of the cervical spine without intravenous contrast. Sagittal and coronal reformatted images were created and reviewed. This CT exam was performed using one or more of the following dose reduction techniques: automated exposure control, adjustment of the mA and/or kV according to patient size, and/or use of iterative reconstruction technique. COMPARISON: 02/26/2024 FINDINGS: Limitations: None. Vertebrae: The bones are demineralized. There is stable reversal of the normal cervical curvature with extensive facet arthrosis, spondylosis and prominent uncal spurring C5-C6 and C6-C7. There is significant hypertrophic change of C1-C2. There is narrowing of the canal at the foramen magnum. There is moderate ventral canal stenosis and mild bilateral foraminal stenosis at C5-C6 and C6-C7. Severe to space narrowing C5-C6 and C6-C7. Discs/spinal canal/neural foramina: See above. Soft tissues: No significant abnormality noted. Lung apices: No significant abnormality noted. IMPRESSION: No cervical fracture. Extensive degenerative changes are stable. ACT 112: Negative or not required by law. Electronically signed by Roya Wyatt 05-30-2024 6:[address] 05/30/24 17:00 EXAM: CT Chest With Intravenous Contrast INDICATION: Fall. TECHNIQUE: Axial computed tomography images of the chest with intravenous contrast. Sagittal and coronal reformatted images were created and reviewed. This CT exam was performed using one or more of the following dose reduction techniques: automated exposure control, adjustment of the mA and/or kV according to patient size, and/or use of iterative reconstruction technique. CONTRAST: 93ml of Optiray 320 was administered intravenously. COMPARISON: 10/13/2020 FINDINGS: Limitations: None. Lungs and pleural spaces: Curvilinear hypodensity associated with a right lower lobe pulmonary arterial branch series 12 image 149 is likely artifactual. No pulmonary embolus noted. Interstitial scarring noted generally. There are scattered areas of parenchymal scarring and atelectasis. No pleural effusion or pneumothorax. Heart: No abnormality noted. Mediastinum: Ectatic aorta with mild dilatation of the ascending measuring 4 cm. No dissection. Increased moderate to large hiatal hernia. Thyroid: No abnormality noted. Bones/joints: Degenerative changes noted in the scoliotic spine. No acute osseous abnormality noted. Old healed sternal fracture. Soft tissues: No significant abnormality noted. Vasculature: Extensive collateral vessels about the spine. No large vessel occlusion noted. SVC patent. Lymph nodes: No enlarged lymph nodes. IMPRESSION: 1. No traumatic change identified in the thorax. 2. Dilated ascending aorta 4 cm. No dissection. 3. Moderate to large hiatal hernia. ACT 112: Negative or not required by law. Electronically signed by Roya Wyatt 05-30-2024 5:[address] 05/30/24 17:00 EXAM: CT Head Without Intravenous Contrast INDICATION: Ground-level fall. TECHNIQUE: Axial computed tomography images of the head/brain without intravenous contrast. Sagittal and/or coronal reformats are provided. Sagittal and coronal reformatted images were created and reviewed. This CT exam was performed using one or more of the following dose reduction techniques: automated exposure control, adjustment of the mA and/or kV according to patient size, and/or use of iterative reconstruction technique. COMPARISON: No relevant prior studies available. FINDINGS: Limitations: None. Brain and extra-axial spaces: There is age appropriate cortical atrophy and chronic ischemic periventricular white matter hypodensity. No acute infarct, hemorrhage or mass noted. Bones/joints: No acute changes. Soft tissues: No significant abnormality noted. Vasculature: No acute abnormality noted. Sinuses: Mild chronic bilateral ethmoid and maxillary sinus thickening. No sinus fluid. Mastoid air cells: No mastoid effusion. Orbits: No significant abnormality noted. IMPRESSION: Cerebral atrophy. No acute changes. ACT 112: Negative or not required by law. Electronically signed by Roya Wyatt 05-30-2024 5:48 PM Hip/Pelvis X-Ray 05/30/24 17:00 EXAM: Radiographs of the Right Hip 3 Views INDICATION: Fall. TECHNIQUE: Front view pelvis and AP and frog leg lateral views of the right hip. COMPARISON: No relevant prior studies available. FINDINGS: Limitations: None. Bones/joints: There is an acute minimally angulated fracture of the right intertrochanteric femur. There is deformity of the right superior and inferior pubic rami which appear chronic. Soft tissues: No abnormality noted. No radiopaque foreign body noted. IMPRESSION: 1. There is an acute minimally angulated fracture of the right intertrochanteric femur. 2. Remote appearing right pubic fractures. ACT 112: Negative or not required by law. Electronically signed by Roya Wyatt 05-30-2024 5:43 PM Femur X-Ray 05/31/24 07:08 FL femur RT 2V CLINICAL HISTORY: RT TROCH NAIL COMPARISON STUDY: Pelvis and right hip radiographs May 30, 2024. FLUOROSCOPY TIME: 115 seconds. Ka,r: 13.19 mGy FLUOROSCOPIC IMAGES: 5 FINDINGS: Fluoroscopy was provided during open reduction and internal fixation of the intertrochanteric fracture of the right femur. Fracture alignment appears anatomic. There are no unexpected radiopaque foreign bodies. IMPRESSION: Fluoroscopy provided during open reduction and internal fixation of the intertrochanteric fracture of the right femur. ACT 112: Negative or not required by law. Electronically signed by: Rocael Clark M.D. 05/31/2024 10:38 AM Femur X-Ray 05/31/24 10:29 XR femur RT 2V routine CLINICAL HISTORY: Post-Operative implant position COMPARISON: Pelvis and right hip radiographs and CT of the abdomen and pelvis May 30, 2024. FINDINGS: Status post interval open reduction and internal fixation of the intertrochanteric fracture of the right femur. Fracture alignment appears anatomic. Hardware is intact. There are no unexpected radiopaque foreign bodies. There are skin petr. Old right pubic ring fractures are incidentally noted. IMPRESSION: Expected findings following internal fixation of the right femoral intertrochanteric fracture. ACT 112: Negative or not required by law. Electronically signed by: Rocael Clark M.D. 05/31/2024 10:57 AM Pending Results Patient Have Any Pending Studies at Discharge: No Discharge Instructions Given to Patient (Per Discharging Provider) Ms. Mcfarlane, Louie were hospitalized after a fall resulting in a hip fracture. This was repaired in the OR by Dr. Horton on 05/31. You will be going to [facility] for rehab. You had issues with urinary retention - we tried to remove the gonsales but had to be replaced 06/02. Med changes: Aspirin twice a day x6 weeks for DVT prevention Miralax and Senna for bowels while on pain medication Weekly Vit D supplementations Work hard at rehab to get stronger! Happy Holidays Mariluz Dickinson PA-C [facility]: - recommend voiding trial in the next 1-2 days. -Pain control while inpatient: scheduled tylenol and prn oxycodone Total Time Total Time Spent Total Time Spent (In Minutes): Time spent day of discharge 33 minutes including direct patient care, medication reconciliation, documentation, review of labs and images, and coordination of care. Coding Level of Care Code 08166 INP/OBS DISCH >30 MIN Diagnoses Closed right hip fracture S72.001A Urinary retention R33.9 Underweight R63.6
[2024-06-05 14:42] VITALS: BP 124/80; PULSE 72
== END 2024-06-05 15:11 | DRG 481 ==
LOC: ED 16:37 → 2W 19:40 → SUATTDRO 19:40 → 2W 21:27 → 3W 06-01 11:37
DX: R63.6 Underweight; E53.8 Deficiency of other specified B group vitamins; Y92.019 Unspecified place in single-family (private) house as the place of occurrence of the external cause; Z88.5 Allergy status to narcotic agent; R33.9 Retention of urine, unspecified; J44.9 Chronic obstructive pulmonary disease, unspecified; I10 Essential (primary) hypertension; Z68.1 Body mass index [BMI] 19.9 or less, adult; D62 Acute posthemorrhagic anemia; M80.051A Age-related osteoporosis with current pathological fracture, right femur, initial encounter for fracture; Z87.891 Personal history of nicotine dependence; F03.90 Unspecified dementia, unspecified severity, without behavioral disturbance, psychotic disturbance, mood disturbance, and anxiety; F32.A Depression, unspecified; W18.39XA Other fall on same level, initial encounter

== ENCOUNTER 2024-09-01 11:29 | Observation (INO) ==
[2024-09-01 12:18] LABS: Basophils # (auto) 0.02 K/uL (0.00-0.20); Basophils % (auto) 0.3 %; Eosinophils # (auto) 0.05 K/uL (0.00-0.50); Eosinophils % (auto) 0.8 %; Hematocrit (blood only) 36.1 % (37.0-47.0); Hemoglobin 11.9 g/dl (12.0-16.0); Immature Granulocytes # (auto) 0.02 K/uL (0.01-0.20); Immature Granulocytes % (auto) 0.3 %; Lymphocytes # (auto) 0.82 K/uL (1.20-3.40); Lymphocytes % (auto) 13.3 %; Mean Corpuscular Hemoglobin 30.3 pg (25.0-34.0); Mean Corpuscular Volume 91.9 fL (80.0-100.0); Mean Platelet Volume 9.2 fL (9.4-12.4); Monocytes % (auto) 14.6 %; Neutrophils # (auto) 4.37 K/uL (1.40-6.50); Neutrophils % (auto) 70.7 %; Platelet Count 298 K/uL (130-400); RDW Coefficient of Variation 13.2 % (11.5-14.5); RDW Standard Deviation 45.5 fL (36.4-46.3); Red Blood Count 3.93 M/uL (4.20-5.40); White Blood Count 6.18 K/ul (4.8-10.8)
[2024-09-01 12:33] LABS: Alanine Aminotransferase 11 U/L (7-52); Albumin Globulin Ratio 1.2 (0.9-2); Albumin Level 4.1 gm/dl (3.4-5.0); Alkaline Phosphatase 106 U/L (34-104); Anion Gap 5 (3-11); Aspartate Aminotransferase 19 U/L (13-39); BUN Creatinine Ratio 33.3 (10-20); Bilirubin,Total 0.5 mg/dl (0.2-1.0); Blood Urea Nitrogen 14 mg/dl (6-23); Calcium 9.5 mg/dl (8.6-10.3); Carbon Dioxide 30 mmol/L (21-32); Chloride 102 mmol/L (98-107); Globulin 3.3 gm/dl (2.5-4.0); Glucose 105 mg/dl (70-99(Fasting)); Potassium 4.1 mmol/L (3.5-5.1); Sodium 137 mmol/L (136-145); Total Protein 7.4 gm/dl (6.0-8.3)
--- NOTE | 2024-09-01 13:09 | Emergency Department Note ---
History of Present Illness General Chief complaint: Infection, Wound Time Seen by Provider: 09/01/24 12:57 History of Present Illness This is an 89-year-old female who presents to the emergency department via EMS accompanied by daughter with complaints of "infection, wound". Patient presenting from [place] where she resides. Most of the history obtained from daughter at bedside. Reportedly patient fell a few weeks ago, unclear if the fall was related to the left leg abnormality. Patient has a history of edema at baseline. No fevers, chills, recent illness. Patient notes that she feels overall well. She denies any pain. Daughter at bedside also provide the history but note that it is unclear when the left lower extremity edema started. Per review of the EMR the patient was evaluated here in the ED on 12/10/2019 at that time for left lower extremity edema secondary to a small puncture wound to the left anterior mid tibial region. Later that year, at the wound care center on 04/19/2020 and continue to follow through the month of April. At that time there was note of left lower extremity edema and cellulitis which did improve. Home Medications Medication Instructions Recorded Confirmed Type bupropion HCl 150 mg tablet,12 hr 150 mg PO BID 03/03/18 09/01/24 History sustained-release (Wellbutrin SR) acetaminophen 500 mg tablet 1,000 mg (2 x 500 mg) PO TID #30 10/19/20 09/01/24 Rx tabs albuterol sulfate 90 mcg/actuation 2 inh inhalation Q4H PRN SOB 05/30/24 09/01/24 History aerosol inhaler bumetanide 0.5 mg tablet 0.5 mg PO DAILY 05/30/24 09/01/24 History cyanocobalamin (vitamin B-12) 1,000 mcg IM MONTHLY 05/30/24 09/01/24 History 1,000 mcg/mL injection solution docusate sodium 100 mg capsule 100 mg PO BID 05/30/24 09/01/24 History duloxetine 60 mg capsule,delayed 60 mg PO DAILY 05/30/24 09/01/24 History release famotidine 20 mg tablet (Pepcid) 20 mg PO HS heartburn 05/30/24 09/01/24 History fluticasone furoate 200 1 inh inhalation DAILY 05/30/24 09/01/24 History mcg/actuation blister powder for inhalation (Arnuity Ellipta) fluticasone propionate 50 2 spray intranasal HS PRN ALLERGIES 05/30/24 09/01/24 History mcg/actuation nasal spray,suspension ferrous sulfate 325 mg (65 mg 325 mg PO Q2D #0 tabs 06/05/24 09/01/24 Rx iron) tablet polyethylene glycol 3350 17 gram 17 g PO DAILY #10 ea 06/05/24 09/01/24 Rx oral powder packet (Miralax) sennosides 8.6 mg tablet (Senokot) 17.2 mg (2 x 8.6 mg) PO QAM #10 06/05/24 09/01/24 Rx tabs tramadol 50 mg tablet 50 mg PO Q8H PRN pain #15 tabs 07/19/24 09/01/24 Rx beclomethasone dipropionate 80 2 inh inhalation BID 09/01/24 09/01/24 History mcg/actuation HFA breath activated aerosol (Qvar RediHaler) cholecalciferol (vitamin D3) 125 50,000 unit PO Q7D 09/01/24 09/01/24 History mcg (5,000 unit) tablet levothyroxine 75 mcg tablet 75 mcg PO QAM 09/01/24 09/01/24 History multivitamin 1 tab PO QAM 09/01/24 09/01/24 History omega-3 acid ethyl esters 1 gram 1 cap PO DAILY 09/01/24 09/01/24 History capsule (Lovaza) polyethylene glycol 3350 17 17 g PO DAILY PRN Constipation 09/01/24 09/01/24 History gram/dose oral powder (Miralax) potassium chloride 10 mEq 10 meq PO BID 09/01/24 09/01/24 History tablet,extended release pravastatin 40 mg tablet 40 mg PO HS 09/01/24 09/01/24 History trospium 20 mg tablet 20 mg PO BID 09/01/24 09/01/24 History Allergies Allergy/AdvReac Type Severity Reaction Status Date / Time codeine AdvReac Unknown NAUSEATED/L Verified 05/30/24 19:42 IGHTHEADED Past Med/Surg History Problem List (Updated 09/01/24 @ 19:21 by Cory Acosta PA-C) Cellulitis of left lower extremity (Acute) Chronic cor pulmonale Abnormal head CT Hypotension Intertrochanteric fracture of right hip Sensorineural hearing loss (SNHL) of both ears Cerumen impaction Excessive cerumen in both ear canals Contact dermatitis Left wrist effusion Intractable pain (Acute) Wrist arthritis (Acute) Edema of left lower extremity (Acute) Cellulitis (Acute) Cervical spinal stenosis (Chronic) Cervical disc disease (Chronic) Myofascial pain (Chronic) Cervical facet syndrome (Chronic) Cervicalgia (Chronic) Fall (Acute) Laceration of head (Acute) Medical History (Updated 09/01/24 @ 19:21 by Cory Acosta PA-C) Underweight Urinary retention Intertrochanteric fracture of right femur Hypertension Depression COPD (chronic obstructive pulmonary disease) Osteoarthritis Constipation Chronic kidney disease, stage 3a COPD (chronic obstructive pulmonary disease) Sternal fracture Chronic venous insufficiency Ulcerative colitis Osteoporosis Hypothyroidism Hyperlipidemia Surgical History History of inguinal hernia repair Family History Other Family history non-contributory No family history of adverse response to anesthesia No family history of bleeding disorder Denies family history of Esophageal cancer Crohn's disease Heart disease Colorectal cancer Cancer Hypertension Ulcerative colitis Stroke Asthma Social History Smoking Status: Former smoker Tobacco Type: Cigarettes packs per day: 1; Do You Dip or Chew Tobacco: No; Hx Alcohol Use: No Hx Substance Use: No Preferred Language: Fijian Communication Ability: Effective Visual Impairment: No Limitations Hearing Ability: Normal Manager Life Insurance Required: No Beliefs That Will Affect Care: None marital status: / Current Living Situation: Personal Care Facility Current Living Situation Comment: [place] [facility] current occupational status: retired Other Information That Helps Us Care for You: No Feels Safe at Home: Yes Safety Concerns: Feels Safe At This Time Assistive Devices: None and Walker Review of Systems A total of 10 systems reviewed and were otherwise negative Physical Exam Vital Signs Vital Signs - 24 hr 09/01/24 11:39 09/01/24 12:30 09/01/24 12:57 Temperature 36.5 C Temperature Source Temporal Artery Scan Pulse Rate 67 66 Pulse Rate [Finger] Pulse Rate from SpO2 Sensor 66 Pulse Strength Normal Respiratory Rate 16 20 Respiratory Effort / Characteristics Non-Labored Spontaneous Respiratory Depth Normal Respiratory Pattern Regular Blood Pressure 167/82 H 171/94 H Blood Pressure [Right Arm] Blood Pressure Mean 110 120 Blood Pressure Mean [Right Arm] Blood Pressure Position [Right Arm] Pulse Oximetry 99 100 Oxygen Delivery Method Room Air Sepsis Recent Fever Within 48 Hours No Sepsis New/Unexplained Change in Mental Status No Sepsis Action Taken by Nursing No Action Required 09/01/24 13:00 09/01/24 13:00 09/01/24 13:24 Temperature Temperature Source Pulse Rate 67 65 Pulse Rate [Finger] Pulse Rate from SpO2 Sensor 66 64 Pulse Strength Respiratory Rate 13 17 Respiratory Effort / Characteristics Respiratory Depth Respiratory Pattern Blood Pressure 168/92 H Blood Pressure [Right Arm] Blood Pressure Mean 116 Blood Pressure Mean [Right Arm] Blood Pressure Position [Right Arm] Pulse Oximetry 99 98 Oxygen Delivery Method Sepsis Recent Fever Within 48 Hours Sepsis New/Unexplained Change in Mental Status Sepsis Action Taken by Nursing 09/01/24 13:30 09/01/24 13:39 09/01/24 14:17 Temperature Temperature Source Pulse Rate 69 Pulse Rate [Finger] 67 Pulse Rate from SpO2 Sensor Pulse Strength Respiratory Rate 18 Respiratory Effort / Characteristics Non-Labored Spontaneous Respiratory Depth Normal Respiratory Pattern Regular Blood Pressure 180/94 H Blood Pressure [Right Arm] 179/89 H Blood Pressure Mean 122 Blood Pressure Mean [Right Arm] 119 Blood Pressure Position [Right Arm] Lying Pulse Oximetry 96 Oxygen Delivery Method Room Air Sepsis Recent Fever Within 48 Hours Sepsis New/Unexplained Change in Mental Status Sepsis Action Taken by Nursing 09/01/24 15:00 Temperature 36.8 C Temperature Source Oral Pulse Rate Pulse Rate [Finger] 80 Pulse Rate from SpO2 Sensor Pulse Strength Respiratory Rate 20 Respiratory Effort / Characteristics Non-Labored Spontaneous Respiratory Depth Normal Respiratory Pattern Regular Blood Pressure Blood Pressure [Right Arm] 173/103 H Blood Pressure Mean Blood Pressure Mean [Right Arm] 126 Blood Pressure Position [Right Arm] Lying Pulse Oximetry 99 Oxygen Delivery Method Room Air Sepsis Recent Fever Within 48 Hours Sepsis New/Unexplained Change in Mental Status Sepsis Action Taken by Nursing VITAL SIGNS - Vital signs and nursing notes were reviewed. Stable and afebrile. GENERAL -89-year-old female appearing her stated age who is in no acute distress. Communicates well with provider and answers questions appropriately. SKIN -there is significant circumferential edema and erythema to the left lower extremity, originating just distal to the knee extending down to the toes. The skin appears to be overall tense but not firm. There are tiny open wounds that are leaking a serosanguineous fluid. No purulence. No crepitus. HEAD - NC/AT. EYES - Sclera anicteric. NOSE - Midline and without cyanosis. No epistaxis or purulent drainage noted. MOUTH/OROPHARYNX - Without perioral cyanosis. NECK - Neck with FROM. No nuchal rigidity. LUNGS - CTA CARDIAC - RRR EXTREMITIES - No clubbing or peripheral cyanosis. Skin as above. Right lower extremity unremarkable to inspection. Left lower extremity skin as above. No bony tenderness. Left dorsalis pedis pulse within normal limits. Capillary fill of all toes of the bilateral extremities within normal limits. +5/5 strength noted in UE/LE bilaterally. NEUROLOGIC - Cranial nerves II through XII grossly intact. Sensory intact throughout the lower extremities without deficit. PSYCH -patient is alert, oriented and pleasant. Course Administered Medications Discontinued Medications Acetaminophen (Acetaminophen 500 Mg Tab) 500 mg PO NOW STA Stop: 09/01/24 15:18 Last Admin: 09/01/24 16:24 Dose: 500 mg Documented By: ROSIE Fluticasone Furoate (Fluticasone Furoate 200mcg 14 Puffs/Inhaler) 1 puffs INH DAILY JODEE Stop: 10/01/24 18:44 Last Admin: 09/01/24 19:11 Dose: Not Given Documented By: JAG Ceftriaxone Sodium (Rocephin) 2,000 mg in 50 mls @ 100 mls/hr IV NOW STA Stop: 09/01/24 14:37 Last Infusion: 09/01/24 15:09 Dose: Infused Documented By: Admin: 09/01/24 14:17 Dose: 100 mls/hr Documented By: JYOTSNA Medical Decision Making Laboratory Data 09/01/24 11:56 09/01/24 11:56 Lab Results 09/01/24 09/01/24 Range/Units 11:56 14:06 WBC 6.18 (4.8-10.8) K/ul RBC 3.93 L (4.20-5.40) M/uL Hgb 11.9 L (12.0-16.0) g/dl Hct 36.1 L (37.0-47.0) % MCV 91.9 (80.0-100.0) fL MCH 30.3 (25.0-34.0) pg MCHC 33.0 (32.0-36.0) g/dL RDW Std Deviation 45.5 (36.4-46.3) fL RDW Coeff of [place] 13.2 (11.5-14.5) % Plt Count 298 (130-400) K/uL MPV 9.2 L (9.4-12.4) fL Immature Gran % (Auto) 0.3 % Neut % (Auto) 70.7 % Lymph % (Auto) 13.3 % [place] % (Auto) 14.6 % Eos % (Auto) 0.8 % Baso % (Auto) 0.3 % Neut # (Auto) 4.37 (1.40-6.50) K/uL Lymph # (Auto) 0.82 L (1.20-3.40) K/uL [place] # (Auto) 0.90 H (0.11-0.59) K/uL Eos # (Auto) 0.05 (0.00-0.50) K/uL Baso # (Auto) 0.02 (0.00-0.20) K/uL Immature Gran # (Auto) 0.02 (0.01-0.20) K/uL ESR 74 H (0-30) mm/hr Sodium 137 (136-145) mmol/L Potassium 4.1 (3.5-5.1) mmol/L Chloride 102 (98-107) mmol/L Carbon Dioxide 30 (21-32) mmol/L Anion Gap 5 (3-11) BUN 14 (6-23) mg/dl Creatinine 0.42 L (0.6-1.2) mg/dl Est Cr Clr Drug Dosing Not Reportable eGFR 94.03 BUN/Creatinine Ratio 33.3 H (10-20) Glucose 105 H (70-99(Fasting)) mg/dl Lactate 0.9 (0.4-2.0) mmol/L Calcium 9.5 (8.6-10.3) mg/dl Total Bilirubin 0.5 (0.2-1.0) mg/dl AST 19 (13-39) U/L ALT 11 (7-52) U/L Alkaline Phosphatase 106 H (34-104) U/L C-Reactive Protein 7.40 H (0-0.5) mg/dl Total Protein 7.4 (6.0-8.3) gm/dl Albumin 4.1 (3.4-5.0) gm/dl Globulin 3.3 (2.5-4.0) gm/dl Albumin/Globulin Ratio 1.2 (0.9-2) Procalcitonin < 0.02 (0-0.5) ng/ml Imaging Data Radiologist's Impression: Tibia/Fibula X-Ray 09/01/24 13:16 XR tibia fibula LT 2V CLINICAL HISTORY: L lower leg edema COMPARISON: None FINDINGS: There is osteopenia. There are minimal degenerative changes at the left knee and left ankle. No fracture or dislocation seen. No radiopaque foreign body. No evidence of osteomyelitis. IMPRESSION: No acute osseous findings. ACT 112: Negative or not required by law. Electronically signed by: Peng Odell M.D. 09/01/2024 2:03 PM Venous Doppler Study 09/01/24 13:16 LEFT LOWER EXTREMITY VENOUS DOPPLER HISTORY: L lower leg edema, erythema COMPARISON STUDY: 04/25/2020 FINDINGS: No evidence of DVT seen at the left lower extremity. IMPRESSION: No DVT seen. . ACT 112: Negative or not required by law. Electronically signed by: Peng Odell M.D. 09/01/2024 3:11 PM MDM Narrative Patient was seen and evaluated as above in room B09. Review was performed of triage nursing notes and vital signs. I did review pertinent previous visits and patient history. After obtaining a thorough history and physical examination the above work up was performed. Patient presents to us today for evaluation of left lower extremity erythema and edema. It is not painful. Remote to this there was a fall a few weeks ago but is unclear if this is contributory. Review of the EMR does reveal similar presentation about 5 years ago but this appears to be unrelated. The left leg is certainly asymmetric to the right and the left lower extremity beginning just distal to the knee is erythematous and edematous with some small open wounds that are draining a serosanguineous fluid. Patient was seen during a period of elevated volume and acuity in emergency department. IV access was already established. Labs were drawn. There is no leukocytosis. Minor anemia noted with hemoglobin of 11.9 which I will note is significantly improved compared to previous value in the EMR. There is no evidence of kidney or liver failure. There is mild hyperglycemia at 105. DVT study as above and is negative. Left x-ray negative for my interpretation for fracture. Labs reveal no leukocytosis. Stable anemia noted with hemoglobin of 11.9. Elevation of ESR and CRP are noted. Procalcitonin and lactate are not elevated. Blood culture pending. IV ceftriaxone ordered for cellulitic coverage and prior to antibiotic administration I did obtain a wound culture of the left leg drainage. I do believe that further evaluation and management in the inpatient setting is warranted. Case discussed with the hospitalist service. Please refer to further documentation regarding her stay. GCS: 15 In the evaluation and treatment of this patient the following differential diagnoses were entertained: Cellulitis, abscess, necrotizing fasciitis, fracture, contusion, among others Impression & Plan Edema of left lower extremity, Cellulitis of left lower extremity Discharge Plan Visit Data Chief Complaint: Infection, Wound ED Provider: Heber Pedroza ED Midlevel Provider: Cory Acosta Discharge Problem: Edema of left lower extremity, Cellulitis of left lower extremity Patient Disposition: Admitted As Inpatient Condition: Good
--- NOTE | 2024-09-01 14:05 | XRay Report ---
XR tibia fibula LT 2V CLINICAL HISTORY: L lower leg edema COMPARISON: None FINDINGS: There is osteopenia. There are minimal degenerative changes at the left knee and left ankl e. No fracture or dislocation seen. No radiopaque foreign body. No evidence of osteomyelitis. IMPRESSION: No acute osseous findings. ACT 112: Negative or not required by law. Electronically signed by: Peng Odell M.D. 09/01/2024 2:03 PM
[2024-09-01] MEDS: cefTRIAXone SODIUM 2,000 MG/50 ML BAG IV STA (14:17)
--- NOTE | 2024-09-01 15:06 | Emergency Department Note ---
ED Visit Note The patient was seen and examined with bamat. I performed a substantive portion of all aspects of the medical decision making and agree with the history, physical and findings. Please see the note for disposition and details. .
--- NOTE | 2024-09-01 15:13 | Ultrasound Report ---
LEFT LOWER EXTREMITY VENOUS DOPPLER HISTORY: L lower leg edema, erythema COMPARISON STUDY: 04/25/2020 FINDINGS: No evidence of DVT seen at the left lower extremity. IMPRESSION: No DVT seen. . ACT 112: Negative or not required by law. Electronically signed by: Peng Odell M.D. 09/01/2024 3:11 PM
--- NOTE | 2024-09-01 15:31 | History & Physical Report ---
Date of Service September 01, 2024 Assessment & Plan (1) Cellulitis: Plan: 89-year-old female who presents with left lower extremity cellulitis. Does have a history of cor pulmonale although swelling is asymmetric and has no signs of pulmonary edema on admission. Recommended for admission and monitoring due to severity of cellulitis on exam, and PT OT due to increased weakness Left lower extremity cellulitis Asymmetric left lower extremity swelling, erythema, warmth. Minimal tenderness Left lower extremity Doppler: No DVT X-ray: No acute osseous findings No leukocytosis CRP 7.4, procalcitonin normal No hypoxia, dyspnea, tachypnea. Lungs are clear. No evidence of CHF No history of diabetes or resistant infections. Continue Rocephin. CRP trended Chronic stable issues COPD: Continue home inhalers Hypothyroidism: Continue Synthroid Hyperlipidemia: Continue statin Depression/anxiety: Continue duloxetine Cor pulmonale: Asymmetric swelling more suggestive of cellulitis, home Bumex dosing continued will need fluid mobilization strategies with this. DVT prophylaxis: Lovenox Disposition: MSO CODE STATUS: DNR/DNI Diet: Heart healthy (2) Chronic cor pulmonale: (3) Myofascial pain: (4) Hyperlipidemia: (5) Hypothyroidism: (6) COPD (chronic obstructive pulmonary disease): History of Present Illness Primary Care Provider: [facility] Monica is an 89-year-old female with a history of cor pulmonale, spinal stenosis, sensorineural hearing loss, close right hip fracture s/p operative repair 05/31/2024, depression, hypertension, COPD who presents to the ER with left lower extremity swelling, edema, and erythema. Clear seen at the bedside. She reports in the last week she has had swelling in her left leg, in the last few days this is turned bright red and seems more swollen than typical. Denies fever chills sweats. Denies chest pain chest pressure. She is laying flat comfortably on room air and denies orthopnea at home. She denies dyspnea on exertion. She does not have a history of diabetes. She reports the leg is slightly tender to the touch but "doing okay "at rest. She has not been on antibiotics recently. Medical History: Reviewed Medications: Reviewed Surgical History: Reviewed Family history: Reviewed Allergies: Reviewed Social History: REviewed Code Status: DNR/DNI. Reviewed with patient at bedside on admission Allergies Allergy/AdvReac Type Severity Reaction Status Date / Time codeine AdvReac Unknown NAUSEATED/L Verified 05/30/24 19:42 IGHTHEADED Home Medications Medication Instructions Recorded Confirmed Type bupropion HCl 150 mg tablet,12 hr 150 mg PO BID 03/03/18 09/01/24 History sustained-release (Wellbutrin SR) acetaminophen 500 mg tablet 1,000 mg (2 x 500 mg) PO TID #30 10/19/20 09/01/24 Rx tabs albuterol sulfate 90 mcg/actuation 2 inh inhalation Q4H PRN SOB 05/30/24 09/01/24 History aerosol inhaler bumetanide 0.5 mg tablet 0.5 mg PO DAILY 05/30/24 09/01/24 History cyanocobalamin (vitamin B-12) 1,000 mcg IM MONTHLY 05/30/24 09/01/24 History 1,000 mcg/mL injection solution docusate sodium 100 mg capsule 100 mg PO BID 05/30/24 09/01/24 History duloxetine 60 mg capsule,delayed 60 mg PO DAILY 05/30/24 09/01/24 History release famotidine 20 mg tablet (Pepcid) 20 mg PO HS heartburn 05/30/24 09/01/24 History fluticasone furoate 200 1 inh inhalation DAILY 05/30/24 09/01/24 History mcg/actuation blister powder for inhalation (Arnuity Ellipta) fluticasone propionate 50 2 spray intranasal HS PRN ALLERGIES 05/30/24 09/01/24 History mcg/actuation nasal spray,suspension ferrous sulfate 325 mg (65 mg 325 mg PO Q2D #0 tabs 06/05/24 09/01/24 Rx iron) tablet polyethylene glycol 3350 17 gram 17 g PO DAILY #10 ea 06/05/24 09/01/24 Rx oral powder packet (Miralax) sennosides 8.6 mg tablet (Senokot) 17.2 mg (2 x 8.6 mg) PO QAM #10 06/05/24 09/01/24 Rx tabs tramadol 50 mg tablet 50 mg PO Q8H PRN pain #15 tabs 07/19/24 09/01/24 Rx beclomethasone dipropionate 80 2 inh inhalation BID 09/01/24 09/01/24 History mcg/actuation HFA breath activated aerosol (Qvar RediHaler) cholecalciferol (vitamin D3) 125 50,000 unit PO Q7D 09/01/24 09/01/24 History mcg (5,000 unit) tablet levothyroxine 75 mcg tablet 75 mcg PO QAM 09/01/24 09/01/24 History multivitamin 1 tab PO QAM 09/01/24 09/01/24 History omega-3 acid ethyl esters 1 gram 1 cap PO DAILY 09/01/24 09/01/24 History capsule (Lovaza) polyethylene glycol 3350 17 17 g PO DAILY PRN Constipation 09/01/24 09/01/24 History gram/dose oral powder (Miralax) potassium chloride 10 mEq 10 meq PO BID 09/01/24 09/01/24 History tablet,extended release pravastatin 40 mg tablet 40 mg PO HS 09/01/24 09/01/24 History trospium 20 mg tablet 20 mg PO BID 09/01/24 09/01/24 History Past Med/Surg History Problem List Chronic cor pulmonale Abnormal head CT Hypotension Intertrochanteric fracture of right hip Sensorineural hearing loss (SNHL) of both ears Cerumen impaction Excessive cerumen in both ear canals Contact dermatitis Left wrist effusion Intractable pain (Acute) Wrist arthritis (Acute) Edema of left lower extremity (Acute) Cellulitis (Acute) Cervical spinal stenosis (Chronic) Cervical disc disease (Chronic) Myofascial pain (Chronic) Cervical facet syndrome (Chronic) Cervicalgia (Chronic) Fall (Acute) Laceration of head (Acute) Medical History Underweight Urinary retention Intertrochanteric fracture of right femur Hypertension Depression COPD (chronic obstructive pulmonary disease) Osteoarthritis Constipation Chronic kidney disease, stage 3a COPD (chronic obstructive pulmonary disease) Sternal fracture Chronic venous insufficiency Ulcerative colitis Osteoporosis Hypothyroidism Hyperlipidemia Surgical History History of inguinal hernia repair Family History Other Family history non-contributory No family history of adverse response to anesthesia No family history of bleeding disorder Denies family history of Esophageal cancer Crohn's disease Heart disease Colorectal cancer Cancer Hypertension Ulcerative colitis Stroke Asthma Social History Smoking Status: Former smoker Tobacco Type: Cigarettes packs per day: 1; Do You Dip or Chew Tobacco: No; Hx Alcohol Use: No Hx Substance Use: No Preferred Language: Georgian Communication Ability: Effective Visual Impairment: No Limitations Hearing Ability: Normal Flatwork Finisher Required: No Beliefs That Will Affect Care: None marital status: / Current Living Situation: Personal Care Facility Current Living Situation Comment: [facility] current occupational status: retired Feels Safe at Home: Yes Assistive Devices: Walker Physical Exam Physical Exam: General: A&Ox3. NAD. Cooperative. HEENT: Atraumatic, normocephalic. Vision and hearing grossly intact Pulm: CTAB A&P. -wheezes, -rales, -rhonchi. Symmetrical chest rise. No increased work of breathing. No respiratory distress. Cardiac: RRR, -mrg. Radial pulses intact and symmetrical. Abdominal: Nontender, nondistended, soft. BS present. Ext: L leg with acute swelling, pitting edema, sharply demarcated bright erythe ma of the LLE. Minimally tender to palpation. NO R sided erythema. Results & Data Results & Data Vital Signs (Past 12 Hours) Vital Signs Temp Pulse Pulse Resp BP BP Pulse Ox 09/01/24 15:00 36.8 C 80 20 173/103 H 99 09/01/24 14:17 67 18 179/89 H 96 09/01/24 13:39 69 09/01/24 13:30 180/94 H 09/01/24 13:24 65 17 98 09/01/24 13:00 168/92 H 09/01/24 13:00 67 13 99 09/01/24 12:57 66 20 100 09/01/24 12:30 171/94 H 09/01/24 11:39 36.5 C 67 16 167/82 H 99 O2 Del Method 09/01/24 15:00 Room Air 09/01/24 14:17 Room Air 09/01/24 13:39 09/01/24 13:30 09/01/24 13:24 09/01/24 13:00 09/01/24 13:00 09/01/24 12:57 09/01/24 12:30 09/01/24 11:39 Room Air PG Care Time/CCT Total # of Minutes Spent Total Time Spent with Patient: Total time spent is greater than 50% in coordination of care (as documented) at patient's floor/unit and/or counseling patient: Coding Level of Care Code 49218 INT INP/OBS CARE 3/75MIN Diagnoses Cellulitis L03.90 Chronic cor pulmonale I27.81 Myofascial pain M79.18 Hyperlipidemia E78.5 Hypothyroidism E03.9 COPD (chronic obstructive pulmonary disease) J44.9 COPD type: unspecified COPD (6) COPD (chronic obstructive pulmonary disease) COPD type: unspecified COPD Qualified Code(s): J44.9 - Chronic obstructive pulmonary disease, unspecified
[2024-09-01] MEDS: ACETAMINOPHEN 500 MG TAB PO STA (16:24)
[2024-09-01] MEDS ORDERED: ALBUTEROL HFA 8 GM INHALER INH PRN (18:30)
[2024-09-01] MEDS ORDERED: traMADol HCL 50 MG TABLET PO PRN (18:30)
[2024-09-01] MEDS ORDERED: CYANOCOBALAMIN 1000 MCG/ML VIAL IM SCH (18:30)
[2024-09-01] MEDS: FLUTICASONE FUROATE 200MCG 14 PUFFS/INHALER INH SCH (19:11)
[2024-09-01] MEDS: FERROUS SULFATE 325 MG TAB PO SCH (19:28)
[2024-09-01] MEDS: OXYBUTYNIN CHLORIDE XL 5 MG TABCR PO SCH (19:28)
[2024-09-01] MEDS: CHOLECALCIFEROL 125 MCG (5,000 UNITS) TAB PO SCH (19:28)
[2024-09-01] MEDS: ENOXAPARIN INJ 40 MG/0.4 ML SYR SQ SCH (19:28)
[2024-09-01] MEDS: POTASSIUM CHLORIDE 10 MEQ TABCR PO SCH (21:25)
[2024-09-01] MEDS: PRAVASTATIN SOD 40 MG TAB PO SCH (21:25)
[2024-09-01] MEDS: DOCUSATE SODIUM 100 MG CAP PO SCH (21:25)
[2024-09-01] MEDS: buPROPion SR 150 MG TABCR PO SCH (21:25)
[2024-09-01] MEDS: FAMOTIDINE 20 MG TAB PO SCH (21:27)
[2024-09-02] MEDS: LEVOTHYROXINE SODIUM 75 MCG TABLET PO SCH (05:34)
[2024-09-02 07:12] LABS: Basophils # (auto) 0.03 K/uL (0.00-0.20); Basophils % (auto) 0.6 %; Eosinophils # (auto) 0.03 K/uL (0.00-0.50); Eosinophils % (auto) 0.6 %; Hematocrit (blood only) 37.5 % (37.0-47.0); Hemoglobin 12.1 g/dl (12.0-16.0); Immature Granulocytes # (auto) 0.02 K/uL (0.01-0.20); Immature Granulocytes % (auto) 0.4 %; Lymphocytes # (auto) 0.99 K/uL (1.20-3.40); Lymphocytes % (auto) 18.9 %; Mean Corpuscular Hemoglobin 29.3 pg (25.0-34.0); Mean Corpuscular Hgb Conc 32.3 g/dL (32.0-36.0); Mean Corpuscular Volume 90.8 fL (80.0-100.0); Mean Platelet Volume 9.4 fL (9.4-12.4); Monocytes # (auto) 0.89 K/uL (0.11-0.59); Neutrophils # (auto) 3.27 K/uL (1.40-6.50); Neutrophils % (auto) 62.5 %; Platelet Count 330 K/uL (130-400); RDW Coefficient of Variation 13.4 % (11.5-14.5); RDW Standard Deviation 44.5 fL (36.4-46.3); Red Blood Count 4.13 M/uL (4.20-5.40); White Blood Count 5.23 K/ul (4.8-10.8)
[2024-09-02 07:33] LABS: BUN Creatinine Ratio 19.6 (10-20); C Reactive Protein 7.08 mg/dl (0-0.5); Calcium 9.1 mg/dl (8.6-10.3); Creatinine Clr Calc Pharmacy 55.7 ml/min; Potassium 4.1 mmol/L (3.5-5.1)
[2024-09-02] MEDS: MULTIVITAMIN TAB PO SCH (08:32)
[2024-09-02] MEDS: DULoxetine HCL 60 MG CAP PO SCH (08:32)
[2024-09-02] MEDS: BUMETANIDE 1 MG TAB PO SCH (08:32)
[2024-09-02] MEDS: OMEGA-3 (PURIFIED FISH OIL) 1 GM CAP PO SCH (08:33)
[2024-09-02] MEDS: FLUTICASONE FUROATE 200MCG 14 PUFFS/INHALER INH SCH (08:34)
[2024-09-02] MEDS: SENNA 8.6 MG TAB PO SCH (08:37)
[2024-09-02] MEDS: cefTRIAXone SODIUM 1,000 MG/50 ML BAG IV SCH (13:50)
--- NOTE | 2024-09-02 15:47 | Hospitalist Progress Note ---
Date of Service September 02, 2024 Assessment & Plan (1) Cellulitis: Plan: 89-year-old female who presents with left lower extremity cellulitis. Does have a history of cor pulmonale although swelling is asymmetric and has no signs of pulmonary edema on admission. Recommended for admission and monitoring due to severity of cellulitis on exam, and PT OT due to increased weakness Left lower extremity cellulitis Asymmetric left lower extremity swelling, erythema, warmth. Minimal tenderness Left lower extremity Doppler: No DVT: No collection seen on POCUS, cobblestoning seen consistent with cellulitis X-ray: No acute osseous findings No leukocytosis CRP 7.4 improved to 7.1, procalcitonin normal Continue IV ceftriaxone, follow-up in a.m. Chronic stable issues COPD: Continue home inhalers Hypothyroidism: Continue Synthroid Hyperlipidemia: Continue statin Depression/anxiety: Continue duloxetine Cor pulmonale: Asymmetric swelling more suggestive of cellulitis, home Bumex dosing continued will need fluid mobilization strategies with this. VTE prophylaxis: Lovenox 40 mg subcu daily Diet: Heart healthy Disposition: Continue on med/surg (2) Chronic cor pulmonale: (3) Myofascial pain: (4) Hyperlipidemia: (5) Hypothyroidism: (6) COPD (chronic obstructive pulmonary disease): Admission and Anticipated Discharge Date Admission Date: September 01, 2024 Subjective No fevers or chills. Patient reports improvement in her lower extremity erythema and swelling. No fluctuance noted on exam. No collection seen on POCUS however cobblestoning seen consistent with cellulitis. Physical Exam 2 Respiratory: normal respiratory effort, lungs clear to auscultation Cardiovascular: RRR, no murmur, no edema Skin: Left leg erythema and swelling from foot to lower knee. Erythema appears improved from upper border however foot also appears erythematous which is below the lower border drawn. Results & Data Results & Data Vital Signs (Past 12 Hours) Vital Signs Temp Pulse Resp BP Pulse Ox Pulse Ox O2 Del Method 09/02/24 14:30 98 09/02/24 07:22 36.8 C 73 16 151/77 H 96 Room Air O2 Flow Rate 09/02/24 14:30 0 09/02/24 07:22 PG Care Time/CCT Total # of Minutes Spent Total Time Spent with Patient: Total time spent is greater than 50% in coordination of care (as documented) at patient's floor/unit and/or counseling patient: Coding Level of Care Code 43681 SUB INP/OBS CARE 350MIN Diagnoses Cellulitis L03.90 Chronic cor pulmonale I27.81 Myofascial pain M79.18 Hyperlipidemia E78.5 Hypothyroidism E03.9 COPD (chronic obstructive pulmonary disease) J44.9 COPD type: unspecified COPD (6) COPD (chronic obstructive pulmonary disease) COPD type: unspecified COPD Qualified Code(s): J44.9 - Chronic obstructive pulmonary disease, unspecified
[2024-09-02] MEDS: ACETAMINOPHEN 325 MG TAB PO PRN (20:31)
[2024-09-03 07:33] VITALS: BP 155/84; RESP 18; TEMP 97.3; O2SAT 94
--- NOTE | 2024-09-03 08:14 | Discharge Summary ---
Discharge Summary Date of Service September 03, 2024 Principal Dx & Hospital Course #1 = Principal Diagnosis (1) Cellulitis: (2) Chronic cor pulmonale: (3) Myofascial pain: (4) Hyperlipidemia: (5) Hypothyroidism: (6) COPD (chronic obstructive pulmonary disease): Plan Monica Mcfarlane is an 89 year old female observed at [facility] from September 01 to 2024 due to left lower extremity cellulitis. She was treated with intravenous ceftriaxone with good improvement in the erythema. She will be switched to Keflex on discharge for a total course of 10 days. Notes For Next Care Provider Follow up cellulitis to determine if needs prolonged course Medication Changes From Visit Keflex started for cellulitis Admission HPI Per Admitting Provider Monica is an 89-year-old female with a history of cor pulmonale, spinal stenosis, sensorineural hearing loss, close right hip fracture s/p operative repair 05/31/2024, depression, hypertension, COPD who presents to the ER with left lower extremity swelling, edema, and erythema. Clear seen at the bedside. She reports in the last week she has had swelling in her left leg, in the last few days this is turned bright red and seems more swollen than typical. Denies fever chills sweats. Denies chest pain chest pressure. She is laying flat comfortably on room air and denies orthopnea at home. She denies dyspnea on exertion. She does not have a history of diabetes. She reports the leg is slightly tender to the touch but "doing okay "at rest. She has not been on antibiotics recently. Medical History: Reviewed Medications: Reviewed Surgical History: Reviewed Family history: Reviewed Allergies: Reviewed Social History: REviewed Code Status: DNR/DNI. Reviewed with patient at bedside on admission Discharge Exam Respiratory normal respiratory effort, lungs clear to auscultation Cardiovascular RRR, no murmur, no edema Skin Erythema and swelling from just below knee to foot, no warmth Discharge Plan Discharge Items Patient Disposition: Personal Assisted Reason For Visit: LLE CELLULITIS Discharge Diagnosis: Left lower extremity cellulitis Condition on Discharge: Good Activity: Resume your previous activity Non-emergency contact: Primary Care Provider Call non-emergency contact if: you have any medication questions and your symptoms worsen Follow-up/Referrals: [place] [Primary Care Provider] - Diet: Heart Healthy Addtl Attending Provider Instructions: You are observed at [facility] from September 01 to 2024 due to left lower extremity cellulitis. He was treated with intravenous ceftriaxone with good improvement of redness. He will be switched to Keflex on discharge for a total course of 10 days. Please follow-up with your primary care physician at [facility] to assess possible need for longer course of antibiotics pending response. Pending Studies at Discharge: Yes (Final results of blood and wound cultures) Stand-Alone Forms: My [facility], Smoking Cessation Skilled Items Patient informed of condition?: Yes DNR: Yes Discharge Level of Care: Other Communicable Disease: No Discharge Prognosis: Stable Lines: None Urinary Catheter: No Medications and DC Order Prescriptions: New cephalexin 500 mg tablet 500 mg PO Q6H 7 Days Qty: 28 0RF Continued bupropion HCl [Wellbutrin SR] 150 mg tablet sustained-release 12 hr 150 mg PO BID Rx Instructions: TAKE THIS MEDICATION EVERY MORNING AND AT NOON tramadol 50 mg tablet 50 mg PO Q8H PRN (Reason: pain) Qty: 15 0RF Rx Instructions: right hip fracture fixation post op pain PRN acetaminophen 500 mg Tablet 1,000 mg PO TID Qty: 30 0RF cyanocobalamin (vitamin B-12) 1,000 mcg/mL Solution 1,000 mcg IM MONTHLY bumetanide 0.5 mg tablet 0.5 mg PO DAILY docusate sodium 100 mg Capsule 100 mg PO BID albuterol sulfate 90 mcg/actuation HFA aerosol inhaler 2 inh INHALATION Q4H PRN (Reason: SOB) fluticasone propionate 50 mcg/actuation [place],Suspension 2 spray INTRANASAL HS PRN (Reason: ALLERGIES) Rx Instructions: administer into each nostril duloxetine 60 mg capsule,delayed release(DR/EC) 60 mg PO DAILY Arnuity Ellipta 200 mcg/actuation blister with device 1 inh INHALATION DAILY famotidine [Pepcid] 20 mg tablet 20 mg PO HS sennosides [Senokot] 8.6 mg Tablet 17.2 mg PO QAM Qty: 10 0RF polyethylene glycol 3350 [Miralax] 17 gram Powder In Packet 17 g PO DAILY Qty: 10 0RF ferrous sulfate 325 mg (65 mg iron) Tablet 325 mg PO Q2D Qty: 0 0RF multivitamin Tablet 1 tab PO QAM pravastatin 40 mg tablet 40 mg PO HS potassium chloride 10 mEq tablet extended release 10 meq PO BID levothyroxine 75 mcg tablet 75 mcg PO QAM polyethylene glycol 3350 [Miralax] 17 gram/dose Powder 17 g PO DAILY PRN (Reason: Constipation) trospium 20 mg tablet 20 mg PO BID omega-3 acid ethyl esters [Lovaza] 1 gram Capsule 1 cap PO DAILY Qvar RediHaler 80 mcg/actuation HFA aerosol breath activated 2 inh INHALATION BID cholecalciferol (vitamin D3) 125 mcg (5,000 unit) tablet 50,000 unit PO Q7D Discharge Orders: Discharge Order (Routine); Ordered 09/03/24 Ordered By: Ant Rizvi/Other Patient Handouts: Cellulitis Dc Admission Data Admit Date/Time: 09/01/24 15:43 Attending Provider: Ant Red Admit Provider: Brendan Mallory Primary Care Provider: [facility] Other Providers: Brendan Mallory Other Interventions: Discharge Summary Assessment (RN) Last Done: 09/03/24 10:24 Hospital Stay Data Consultations 09/01/24 15:17 ED Decision to Admit Stat Diagnostic Imagining Performed 09/01/24 13:16 US venous doppler LE LT Stat Pending Results Patient Have Any Pending Studies at Discharge: Yes (Final results of blood and wound cultures) Discharge Instructions Given to Patient (Per Discharging Provider) You are observed at [facility] from September 01 to 2024 due to left lower extremity cellulitis. He was treated with intravenous ceftriaxone with good improvement of redness. He will be switched to Keflex on discharge for a total course of 10 days. Please follow-up with your primary care physician at [facility] to assess possible need for longer course of antibiotics pending response. Total Time Total Time Spent Total Time Spent (In Minutes): 40 Coding Level of Care Code 56252 INP/OBS DISCH >30 MIN Diagnoses Cellulitis L03.90 Chronic cor pulmonale I27.81 Myofascial pain M79.18 Hyperlipidemia E78.5 Hypothyroidism E03.9 COPD (chronic obstructive pulmonary disease) J44.9 COPD type: unspecified COPD
[2024-09-03] MEDS: POLYETHYLENE (MIRALAX) 17 GM PACK PO PRN (09:53)
[2024-09-03 10:25] VITALS: PULSE 67
[2024-09-03] MEDS ORDERED: Nursing to Pharmacy Communication SCH (11:00)
[2024-09-24] MEDS ORDERED: CYANOCOBALAMIN 1000 MCG/ML VIAL IM SCH (09:00)
== END 2024-09-03 11:52 | disposition home or self-care (01) ==
LOC: ED 11:29 → 3W 11:29 → SUATTDRO 15:43 → 3W 18:25

== ENCOUNTER 2025-06-10 21:05 | Inpatient (IN) ==
--- NOTE | 2025-06-10 22:20 | Emergency Department Note ---
History of Present Illness General Chief complaint: Hip Pain Stated complaint: Fall, L Hip Pain Time Seen by Provider: 06/10/25 21:28 History of Present Illness Maximum Pain Intensity: 8 89-year-old female with a history of cor pulmonale, spinal stenosis, sensorineural hearing loss, close right hip fracture s/p operative repair 05/31/2024, depression, hypertension, COPD who presents to the ER with family for a mechanical fall tonight. Patient was using her walker and lost her balance and fell on her left side. Patient complains of left elbow hip right shoulder neck and generalized pain all over. No known blood thinners. Patient's had a right hip replacement in the past. Patient denies chest pain, dyspnea, fever, chills. Tetanus is reported as current. Home Medications Medication Instructions Recorded Confirmed Type bupropion HCl 150 mg tablet,12 hr 150 mg PO BID 03/03/18 09/01/24 History sustained-release (Wellbutrin SR) acetaminophen 500 mg tablet 1,000 mg (2 x 500 mg) PO TID #30 10/19/20 09/01/24 Rx tabs albuterol sulfate 90 mcg/actuation 2 inh inhalation Q4H PRN SOB 05/30/24 09/01/24 History aerosol inhaler bumetanide 0.5 mg tablet 0.5 mg PO DAILY 05/30/24 09/01/24 History cyanocobalamin (vitamin B-12) 1,000 mcg IM MONTHLY 05/30/24 09/01/24 History 1,000 mcg/mL injection solution docusate sodium 100 mg capsule 100 mg PO BID 05/30/24 09/01/24 History duloxetine 60 mg capsule,delayed 60 mg PO DAILY 05/30/24 09/01/24 History release famotidine 20 mg tablet (Pepcid) 20 mg PO HS heartburn 05/30/24 09/01/24 History fluticasone furoate 200 1 inh inhalation DAILY 05/30/24 09/01/24 History mcg/actuation blister powder for inhalation (Arnuity Ellipta) fluticasone propionate 50 2 spray intranasal HS PRN ALLERGIES 05/30/24 09/01/24 History mcg/actuation nasal spray,suspension ferrous sulfate 325 mg (65 mg 325 mg PO Q2D #0 tabs 06/05/24 09/01/24 Rx iron) tablet polyethylene glycol 3350 17 gram 17 g PO DAILY #10 ea 06/05/24 09/01/24 Rx oral powder packet (Miralax) sennosides 8.6 mg tablet (Senokot) 17.2 mg (2 x 8.6 mg) PO QAM #10 06/05/24 09/01/24 Rx tabs tramadol 50 mg tablet 50 mg PO Q8H PRN pain #15 tabs 07/19/24 09/01/24 Rx beclomethasone dipropionate 80 2 inh inhalation BID 09/01/24 09/01/24 History mcg/actuation HFA breath activated aerosol (Qvar RediHaler) cholecalciferol (vitamin D3) 125 50,000 unit PO Q7D 09/01/24 09/01/24 History mcg (5,000 unit) tablet levothyroxine 75 mcg tablet 75 mcg PO QAM 09/01/24 09/01/24 History multivitamin 1 tab PO QAM 09/01/24 09/01/24 History omega-3 acid ethyl esters 1 gram 1 cap PO DAILY 09/01/24 09/01/24 History capsule (Lovaza) polyethylene glycol 3350 17 17 g PO DAILY PRN Constipation 09/01/24 09/01/24 History gram/dose oral powder (Miralax) potassium chloride 10 mEq 10 meq PO BID 09/01/24 09/01/24 History tablet,extended release pravastatin 40 mg tablet 40 mg PO HS 09/01/24 09/01/24 History trospium 20 mg tablet 20 mg PO BID 09/01/24 09/01/24 History Allergies Allergy/AdvReac Type Severity Reaction Status Date / Time codeine AdvReac Unknown NAUSEATED/L Verified 05/30/24 19:42 IGHTHEADED Past Med/Surg History Problem List (Updated 06/11/25 @ 01:05 by Marine Rasmussen PA-C) Hypokalemia (Acute) Multiple skin tears (Acute) Elbow fracture, left (Acute) Fall (Acute) Closed fracture of left hip (Acute) Cellulitis of left lower extremity (Acute) Chronic cor pulmonale Abnormal head CT Hypotension Intertrochanteric fracture of right hip Sensorineural hearing loss (SNHL) of both ears Cerumen impaction Excessive cerumen in both ear canals Contact dermatitis Left wrist effusion Intractable pain (Acute) Wrist arthritis (Acute) Edema of left lower extremity (Acute) Cellulitis (Acute) Cervical spinal stenosis (Chronic) Cervical disc disease (Chronic) Myofascial pain (Chronic) Cervical facet syndrome (Chronic) Cervicalgia (Chronic) Fall (Acute) Laceration of head (Acute) Medical History (Updated 06/11/25 @ 01:05 by Marine Rasmussen PA-C) Underweight Urinary retention Intertrochanteric fracture of right femur Hypertension Depression COPD (chronic obstructive pulmonary disease) Osteoarthritis Constipation Chronic kidney disease, stage 3a COPD (chronic obstructive pulmonary disease) Sternal fracture Chronic venous insufficiency Ulcerative colitis Osteoporosis Hypothyroidism Hyperlipidemia Surgical History History of inguinal hernia repair Family History Other Family history non-contributory No family history of adverse response to anesthesia No family history of bleeding disorder Denies family history of Esophageal cancer Crohn's disease Heart disease Colorectal cancer Cancer Hypertension Ulcerative colitis Stroke Asthma Social History Smoking Status: Never smoker Tobacco Type: Cigarettes packs per day: 1; Do You Dip or Chew Tobacco: No; Hx Alcohol Use: No Hx Substance Use: No Preferred Language: Latvian Communication Ability: Impaired Visual Impairment: No Limitations Hearing Ability: Normal Business Relations Manager Required: No Beliefs That Will Affect Care: None marital status: / Current Living Situation: Personal Care Facility Current Living Situation Comment: [facility] current occupational status: retired Feels Safe at Home: Yes Assistive Devices: Walker Review of Systems A total of 10 systems reviewed and were otherwise negative Physical Exam Vital Signs Vital Signs - 24 hr 06/10/25 21:14 06/10/25 21:52 06/10/25 21:56 Temperature 36.8 C Temperature Source Oral Pulse Rate 64 64 64 Pulse Rate [Apical] Pulse Rhythm Regular Pulse Rhythm [Apical] Pulse Strength [Apical] Respiratory Rate 17 18 Respiratory Effort / Characteristics Non-Labored Spontaneous Respiratory Depth Normal Respiratory Pattern Regular Blood Pressure 187/98 H Blood Pressure [Right Arm] Blood Pressure Mean 127 Blood Pressure Mean [Right Arm] Blood Pressure Position [Right Arm] Pulse Oximetry 92 95 Oxygen Delivery Method Room Air Room Air Oxygen Flow Rate Sepsis Recent Fever Within 48 Hours No Sepsis New/Unexplained Change in Mental Status N/A Sepsis Action Taken by Nursing No Action Required 06/11/25 00:00 Temperature Temperature Source Pulse Rate Pulse Rate [Apical] 73 Pulse Rhythm Pulse Rhythm [Apical] Regular Pulse Strength [Apical] Normal Respiratory Rate 18 Respiratory Effort / Characteristics Non-Labored Spontaneous Respiratory Depth Normal Respiratory Pattern Regular Blood Pressure Blood Pressure [Right Arm] 175/92 H Blood Pressure Mean Blood Pressure Mean [Right Arm] 119 Blood Pressure Position [Right Arm] Semi-fowlers Pulse Oximetry 97 Oxygen Delivery Method Nasal Cannula Oxygen Flow Rate 2 Sepsis Recent Fever Within 48 Hours Sepsis New/Unexplained Change in Mental Status Sepsis Action Taken by Nursing Primary Survey Airway: Intact Breathing: Normal, breath sounds equal bilaterally Circulation: Skin warm, distal pulses 2+, capillary refill less than 2 seconds Disability Pupils: Equal and reactive to light, 3mm, brisk GCS: 15, E = 4 V=5 M= 6 Motor Function: Moves all extremities. Sensory: No deficits Secondary Survey GEN: Well developed and well-nourished HENT: Head: no external signs of trauma. Mouth/Throat: Midface no. no malocclusion. Eyes: EOMI. Pupils are 3 mm, round and reactive bilaterally. Ears: TMs are intact bilaterally. no hematomas. Nose: no nasal septal hematoma. no gross deformity. Neck: no midline C-spine tenderness. No step-offs. Cardiovascular: RRR. Pulses present in all 4 extremities. Pulmonary/Chest: + BS equal bilaterally. no tenderness or ecchymosis. Abdomen: Lower tenderness or ecchymosis. Musculoskeletal: Pelvis: no instability. Back: no midline tenderness. No step-offs or deformities. Extremities: no gross deformities. Left elbow and right shoulder TTP. Skin: Skin tear to the right arm; chronic wounds to the lower legs. Neuro: no focal neurological deficits. GCS as above. Psych: Normal mood and affect. Course Administered Medications Fentanyl Citrate (Fentanyl Citrate Pf 100 Mcg/2 Ml Vial) 50 mcg IV Q15M PRN PRN Reason: Pain Stop: 06/24/25 21:54 Last Admin: 06/10/25 23:08 Dose: 50 mcg Documented By: Admin: 06/10/25 22:46 Dose: 50 mcg Documented By: DLH Discontinued Medications Ioversol (Optiray 320 100ml) 100 ml IV ONCE ONE Stop: 06/10/25 23:40 Last Admin: 06/10/25 23:39 Dose: 93 ml Documented By: SRIDEVI Medical Decision Making Medical Records Attestation: I reviewed the patient's medical records. Home Medications Current Medication List: was personally reviewed by me Laboratory Data Attestation: I reviewed the patient's lab results. 06/10/25 21:20 06/10/25 23:10 Lab Results 06/10/25 06/10/25 06/10/25 Range/Units 21:20 22:29 23:10 WBC 7.37 (4.8-10.8) K/ul RBC 3.41 L (4.20-5.40) M/uL Hgb 10.3 L (12.0-16.0) g/dL Hct 31.4 L (37.0-47.0) % MCV 92.1 (80.0-100.0) fL MCH 30.2 (25.0-34.0) pg MCHC 32.8 (32.0-36.0) g/dL RDW Std Deviation 46.5 H (36.4-46.3) fL RDW Coeff of [place] 13.7 (11.5-14.5) % Plt Count 258 (130-400) K/uL MPV 11.5 (9.4-12.4) fL Immature Gran % (Auto) 0.8 % Neut % (Auto) 67.9 % Lymph % (Auto) 14.0 % [place] % (Auto) 15.5 % Eos % (Auto) 1.4 % Baso % (Auto) 0.4 % Neut # (Auto) 5.01 (1.40-6.50) K/uL Lymph # (Auto) 1.03 L (1.20-3.40) K/uL [place] # (Auto) 1.14 H (0.11-0.59) K/uL Eos # (Auto) 0.10 (0.00-0.50) K/uL Baso # (Auto) 0.03 (0.00-0.20) K/uL Immature Gran # (Auto) 0.06 (0.01-0.20) K/uL Hypersegmented Neuts 1+ Polychromasia 1+ Anisocytosis Present Acanthocytes (Spur) 1+ PT 10.7 (9.0-12.0) Seconds INR 1.0 (0.9-1.1) APTT 24 (21-31) Seconds PTT Ratio 0.9 Sodium 139 (136-145) mmol/L Potassium TNP 3.1 L Chloride 103 (98-107) mmol/L Carbon Dioxide 26 (21-32) mmol/L Anion Gap 10 (3-11) BUN 16 (6-23) mg/dl Creatinine 0.52 L (0.6-1.2) mg/dl Est Cr Clr Drug Dosing 62.0 ml/min eGFR 89.31 BUN/Creatinine Ratio 30.8 H (10-20) Glucose 112 H (70-99(Fasting)) mg/dl Calcium 8.7 (8.6-10.3) mg/dl Magnesium 2.4 (1.7-2.4) mg/dl Total Bilirubin 0.4 (0.2-1.0) mg/dl AST TNP 20 ALT 14 (7-52) U/L Alkaline Phosphatase 80 (34-104) U/L Total Creatine Kinase 93 (26-192) U/L Total Protein 6.8 (6.0-8.3) gm/dl Albumin 3.9 (3.4-5.0) gm/dl Globulin 2.9 (2.5-4.0) gm/dl Albumin/Globulin Ratio 1.3 (0.9-2) Urine Color Yellow Urine Appearance Cloudy A (Clear) Urine pH 7.5 (4.5-7.5) Ur Specific [place] 1.020 (1.000-1.030) Urine Protein Trace H (Negative) Urine Glucose (UA) Negative (Negative) Urine Ketones 1+ H (Negative) Urine Blood Negative (Negative) Urine Nitrite Negative (Negative) Urine Bilirubin Negative (Negative) Urine Urobilinogen Negative (Negative) Ur Leukocyte Esterase 1+ H (Negative) Urine WBC (Auto) 0-5 (0-5) /hpf Urine RBC (Auto) 3-5 H (0-2) /hpf U Hyaline Cast (Auto) 0-2 (0-2) /lpf U Epithel Cells (Auto) 0-2 (0-2) /hpf Urine Bacteria (Auto) 4+ H (None Seen) Urine Comment Imaging Data Attestation: I personally reviewed and interpreted this imaging study as follows: Radiologist's Impression: Abdomen/Pelvis CT 06/10/25 21:55 Exam(s): CT ABDOMEN + PELVIS With Contrast IV Amt: 93 ML OPTIRAY 320 EXAM: CT Abdomen and Pelvis With Intravenous Contrast CLINICAL HISTORY: Reason for exam: fall, pain. TECHNIQUE: Axial computed tomography images of the abdomen and pelvis with intravenous contrast. CTDI is 37.87 mGy and DLP is 624.41 mGy-cm. Automated exposure control was utilized for the study. A dose lowering technique was utilized adhering to the principles of ALARA. CONTRAST: Patient received 93 ML OPTIRAY 320 of IV contrast COMPARISON: 05/30/2024 FINDINGS: Lung bases: Unremarkable. No mass. No consolidation. Mediastinum: Moderate-size esophageal hiatal hernia. ABDOMEN: Liver: Unremarkable. No mass. Gallbladder and bile ducts: Unremarkable. No calcified stones. No ductal dilation. Pancreas: Unremarkable. No mass. No ductal dilation. Spleen: Unremarkable. No splenomegaly. Adrenals: Unremarkable. No mass. Kidneys and ureters: Simple 3 cm right renal cysts. No follow-up of these simple cysts is necessary. No hydronephrosis. Stomach and bowel: large amount of stool within the colon and rectum. No mucosal thickening. PELVIS: Appendix: No findings to suggest acute appendicitis. Bladder: Gonsales catheter within the urinary bladder. Reproductive: Unremarkable as visualized. ABDOMEN and PELVIS: Intraperitoneal space: Unremarkable. No free air. No significant fluid collection. Bones/joints: Comminuted displaced intertrochanteric left hip fracture. Postop changes ORIF right femoral fracture. Nondisplaced right superior pubic ramus fracture. Healing left inferior pubic ramus fracture. No dislocation. Soft tissues: Unremarkable. Vasculature: Unremarkable. No abdominal aortic aneurysm. Lymph nodes: Unremarkable. No enlarged lymph nodes. IMPRESSION: Comminuted displaced intertrochanteric left hip fracture. Nondisplaced right superior pubic ramus fracture and healing left inferior pubic ramus fracture Electronically signed by: Mark Camarena MD 06/11/25 00:[address] 06/10/25 21:55 Exam(s): CT C SPINE EXAM: CT Cervical Spine Without Intravenous Contrast CLINICAL HISTORY: Reason for exam: fall, pain. TECHNIQUE: Axial computed tomography images of the cervical spine without intravenous contrast. CTDI is 37.87 mGy and DLP is 624.41 mGy-cm. Automated exposure control was utilized for the study. A dose lowering technique was utilized adhering to the principles of ALARA. COMPARISON: No relevant prior studies available. FINDINGS: Vertebrae: Reversal of normal cervical curvature centered C4-C5. No acute fracture. Discs/spinal canal/neural foramina: No acute findings. No spinal canal stenosis. Soft tissues: Unremarkable. IMPRESSION: No acute findings in the cervical spine. Electronically signed by: Mark Camarena MD 06/11/25 00:[address] 06/10/25 21:55 Exam(s): CT CHEST With Contrast IV Amt: 93 ML OPTIRAY 320 EXAM: CT Chest With Intravenous Contrast CLINICAL HISTORY: Reason for exam: fall, pain. TECHNIQUE: Axial computed tomography images of the chest with intravenous contrast. CTDI is 37.87 mGy and DLP is 624.41 mGy-cm. Automated exposure control was utilized for the study. A dose lowering technique was utilized adhering to the principles of ALARA. CONTRAST: Patient received 93 ML OPTIRAY 320 of IV contrast COMPARISON: No relevant prior studies available. FINDINGS: Lungs: Diffuse changes COPD. No mass. No consolidation. Pleural space: Unremarkable. No significant effusion. No pneumothorax. Heart: Unremarkable. No cardiomegaly. No significant pericardial effusion. No significant coronary artery calcifications. Mediastinum: Large esophageal hiatal hernia. Bones/joints: Unremarkable. No acute fracture. Soft tissues: Unremarkable. Vasculature: Unremarkable. No thoracic aortic aneurysm. Lymph nodes: Unremarkable. No enlarged lymph nodes. IMPRESSION: Large esophageal hiatal hernia. Electronically signed by: Mark Camarena MD 06/11/25 00:[address] 06/10/25 21:55 Exam(s): CT HEAD Without Contrast EXAM: CT Head Without Intravenous Contrast CLINICAL HISTORY: Reason for exam: fall, HI. TECHNIQUE: Axial computed tomography images of the head/brain without intravenous contrast. CTDI is 37.87 mGy and DLP is 624.41 mGy-cm. Automated exposure control was utilized for the study. A dose lowering technique was utilized adhering to the principles of ALARA. COMPARISON: No relevant prior studies available. FINDINGS: Brain: Severe ischemic microangiopathy. Age-appropriate cerebral volume loss. No hemorrhage. Ventricles: Unremarkable. No ventriculomegaly. Bones/joints: Unremarkable. No acute fracture. Soft tissues: Unremarkable. Sinuses: Unremarkable as visualized. No acute sinusitis. Mastoid air cells: Unremarkable as visualized. No mastoid effusion. IMPRESSION: No acute findings in the head/brain. Electronically signed by: Mark Camarena MD 06/11/25 00:51 AM MDM Narrative Prior records/ancillary studies reviewed. Triage Nursing notes reviewed. Additional history obtained from family. The patient's history was concerning for traumatic injury Differential diagnosis: Etiologies such as fracture, dislocation, intra-abdominal, pneumothorax, intrathoracic , intracranial, neurologic, as well as other traumatic pathologies were entertained. Physical examination findings: As above. The patients vitals were stable. ER treatment provided: IV Normal Saline hydration Fentanyl was given Tetanus: Current per chart review Procedures: Gonsales was placed An order was placed for continuous cardiac monitoring. The monitor shows a rate of 60-100 with a sinus rhythm per my interpretation. Right upper arm skin tear was cleansed and dressed with Steri-Strips bacitracin and bandage. Most of the skin has avulsed off. Potassium was replaced On reassessment the patient felt better. Vital signs were stable. Diagnostic interpretation by me: A 12 lead ECG revealed no emergent pathology. Ordered for weakness EKG: Normal sinus, poor baseline, no acute ST-T wave changes, rate of 65. Impression normal sinus rhythm poor baseline independently interpreted by myself The labs Independently Interpreted by myself revealed no worrisome leukocytosis, mild anemia Mild hyperglycemia without DKA Imaging studies: Imaging was reviewed and read by radiology Consultation: A consultation was placed with hospitalist. The case was discussed and diagnostics were reviewed. The patient was admitted to their service. Splinting Indication: Left elbow fracture Location: Left elbow Type of fx: Closed nondisplaced Verbal consent obtained. Risks and benefits were explained with the usual customary discussion. The injured extremity was identified. The patient was prepped and measured for the placement of a long-arm ortho-glass splint. Splint applied in the standard fashion over a layer of webril and secured using an elastic bandage. Set into a position of function. Sling was placed. Normal neurovascular status after placement verified by me. The patient tolerated the procedure well and the care of the splint was discussed with the patient/family. No complications. This appears to be consistent with left hip, pubic rami fracture, and elbow fracture. Patient was splinted as above. She was given fentanyl for the pain. Gonsales was placed. Medicine was consulted and case is discussed. She will be admitted to the medical service. By the evaluation outlined above emergent etiologies such as intra-abdominal, pneumothorax, pulmonary contusion, hemothorax, intracranial, neurologic,as well as others were deemed relatively unlikely. The pt informed about the findings as listed above. All questions were answered and pleased with the treatment. The chart was completed utilizing [employer] Speech voice recognition software. Grammatical errors, random word insertions, pronoun errors, and incomplete sentences are an occassional consequence of this system due to software limitations, ambient noise, and hardware issues. Any formal questions or concerns about the content, text, or information contained within the body of this dictation should be directly addressed to the physician public relations assistant for clarification. Impression & Plan Closed fracture of left hip, Fall, Elbow fracture, left, Multiple skin tears, Hypokalemia Discharge Plan Visit Data Chief Complaint: Hip Pain Stated Complaint: Fall, L Hip Pain ED Provider: Heber Pedroza ED Midlevel Provider: Marine Rasmussen Discharge Problem: Closed fracture of left hip, Fall, Elbow fracture, left, Multiple skin tears, Hypokalemia Patient Disposition: Admitted As Inpatient Condition: Good Forms Stand Alone Forms: [employer] Prescriptions Prescriptions: No Action bupropion HCl [Wellbutrin SR] 150 mg tablet sustained-release 12 hr 150 mg PO BID Rx Instructions: TAKE THIS MEDICATION EVERY MORNING AND AT NOON tramadol 50 mg tablet 50 mg PO Q8H PRN (Reason: pain) Qty: 15 0RF Rx Instructions: right hip fracture fixation post op pain PRN acetaminophen 500 mg Tablet 1,000 mg PO TID Qty: 30 0RF cyanocobalamin (vitamin B-12) 1,000 mcg/mL Solution 1,000 mcg IM MONTHLY bumetanide 0.5 mg tablet 0.5 mg PO DAILY docusate sodium 100 mg Capsule 100 mg PO BID albuterol sulfate 90 mcg/actuation HFA aerosol inhaler 2 inh INHALATION Q4H PRN (Reason: SOB) fluticasone propionate 50 mcg/actuation [place],Suspension 2 spray INTRANASAL HS PRN (Reason: ALLERGIES) Rx Instructions: administer into each nostril duloxetine 60 mg capsule,delayed release(DR/EC) 60 mg PO DAILY Arnuity Ellipta 200 mcg/actuation blister with device 1 inh INHALATION DAILY famotidine [Pepcid] 20 mg tablet 20 mg PO HS sennosides [Senokot] 8.6 mg Tablet 17.2 mg PO QAM Qty: 10 0RF polyethylene glycol 3350 [Miralax] 17 gram Powder In Packet 17 g PO DAILY Qty: 10 0RF ferrous sulfate 325 mg (65 mg iron) Tablet 325 mg PO Q2D Qty: 0 0RF multivitamin Tablet 1 tab PO QAM pravastatin 40 mg tablet 40 mg PO HS potassium chloride 10 mEq tablet extended release 10 meq PO BID levothyroxine 75 mcg tablet 75 mcg PO QAM polyethylene glycol 3350 [Miralax] 17 gram/dose Powder 17 g PO DAILY PRN (Reason: Constipation) trospium 20 mg tablet 20 mg PO BID omega-3 acid ethyl esters [Lovaza] 1 gram Capsule 1 cap PO DAILY Qvar RediHaler 80 mcg/actuation HFA aerosol breath activated 2 inh INHALATION BID cholecalciferol (vitamin D3) 125 mcg (5,000 unit) tablet 50,000 unit PO Q7D [facility] Discharge Problem: Closed fracture of left hip Qualifiers: Encounter type: initial encounter Qualified Code(s): S72.002A - Fracture of unspecified part of neck of left femur, initial encounter for closed fracture
[2025-06-10 22:23] LABS: Hematocrit (blood only) 31.4 % (37.0-47.0); Hemoglobin 10.3 g/dL (12.0-16.0); Mean Corpuscular Hemoglobin 30.2 pg (25.0-34.0); Mean Corpuscular Volume 92.1 fL (80.0-100.0); Platelet Count 258 K/uL (130-400); RDW Standard Deviation 46.5 fL (36.4-46.3); Red Blood Count 3.41 M/uL (4.20-5.40); White Blood Count 7.37 K/ul (4.8-10.8)
[2025-06-10 22:34] LABS: Acanthocytes 1+; Anisocytosis Present; Hypersegmented Neutrophils 1+; Immature Granulocytes # (auto) 0.06 K/uL (0.01-0.20); Immature Granulocytes % (auto) 0.8 %; Polychromasia 1+
[2025-06-10 22:47] LABS: INR 1.0 (0.9-1.1); Partial Thromboplastin Time 24 Seconds (21-31); Prothrombin Time 10.7 Seconds (9.0-12.0)
[2025-06-10 22:55] LABS: Appearance Urine Cloudy (Clear); Bacteria Urine Automated 4+ (None Seen); Cast Urine Automated 0-2 /lpf (0-2); Epithelial Cell Urine Auto 0-2 /hpf (0-2); Glucose Urine UA Negative (Negative); WBC Urine Automated 0-5 /hpf (0-5)
[2025-06-10 22:57] LABS: Alanine Aminotransferase 14 U/L (7-52); Albumin Globulin Ratio 1.3 (0.9-2); Albumin Level 3.9 gm/dl (3.4-5.0); Alkaline Phosphatase 80 U/L (34-104); Anion Gap 10 (3-11); Bilirubin,Total 0.4 mg/dl (0.2-1.0); Blood Urea Nitrogen 16 mg/dl (6-23); Calcium 8.7 mg/dl (8.6-10.3); Carbon Dioxide 26 mmol/L (21-32); Chloride 103 mmol/L (98-107); Creatine Kinase 93 U/L (26-192); Creatinine Clr Calc Pharmacy 62.0 ml/min; Globulin 2.9 gm/dl (2.5-4.0); Glucose 112 mg/dl (70-99(Fasting)); Magnesium 2.4 mg/dl (1.7-2.4); Sodium 139 mmol/L (136-145); Total Protein 6.8 gm/dl (6.0-8.3)
[2025-06-10 23:38] LABS: Potassium 3.1 mmol/L (3.5-5.1)
[2025-06-10] MEDS: OPTIRAY 320 100ml IV ONE (23:39)
--- NOTE | 2025-06-11 00:13 | CT Scan Report ---
Exam(s): CT ABDOMEN + PELVIS With Contrast IV Amt: 93 ML OPTIRAY 320 EXAM: CT Abdomen and Pelvis With Intravenous Contrast CLINICAL HISTORY: Reason for exam: fall, pain. TECHNIQUE: Axial computed tomography images of the abdomen and pelvis with intravenous contrast. CTDI is 37.87 mGy and DLP is 624.41 mGy-cm. Automated exposure control was utilized for the study. A dose lowering technique was utilized adhering to the principles of ALARA. CONTRAST: Patient received 93 ML OPTIRAY 320 of IV contrast COMPARISON: 05/30/2024 FINDINGS: Lung bases: Unremarkable. No mass. No consolidation. Mediastinum: Moderate-size esophageal hiatal hernia. ABDOMEN: Liver: Unremarkable. No mass. Gallbladder and bile ducts: Unremarkable. No calcified stones. No ductal dilation. Pancreas: Unremarkable. No mass. No ductal dilation. Spleen: Unremarkable. No splenomegaly. Adrenals: Unremarkable. No mass. Kidneys and ureters: Simple 3 cm right renal cysts. No follow-up of these simple cysts is necessary. No hydronephrosis. Stomach and bowel: large amount of stool within the colon and rectum. No mucosal thickening. PELVIS: Appendix: No findings to suggest acute appendicitis. Bladder: Gonsales catheter within the urinary bladder. Reproductive: Unremarkable as visualized. ABDOMEN and PELVIS: Intraperitoneal space: Unremarkable. No free air. No significant fluid collection. Bones/joints: Comminuted displaced intertrochanteric left hip fracture. Postop changes ORIF right femoral fracture. Nondisplaced right superior pubic ramus fracture. Healing left inferior pubic ramus fracture. No dislocation. Soft tissues: Unremarkable. Vasculature: Unremarkable. No abdominal aortic aneurysm. Lymph nodes: Unremarkable. No enlarged lymph nodes. IMPRESSION: Comminuted displaced intertrochanteric left hip fracture. Nondisplaced right superior pubic ramus fracture and healing left inferior pubic ramus fracture Electronically signed by: Mark Camarena MD 06/11/25 00:12 AM
--- NOTE | 2025-06-11 00:52 | CT Scan Report ---
Exam(s): CT HEAD Without Contrast EXAM: CT Head Without Intravenous Contrast CLINICAL HISTORY: Reason for exam: fall, HI. TECHNIQUE: Axial computed tomography images of the head/brain without intravenous contrast. CTDI is 37.87 mGy and DLP is 624.41 mGy-cm. Automated exposure control was utilized for the study. A dose lowering technique was utilized adhering to the principles of ALARA. COMPARISON: No relevant prior studies available. FINDINGS: Brain: Severe ischemic microangiopathy. Age-appropriate cerebral volume loss. No hemorrhage. Ventricles: Unremarkable. No ventriculomegaly. Bones/joints: Unremarkable. No acute fracture. Soft tissues: Unremarkable. Sinuses: Unremarkable as visualized. No acute sinusitis. Mastoid air cells: Unremarkable as visualized. No mastoid effusion. IMPRESSION: No acute findings in the head/brain. Electronically signed by: Mark Camarena MD 06/11/25 00:51 AM
--- NOTE | 2025-06-11 00:53 | CT Scan Report ---
Exam(s): CT C SPINE EXAM: CT Cervical Spine Without Intravenous Contrast CLINICAL HISTORY: Reason for exam: fall, pain. TECHNIQUE: Axial computed tomography images of the cervical spine without intravenous contrast. CTDI is 37.87 mGy and DLP is 624.41 mGy-cm. Automated exposure control was utilized for the study. A dose lowering technique was utilized adhering to the principles of ALARA. COMPARISON: No relevant prior studies available. FINDINGS: Vertebrae: Reversal of normal cervical curvature centered C4-C5. No acute fracture. Discs/spinal canal/neural foramina: No acute findings. No spinal canal stenosis. Soft tissues: Unremarkable. IMPRESSION: No acute findings in the cervical spine. Electronically signed by: Mark Camarena MD 06/11/25 00:52 AM
--- NOTE | 2025-06-11 00:54 | CT Scan Report ---
Exam(s): CT CHEST With Contrast IV Amt: 93 ML OPTIRAY 320 EXAM: CT Chest With Intravenous Contrast CLINICAL HISTORY: Reason for exam: fall, pain. TECHNIQUE: Axial computed tomography images of the chest with intravenous contrast. CTDI is 37.87 mGy and DLP is 624.41 mGy-cm. Automated exposure control was utilized for the study. A dose lowering technique was utilized adhering to the principles of ALARA. CONTRAST: Patient received 93 ML OPTIRAY 320 of IV contrast COMPARISON: No relevant prior studies available. FINDINGS: Lungs: Diffuse changes COPD. No mass. No consolidation. Pleural space: Unremarkable. No significant effusion. No pneumothorax. Heart: Unremarkable. No cardiomegaly. No significant pericardial effusion. No significant coronary artery calcifications. Mediastinum: Large esophageal hiatal hernia. Bones/joints: Unremarkable. No acute fracture. Soft tissues: Unremarkable. Vasculature: Unremarkable. No thoracic aortic aneurysm. Lymph nodes: Unremarkable. No enlarged lymph nodes. IMPRESSION: Large esophageal hiatal hernia. Electronically signed by: Mark Camarena MD 06/11/25 00:53 AM
--- NOTE | 2025-06-11 00:55 | Emergency Department Note ---
ED Visit Note The patient was seen and examined with Grady. I performed a substantive portion of all aspects of the medical decision making and agree with the h istory, physical and findings. Please see the note for disposition and details. . .
--- NOTE | 2025-06-11 01:42 | History & Physical Report ---
Date of Service June 11, 2025 Assessment & Plan (1) Closed left hip fracture: (2) Fracture of right superior pubic ramus: (3) Left elbow fracture: (4) Hypokalemia: (5) Acute hypoxic respiratory failure: (6) Asymptomatic bacteriuria: Plan Patient is an 89-year-old female with past medical history of HTN, HLD, hypothyroidism, COPD, venous insufficiency, stage IIIa CKD. Patient presented via EMS after a reported ground-level mechanical fall resulting in a left intertrochanteric hip fracture, right superior pubic ramus fracture, and left elbow fracture. Laboratories also revealed potassium of 3.1. Patient became hypoxic requiring 2L NC after IV pain control. She is being admitted for ambulatory dysfunction/fall resulting in hip fractures, hypokalemia, and hypoxia. #left hip fx/right superior ramus fx/left elbow fx - s/p mechanical GLF. Hgb mildly decreased from baseline on admission. Hemodynamically and neurovascularly intact on admission. - left arm splinted in ED, in sling - ortho consulted - possible surgical management - n.p.o.; IVF with LR @ 80 ml/hr ordered - Gonsales catheter in place - Type and screen ordered with AM labs - Revised cardiac risks index = 1 - IV Tylenol prn, Dilaudid 0.5/1mg prn for breakthrough pain - Lidoderm patch - Zofran as needed - Incentive spirometry - will likely need PT/OT evals prior to discharge; defer on admission until after surgical management determined #hypokalemia - K+ 3.1, mag 2.4, renal function stable. - hold Bumex - unable to tolerate PO KCl - 5 bags k rider ordered - IVF as above - EKG ordered - trend BMP and mag #acute hypoxemic respiratory failure - likely 2/2 IV opioid use. On 2L NC at time of admission. - discontinue fentanyl - trial Tylenol and Lidoderm patch if pain returns prior to IV Dilaudid - incentive spirometry - wean O2 as tolerated #asymptomatic bacteruria - UA with 4+ bacteria. No leukocytosis. - defer tx as asymptomatic - follow urine cultures #COPD - no acute exacerbation. - continue home inhalers #mental health - continue bupropion, duloxetine #hypothyroidism - continue levothyroxine #HLD - continue statin VTE ppx: SCDs, defer chemical with possible surgical management Dispo: med/tele with hypoxia and electrolyte abnormalities Admission and Anticipated Discharge Date Admission Date: 06/11/25 History of Present Illness Chief Complaint: hip pain Primary Care Provider: [facility] Patient is an 89-year-old female with past medical history of HTN, HLD, hypothyroidism, COPD, venous insufficiency, stage IIIa CKD. Patient presented via EMS after a reported ground-level mechanical fall resulting in a left intertrochanteric hip fracture, right superior pubic ramus fracture, and left elbow fracture. Laboratories also revealed potassium of 3.1. Patient became hypoxic requiring 2L NC after IV pain control. She is being admitted for ambulatory dysfunction/fall resulting in hip fractures, hypokalemia, and hypoxia. Patient seen at bedside. She is completely disoriented and sleeping frequently on exam however responds to verbal stimuli. She does not remember the fall today however does remember being in the ED and getting the splint placed and not all of the CT scans. She stated her pain is currently well-controlled. She wishes to maintain her DNR/DNI status. Discussion with nursing. Patient is mildly confused at baseline however typically oriented, has become more confused after IV fentanyl use. Reportedly 75 mcg fentanyl via EMS. Allergies Allergy/AdvReac Type Severity Reaction Status Date / Time codeine AdvReac Unknown NAUSEATED/L Verified 06/11/25 08:09 IGHTHEADED Home Medications Medication Instructions Recorded Confirmed Type bupropion HCl 150 mg tablet,12 hr 150 mg PO BID 03/03/18 09/01/24 History sustained-release (Wellbutrin SR) acetaminophen 500 mg tablet 1,000 mg (2 x 500 mg) PO TID #30 10/19/20 09/01/24 Rx tabs albuterol sulfate 90 mcg/actuation 2 inh inhalation Q4H PRN SOB 05/30/24 09/01/24 History aerosol inhaler bumetanide 0.5 mg tablet 0.5 mg PO DAILY 05/30/24 09/01/24 History cyanocobalamin (vitamin B-12) 1,000 mcg IM MONTHLY 05/30/24 09/01/24 History 1,000 mcg/mL injection solution docusate sodium 100 mg capsule 100 mg PO BID 05/30/24 09/01/24 History duloxetine 60 mg capsule,delayed 60 mg PO DAILY 05/30/24 09/01/24 History release famotidine 20 mg tablet (Pepcid) 20 mg PO HS heartburn 05/30/24 09/01/24 History fluticasone furoate 200 1 inh inhalation DAILY 05/30/24 09/01/24 History mcg/actuation blister powder for inhalation (Arnuity Ellipta) fluticasone propionate 50 2 spray intranasal HS PRN ALLERGIES 05/30/24 09/01/24 History mcg/actuation nasal spray,suspension ferrous sulfate 325 mg (65 mg 325 mg PO Q2D #0 tabs 06/05/24 09/01/24 Rx iron) tablet polyethylene glycol 3350 17 gram 17 g PO DAILY #10 ea 06/05/24 09/01/24 Rx oral powder packet (Miralax) sennosides 8.6 mg tablet (Senokot) 17.2 mg (2 x 8.6 mg) PO QAM #10 06/05/24 09/01/24 Rx tabs tramadol 50 mg tablet 50 mg PO Q8H PRN pain #15 tabs 07/19/24 09/01/24 Rx beclomethasone dipropionate 80 2 inh inhalation BID 09/01/24 09/01/24 History mcg/actuation HFA breath activated aerosol (Qvar RediHaler) cholecalciferol (vitamin D3) 125 50,000 unit PO Q7D 09/01/24 09/01/24 History mcg (5,000 unit) tablet levothyroxine 75 mcg tablet 75 mcg PO QAM 09/01/24 09/01/24 History multivitamin 1 tab PO QAM 09/01/24 09/01/24 History omega-3 acid ethyl esters 1 gram 1 cap PO DAILY 09/01/24 09/01/24 History capsule (Lovaza) polyethylene glycol 3350 17 17 g PO DAILY PRN Constipation 09/01/24 09/01/24 History gram/dose oral powder (Miralax) potassium chloride 10 mEq 10 meq PO BID 09/01/24 09/01/24 History tablet,extended release pravastatin 40 mg tablet 40 mg PO HS 09/01/24 09/01/24 History trospium 20 mg tablet 20 mg PO BID 09/01/24 09/01/24 History Past Med/Surg History Problem List (Updated 06/11/25 @ 08:51 by Gagandeep Rose PA-C) Closed fracture of left olecranon process Intertrochanteric fracture of left femur Fracture of right superior pubic ramus Hypokalemia (Acute) Multiple skin tears (Acute) Fall (Acute) Closed fracture of left hip (Acute) Cellulitis of left lower extremity (Acute) Chronic cor pulmonale Abnormal head CT Hypotension Intertrochanteric fracture of right hip Sensorineural hearing loss (SNHL) of both ears Cerumen impaction Excessive cerumen in both ear canals Contact dermatitis Left wrist effusion Intractable pain (Acute) Wrist arthritis (Acute) Edema of left lower extremity (Acute) Cellulitis (Acute) Cervical spinal stenosis (Chronic) Cervical disc disease (Chronic) Myofascial pain (Chronic) Cervical facet syndrome (Chronic) Cervicalgia (Chronic) Fall (Acute) Laceration of head (Acute) Medical History (Updated 06/11/25 @ 08:51 by Gagandeep Rose PA-C) Encounter for pre-operative examination Left elbow fracture Acute hypoxic respiratory failure Asymptomatic bacteriuria Underweight Urinary retention Intertrochanteric fracture of right femur Hypertension Depression COPD (chronic obstructive pulmonary disease) Osteoarthritis Constipation Chronic kidney disease, stage 3a COPD (chronic obstructive pulmonary disease) Sternal fracture Chronic venous insufficiency Ulcerative colitis Osteoporosis Hypothyroidism Hyperlipidemia Surgical History History of inguinal hernia repair Family History Other Family history non-contributory No family history of adverse response to anesthesia No family history of bleeding disorder Denies family history of Esophageal cancer Crohn's disease Heart disease Colorectal cancer Cancer Hypertension Ulcerative colitis Stroke Asthma Social History Smoking Status: Unknown if ever smoked Tobacco Type: Cigarettes packs per day: 1; Do You Dip or Chew Tobacco: No; Hx Alcohol Use: No (unable to obtain) Hx Substance Use: No (unable to obtain) Preferred Language: Filipino Communication Ability: Effective Communication Ability Comment: Patient is drowsy and unable to answer questions. Visual Impairment: No Limitations Hearing Ability: Normal Labor Gang Supervisor Required: No Beliefs That Will Affect Care: None marital status: / Current Living Situation: Custodial Current Living Situation Comment: [place] [facility] current occupational status: retired Other Information That Helps Us Care for You: No (unable to obtain) Feels Safe at Home: Yes Assistive Devices: Walker Assistive Devices Comment: left arm Review of Systems Review of Systems: unable to assess given confusion Physical Exam Physical Exam: The patient is sleeping, confused, responds to verbal stimuli, well developed and well nourished, normocephalic and atraumatic, in no acute distress. Non- toxic appearing. HEENT- EOMI, mucous membranes dry. Hearing grossly intact. Heart-normal S1 and S2. No murmurs, rubs or gallops. Lungs-clear bilaterally, no respiratory distress, no accessory muscle use. On 2L NC. Abdomen-normal bowel sounds and soft. No ascites noted. Non-tender. Extremities- no clubbing, cyanosis, or edema. Left arm in splint and sling. Results & Data Results & Data Vital Signs (Past 12 Hours) Vital Signs Temp Pulse Pulse Resp BP BP Pulse Ox 06/11/25 00:00 73 18 175/92 H 97 06/10/25 21:56 64 18 95 06/10/25 21:52 64 06/10/25 21:14 36.8 C 64 17 187/98 H 92 O2 Del Method O2 Flow Rate 06/11/25 00:00 Nasal Cannula 2 06/10/25 21:56 Room Air 06/10/25 21:52 06/10/25 21:14 Room Air Laboratory Results Reviewed CBC, PT/INR, CMP, magnesium, CK, UA Ordered type and screen Diagnostic Findings reviewed hip/pelvis XR, head CT, elbow XR, chest CT, cervical spine CT, AP CT Note elbow XR and hip/pelvis XR pending at time of admission Medications Administered EMSFentanyl 75 mcg EDFentanyl 50 mcg IV x 2 ECG Additional Comments: ordered Code Status & VTE Plan Code Status DNR/DNI VTE Prophylaxis Plan VTE Prophylaxis will be ordered: Yes Supervising Physician Co-Signing Physician Notes Patient seen and examined, chart reviewed, case discussed with PATSY Quintana and I agree with the assessment and plan as above. In brief, patient is an 89yo female with history of HTN, HLP, COPD and CKD presenting after a ground level fall resulting in left intertrochanteric hip fracture, right superior pubic ramus fracture and left elbow fracture. On exam patient is somewhat confused, talking about changing the TV channel. Was unable to provide clear details of precipitating events HEENT - MMM, Neck supple Heart - +S1/S2, regular, no m/r/g Lungs - CTA Abd - soft, NT/ND Ext - NV intact, no bruising Labs and images reviewed Assessment/Plan -Orthopedic Surgery consultation appreciated regarding surgical management of patient's left hip fracture -Likely non-surgical management of elbow fracture as well as pubic ramus fracture -Pain control -Potassium repletion - K=3.1, K riders being given -Remainder as above PG Care Time/CCT Total # of Minutes Spent Total Time Spent with Patient: Total time spent is greater than 50% in coordination of care (as documented) at patient's floor/unit and/or counseling patient: Coding Level of Care Code 21252 INT INP/OBS CARE 3/75MIN Diagnoses Closed left hip fracture S72.002A Fracture of right superior pubic ramus S32.511A Left elbow fracture S42.402A Hypokalemia E87.6 Acute hypoxic respiratory failure J96.01 Asymptomatic bacteriuria R82.71
[2025-06-11] MEDS: LACTATED RINGER'S 1,000 ML IV SCH ×2 (01:57→08:14)
[2025-06-11] MEDS: POTASSIUM CHLORIDE / WTR 10 MEQ/100 ML PLCT IV SCH (01:57)
[2025-06-11] MEDS: POTASSIUM CHLORIDE CRTAB 20 MEQ TABCR PO STA (02:26)
--- NOTE | 2025-06-11 03:05 | XRay Report ---
Exam(s): XR HIP + PELVIS, 1 view EXAM: XR Left Hip With Pelvis When Performed, 2 or 3 Views CLINICAL HISTORY: Reason for exam: fall, pain. TECHNIQUE: Two or three views of the left hip with pelvis when performed. COMPARISON: No relevant prior studies available. FINDINGS: Bones/joints: Acute mildly displaced intertrochanteric fracture of the left femur. Prior ORIF of the right femur for intertrochanteric fracture. No dislocation. Osteopenia. Soft tissues: Unremarkable. IMPRESSION: Acute mildly displaced intertrochanteric fracture of the left femur. Electronically signed by: Michaelle Traore M.D. 06/11/25 03:04 AM
--- NOTE | 2025-06-11 03:05 | XRay Report ---
Exam(s): XR LEFT ELBOW, 3+ views EXAM: XR Left Elbow Complete, 3 or More Views CLINICAL HISTORY: Reason for exam: fall, pain. TECHNIQUE: Frontal, lateral and oblique views of the left elbow. COMPARISON: No relevant prior studies available. FINDINGS: Bones/joints: Acute nondisplaced mildly comminuted intra-articular fracture through the olecranon. No other fractures. No joint dislocation. Joint effusion suspected. Soft tissues: Posterior soft tissue swelling. IMPRESSION: Acute nondisplaced mildly comminuted intra-articular fracture through the olecranon. Electronically signed by: Michaelle Traore M.D. 06/11/25 03:03 AM
[2025-06-11] MEDS ORDERED: ALBUTEROL HFA 8 GM INHALER INH PRN (03:17)
[2025-06-11] MEDS ORDERED: MELATONIN 3 MG TAB PO PRN (03:17)
[2025-06-11] MEDS ORDERED: MAGNESIUM HYDROXIDE SUSP 30 ML UDC PO PRN (03:17)
[2025-06-11] MEDS ORDERED: HYDROmorphone INJ 0.5 MG/0.5 ML SYR IV PRN (03:17)
[2025-06-11] MEDS ORDERED: FAMOTIDINE 20 MG TAB PO PRN (03:17)
[2025-06-11] MEDS ORDERED: ONDANSETRON INJ 2 MG/ML 2 ML VIAL IV PRN ×2 (03:17→08:20)
[2025-06-11] MEDS ORDERED: DOCUSATE SODIUM 100 MG CAP PO PRN (03:17)
[2025-06-11] MEDS ORDERED: NALOXONE HCL 0.4 MG/1 ML VIAL/CARP IV PRN (03:17)
[2025-06-11] MEDS: LEVOTHYROXINE SODIUM 75 MCG TABLET PO SCH (06:36)
--- NOTE | 2025-06-11 07:28 | Anesthesiology Consultation ---
Date of Service June 11, 2025 Assessment & Plan (1) Encounter for pre-operative examination: Chart Review Chart Review: Acceptable Risk for Surgery and Patient NOT seen in Pre Admission Testing Consults Requested none History Surgery Operation Date: 06/11/25 09:50 Proposed Procedures p Left Femur Troch Nail - Pedro Ayala MD Height/Weight Height: 5 ft 5 in Weight: 53.6 kg Allergies Allergy/AdvReac Type Severity Reaction Status Date / Time codeine AdvReac Unknown NAUSEATED/L Verified 06/11/25 08:09 IGHTHEADED Medications Home Medications Medication Instructions Recorded Confirmed Last Taken bupropion HCl 150 mg tablet,12 hr 150 mg PO BID 03/03/18 09/01/24 09/01/24 08:00 sustained-release (Wellbutrin SR) acetaminophen 500 mg tablet 1,000 mg (2 x 500 mg) PO TID #30 10/19/20 09/01/24 Unknown tabs albuterol sulfate 90 mcg/actuation 2 inh inhalation Q4H PRN SOB 05/30/24 09/01/24 Unknown aerosol inhaler bumetanide 0.5 mg tablet 0.5 mg PO DAILY 05/30/24 09/01/24 09/01/24 08:00 cyanocobalamin (vitamin B-12) 1,000 mcg IM MONTHLY 05/30/24 09/01/24 08/25/24 1,000 mcg/mL injection solution docusate sodium 100 mg capsule 100 mg PO BID 05/30/24 09/01/24 09/01/24 08:00 duloxetine 60 mg capsule,delayed 60 mg PO DAILY 05/30/24 09/01/24 09/01/24 08:00 release famotidine 20 mg tablet (Pepcid) 20 mg PO HS heartburn 05/30/24 09/01/24 08/31/24 fluticasone furoate 200 1 inh inhalation DAILY 05/30/24 09/01/24 09/01/24 08:00 mcg/actuation blister powder for inhalation (Arnuity Ellipta) fluticasone propionate 50 2 spray intranasal HS PRN ALLERGIES 05/30/24 09/01/24 Unknown mcg/actuation nasal spray,suspension ferrous sulfate 325 mg (65 mg 325 mg PO Q2D #0 tabs 06/05/24 09/01/24 08/31/24 08:00 iron) tablet polyethylene glycol 3350 17 gram 17 g PO DAILY #10 ea 06/05/24 09/01/24 09/01/24 08:00 oral powder packet (Miralax) sennosides 8.6 mg tablet (Senokot) 17.2 mg (2 x 8.6 mg) PO QAM #10 06/05/24 09/01/24 09/01/24 08:00 tabs tramadol 50 mg tablet 50 mg PO Q8H PRN pain #15 tabs 07/19/24 09/01/24 08/31/24 beclomethasone dipropionate 80 2 inh inhalation BID 09/01/24 09/01/24 09/01/24 06:00 mcg/actuation HFA breath activated aerosol (Qvar RediHaler) cholecalciferol (vitamin D3) 125 50,000 unit PO Q7D 09/01/24 09/01/24 08/26/24 08:00 mcg (5,000 unit) tablet levothyroxine 75 mcg tablet 75 mcg PO QAM 09/01/24 09/01/24 09/01/24 05:00 multivitamin 1 tab PO QAM 09/01/24 09/01/24 09/01/24 08:00 omega-3 acid ethyl esters 1 gram 1 cap PO DAILY 09/01/24 09/01/24 09/01/24 08:00 capsule (Lovaza) polyethylene glycol 3350 17 17 g PO DAILY PRN Constipation 09/01/24 09/01/24 Unknown gram/dose oral powder (Miralax) potassium chloride 10 mEq 10 meq PO BID 09/01/24 09/01/24 09/01/24 08:00 tablet,extended release pravastatin 40 mg tablet 40 mg PO HS 09/01/24 09/01/24 08/31/24 20:00 trospium 20 mg tablet 20 mg PO BID 09/01/24 09/01/24 09/01/24 08:00 Active Medications Generic Name Dose Route Start Last Admin Trade Name Freq PRN Reason Stop Dose Admin Levothyroxine Sodium 75 mcg 06/11/25 06:30 06/11/25 06:36 Levothyroxine Sodium 75 Mcg Tablet PO 07/11/25 06:29 Not Given DAILYBB JODEE Past Medical History Medical History (Updated 06/11/25 @ 07:30 by Huber Warren MD) Encounter for pre-operative examination Left elbow fracture Acute hypoxic respiratory failure Asymptomatic bacteriuria Underweight Urinary retention Intertrochanteric fracture of right femur Hypertension Depression COPD (chronic obstructive pulmonary disease) Osteoarthritis Constipation Chronic kidney disease, stage 3a COPD (chronic obstructive pulmonary disease) Sternal fracture Chronic venous insufficiency Ulcerative colitis Osteoporosis Hypothyroidism Hyperlipidemia Past Family History Family History Other Family history non-contributory No family history of adverse response to anesthesia No family history of bleeding disorder Denies family history of Esophageal cancer Crohn's disease Heart disease Colorectal cancer Cancer Hypertension Ulcerative colitis Stroke Asthma Past Surgical History Surgical History History of inguinal hernia repair Social History Smoking Status: Unknown if ever smoked Do You Dip or Chew Tobacco: No Hx Alcohol Use: No (unable to obtain) Alcohol Intake Frequency Comment: unable to obtain Hx Substance Use: No (unable to obtain) substance use type: unknown Physical Exam Vital Signs Last Vital Signs Temp 37.5 C 06/11/25 08:09 Pulse 69 06/11/25 08:09 Resp 18 06/11/25 08:09 BP 182/93 H 06/11/25 08:09 Pulse Ox 98 06/11/25 08:09 O2 Del Method Nasal Cannula 06/11/25 08:09 O2 Flow Rate 2 06/11/25 08:09 Testing Laboratory Results 06/11/25 07:20 06/11/25 07:20 PT 10.7 Seconds (9.0-12.0) 06/10/25 21:20 INR 1.0 (0.9-1.1) 06/10/25 21:20 APTT 24 Seconds (21-31) 06/10/25 21:20 Urine Color Yellow 06/10/25 22: Urine Appearance Cloudy (Clear) A 06/10/25 22: Urine pH 7.5 (4.5-7.5) 06/10/25 22: Ur Specific [place] 1.020 (1.000-1.030) 06/10/25 22:29 Urine Protein Trace (Negative) H 06/10/25 22:29 Urine Glucose (UA) Negative (Negative) 06/10/25 22:29 Urine Ketones 1+ (Negative) H 06/10/25 22:29 Urine Nitrite Negative (Negative) 06/10/25 22:29 Ur Leukocyte Esterase 1+ (Negative) H 06/10/25 22:29 Urine WBC (Auto) 0-5 /hpf (0-5) 06/10/25 22:29 Urine RBC (Auto) 3-5 /hpf (0-2) H 06/10/25 22:29 U Hyaline Cast (Auto) 0-2 /lpf (0-2) 06/10/25 22:29 U Epithel Cells (Auto) 0-2 /hpf (0-2) 06/10/25 22:29 Urine Bacteria (Auto) 4+ (None Seen) H 06/10/25 22:29 Electrocardiogram Date: 06/10/25 Findings: + NSR @ and + NSST changes Other Testing CT chest 06/10/25: EXAM: CT Chest With Intravenous Contrast CLINICAL HISTORY: Reason for exam: fall, pain. TECHNIQUE: Axial computed tomography images of the chest with intravenous contrast. CTDI is 37.87 mGy and DLP is 624.41 mGy-cm. Automated exposure control was utilized for the study. A dose lowering technique was utilized adhering to the principles of ALARA. CONTRAST: Patient received 93 ML OPTIRAY 320 of IV contrast COMPARISON: No relevant prior studies available. FINDINGS: Lungs: Diffuse changes COPD. No mass. No consolidation. Pleural space: Unremarkable. No significant effusion. No pneumothorax. Heart: Unremarkable. No cardiomegaly. No significant pericardial effusion. No significant coronary artery calcifications. Mediastinum: Large esophageal hiatal hernia. Bones/joints: Unremarkable. No acute fracture. Soft tissues: Unremarkable. Vasculature: Unremarkable. No thoracic aortic aneurysm. Lymph nodes: Unremarkable. No enlarged lymph nodes. IMPRESSION: Large esophageal hiatal hernia. 06/10/25: head ct IMPRESSION: No acute findings in the head/brain.
[2025-06-11 07:46] LABS: Hematocrit (blood only) 28.2 % (37.0-47.0); Hemoglobin 9.4 g/dL (12.0-16.0); Immature Granulocytes # (auto) 0.06 K/uL (0.01-0.20); Immature Granulocytes % (auto) 0.7 %; Mean Corpuscular Hemoglobin 30.6 pg (25.0-34.0); Mean Corpuscular Volume 91.9 fL (80.0-100.0); Platelet Count 240 K/uL (130-400); RDW Standard Deviation 45.5 fL (36.4-46.3); Red Blood Count 3.07 M/uL (4.20-5.40); White Blood Count 8.82 K/ul (4.8-10.8)
[2025-06-11] MEDS ORDERED: ONDANSETRON INJ 2 MG/ML 2 ML VIAL ONE (07:48)
[2025-06-11] MEDS ORDERED: ROCURONIUM BROMIDE 10 MG/ML 5 ML VIAL IV ONE (07:48)
[2025-06-11] MEDS ORDERED: LIDOCAINE 2% 2 ML VIAL/AMP(20MG/ML) INFIL ONE (07:48)
[2025-06-11] MEDS ORDERED: DEXAMETHASONE SOD INJ 4 MG/ML VIAL ONE (07:48)
[2025-06-11] MEDS ORDERED: PROPOFOL IV EMULSION 10 MG/ML 20 ML VIAL IV ONE (07:48)
[2025-06-11 08:08] LABS: Anion Gap 6.0 (3-11); Blood Urea Nitrogen 10.0 mg/dl (6-23); Calcium 8.6 mg/dl (8.6-10.3); Carbon Dioxide 30.0 mmol/L (21-32); Chloride 102.0 mmol/L (98-107); Creatinine Clr Calc Pharmacy 86.6 ml/min; Glucose 132.0 mg/dl (70-99(Fasting)); Magnesium 2.1 mg/dl (1.7-2.4); Potassium 3.8 mmol/L (3.5-5.1); Sodium 138.0 mmol/L (136-145)
[2025-06-11] MEDS ORDERED: ATROPINE SULFATE 0.1 MG/ML 10ML SYR IV PRN (08:20)
--- NOTE | 2025-06-11 08:53 | Orthopedic Consultation ---
Date of Service June 11, 2025 Assessment & Plan (1) Fracture of right superior pubic ramus: (2) Intertrochanteric fracture of left femur: (3) Closed fracture of left olecranon process: Plan * Case/imaging reviewed and discussed with Dr Ayala - Left intertrochanteric femur fracture * Recommend OR fixation, plan for today 06/11 * NWB preop, WBAT postop - Right pubic rami fracture * Recommend closed management * Activity as tolerated - Left olecranon fracture * Recommend closed management * Maintain splint * Okay for platform walker, otherwise NWB left upper extremity * Daily treatment: Physical Therapy/ Occupational Therapy per protocol * Pain control * Disposition: TBD * Remainder care per primary team * Will continue to follow History of Present Illness Reason for Consultation: L hip, L elbow, R pubic rami fxs Requesting Physician: . Attending Physician: Kunal Emerson MD . Patient is a 89y/o female with left hip, left elbow, right hip pain. PMH including HTN, HLD, hypothyroidism, COPD, venous insufficiency, stage IIIa CKD. Presents to hospital with left hip, right hip, left elbow pain. Patient lives at assisted living facility, reported ground-level mechanical fall resulting in injuries to multiple body sites. Current workup including x-ray left elbow demonstrating nondisplaced intra-articular olecranon fracture, x-ray left hip demonstrating displaced intertrochanteric femur fracture, CT CAP demonstrating right pubic rami fracture. Left elbow was splinted in ED. Admitted to hospital medicine team. Lying comfortably in bed, no acute distress. Orthopedics consulted for management recommendations. At time of exam patient patient quite disoriented at time of exam. Reports that she fell several months ago, but does report left hip pain and improved left elbow pain after splinting. Denies tingling or numbness of left arm or left leg. Patient reports she does not use assistive device at baseline. Allergies Allergy/AdvReac Type Severity Reaction Status Date / Time codeine AdvReac Unknown NAUSEATED/L Verified 06/11/25 08:09 IGHTHEADED Home Medications Medication Instructions Recorded Confirmed Type bupropion HCl 150 mg tablet,12 hr 150 mg PO BID 03/03/18 09/01/24 History sustained-release (Wellbutrin SR) acetaminophen 500 mg tablet 1,000 mg (2 x 500 mg) PO TID #30 10/19/20 09/01/24 Rx tabs albuterol sulfate 90 mcg/actuation 2 inh inhalation Q4H PRN SOB 05/30/24 09/01/24 History aerosol inhaler bumetanide 0.5 mg tablet 0.5 mg PO DAILY 05/30/24 09/01/24 History cyanocobalamin (vitamin B-12) 1,000 mcg IM MONTHLY 05/30/24 09/01/24 History 1,000 mcg/mL injection solution docusate sodium 100 mg capsule 100 mg PO BID 05/30/24 09/01/24 History duloxetine 60 mg capsule,delayed 60 mg PO DAILY 05/30/24 09/01/24 History release famotidine 20 mg tablet (Pepcid) 20 mg PO HS heartburn 05/30/24 09/01/24 History fluticasone furoate 200 1 inh inhalation DAILY 05/30/24 09/01/24 History mcg/actuation blister powder for inhalation (Arnuity Ellipta) fluticasone propionate 50 2 spray intranasal HS PRN ALLERGIES 05/30/24 09/01/24 History mcg/actuation nasal spray,suspension ferrous sulfate 325 mg (65 mg 325 mg PO Q2D #0 tabs 06/05/24 09/01/24 Rx iron) tablet polyethylene glycol 3350 17 gram 17 g PO DAILY #10 ea 06/05/24 09/01/24 Rx oral powder packet (Miralax) sennosides 8.6 mg tablet (Senokot) 17.2 mg (2 x 8.6 mg) PO QAM #10 06/05/24 09/01/24 Rx tabs tramadol 50 mg tablet 50 mg PO Q8H PRN pain #15 tabs 07/19/24 09/01/24 Rx beclomethasone dipropionate 80 2 inh inhalation BID 09/01/24 09/01/24 History mcg/actuation HFA breath activated aerosol (Qvar RediHaler) cholecalciferol (vitamin D3) 125 50,000 unit PO Q7D 09/01/24 09/01/24 History mcg (5,000 unit) tablet levothyroxine 75 mcg tablet 75 mcg PO QAM 09/01/24 09/01/24 History multivitamin 1 tab PO QAM 09/01/24 09/01/24 History omega-3 acid ethyl esters 1 gram 1 cap PO DAILY 09/01/24 09/01/24 History capsule (Lovaza) polyethylene glycol 3350 17 17 g PO DAILY PRN Constipation 09/01/24 09/01/24 History gram/dose oral powder (Miralax) potassium chloride 10 mEq 10 meq PO BID 09/01/24 09/01/24 History tablet,extended release pravastatin 40 mg tablet 40 mg PO HS 09/01/24 09/01/24 History trospium 20 mg tablet 20 mg PO BID 09/01/24 09/01/24 History Past Med/Surg History Problem List (Updated 06/11/25 @ 08:51 by Gagandeep Rose PA-C) Closed fracture of left olecranon process Intertrochanteric fracture of left femur Fracture of right superior pubic ramus Hypokalemia (Acute) Multiple skin tears (Acute) Fall (Acute) Closed fracture of left hip (Acute) Cellulitis of left lower extremity (Acute) Chronic cor pulmonale Abnormal head CT Hypotension Intertrochanteric fracture of right hip Sensorineural hearing loss (SNHL) of both ears Cerumen impaction Excessive cerumen in both ear canals Contact dermatitis Left wrist effusion Intractable pain (Acute) Wrist arthritis (Acute) Edema of left lower extremity (Acute) Cellulitis (Acute) Cervical spinal stenosis (Chronic) Cervical disc disease (Chronic) Myofascial pain (Chronic) Cervical facet syndrome (Chronic) Cervicalgia (Chronic) Fall (Acute) Laceration of head (Acute) Medical History (Updated 06/11/25 @ 08:51 by Gagandeep Rose PA-C) Encounter for pre-operative examination Left elbow fracture Acute hypoxic respiratory failure Asymptomatic bacteriuria Underweight Urinary retention Intertrochanteric fracture of right femur Hypertension Depression COPD (chronic obstructive pulmonary disease) Osteoarthritis Constipation Chronic kidney disease, stage 3a COPD (chronic obstructive pulmonary disease) Sternal fracture Chronic venous insufficiency Ulcerative colitis Osteoporosis Hypothyroidism Hyperlipidemia Surgical History History of inguinal hernia repair Family History Other Family history non-contributory No family history of adverse response to anesthesia No family history of bleeding disorder Denies family history of Esophageal cancer Crohn's disease Heart disease Colorectal cancer Cancer Hypertension Ulcerative colitis Stroke Asthma Social History Smoking Status: Unknown if ever smoked Tobacco Type: Cigarettes packs per day: 1; Do You Dip or Chew Tobacco: No; Hx Alcohol Use: No (unable to obtain) Hx Substance Use: No (unable to obtain) Preferred Language: Barbadian Communication Ability: Impaired Communication Ability Comment: Patient is drowsy and unable to answer questions. 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 Physical Exam . * General: Alert and oriented, no acute distress * Constitutional: well-developed, well-nourished. * Respiratory: Normal respiratory effort, no distress * Gastrointestinal: No tenderness to palpation, no rigidity or guarding. * Skin: No rash or lesion. * Neurologic: Grossly normal * Musculoskeletal: - Left elbow: Left upper extremity in long-arm posterior splint, not removed for exam. Mild TTP through splint of the left elbow region. Otherwise no specific tenderness of the upper arm, forearm, wrist/hand. AROM elbow not assessed. AROM wrist and finger motion intact. Sensation intact to radial/median/ulnar nerve distributions. Brisk capillary refill. - Left hip: Left lower extremity shortened and externally rotated. Otherwise no obvious deformity or overlying skin changes to the left lower extremity. TTP proximal thigh and anterior hip region, otherwise no specific tenderness of the distal thigh, knee, lower leg. Pain with logroll, otherwise ROM hip not assessed. AROM foot/ankle intact. Sensation intact plantar surface of foot. Brisk capillary refill. Results & Data Results & Data Laboratory Results . Diagnostic Findings . Abdomen/Pelvis CT 06/10/25 21:55 Exam(s): CT ABDOMEN + PELVIS With Contrast IV Amt: 93 ML OPTIRAY 320 EXAM: CT Abdomen and Pelvis With Intravenous Contrast CLINICAL HISTORY: Reason for exam: fall, pain. TECHNIQUE: Axial computed tomography images of the abdomen and pelvis with intravenous contrast. CTDI is 37.87 mGy and DLP is 624.41 mGy-cm. Automated exposure control was utilized for the study. A dose lowering technique was utilized adhering to the principles of ALARA. CONTRAST: Patient received 93 ML OPTIRAY 320 of IV contrast COMPARISON: 05/30/2024 FINDINGS: Lung bases: Unremarkable. No mass. No consolidation. Mediastinum: Moderate-size esophageal hiatal hernia. ABDOMEN: Liver: Unremarkable. No mass. Gallbladder and bile ducts: Unremarkable. No calcified stones. No ductal dilation. Pancreas: Unremarkable. No mass. No ductal dilation. Spleen: Unremarkable. No splenomegaly. Adrenals: Unremarkable. No mass. Kidneys and ureters: Simple 3 cm right renal cysts. No follow-up of these simple cysts is necessary. No hydronephrosis. Stomach and bowel: large amount of stool within the colon and rectum. No mucosal thickening. PELVIS: Appendix: No findings to suggest acute appendicitis. Bladder: Gonsales catheter within the urinary bladder. Reproductive: Unremarkable as visualized. ABDOMEN and PELVIS: Intraperitoneal space: Unremarkable. No free air. No significant fluid collection. Bones/joints: Comminuted displaced intertrochanteric left hip fracture. Postop changes ORIF right femoral fracture. Nondisplaced right superior pubic ramus fracture. Healing left inferior pubic ramus fracture. No dislocation. Soft tissues: Unremarkable. Vasculature: Unremarkable. No abdominal aortic aneurysm. Lymph nodes: Unremarkable. No enlarged lymph nodes. IMPRESSION: Comminuted displaced intertrochanteric left hip fracture. Nondisplaced right superior pubic ramus fracture and healing left inferior pubic ramus fracture Electronically signed by: Mark Camarena MD 06/11/25 00:[address] 06/10/25 21:55 Exam(s): CT C SPINE EXAM: CT Cervical Spine Without Intravenous Contrast CLINICAL HISTORY: Reason for exam: fall, pain. TECHNIQUE: Axial computed tomography images of the cervical spine without intravenous contrast. CTDI is 37.87 mGy and DLP is 624.41 mGy-cm. Automated exposure control was utilized for the study. A dose lowering technique was utilized adhering to the principles of ALARA. COMPARISON: No relevant prior studies available. FINDINGS: Vertebrae: Reversal of normal cervical curvature centered C4-C5. No acute fracture. Discs/spinal canal/neural foramina: No acute findings. No spinal canal stenosis. Soft tissues: Unremarkable. IMPRESSION: No acute findings in the cervical spine. Electronically signed by: Mark Camarena MD 06/11/25 00:[address] 06/10/25 21:55 Exam(s): CT CHEST With Contrast IV Amt: 93 ML OPTIRAY 320 EXAM: CT Chest With Intravenous Contrast CLINICAL HISTORY: Reason for exam: fall, pain. TECHNIQUE: Axial computed tomography images of the chest with intravenous contrast. CTDI is 37.87 mGy and DLP is 624.41 mGy-cm. Automated exposure control was utilized for the study. A dose lowering technique was utilized adhering to the principles of ALARA. CONTRAST: Patient received 93 ML OPTIRAY 320 of IV contrast COMPARISON: No relevant prior studies available. FINDINGS: Lungs: Diffuse changes COPD. No mass. No consolidation. Pleural space: Unremarkable. No significant effusion. No pneumothorax. Heart: Unremarkable. No cardiomegaly. No significant pericardial effusion. No significant coronary artery calcifications. Mediastinum: Large esophageal hiatal hernia. Bones/joints: Unremarkable. No acute fracture. Soft tissues: Unremarkable. Vasculature: Unremarkable. No thoracic aortic aneurysm. Lymph nodes: Unremarkable. No enlarged lymph nodes. IMPRESSION: Large esophageal hiatal hernia. Electronically signed by: Mark Camarena MD 06/11/25 00:53 AM Elbow X-Ray 06/10/25 21:55 Exam(s): XR LEFT ELBOW, 3+ views EXAM: XR Left Elbow Complete, 3 or More Views CLINICAL HISTORY: Reason for exam: fall, pain. TECHNIQUE: Frontal, lateral and oblique views of the left elbow. COMPARISON: No relevant prior studies available. FINDINGS: Bones/joints: Acute nondisplaced mildly comminuted intra-articular fracture through the olecranon. No other fractures. No joint dislocation. Joint effusion suspected. Soft tissues: Posterior soft tissue swelling. IMPRESSION: Acute nondisplaced mildly comminuted intra-articular fracture through the olecranon. Electronically signed by: Michaelle Traore M.D. 06/11/25 03:[address] 06/10/25 21:55 Exam(s): CT HEAD Without Contrast EXAM: CT Head Without Intravenous Contrast CLINICAL HISTORY: Reason for exam: fall, HI. TECHNIQUE: Axial computed tomography images of the head/brain without intravenous contrast. CTDI is 37.87 mGy and DLP is 624.41 mGy-cm. Automated exposure control was utilized for the study. A dose lowering technique was utilized adhering to the principles of ALARA. COMPARISON: No relevant prior studies available. FINDINGS: Brain: Severe ischemic microangiopathy. Age-appropriate cerebral volume loss. No hemorrhage. Ventricles: Unremarkable. No ventriculomegaly. Bones/joints: Unremarkable. No acute fracture. Soft tissues: Unremarkable. Sinuses: Unremarkable as visualized. No acute sinusitis. Mastoid air cells: Unremarkable as visualized. No mastoid effusion. IMPRESSION: No acute findings in the head/brain. Electronically signed by: Mark Camarena MD 06/11/25 00:51 AM Hip/Pelvis X-Ray 06/10/25 21:57 Exam(s): XR HIP + PELVIS, 1 view EXAM: XR Left Hip With Pelvis When Performed, 2 or 3 Views CLINICAL HISTORY: Reason for exam: fall, pain. TECHNIQUE: Two or three views of the left hip with pelvis when performed. COMPARISON: No relevant prior studies available. FINDINGS: Bones/joints: Acute mildly displaced intertrochanteric fracture of the left femur. Prior ORIF of the right femur for intertrochanteric fracture. No dislocation. Osteopenia. Soft tissues: Unremarkable. IMPRESSION: Acute mildly displaced intertrochanteric fracture of the left femur. Electronically signed by: Michaelle Traore M.D. 06/11/25 03:04 AM PG Care Time/CCT Total # of Minutes Spent Total Time Spent with Patient: Total time spent is greater than 50% in coordination of care (as documented) at patient's floor/unit and/or counseling patient: [place] [address] IN/OBS CONSULT LVL 5,80M Patient Type New History Expanded Problem Focused Exam Expanded Problem Focused Medical Decision Making High Complexity Diagnoses Fracture of right superior pubic ramus S32.511A Intertrochanteric fracture of left femur S72.142A Closed fracture of left olecranon process S52.022A
--- NOTE | 2025-06-11 08:56 | History & Physical Bridge Note ---
Date of Service June 11, 2025 History & Physical Bridge Note I have examined the patient, reviewed the History & Physical and in the interval since the performance of the History & Physical I have noted the following changes of clinical significance: no changes noted
[2025-06-11] MEDS ORDERED: BECLOMETHASONE DIP HFA 80 MCG 10.6 GM INH INH SCH (09:00)
[2025-06-11] MEDS: TRANEXAMIC ACID / 0.7% NACL 1,000 MG/100 ML BAG IV ONE (09:05)
[2025-06-11] MEDS ORDERED: WATER, STERILE FOR INJ 10 ML VIAL ONE (09:31)
[2025-06-11] MEDS: BUPIVACAINE/EPINEPHRINE 0.5% MPF 1:200,000 30 ML VIAL ONE (09:50)
[2025-06-11] MEDS ORDERED: SUGAMMADEX SODIUM 200 MG/2 ML VIAL IV ONE (09:50)
[2025-06-11] MEDS: TRANEXAMIC ACID / 0.7% NACL 1000MG/100ML BAG IV ONE (09:51)
--- NOTE | 2025-06-11 10:19 | Operative Report ---
PG Post Operative Report Pre & Post Diagnosis Operation Date: 06/11/25 09:50 Pre-Op Diagnosis: Intertrochanteric fracture of left femur Post-Op Diagnosis: Intertrochanteric fracture of left femur I identified the patient and participated in the time-out.: Yes Procedure Operation Date: 06/11/25 09:50 Actual Procedures p Left Femur Trochanteric Nail(Left) - Pedro Ayala MD Surgeon Pedro Ayala MD Oil Well Logger Gagandeep Rose PA-C Estimated Blood Loss 100 Findings Consistent with Post-Op Diagnosis Specimens None Anesthesia Type General Complications none Disposition Accompanied Patient To Recovery: No Indications The patient is an 89-year-old female with underlying dementia who sustained mechanical fall. She was brought to emergency room where x-rays revealed a intertrochanteric hip fracture on the left side as well as a left nondisplaced comminuted olecranon fracture. The patient was admitted by the medicine service, medically optimized and indicated for surgical repair. Description of Procedure Operative implants consist of: 1 Synthes left 360 mm x 11 mm long trochanteric nail. 2. 95 mm helical blade. 3. 44 mm x 5.0 mm distal interlocking screw. The patient was taken to the op room, identified, placed on the operating table in supine position. All contact areas were appropriately padded. IV antibiotics were provided by anesthesia team. General anesthetic was implemented. Patient also got 1 g of tranexamic acid. She was then transferred to the fracture table. The left leg was placed in boot traction of the right leg was placed in a well-leg zhu. Applied some longitudinal traction to the foot and internally rotated the foot so the kneecap pointed the ceiling. Some x-rays were obtained and the fracture was anatomically aligned. The left hip and leg were then scrubbed with Hibiclens, prepped with ChloraPrep and draped in usual sterile fashion. A curvilinear incision was made just proximal to the tip of the trochanter on AP and lateral films. It was made down to the gluteal fascia. The gluteal fascia was incised longitudinally in line with skin incision. A guidewire was placed just on the lateral tip of the trochanter and in line with the IM canal on the AP and lateral films. Was advanced on the IM canal. Was verified fluoroscopically and then overreamed with a large reamer. The guidewire was then removed and exchanged for a ball-tipped guidewire which was placed down the IM canal. Nail length was measured and a 360 mm nail was selected. I Plast the 12.5 mm reamer over the guidewire onetime and it passed quite easily. We then placed a left 360 mm x 11 mm long trochanteric nail over the guidewire and the guidewire was removed. We tapped this into position. A stab incision was made in the lateral aiming arm was advanced to the lateral aspect of femur. Guidewire was placed in the central aspect of the femoral head neck on both the AP and lateral planes. We measured and a 95 mm helical blade was selected. The cortical drill and the triple reamer were then used to create the path for the helical blade. The helical blade was placed. It was then tapped into position and then the proximal setscrew was tightened and backed off half a turn. Some final x-rays were obtained. Attention drawn toward distal interlocking. Using a perfect clark's point technique the distal interlocking screw was placed. Stab incision was made. The drill was used in the 44 mm x 5.0 mm distal locking screw was placed in a dynamic fashion. Some final x-rays were obtained. Attention drawn toward closing. All wounds were irrigated extensively. We did inject locally with 30 cc of half percent Marcaine with epinephrine. The gluteal fascia was then closed with #1 Vicryl suture in a running fashion for the subcutaneous tissues were closed with 2 layers of the deep layer #1 Vicryl suture in the subcutaneous tissues with 2-0 Dexon suture in a buried interrupted fashion. Skin was closed skin petr. The leg was then cleaned and dried and a sterile dressing with Xeroform, 4 fours, ABD pad and Medipore tape was applied. The patient was then taken off the fracture table, brought out of general incision and transferred to the recovery room in stable condition. The patient tolerated procedure well and there were no complications. Gagandeep Rose, my physician nurses assistant, was present for the entire procedure. His assistance was required for proper patient positioning, prepping and draping, surgical exposure, retraction, performed the technical details of the operation, placement of the implants, closure of the incision site, and placement of postoperative sterile bandage. I attest to the content of the Intraoperative Record and any orders documented therein. Any exceptions are noted below.
[2025-06-11] MEDS ORDERED: Nursing to Pharmacy Communication SCH (11:00)
[2025-06-11] MEDS: cefTRIAXone SODIUM 2,000 MG/50 ML BAG IV STA (11:13)
[2025-06-11] MEDS: NSS + 20MEQ KCL 20 MEQ/1,000 ML BAG IV SCH (11:13)
--- NOTE | 2025-06-11 11:13 | Anesthesiology Progress Note ---
Date of Service June 11, 2025 Anesthesia Post Procedure Vital Signs Vital Signs: Temp Pulse Pulse Resp BP BP Pulse Ox 06/11/25 10:50 76 16 152/88 H 99 06/11/25 10:40 36.4 C L 77 15 155/81 H 99 06/11/25 10:30 75 15 155/78 H 100 06/11/25 10:20 68 14 156/79 H 100 06/11/25 10:12 36.3 C L 68 14 123/68 100 06/11/25 08:09 36.4 C L 68 20 171/79 H 100 06/11/25 08:09 37.5 C 69 18 182/93 H 98 06/11/25 07:45 69 06/11/25 07:45 06/11/25 07:17 36.4 C L 68 16 171/79 H 100 06/11/25 03:20 06/11/25 03:20 36.9 C 71 17 155/78 H 94 06/11/25 03:15 72 06/11/25 02:50 71 18 94 06/11/25 02:00 74 16 155/83 H 92 06/11/25 01:51 72 06/11/25 00:00 73 18 175/92 H 97 06/10/25 21:56 64 18 95 06/10/25 21:52 64 06/10/25 21:14 36.8 C 64 17 187/98 H 92 O2 Del Method O2 Flow Rate 06/11/25 10:50 Nasal Cannula 2 06/11/25 10:40 Nasal Cannula 2 06/11/25 10:30 Oxymask 4 06/11/25 10:20 Oxymask 7 06/11/25 10:12 Oxymask 7 06/11/25 08:09 Nasal Cannula 2 06/11/25 08:09 Nasal Cannula 2 06/11/25 07:45 06/11/25 07:45 Nasal Cannula 2 06/11/25 07:17 Nasal Cannula 2 06/11/25 03:20 Nasal Cannula 2 06/11/25 03:20 Nasal Cannula 2 06/11/25 03:15 06/11/25 02:50 Nasal Cannula 2 06/11/25 02:00 Nasal Cannula 2 06/11/25 01:51 06/11/25 00:00 Nasal Cannula 2 06/10/25 21:56 Room Air 06/10/25 21:52 06/10/25 21:14 Room Air Transfer of Care Handoff Completed per policy Notes Mental Status: alert / awake / arousable and participated in evaluation Patient Amnestic to Procedure: Yes Nausea / Vomiting: adequately controlled Pain: adequately controlled Airway Patency, RR, SpO2: stable & adequate BP & HR: stable & adequate Hydration State: stable & adequate Anesthetic Complications: no major complications apparent and Pt Satisfied with anesthetic care
--- NOTE | 2025-06-11 11:28 | Hospitalist Progress Note ---
Date of Service June 11, 2025 Assessment & Plan (1) Closed left hip fracture: Plan: Due to mechanical fall at home. Appreciate orthopedic consultation and recommendations. She underwent open reduction internal fixation with nailing procedure today, June 11. (2) Fracture of right superior pubic ramus: Plan: Pain control measures. She will eventually be able to ambulate as tolerated (3) Left elbow fracture: Plan: Currently in a sling. Pain control measures. Orthopedic management (4) Hypokalemia: Plan: Mild on admission. Now corrected to 3.8. Will follow (5) Acute hypoxic respiratory failure: Plan: Transient and now resolved. Probably related to narcotic therapy administered in the ED. Chest x-ray is clear. (6) Asymptomatic bacteriuria: Plan: Suspected UTI present on admission. Rocephin started, day 1. Await urine culture results Plan Eventual rehab placement at the time of discharge. Admission and Anticipated Discharge Date Admission Date: June 11, 2025 Subjective The patient was seen immediately after the orthopedic surgery this morning. She is somewhat lethargic from the anesthesia. Potassium has been corrected to 3.8. Rocephin has been started for presumed UTI. We cannot state this is simply colonization in the face of surgical intervention with nailing of the left hip fracture. IV fluids have been switched to accommodate the antibiotic. Review of Systems 2 Review of Systems: The patient is somewhat lethargic from anesthesia and cannot reliably answer any questions related to review of systems at this time Physical Exam 2 Physical Exam: General-postoperative lethargy. No fever HEENT-head atraumatic and normocephalic, pupils equal and reactive to light, extraocular muscles intact Neck-no lymphadenopathy or thyromegaly, trachea midline Chest-clear to auscultation. No rales, wheezing or rhonchi Cardiac-regular rate and rhythm, normal S1 and S2 Abdomen-normal bowel sounds, no hepatosplenomegaly Extremities-no cyanosis, clubbing, or edema. Left hip surgical incision is unremarkable. She does have some bruising and swelling below the right elbow antecubital fossa Neuro-cranial nerves II through XII intact, motor and sensory function within normal limits, strength symmetrical, no focal deficits Psych-lethargic postoperatively. Cannot assess Results & Data Results & Data Vital Signs (Past 12 Hours) Vital Signs Temp Pulse Pulse Resp BP Pulse Ox O2 Del Method 06/11/25 10:50 76 16 152/88 H 99 Nasal Cannula 06/11/25 10:40 36.4 C L 77 15 155/81 H 99 Nasal Cannula 06/11/25 10:30 75 15 155/78 H 100 Oxymask 06/11/25 10:20 68 14 156/79 H 100 Oxymask 06/11/25 10:12 36.3 C L 68 14 123/68 100 Oxymask 06/11/25 08:09 36.4 C L 68 20 171/79 H 100 Nasal Cannula 06/11/25 08:09 37.5 C 69 18 182/93 H 98 Nasal Cannula 06/11/25 07:45 69 06/11/25 07:45 Nasal Cannula 06/11/25 07:17 36.4 C L 68 16 171/79 H 100 Nasal Cannula 06/11/25 03:20 Nasal Cannula 06/11/25 03:20 36.9 C 71 17 155/78 H 94 Nasal Cannula 06/11/25 03:15 72 06/11/25 02:50 71 18 94 Nasal Cannula 06/11/25 02:00 74 16 155/83 H 92 Nasal Cannula 06/11/25 01:51 72 06/11/25 00:00 73 18 175/92 H 97 Nasal Cannula O2 Flow Rate 06/11/25 10:50 2 06/11/25 10:40 2 06/11/25 10:30 4 06/11/25 10:20 7 06/11/25 10:12 7 06/11/25 08:09 2 06/11/25 08:09 2 06/11/25 07:45 06/11/25 07:45 2 06/11/25 07:17 2 06/11/25 03:20 2 06/11/25 03:20 2 06/11/25 03:15 06/11/25 02:50 2 06/11/25 02:00 2 06/11/25 01:51 06/11/25 00:00 2 Laboratory Results 06/11/25 07:20 06/11/25 07:20 PG Care Time/CCT Total # of Minutes Spent Total Time Spent with Patient: Total time spent is greater than 50% in coordination of care (as documented) at patient's floor/unit and/or counseling patient: Coding Level of Care Code 98803 SUB INP/OBS CARE 3/50MIN Diagnoses Closed left hip fracture S72.002A Fracture of right superior pubic ramus S32.511A Left elbow fracture S42.402A Hypokalemia E87.6 Acute hypoxic respiratory failure J96.01 Asymptomatic bacteriuria R82.71
--- NOTE | 2025-06-11 13:44 | Electrocardiogram Report ---
Test Reason : Blood Pressure : */* mmHG Vent. Rate : 65 BPM Atrial Rate : 65 BPM P-R Int : 166 ms QRS Dur : 88 ms QT Int : 468 ms P-R-T Axes : 62 37 3 degrees QTcB Int : 486 ms Normal sinus rhythm Nonspecific ST and T wave abnormality Abnormal ECG When compared with ECG of 30-May-2024 17:06, Nonspecific T wave abnormality, worse in Inferior leads Nonspecific T wave abnormality, improved in Lateral leads Confirmed by Hector Johnson ([id number] on 06/11/2025 1:44:19 PM Referred By: [facility] Confirmed By: Hector Johnson
[2025-06-11] MEDS: SODIUM CHLORIDE 0.9% 250 ML IV ONE (14:34)
[2025-06-11] MEDS: FLUTICASONE PROPIONATE NA SPR 16 GM BTL PRN (14:36)
[2025-06-11] MEDS: FLUTICASONE FUROATE 200MCG 14 PUFFS/INHALER INH SCH (14:37)
[2025-06-11] MEDS: OXYBUTYNIN CHLORIDE XL 5 MG TABCR PO SCH (14:37)
[2025-06-11] MEDS: LIDOCAINE 5% 1 PATCH TD SCH (14:37)
--- NOTE | 2025-06-11 15:13 | Fluoroscopy Report ---
INTRAOPERATIVE RADIOGRAPHS CLINICAL HISTORY: Open reduction and internal fixation of a left femoral fracture. Fluoro time: 40 seconds Ka,r: 6.66 mGy FINDINGS: 4 spot fluoroscopic views of the left femur are correlated with x-rays dated 06/10/2025. In tertrochanteric and intramedullary nails have been placed transfixing a fracture of the left proximal femur. Near-anatomic alignment is restored. A single cortical lag screw transfixes the distal end of the nail. The orthopedic hardware appears intact. IMPRESSION: Intraoperative images from open reduction and internal fixation of a left femoral fractur e as above. Electronically signed by: Fox Stratton M.D. 06/11/2025 3:11 PM
[2025-06-11] MEDS: ASPIRIN 81 MG ECTAB PO SCH (19:54)
[2025-06-11] MEDS: PRAVASTATIN SOD 40 MG TAB PO SCH (19:54)
[2025-06-11] MEDS: REMOVE LIDODERM PATCH SCH (19:55)
[2025-06-11] MEDS ORDERED: PHA DELIRIUM CONSULT PRN (23:45)
[2025-06-12 08:08] LABS: Anion Gap 3.0 (3-11); Blood Urea Nitrogen 12.0 mg/dl (6-23); Calcium 8.0 mg/dl (8.6-10.3); Carbon Dioxide 28.0 mmol/L (21-32); Chloride 107.0 mmol/L (98-107); Creatinine Clr Calc Pharmacy 73.3 ml/min; Glucose 143.0 mg/dl (70-99(Fasting)); Magnesium 2.1 mg/dl (1.7-2.4); Potassium 4.2 mmol/L (3.5-5.1); Sodium 138.0 mmol/L (136-145)
[2025-06-12 08:27] LABS: Hematocrit (blood only) 21.0 % (37.0-47.0); Hemoglobin 6.8 g/dL (12.0-16.0); Mean Corpuscular Hemoglobin 30.8 pg (25.0-34.0); Mean Corpuscular Volume 95.0 fL (80.0-100.0); Platelet Count 164 K/uL (130-400); RDW Standard Deviation 47.8 fL (36.4-46.3); Red Blood Count 2.21 M/uL (4.20-5.40); White Blood Count 10.43 K/ul (4.8-10.8)
[2025-06-12 08:28] LABS: Immature Granulocytes # (auto) 0.09 K/uL (0.01-0.20); Immature Granulocytes % (auto) 0.9 %; Polychromasia 1+
[2025-06-12] MEDS: HYDROmorphone INJ 1 MG/ML SYRINGE IV PRN (08:30)
[2025-06-12] MEDS ORDERED: SODIUM CHLORIDE 0.9% 100 ML IV PRN (08:34)
[2025-06-12] MEDS: BUMETANIDE 1 MG TAB PO SCH (10:27)
[2025-06-12 11:21] LABS: Prealbumin 10.2 mg/dl (20-40)
--- NOTE | 2025-06-12 11:35 | Hospitalist Progress Note ---
Date of Service June 12, 2025 Assessment & Plan (1) Closed left hip fracture: Plan: Due to mechanical fall at home. Appreciate orthopedic consultation and recommendations. She underwent open reduction internal fixation with nailing procedure on June 11. Postoperative day #1. Orthopedic management (2) Fracture of right superior pubic ramus: Plan: Pain control measures. She will eventually be able to ambulate as tolerated (3) Left elbow fracture: Plan: Currently in a sling. Pain control measures. Orthopedic management (4) Hypokalemia: Plan: Mild on admission. Now corrected. (5) Acute hypoxic respiratory failure: Plan: Transient and now resolved. Probably related to narcotic therapy administered in the ED. Chest x-ray is clear. (6) Asymptomatic bacteriuria: Plan: Suspected UTI present on admission. Rocephin started, day 2. Await urine culture results (7) Acute blood loss anemia: Plan: Hemoglobin is 6.8 this morning, June 12. No overt GI bleeding. 1 unit packed red blood cells ordered to be transfused. Will recheck H&H later today. (8) Toxic encephalopathy: Plan: Transient due to narcotics administered in the ED. Now resolved. Plan Eventual rehab placement at the time of discharge. Admission and Anticipated Discharge Date Admission Date: June 11, 2025 Subjective Alert and oriented. No distress. Hemoglobin has fallen to 6.8 postoperatively and she will receive 1 unit packed red blood cells today, June 12. Will recheck H&H later today. She remains on intravenous Rocephin, day 2. Urine culture remains pending. Potassium has been corrected to 4.2. Bumex has been restarted. Postoperative day #1 after open reduction internal fixation with nailing of the left hip fracture. Unfortunately she also has a pelvic ramus fracture and left elbow fracture and will need placement at discharge. Review of Systems 2 Review of Systems: Constitutionalno fever or chills ENTno blurred vision, no double vision, no epistaxis, no sore throat Respiratoryno cough, no wheezing, no shortness of breath Cardiacno palpitations, no chest pain, no syncope Shakria nausea, vomiting, diarrhea, melena, hematochezia GUno urinary retention, no urinary incontinence, no dysuria, no hematuria Musculoskeletalleft arm in a sling. Limited range of motion left leg due to recent left hip surgery for the fracture. Skinno bruising, no rashes, no pruritus Neurono isolated weakness, no paresthesia Psychno depression, no anxiety Physical Exam 2 Physical Exam: General-alert and oriented. No fever HEENT-head atraumatic and normocephalic, pupils equal and reactive to light, extraocular muscles intact Neck-no lymphadenopathy or thyromegaly, trachea midline Chest-clear to auscultation. No rales, wheezing or rhonchi Cardiac-regular rate and rhythm, normal S1 and S2 Abdomen-normal bowel sounds, no hepatosplenomegaly Extremities-no cyanosis, clubbing, or edema. Left hip surgical incision is unremarkable. She does have some bruising and swelling below the right elbow antecubital fossa Neuro-cranial nerves II through XII intact, motor and sensory function within normal limits, strength symmetrical, no focal deficits Psych-normal mood. Results & Data Results & Data Vital Signs (Past 12 Hours) Vital Signs Temp Pulse Pulse Resp BP BP Pulse Ox 06/12/25 10:56 36.8 C 79 16 119/74 06/12/25 10:41 36.8 C 82 16 103/66 06/12/25 10:25 36.8 C 85 18 100/64 94 06/12/25 08:37 36.8 C 76 17 121/78 95 06/12/25 08:35 06/12/25 05:58 78 06/12/25 03:17 06/12/25 03:10 06/12/25 02:42 37 C 86 16 108/66 94 Pulse Ox O2 Del Method O2 Del Method O2 Flow Rate O2 Flow Rate 06/12/25 10:56 06/12/25 10:41 06/12/25 10:25 2 06/12/25 08:37 Room Air 06/12/25 08:35 Nasal Cannula 2 06/12/25 05:58 06/12/25 03:17 96 Nasal Cannula 2 06/12/25 03:10 96 Nasal Cannula 2 06/12/25 02:42 Room Air, Nasal Cannula 2 Laboratory Results 06/12/25 07:16 06/12/25 07:16 PG Care Time/CCT Total # of Minutes Spent Total Time Spent with Patient: Total time spent is greater than 50% in coordination of care (as documented) at patient's floor/unit and/or counseling patient: Coding Level of Care Code 05413 SUB INP/OBS CARE 3/50MIN Diagnoses Closed left hip fracture S72.002A Fracture of right superior pubic ramus S32.511A Left elbow fracture S42.402A Hypokalemia E87.6 Acute hypoxic respiratory failure J96.01 Asymptomatic bacteriuria R82.71 Acute blood loss anemia D62 Toxic encephalopathy G92.9
[2025-06-12] MEDS: ACETAMINOPHEN 1,000 MG/100 ML VIAL IV PRN (13:33)
[2025-06-12] MEDS: MoRPHine SULFATE 2 MG/ML CARP IV PRN (13:34)
--- NOTE | 2025-06-12 13:45 | Orthopedic Progress Note ---
Date of Service June 12, 2025 Assessment & Plan (1) Intertrochanteric fracture of left femur: Plan: POD #1 s/p ORIF L hip fracture WBAT with platform walker. Continue pain control Acute anemia blood loss, being transfused. PT/OT D/c planning. Continue care per primary service. Dr. Blanco covering for Dr. Ayala Present on Admission?: Yes (2) Fracture of right superior pubic ramus: Plan: Continue as above Present on Admission?: Yes (3) Closed fracture of left olecranon process: Plan: See above. Continue with splint Present on Admission?: Yes Admission and Anticipated Discharge Date Admission Date: June 11, 2025 Subjective No complaints Physical Exam Physical Exam: LUE: Sensation to light touch intact distally. BCR < 2 sec. Motor median, ulnar, radial, AIN, PIN intact. + swelling digits. Splint in good repair. LLE: Dressings clean, dry, intact. Able to wiggle toes. BCR < 2 sec. Sensation intact distally. Calf soft & non-tender. Results & Data Vital Signs (Past 12 Hours) Vital Signs Temp Pulse Pulse Resp BP BP Pulse Ox 06/12/25 13:26 37.2 C 85 16 112/69 97 06/12/25 12:26 36.8 C 114 H 16 117/78 96 06/12/25 11:26 36.8 C 79 16 128/73 93 06/12/25 10:56 36.8 C 79 16 119/74 06/12/25 10:41 36.8 C 82 16 103/66 06/12/25 10:25 36.8 C 85 18 100/64 94 06/12/25 08:37 36.8 C 76 17 121/78 95 06/12/25 08:35 06/12/25 05:58 78 06/12/25 03:17 06/12/25 03:10 06/12/25 02:42 37 C 86 16 108/66 94 Pulse Ox O2 Del Method O2 Del Method O2 Flow Rate O2 Flow Rate 06/12/25 13:26 2 06/12/25 12:26 2 06/12/25 11:26 2 06/12/25 10:56 06/12/25 10:41 06/12/25 10:25 2 06/12/25 08:37 Room Air 06/12/25 08:35 Nasal Cannula 2 12/27/25 05:58 06/12/25 03:17 96 Nasal Cannula 2 06/12/25 03:10 96 Nasal Cannula 2 06/12/25 02:42 Room Air, Nasal Cannula 2 Laboratory Results Laboratory Results WBC 10.43 K/ul (4.8-10.8) 06/12/25 07:16 RBC 2.21 M/uL (4.20-5.40) L 06/12/25 07:16 Hgb 6.8 g/dL (12.0-16.0) L* 06/12/25 07:16 Hct 21.0 % (37.0-47.0) L 06/12/25 07:16 MCV 95.0 fL (80.0-100.0) 06/12/25 07:16 MCH 30.8 pg (25.0-34.0) 06/12/25 07:16 MCHC 32.4 g/dL (32.0-36.0) 06/12/25 07:16 RDW Std Deviation 47.8 fL (36.4-46.3) H 06/12/25 07:16 RDW Coeff of Monico 13.7 % (11.5-14.5) 06/12/25 07:16 Plt Count 164 K/uL (130-400) 06/12/25 07:16 MPV 10.1 fL (9.4-12.4) 06/12/25 07:16 Immature Gran % (Auto) 0.9 % 06/12/25 07:16 Neut % (Auto) 73.9 % 06/12/25 07:16 Lymph % (Auto) 5.8 % 06/12/25 07:16 [place] % (Auto) 19.3 % 06/12/25 07:16 Eos % (Auto) 0.0 % 06/12/25 07:16 Baso % (Auto) 0.1 % 06/12/25 07:16 Neut # (Auto) 7.72 K/uL (1.40-6.50) H 06/12/25 07:16 Lymph # (Auto) 0.60 K/uL (1.20-3.40) L 06/12/25 07:16 [place] # (Auto) 2.01 K/uL (0.11-0.59) H 06/12/25 07:16 Eos # (Auto) 0.00 K/uL (0.00-0.50) 06/12/25 07:16 Baso # (Auto) 0.01 K/uL (0.00-0.20) 06/12/25 07:16 Immature Gran # (Auto) 0.09 K/uL (0.01-0.20) 06/12/25 07:16 Hypersegmented Neuts 1+ 06/10/25 21:20 Polychromasia 1+ 06/12/25 07:16 Anisocytosis Present 06/10/25 21:20 Acanthocytes (Spur) 1+ 06/10/25 21:20 PT 10.7 Seconds (9.0-12.0) 06/10/25 21:20 INR 1.0 (0.9-1.1) 06/10/25 21:20 APTT 24 Seconds (21-31) 06/10/25 21:20 PTT Ratio 0.9 06/10/25 21:20 Sodium 138 mmol/L (136-145) 06/12/25 07:16 Potassium 4.2 mmol/L (3.5-5.1) 06/12/25 07:16 Chloride 107 mmol/L (98-107) 06/12/25 07:16 Carbon Dioxide 28 mmol/L (21-32) 06/12/25 07:16 Anion Gap 3 (3-11) 06/12/25 07:16 BUN 12 mg/dl (6-23) 06/12/25 07:16 Creatinine 0.45 mg/dl (0.6-1.2) L 06/12/25 07:16 Est Cr Clr Drug Dosing 73.3 ml/min 06/12/25 07:16 eGFR 92.48 06/12/25 07:16 BUN/Creatinine Ratio 26.7 (10-20) H 06/12/25 07:16 Glucose 143 mg/dl (70-99(Fasting)) H 06/12/25 07:16 Calcium 8.0 mg/dl (8.6-10.3) L 06/12/25 07:16 Magnesium 2.1 mg/dl (1.7-2.4) 06/12/25 07:16 Total Bilirubin 0.4 mg/dl (0.2-1.0) 06/10/25 21:20 AST 20 U/L (13-39) 06/10/25 23:10 ALT 14 U/L (7-52) 06/10/25 21:20 Alkaline Phosphatase 80 U/L (34-104) 06/10/25 21:20 Total Creatine Kinase 93 U/L (26-192) 06/10/25 21:20 Total Protein 6.8 gm/dl (6.0-8.3) 06/10/25 21:20 Albumin 3.9 gm/dl (3.4-5.0) 06/10/25 21:20 Globulin 2.9 gm/dl (2.5-4.0) 06/10/25 21:20 Albumin/Globulin Ratio 1.3 (0.9-2) 06/10/25 21: Prealbumin 10.2 mg/dl (20-40) L 06/12/25 07:16 25-OH Vitamin D Total 39.4 ng/ml (30-100) 06/12/25 07:16 Urine Color Yellow 06/10/25: Urine Appearance Cloudy (Clear) A 06/10/25: Urine pH 7.5 (4.5-7.5) 06/10/25: Ur Specific [place] 1.020 (1.000-1.030) 06/10/25: Urine Protein Trace (Negative) H 06/10/25: Urine Glucose (UA) Negative (Negative) 06/10/25: Urine Ketones 1+ (Negative) H 06/10/25: Urine Blood Negative (Negative) 06/10/25 Urine Nitrite Negative (Negative) 06/10/25: Urine Bilirubin Negative (Negative) 06/10/25: Urine Urobilinogen Negative (Negative) 06/10/25: Ur Leukocyte Esterase 1+ (Negative) H 06/10/25: Urine WBC (Auto) 0-5 /hpf (0-5) 06/10/25 22: Urine RBC (Auto) 3-5 /hpf (0-2) H 06/10/25 22: U Hyaline Cast (Auto) 0-2 /lpf (0-2) 06/10/25 22: U Epithel Cells (Auto) 0-2 /hpf (0-2) 06/10/25 22:29 Urine Bacteria (Auto) 4+ (None Seen) H 06/10/25 22:29 Urine Comment 06/10/25 22:29 Nasal Screen MRSA (PCR) Negative (Negative) 06/11/25 02:20 Blood Type A Positive 06/11/25 07:20 Blood Type Recheck A Positive 06/12/25 07:16 Antibody Screen NEGATIVE 06/11/25 07:20 Crossmatch See Detail 06/11/25 07:20 Impressions Abdomen/Pelvis CT 06/10/25 21:55 Exam(s): CT ABDOMEN + PELVIS With Contrast IV Amt: 93 ML OPTIRAY 320 EXAM: CT Abdomen and Pelvis With Intravenous Contrast CLINICAL HISTORY: Reason for exam: fall, pain. TECHNIQUE: Axial computed tomography images of the abdomen and pelvis with intravenous contrast. CTDI is 37.87 mGy and DLP is 624.41 mGy-cm. Automated exposure control was utilized for the study. A dose lowering technique was utilized adhering to the principles of ALARA. CONTRAST: Patient received 93 ML OPTIRAY 320 of IV contrast COMPARISON: 05/30/2024 FINDINGS: Lung bases: Unremarkable. No mass. No consolidation. Mediastinum: Moderate-size esophageal hiatal hernia. ABDOMEN: Liver: Unremarkable. No mass. Gallbladder and bile ducts: Unremarkable. No calcified stones. No ductal dilation. Pancreas: Unremarkable. No mass. No ductal dilation. Spleen: Unremarkable. No splenomegaly. Adrenals: Unremarkable. No mass. Kidneys and ureters: Simple 3 cm right renal cysts. No follow-up of these simple cysts is necessary. No hydronephrosis. Stomach and bowel: large amount of stool within the colon and rectum. No mucosal thickening. PELVIS: Appendix: No findings to suggest acute appendicitis. Bladder: Gonsales catheter within the urinary bladder. Reproductive: Unremarkable as visualized. ABDOMEN and PELVIS: Intraperitoneal space: Unremarkable. No free air. No significant fluid collection. Bones/joints: Comminuted displaced intertrochanteric left hip fracture. Postop changes ORIF right femoral fracture. Nondisplaced right superior pubic ramus fracture. Healing left inferior pubic ramus fracture. No dislocation. Soft tissues: Unremarkable. Vasculature: Unremarkable. No abdominal aortic aneurysm. Lymph nodes: Unremarkable. No enlarged lymph nodes. IMPRESSION: Comminuted displaced intertrochanteric left hip fracture. Nondisplaced right superior pubic ramus fracture and healing left inferior pubic ramus fracture Electronically signed by: Mark Camarena MD 06/11/25 00:[address] 06/10/25 21:55 Exam(s): CT C SPINE EXAM: CT Cervical Spine Without Intravenous Contrast CLINICAL HISTORY: Reason for exam: fall, pain. TECHNIQUE: Axial computed tomography images of the cervical spine without intravenous contrast. CTDI is 37.87 mGy and DLP is 624.41 mGy-cm. Automated exposure control was utilized for the study. A dose lowering technique was utilized adhering to the principles of ALARA. COMPARISON: No relevant prior studies available. FINDINGS: Vertebrae: Reversal of normal cervical curvature centered C4-C5. No acute fracture. Discs/spinal canal/neural foramina: No acute findings. No spinal canal stenosis. Soft tissues: Unremarkable. IMPRESSION: No acute findings in the cervical spine. Electronically signed by: Mark Camarena MD 06/11/25 00:[address] 06/10/25 21:55 Exam(s): CT CHEST With Contrast IV Amt: 93 ML OPTIRAY 320 EXAM: CT Chest With Intravenous Contrast CLINICAL HISTORY: Reason for exam: fall, pain. TECHNIQUE: Axial computed tomography images of the chest with intravenous contrast. CTDI is 37.87 mGy and DLP is 624.41 mGy-cm. Automated exposure control was utilized for the study. A dose lowering technique was utilized adhering to the principles of ALARA. CONTRAST: Patient received 93 ML OPTIRAY 320 of IV contrast COMPARISON: No relevant prior studies available. FINDINGS: Lungs: Diffuse changes COPD. No mass. No consolidation. Pleural space: Unremarkable. No significant effusion. No pneumothorax. Heart: Unremarkable. No cardiomegaly. No significant pericardial effusion. No significant coronary artery calcifications. Mediastinum: Large esophageal hiatal hernia. Bones/joints: Unremarkable. No acute fracture. Soft tissues: Unremarkable. Vasculature: Unremarkable. No thoracic aortic aneurysm. Lymph nodes: Unremarkable. No enlarged lymph nodes. IMPRESSION: Large esophageal hiatal hernia. Electronically signed by: Mark Camarena MD 06/11/25 00:53 AM Elbow X-Ray 06/10/25 21:55 Exam(s): XR LEFT ELBOW, 3+ views EXAM: XR Left Elbow Complete, 3 or More Views CLINICAL HISTORY: Reason for exam: fall, pain. TECHNIQUE: Frontal, lateral and oblique views of the left elbow. COMPARISON: No relevant prior studies available. FINDINGS: Bones/joints: Acute nondisplaced mildly comminuted intra-articular fracture through the olecranon. No other fractures. No joint dislocation. Joint effusion suspected. Soft tissues: Posterior soft tissue swelling. IMPRESSION: Acute nondisplaced mildly comminuted intra-articular fracture through the olecranon. Electronically signed by: Michaelle Traore M.D. 06/11/25 03:[address] 06/10/25 21:55 Exam(s): CT HEAD Without Contrast EXAM: CT Head Without Intravenous Contrast CLINICAL HISTORY: Reason for exam: fall, HI. TECHNIQUE: Axial computed tomography images of the head/brain without intravenous contrast. CTDI is 37.87 mGy and DLP is 624.41 mGy-cm. Automated exposure control was utilized for the study. A dose lowering technique was utilized adhering to the principles of ALARA. COMPARISON: No relevant prior studies available. FINDINGS: Brain: Severe ischemic microangiopathy. Age-appropriate cerebral volume loss. No hemorrhage. Ventricles: Unremarkable. No ventriculomegaly. Bones/joints: Unremarkable. No acute fracture. Soft tissues: Unremarkable. Sinuses: Unremarkable as visualized. No acute sinusitis. Mastoid air cells: Unremarkable as visualized. No mastoid effusion. IMPRESSION: No acute findings in the head/brain. Electronically signed by: Mark Camarena MD 06/11/25 00:51 AM Hip/Pelvis X-Ray 06/10/25 21:57 Exam(s): XR HIP + PELVIS, 1 view EXAM: XR Left Hip With Pelvis When Performed, 2 or 3 Views CLINICAL HISTORY: Reason for exam: fall, pain. TECHNIQUE: Two or three views of the left hip with pelvis when performed. COMPARISON: No relevant prior studies available. FINDINGS: Bones/joints: Acute mildly displaced intertrochanteric fracture of the left femur. Prior ORIF of the right femur for intertrochanteric fracture. No dislocation. Osteopenia. Soft tissues: Unremarkable. IMPRESSION: Acute mildly displaced intertrochanteric fracture of the left femur. Electronically signed by: Michaelle Traore M.D. 06/11/25 03:04 AM Femur X-Ray 06/11/25 00:00 INTRAOPERATIVE RADIOGRAPHS CLINICAL HISTORY: Open reduction and internal fixation of a left femoral fracture. Fluoro time: 40 seconds Ka,r: 6.66 mGy FINDINGS: 4 spot fluoroscopic views of the left femur are correlated with x-rays dated 06/10/2025. Intertrochanteric and intramedullary nails have been placed transfixing a fracture of the left proximal femur. Near-anatomic alignment is restored. A single cortical lag screw transfixes the distal end of the nail. The orthopedic hardware appears intact. IMPRESSION: Intraoperative images from open reduction and internal fixation of a left femoral fracture as above. Electronically signed by: Fox Stratton M.D. 06/11/2025 3:11 PM
[2025-06-12 14:35] LABS: Hematocrit (blood only) 24.6 % (37.0-47.0); Hemoglobin 8.2 g/dL (12.0-16.0)
[2025-06-12 19:51] LABS: Hematocrit (blood only) 23.0 % (37.0-47.0); Hemoglobin 7.7 g/dL (12.0-16.0)
[2025-06-13] MEDS ORDERED: PHA DELIRIUM CONSULT PRN ×2 (00:46→22:51)
[2025-06-13 07:34] LABS: Hematocrit (blood only) 22.3 % (37.0-47.0); Hemoglobin 7.3 g/dL (12.0-16.0); Immature Granulocytes # (auto) 0.11 K/uL (0.01-0.20); Immature Granulocytes % (auto) 1.1 %; Mean Corpuscular Hemoglobin 30.7 pg (25.0-34.0); Mean Corpuscular Volume 93.7 fL (80.0-100.0); Platelet Count 147 K/uL (130-400); RDW Standard Deviation 47.3 fL (36.4-46.3); Red Blood Count 2.38 M/uL (4.20-5.40); White Blood Count 10.13 K/ul (4.8-10.8)
[2025-06-13 08:03] LABS: Anion Gap 4.0 (3-11); Calcium 7.8 mg/dl (8.6-10.3); Carbon Dioxide 27.0 mmol/L (21-32); Chloride 107.0 mmol/L (98-107); Potassium 4.3 mmol/L (3.5-5.1); Sodium 138.0 mmol/L (136-145)
[2025-06-13 08:05] LABS: RBC Morphology Unremarkable
[2025-06-13 08:08] LABS: Blood Urea Nitrogen 12.0 mg/dl (6-23); Creatinine Clr Calc Pharmacy 93.5 ml/min; Glucose 131.0 mg/dl (70-99(Fasting))
--- NOTE | 2025-06-13 09:15 | Orthopedic Progress Note ---
Date of Service June 13, 2025 Assessment & Plan (1) Intertrochanteric fracture of left femur: Plan: POD #2 s/p ORIF L hip fracture WBAT with platform walker. Continue pain control Acute anemia blood loss, improved Hgb to 7.3 following being transfused. PT/OT D/C planning. Continue care per primary service. Follow up in Dr. Ayala's office in 2-[address] Blanco covering for Dr. Ayala over the weekend (2) Fracture of right superior pubic ramus: Plan: Continue as above (3) Closed fracture of left olecranon process: Plan: See above. Continue with splint Admission and Anticipated Discharge Date Admission Date: June 11, 2025 Subjective No complaints Physical Exam Physical Exam: LUE: Neurovascularly unchanged. + swelling digits, decreased. Splint in good repair, re-adjust daryn bandage distally. LLE: Dressings clean, dry, intact. Able to wiggle toes. BCR < 2 sec. Sensation intact distally. Calf soft & non-tender. Results & Data Vital Signs (Past 12 Hours) Vital Signs Temp Pulse Pulse Resp BP Pulse Ox Pulse Ox 06/13/25 07:54 37.6 C H 77 16 124/72 96 06/13/25 07:46 95 H 06/13/25 07:46 06/13/25 03:00 96 06/13/25 03:00 96 06/13/25 02:04 37.1 C 81 16 100/64 95 06/13/25 01:57 122/76 06/13/25 00:13 36.6 C 06/13/25 00:12 119/69 06/12/25 23:43 36.4 C L 89 16 91/57 L 92 06/12/25 23:00 96 06/12/25 22:14 87 O2 Del Method O2 Del Method O2 Flow Rate O2 Flow Rate 06/13/25 07:54 Nasal Cannula 2 06/13/25 07:46 06/13/25 07:46 Nasal Cannula 2 06/13/25 03:00 Nasal Cannula 2 06/13/25 03:00 Nasal Cannula 2 06/13/25 02:04 Nasal Cannula 2 06/13/25 01:57 06/13/25 00:13 06/13/25 00:12 06/12/25 23:43 Room Air 06/12/25 23:00 Nasal Cannula 2 06/12/25 22:14 Laboratory Results Laboratory Results WBC 10.13 K/ul (4.8-10.8) 06/13/25 07:00 RBC 2.38 M/uL (4.20-5.40) L 06/13/25 07:00 Hgb 7.3 g/dL (12.0-16.0) L 06/13/25 07:00 Hct 22.3 % (37.0-47.0) L 06/13/25 07:00 MCV 93.7 fL (80.0-100.0) 06/13/25 07:00 MCH 30.7 pg (25.0-34.0) 06/13/25 07:00 MCHC 32.7 g/dL (32.0-36.0) 06/13/25 07:00 RDW Std Deviation 47.3 fL (36.4-46.3) H 06/13/25 07:00 RDW Coeff of [place] 13.9 % (11.5-14.5) 06/13/25 07:00 Plt Count 147 K/uL (130-400) 06/13/25 07:00 MPV 10.0 fL (9.4-12.4) 06/13/25 07:00 Immature Gran % (Auto) 1.1 % 06/13/25 07:00 Neut % (Auto) 76.6 % 06/13/25 07:00 Lymph % (Auto) 5.9 % 06/13/25 07:00 [place] % (Auto) 16.3 % 06/13/25 07:00 Eos % (Auto) 0.0 % 06/13/25 07:00 Baso % (Auto) 0.1 % 06/13/25 07:00 Neut # (Auto) 7.76 K/uL (1.40-6.50) H 06/13/25 07:00 Lymph # (Auto) 0.60 K/uL (1.20-3.40) L 06/13/25 07:00 [place] # (Auto) 1.65 K/uL (0.11-0.59) H 06/13/25 07:00 Eos # (Auto) 0.00 K/uL (0.00-0.50) 06/13/25 07:00 Baso # (Auto) 0.01 K/uL (0.00-0.20) 06/13/25 07:00 Immature Gran # (Auto) 0.11 K/uL (0.01-0.20) 06/13/25 07:00 Hypersegmented Neuts 1+ 06/10/25 21:20 RBC Morphology Unremarkable 06/13/25 07:00 Polychromasia 1+ 06/12/25 07:16 Anisocytosis Present 06/10/25 21:20 Acanthocytes (Spur) 1+ 06/10/25 21:20 PT 10.7 Seconds (9.0-12.0) 06/10/25 21:20 INR 1.0 (0.9-1.1) 06/10/25 21:20 APTT 24 Seconds (21-31) 06/10/25 21:20 PTT Ratio 0.9 06/10/25 21:20 Sodium 138 mmol/L (136-145) 06/13/25 07:00 Potassium 4.3 mmol/L (3.5-5.1) 06/13/25 07:00 Chloride 107 mmol/L (98-107) 06/13/25 07:00 Carbon Dioxide 27 mmol/L (21-32) 06/13/25 07:00 Anion Gap 4 (3-11) 06/13/25 07:00 BUN 12 mg/dl (6-23) 06/13/25 07:00 Creatinine 0.35 mg/dl (0.6-1.2) L 06/13/25 07:00 Est Cr Clr Drug Dosing 93.5 ml/min 06/13/25 07:00 eGFR 98.25 06/13/25 07:00 BUN/Creatinine Ratio 34.3 (10-20) H 06/13/25 07:00 Glucose 131 mg/dl (70-99(Fasting)) H 06/13/25 07:00 POC Glucose 157 mg/dl (70-99) H 06/12/25 21:09 Calcium 7.8 mg/dl (8.6-10.3) L 06/13/25 07:00 Magnesium 2.1 mg/dl (1.7-2.4) 06/12/25 07:16 Total Bilirubin 0.4 mg/dl (0.2-1.0) 06/10/25 21:20 AST 20 U/L (13-39) 06/10/25 23:10 ALT 14 U/L (7-52) 06/10/25 21:20 Alkaline Phosphatase 80 U/L (34-104) 06/10/25 21:20 Total Creatine Kinase 93 U/L (26-192) 06/10/25 21:20 Total Protein 6.8 gm/dl (6.0-8.3) 06/10/25 21:20 Albumin 3.9 gm/dl (3.4-5.0) 06/10/25 21:20 Globulin 2.9 gm/dl (2.5-4.0) 06/10/25 21:20 Albumin/Globulin Ratio 1.3 (0.9-2) 06/10/25 21: Prealbumin 10.2 mg/dl (20-40) L 06/12/25 07:16 25-OH Vitamin D Total 39.4 ng/ml (30-100) 06/12/25 07:16 Urine Color Yellow 06/10/25: Urine Appearance Cloudy (Clear) A 06/10/25: Urine pH 7.5 (4.5-7.5) 06/10/25: Ur Specific [place] 1.020 (1.000-1.030) 06/10/25: Urine Protein Trace (Negative) H 06/10/25: Urine Glucose (UA) Negative (Negative) 06/10/25: Urine Ketones 1+ (Negative) H 06/10/25: Urine Blood Negative (Negative) 06/10/25: Urine Nitrite Negative (Negative) 06/10/25: Urine Bilirubin Negative (Negative) 06/10/25: Urine Urobilinogen Negative (Negative) 06/10/25: Ur Leukocyte Esterase 1+ (Negative) H 06/10/25 22: Urine WBC (Auto) 0-5 /hpf (0-5) 06/10/25: Urine RBC (Auto) 3-5 /hpf (0-2) H 06/10/25 22: U Hyaline Cast (Auto) 0-2 /lpf (0-2) 06/10/25 22: U Epithel Cells (Auto) 0-2 /hpf (0-2) 06/10/25 22:29 Urine Bacteria (Auto) 4+ (None Seen) H 06/10/25 22:29 Urine Comment 06/10/25 22:29 Nasal Screen MRSA (PCR) Negative (Negative) 06/11/25 02:20 Blood Type A Positive 06/11/25 07:20 Blood Type Recheck A Positive 06/12/25 07:16 Antibody Screen NEGATIVE 06/11/25 07:20 Crossmatch See Detail 06/11/25 07:20 Impressions Abdomen/Pelvis CT 06/10/25 21:55 Exam(s): CT ABDOMEN + PELVIS With Contrast IV Amt: 93 ML OPTIRAY 320 EXAM: CT Abdomen and Pelvis With Intravenous Contrast CLINICAL HISTORY: Reason for exam: fall, pain. TECHNIQUE: Axial computed tomography images of the abdomen and pelvis with intravenous contrast. CTDI is 37.87 mGy and DLP is 624.41 mGy-cm. Automated exposure control was utilized for the study. A dose lowering technique was utilized adhering to the principles of ALARA. CONTRAST: Patient received 93 ML OPTIRAY 320 of IV contrast COMPARISON: 05/30/2024 FINDINGS: Lung bases: Unremarkable. No mass. No consolidation. Mediastinum: Moderate-size esophageal hiatal hernia. ABDOMEN: Liver: Unremarkable. No mass. Gallbladder and bile ducts: Unremarkable. No calcified stones. No ductal dilation. Pancreas: Unremarkable. No mass. No ductal dilation. Spleen: Unremarkable. No splenomegaly. Adrenals: Unremarkable. No mass. Kidneys and ureters: Simple 3 cm right renal cysts. No follow-up of these simple cysts is necessary. No hydronephrosis. Stomach and bowel: large amount of stool within the colon and rectum. No mucosal thickening. PELVIS: Appendix: No findings to suggest acute appendicitis. Bladder: Gonsales catheter within the urinary bladder. Reproductive: Unremarkable as visualized. ABDOMEN and PELVIS: Intraperitoneal space: Unremarkable. No free air. No significant fluid collection. Bones/joints: Comminuted displaced intertrochanteric left hip fracture. Postop changes ORIF right femoral fracture. Nondisplaced right superior pubic ramus fracture. Healing left inferior pubic ramus fracture. No dislocation. Soft tissues: Unremarkable. Vasculature: Unremarkable. No abdominal aortic aneurysm. Lymph nodes: Unremarkable. No enlarged lymph nodes. IMPRESSION: Comminuted displaced intertrochanteric left hip fracture. Nondisplaced right superior pubic ramus fracture and healing left inferior pubic ramus fracture Electronically signed by: Mark Camarena MD 06/11/25 00:[address] 06/10/25 21:55 Exam(s): CT C SPINE EXAM: CT Cervical Spine Without Intravenous Contrast CLINICAL HISTORY: Reason for exam: fall, pain. TECHNIQUE: Axial computed tomography images of the cervical spine without intravenous contrast. CTDI is 37.87 mGy and DLP is 624.41 mGy-cm. Automated exposure control was utilized for the study. A dose lowering technique was utilized adhering to the principles of ALARA. COMPARISON: No relevant prior studies available. FINDINGS: Vertebrae: Reversal of normal cervical curvature centered C4-C5. No acute fracture. Discs/spinal canal/neural foramina: No acute findings. No spinal canal stenosis. Soft tissues: Unremarkable. IMPRESSION: No acute findings in the cervical spine. Electronically signed by: Mark Camarena MD 06/11/25 00:[address] 06/10/25 21:55 Exam(s): CT CHEST With Contrast IV Amt: 93 ML OPTIRAY 320 EXAM: CT Chest With Intravenous Contrast CLINICAL HISTORY: Reason for exam: fall, pain. TECHNIQUE: Axial computed tomography images of the chest with intravenous contrast. CTDI is 37.87 mGy and DLP is 624.41 mGy-cm. Automated exposure control was utilized for the study. A dose lowering technique was utilized adhering to the principles of ALARA. CONTRAST: Patient received 93 ML OPTIRAY 320 of IV contrast COMPARISON: No relevant prior studies available. FINDINGS: Lungs: Diffuse changes COPD. No mass. No consolidation. Pleural space: Unremarkable. No significant effusion. No pneumothorax. Heart: Unremarkable. No cardiomegaly. No significant pericardial effusion. No significant coronary artery calcifications. Mediastinum: Large esophageal hiatal hernia. Bones/joints: Unremarkable. No acute fracture. Soft tissues: Unremarkable. Vasculature: Unremarkable. No thoracic aortic aneurysm. Lymph nodes: Unremarkable. No enlarged lymph nodes. IMPRESSION: Large esophageal hiatal hernia. Electronically signed by: Mark Camarena MD 06/11/25 00:53 AM Elbow X-Ray 06/10/25 21:55 Exam(s): XR LEFT ELBOW, 3+ views EXAM: XR Left Elbow Complete, 3 or More Views CLINICAL HISTORY: Reason for exam: fall, pain. TECHNIQUE: Frontal, lateral and oblique views of the left elbow. COMPARISON: No relevant prior studies available. FINDINGS: Bones/joints: Acute nondisplaced mildly comminuted intra-articular fracture through the olecranon. No other fractures. No joint dislocation. Joint effusion suspected. Soft tissues: Posterior soft tissue swelling. IMPRESSION: Acute nondisplaced mildly comminuted intra-articular fracture through the olecranon. Electronically signed by: Michaelle Traore M.D. 06/11/25 03:[address] 06/10/25 21:55 Exam(s): CT HEAD Without Contrast EXAM: CT Head Without Intravenous Contrast CLINICAL HISTORY: Reason for exam: fall, HI. TECHNIQUE: Axial computed tomography images of the head/brain without intravenous contrast. CTDI is 37.87 mGy and DLP is 624.41 mGy-cm. Automated exposure control was utilized for the study. A dose lowering technique was utilized adhering to the principles of ALARA. COMPARISON: No relevant prior studies available. FINDINGS: Brain: Severe ischemic microangiopathy. Age-appropriate cerebral volume loss. No hemorrhage. Ventricles: Unremarkable. No ventriculomegaly. Bones/joints: Unremarkable. No acute fracture. Soft tissues: Unremarkable. Sinuses: Unremarkable as visualized. No acute sinusitis. Mastoid air cells: Unremarkable as visualized. No mastoid effusion. IMPRESSION: No acute findings in the head/brain. Electronically signed by: Mark Camarena MD 06/11/25 00:51 AM Hip/Pelvis X-Ray 06/10/25 21:57 Exam(s): XR HIP + PELVIS, 1 view EXAM: XR Left Hip With Pelvis When Performed, 2 or 3 Views CLINICAL HISTORY: Reason for exam: fall, pain. TECHNIQUE: Two or three views of the left hip with pelvis when performed. COMPARISON: No relevant prior studies available. FINDINGS: Bones/joints: Acute mildly displaced intertrochanteric fracture of the left femur. Prior ORIF of the right femur for intertrochanteric fracture. No dislocation. Osteopenia. Soft tissues: Unremarkable. IMPRESSION: Acute mildly displaced intertrochanteric fracture of the left femur. Electronically signed by: Michaelle Traore M.D. 06/11/25 03:04 AM Femur X-Ray 06/11/25 00:00 INTRAOPERATIVE RADIOGRAPHS CLINICAL HISTORY: Open reduction and internal fixation of a left femoral fracture. Fluoro time: 40 seconds Ka,r: 6.66 mGy FINDINGS: 4 spot fluoroscopic views of the left femur are correlated with x-rays dated 06/10/2025. Intertrochanteric and intramedullary nails have been placed transfixing a fracture of the left proximal femur. Near-anatomic alignment is restored. A single cortical lag screw transfixes the distal end of the nail. The orthopedic hardware appears intact. IMPRESSION: Intraoperative images from open reduction and internal fixation of a left femoral fracture as above. Electronically signed by: Fox Stratton M.D. 06/11/2025 3:11 PM
[2025-06-13] MEDS: FERROUS GLUCONATE 324 MG TAB PO SCH (11:52)
[2025-06-13] MEDS: POLYETHYLENE (MIRALAX) 17 GM PACK PO SCH (11:52)
--- NOTE | 2025-06-13 12:36 | Hospitalist Progress Note ---
Date of Service June 13, 2025 Assessment & Plan (1) Closed left hip fracture: Plan: Due to mechanical fall at home. Appreciate orthopedic consultation and recommendations. She underwent open reduction internal fixation with nailing procedure on June 11. Postoperative day #2. Orthopedic management (2) Fracture of right superior pubic ramus: Plan: Pain control measures. She will eventually be able to ambulate as tolerated (3) Left elbow fracture: Plan: Currently in a sling. Pain control measures. Orthopedic management (4) Hypokalemia: Plan: Mild on admission. Now corrected. (5) Acute hypoxic respiratory failure: Plan: Transient and now resolved. Probably related to narcotic therapy administered in the ED. Chest x-ray is clear. (6) Asymptomatic bacteriuria: Plan: Suspected UTI present on admission. Rocephin started, day 3. Alpha strep isolated (7) Acute blood loss anemia: Plan: Hemoglobin is 6.8 on June 12 necessitated transfusion with 1 unit packed red blood cells. Hemoglobin initially improved with transfusion to 8.2 but has drifted down again to 7.3. Oral iron supplementation has been started today, June 13. Will repeat H&H this afternoon. (8) Toxic encephalopathy: Plan: Transient due to narcotics administered in the ED. Now resolved. Plan Eventual rehab placement at the time of discharge. Admission and Anticipated Discharge Date Admission Date: June 11, 2025 Subjective Alert and oriented. No new problems. Hemoglobin improved after 1 unit of packed red blood cells from 6.8-8.2 but has now drifted back down to 7.3. Oral iron supplements started today, June 13. Will recheck hemoglobin level this afternoon. Rocephin day 3 for alpha strep UTI. Review of Systems 2 Review of Systems: Constitutionalno fever or chills ENTno blurred vision, no double vision, no epistaxis, no sore throat Respiratoryno cough, no wheezing, no shortness of breath Cardiacno palpitations, no chest pain, no syncope Shakira nausea, vomiting, diarrhea, melena, hematochezia GUno urinary retention, no urinary incontinence, no dysuria, no hematuria Musculoskeletalleft arm in a sling. Limited range of motion left leg due to recent left hip surgery for the fracture. Skinno bruising, no rashes, no pruritus Neurono isolated weakness, no paresthesia Psychno depression, no anxiety Physical Exam 2 Physical Exam: General-alert and oriented. No fever HEENT-head atraumatic and normocephalic, pupils equal and reactive to light, extraocular muscles intact Neck-no lymphadenopathy or thyromegaly, trachea midline Chest-clear to auscultation. No rales, wheezing or rhonchi Cardiac-regular rate and rhythm, normal S1 and S2 Abdomen-normal bowel sounds, no hepatosplenomegaly Extremities-no cyanosis, clubbing, or edema. Left hip surgical incision is unremarkable. She does have some bruising and swelling below the right elbow antecubital fossa Neuro-cranial nerves II through XII intact, motor and sensory function within normal limits, strength symmetrical, no focal deficits Psych-normal mood. Results & Data Results & Data Vital Signs (Past 12 Hours) Vital Signs Temp Pulse Pulse Resp BP Pulse Ox Pulse Ox 06/13/25 11:17 36.9 C 96 H 18 113/70 95 06/13/25 07:54 37.6 C H 77 16 124/72 96 06/13/25 07:46 95 H 06/13/25 07:46 06/13/25 03:00 96 06/13/25 03:00 96 06/13/25 02:04 37.1 C 81 16 100/64 95 06/13/25 01:57 122/76 O2 Del Method O2 Del Method O2 Flow Rate O2 Flow Rate 06/13/25 11:17 Nasal Cannula 2 06/13/25 07:54 Nasal Cannula 2 06/13/25 07:46 06/13/25 07:46 Nasal Cannula 2 06/13/25 03:00 Nasal Cannula 2 06/13/25 03:00 Nasal Cannula 2 06/13/25 02:04 Nasal Cannula 2 06/13/25 01:57 Laboratory Results 06/13/25 07:00 06/13/25 07:00 PG Care Time/CCT Total # of Minutes Spent Total Time Spent with Patient: Total time spent is greater than 50% in coordination of care (as documented) at patient's floor/unit and/or counseling patient: Coding Level of Care Code 48371 SUB INP/OBS CARE 3/50MIN Diagnoses Closed left hip fracture S72.002A Fracture of right superior pubic ramus S32.511A Left elbow fracture S42.402A Hypokalemia E87.6 Acute hypoxic respiratory failure J96.01 Asymptomatic bacteriuria R82.71 Acute blood loss anemia D62 Toxic encephalopathy G92.9
[2025-06-13 17:36] LABS: Hematocrit (blood only) 20.5 % (37.0-47.0); Hemoglobin 6.8 g/dL (12.0-16.0)
[2025-06-13] MEDS ORDERED: SODIUM CHLORIDE 0.9% 100 ML IV PRN ×2 (17:39→18:01)
[2025-06-13 20:44] LABS: Hematocrit (blood only) 20.5 % (37.0-47.0); Hemoglobin 6.9 g/dL (12.0-16.0)
[2025-06-14 03:50] LABS: Hematocrit (blood only) 24.1 % (37.0-47.0); Hemoglobin 8.3 g/dL (12.0-16.0); Immature Granulocytes # (auto) 0.08 K/uL (0.01-0.20); Immature Granulocytes % (auto) 0.8 %; Mean Corpuscular Hemoglobin 31.6 pg (25.0-34.0); Mean Corpuscular Volume 91.6 fL (80.0-100.0); Platelet Count 159 K/uL (130-400); RDW Standard Deviation 45.9 fL (36.4-46.3); Red Blood Count 2.63 M/uL (4.20-5.40); White Blood Count 10.03 K/ul (4.8-10.8)
[2025-06-14 04:11] LABS: Anion Gap 6.0 (3-11); Blood Urea Nitrogen 11.0 mg/dl (6-23); Calcium 7.7 mg/dl (8.6-10.3); Carbon Dioxide 25.0 mmol/L (21-32); Chloride 105.0 mmol/L (98-107); Creatinine Clr Calc Pharmacy 105.5 ml/min; Glucose 119.0 mg/dl (70-99(Fasting)); Potassium 4.1 mmol/L (3.5-5.1); Sodium 136.0 mmol/L (136-145)
[2025-06-14] MEDS: POLYETHYLENE (MIRALAX) 17 GM PACK PO PRN (05:40)
--- NOTE | 2025-06-14 07:33 | Orthopedic Progress Note ---
Date of Service June 14, 2025 Assessment & Plan (1) Fracture of right superior pubic ramus: (2) Intertrochanteric fracture of left femur: (3) Closed fracture of left olecranon process: Plan * Case/imaging reviewed and discussed with Dr Ayala - Left intertrochanteric femur fracture * s/p L TFN * NWWBAT - Right pubic rami fracture * Recommend closed management * Activity as tolerated - Left olecranon fracture * Recommend closed management * Maintain splint * Okay for platform walker, otherwise NWB left upper extremity * Daily treatment: Physical Therapy/ Occupational Therapy per protocol * Pain control * Disposition: TBD * Remainder care per primary team * Office f/u 2-3 weeks for staple removal and repeat XR Subjective Active Problems: S/p left TFN, also L olecranon fx POD 3 89 y/o female s/p left TFN, also with L olecranon fx undergoing closed treatment. Doing well overall, pain managed and improved function. Denies fever/chills, chest pain/SOB, nausea/vomiting. Otherwise no complaints. . Review of Systems All systems reviewed & are unremarkable except as noted in HPI & below. Physical Exam . * General: Alert and oriented, no acute distress * Constitutional: well-developed, well-nourished. * Respiratory: Normal respiratory effort, no distress * Gastrointestinal: No tenderness to palpation, no rigidity or guarding. * Skin: No rash or lesion. * Neurologic: Grossly normal * Musculoskeletal: - left hip: surgical dressing CDI, not removed for exam. Otherwise no obvious deformity or overlying skin changes. Diffuse TTP proximal thigh and hip region. Otherwise no specific tenderness of distal thigh, lower leg, foot/ankle. AROM h ip flexion intact. AROM foot/ankle intact. Sensation intact plantar/dorsal foot. Brisk capillary refill. - L elbow: Splint intact. Soft tissue swelling of L hand. AROM fingers intact. Sensation intact radial/median/ulnar nerve distributions. Brisk capillary refill. Results & Data Results & Data Laboratory Results . Diagnostic Findings . PG Care Time/CCT Total # of Minutes Spent Total Time Spent with Patient: Total time spent is greater than 50% in coordination of care (as documented) at patient's floor/unit and/or counseling patient: Coding Level of Care Code 06824 Post Operative Follow-Up Diagnoses Fracture of right superior pubic ramus S32.511A Intertrochanteric fracture of left femur S72.142A Closed fracture of left olecranon process S52.022A
[2025-06-14] MEDS: ACETAMINOPHEN 325 MG TAB PO PRN (08:43)
--- NOTE | 2025-06-14 14:24 | Procedure Note ---
Procedure Note Date of Service June 14, 2025 Removed patients posterior splint on left upper extremity and placed long arm cylinder cast. Splint was removed and 3" stockinette was placed proximally on upper arm and distally around wrist. 3" cotton cast padding was used to wrap extremity from wrist to above elbow. 3" fiberglass casting material was then placed over top of padding and stockinette was rolled down at cast ends to provide padding. Elbow was kept bent at approximately 90 degrees as patient tolerated and she remained neurovascularly intact following procedure. It was noted patient has a lot of edema in her left hand but has intact sensation and motor function. Good capillary refill. Coding Additional Codes Date of Service ([facility].SURGERY)
--- NOTE | 2025-06-14 14:48 | Hospitalist Progress Note ---
Date of Service June 14, 2025 Assessment & Plan (1) Closed left hip fracture: Plan: Due to mechanical fall at home. She underwent open reduction internal fixation with nailing procedure on June 11. Orthopedic management (2) Fracture of right superior pubic ramus: Plan: Closed management Pain control measures. She will eventually be able to ambulate as tolerated Continue PT OT (3) Left elbow fracture: Plan: Currently in a splint. Pain control measures. Orthopedic management Nonweightbearing left upper extremity Outpatient follow-up with orthopedics in 2 to 3 weeks (4) Hypokalemia: Plan: Mild on admission. Now corrected. (5) Acute hypoxic respiratory failure: Plan: Transient and now resolved. Probably related to narcotic therapy administered in the ED. Chest x-ray is clear. (6) Asymptomatic bacteriuria: Plan: Suspected UTI present on admission. Completed 3 days of antibiotics (7) Acute blood loss anemia: Plan: Hemoglobin is 6.8 on June 12 necessitated transfusion with 1 unit packed red blood cells. Hemoglobin initially improved with transfusion to 8.2 but has drifted down again to 7.3. Oral iron supplementation has been started Repeat H&H (8) Toxic encephalopathy: Plan: Now resolved. Plan Eventual rehab placement at the time of discharge. Admission and Anticipated Discharge Date Admission Date: June 11, 2025 Subjective Patient seen and examined, she is stable post ORIF, Awaiting rehab Review of Systems Review of Systems: All systems reviewed are negative, apart from the ones contained in the history. Physical Exam Physical Exam: The patient is awake, alert and oriented 3, well developed and well nourished, normocephalic and atraumatic, lying in bed and in no acute distress. HEENT--PERRL, EOMI, mucous membranes and oropharynx mildly dry Neck--supple. No JVD. No bruits. Thyroid normal, trachea midline, no adenopathy. Heart--normal S1 and S2. No murmurs, rubs or gallops. Lungs--clear bilaterally, no respiratory distress, no accessory muscle use. Abdomen--normal bowel sounds and soft. Extremities--Left upper extremity in splint Dermatologic--normal skin turgor, normal color, no abnormal lymph nodes, no rash. Neurologic--cranial nerves II through XII grossly intact. Rheumatologic--normal range of motion. Psychiatric--normal affect. Results & Data Results & Data Vital Signs (Past 12 Hours) Vital Signs Temp Pulse Pulse Resp BP Pulse Ox Pulse Ox 06/14/25 11:38 98.1 F 85 17 114/77 90 06/14/25 07:46 100.2 F H 92 H 18 116/73 95 06/14/25 07:32 97 H 06/14/25 03:49 99.0 F 86 17 103/63 94 06/14/25 03:00 96 06/14/25 03:00 96 O2 Del Method O2 Del Method O2 Flow Rate O2 Flow Rate 06/14/25 11:38 Nasal Cannula 3 06/14/25 07:46 Room Air 06/14/25 07:32 06/14/25 03:49 Nasal Cannula 06/14/25 03:00 Nasal Cannula 2 06/14/25 03:00 Nasal Cannula 2 PG Care Time/CCT Total # of Minutes Spent Total Time Spent with Patient: Total time spent is greater than 50% in coordination of care (as documented) at patient's floor/unit and/or counseling patient: Coding Level of Care Code 83087 SUB INP/OBS CARE 2/35MIN Diagnoses Closed left hip fracture S72.002A Fracture of right superior pubic ramus S32.511A Left elbow fracture S42.402A Hypokalemia E87.6 Acute hypoxic respiratory failure J96.01 Asymptomatic bacteriuria R82.71 Acute blood loss anemia D62 Toxic encephalopathy G92.9 Time Spent (min) 35
--- NOTE | 2025-06-14 14:58 | Electrocardiogram Report ---
Test Reason : Blood Pressure : */* mmHG Vent. Rate : 101 BPM Atrial Rate : 101 BPM P-R Int : 150 ms QRS Dur : 78 ms QT Int : 362 ms P-R-T Axes : 10 54 -2 degrees QTcB Int : 469 ms Sinus tachycardia with Premature atrial complexes Low voltage QRS Abnormal ECG When compared with ECG of 10-Jun-2025 21:36, Premature atrial complexes are now Present Vent. rate has increased by 36 bpm Nonspecific T wave abnormality, improved in Lateral leads Confirmed by Trent Abdul ([id number]) on 06/14/2025 2:58:08 PM Referred By: [facility] Confirmed By: Trent Abdul
[2025-06-15 06:44] LABS: Hematocrit (blood only) 23.6 % (37.0-47.0); Hemoglobin 7.9 g/dL (12.0-16.0); Immature Granulocytes # (auto) 0.05 K/uL (0.01-0.20); Immature Granulocytes % (auto) 0.7 %; Mean Corpuscular Hemoglobin 30.6 pg (25.0-34.0); Mean Corpuscular Volume 91.5 fL (80.0-100.0); Platelet Count 181 K/uL (130-400); RDW Standard Deviation 48.6 fL (36.4-46.3); Red Blood Count 2.58 M/uL (4.20-5.40); White Blood Count 6.91 K/ul (4.8-10.8)
[2025-06-15 07:02] LABS: Anion Gap 6.0 (3-11); Blood Urea Nitrogen 12.0 mg/dl (6-23); Calcium 7.8 mg/dl (8.6-10.3); Carbon Dioxide 26.0 mmol/L (21-32); Chloride 104.0 mmol/L (98-107); Creatinine Clr Calc Pharmacy 159.1 ml/min; Glucose 103.0 mg/dl (70-99(Fasting)); Potassium 4.1 mmol/L (3.5-5.1); Sodium 136.0 mmol/L (136-145)
[2025-06-15 07:07] LABS: Polychromasia 1+
--- NOTE | 2025-06-15 11:35 | Discharge Summary ---
Date of Service June 15, 2025 Admission HPI Per Admitting Provider Patient is an 89-year-old female with past medical history of HTN, HLD, hypothyroidism, COPD, venous insufficiency, stage IIIa CKD. Patient presented via EMS after a reported ground-level mechanical fall resulting in a left intertrochanteric hip fracture, right superior pubic ramus fracture, and left elbow fracture. Laboratories also revealed potassium of 3.1. Patient became hypoxic requiring 2L NC after IV pain control. She is being admitted for ambulatory dysfunction/fall resulting in hip fractures, hypokalemia, and hypoxia. Patient seen at bedside. She is completely disoriented and sleeping frequently on exam however responds to verbal stimuli. She does not remember the fall today however does remember being in the ED and getting the splint placed and not all of the CT scans. She stated her pain is currently well-controlled. She wishes to maintain her DNR/DNI status. Discussion with nursing. Patient is mildly confused at baseline however typically oriented, has become more confused after IV fentanyl use. Reportedly 75 mcg fentanyl via EMS. Admission Exam (Per Admitting) Constitutional The patient is awake, alert and oriented 3, well developed and well nourished, normocephalic and atraumatic, lying in bed and in no acute distress. HEENT--PERRL, EOMI, mucous membranes and oropharynx mildly dry Neck--supple. No JVD. No bruits. Thyroid normal, trachea midline, no adenopathy. Heart--normal S1 and S2. No murmurs, rubs or gallops. Lungs--clear bilaterally, no respiratory distress, no accessory muscle use. Abdomen--normal bowel sounds and soft. Extremities--no cyanosis or clubbing. No edema. Dermatologic--normal skin turgor, normal color, no abnormal lymph nodes, no rash. Neurologic--cranial nerves II through XII grossly intact. Rheumatologic--normal range of motion. Psychiatric--normal affect. Discharge Data Consultations 06/11/25 01:04 ED Decision to Admit Stat 06/11/25 03:17 Consult Orthopedic Surgery Routine Procedures Performed Operation Date: 06/11/25 09:50 Actual Procedures p Left Femur Trochanteric Nail(Left) - Pedro Ayala MD Hospital Course (1) Closed left hip fracture: Due to mechanical fall at home. She underwent open reduction internal fixation with nailing procedure on June 11. Orthopedic management (2) Fracture of right superior pubic ramus: Closed management Pain control measures. She will eventually be able to ambulate as tolerated Continue PT OT (3) Left elbow fracture: Currently in a splint. Pain control measures. Orthopedic management Nonweightbearing left upper extremity Outpatient follow-up with orthopedics in 2 to 3 weeks (4) Hypokalemia: Mild on admission. Now corrected. (5) Acute hypoxic respiratory failure: Transient and now resolved. Probably related to narcotic therapy administered in the ED. Chest x-ray is clear. (6) Asymptomatic bacteriuria: Suspected UTI present on admission. Completed 3 days of antibiotics (7) Acute blood loss anemia: Hemoglobin is 6.8 on June 12 necessitated transfusion with 1 unit packed red blood cells. Hemoglobin initially improved with transfusion to 8.2 but has drifted down again to 7.3. Oral iron supplementation has been started Repeat H&H (8) Toxic encephalopathy: Now resolved. Plan acute rehab Coding Level of Care Code 45632 INP/OBS DISCH >30 MIN Diagnoses Closed left hip fracture S72.002A Fracture of right superior pubic ramus S32.511A Left elbow fracture S42.402A Hypokalemia E87.6 Acute hypoxic respiratory failure J96.01 Asymptomatic bacteriuria R82.71 Acute blood loss anemia D62 Toxic encephalopathy G92.9 Time Spent (min) 35
[2025-06-15 11:46] VITALS: BP 121/77; RESP 17; TEMP 98.4; O2SAT 99
[2025-06-15 15:14] VITALS: PULSE 101
== END 2025-06-15 15:52 | DRG 956 ==
LOC: ED 21:05 → SUATTDRO 06-11 01:49 → 2W 06-11 01:49